=== PATIENT | female | born 1945 | race Hispanic/Latino ===

== ENCOUNTER 2018-09-19 13:55 | Emergency (ER) | payer OTHER ==
--- OUTSIDE RECORDS SUMMARY | 2018-09-19 13:58 | XMS REPORT | Continuity of Care Document ---
:1945 Author Organization Interface Problems Problem Status Onset Classification Date Comments Source Date Reported CHEST PAIN, ELEVATED Active CARDIAC ENZYMES 017 [facility] SCREENING COLON Active Sugar [id number]-Z12.11 016 [facility] Asthma Active Problem 03/24/2017 [place] Breast cancer, RT. Resolved Problem 03/24/2017 [place] Glaucoma Active Problem 03/24/2017 [place] HTN - Hypertension Active Problem 03/24/2017 [place] Hypercholesterolemia Active Problem 03/24/2017 [place] Hypothyroid Active Problem 03/24/2017 [place] Obesity Active Problem 03/24/2017 [place] CHEST PAIN, Active UNSPECIFIED [facility] Medications Medication Details Route Status Patient Ordering Order Source Instructions Provider Date aspirin 81 mg tablet, 81 mg=1 Active enteric coated tab, PO, 2016 Daily, # 90 tab, 3 Refill(s) Travatan Z 0.004% 1 drp, Active ophthalmic solution OPT, 2016 QPM, # 2.5 ml, 0 Refill(s) Combigan ophthalmic 1 drp, Active solution OPT, 2016 Q12H, # 10 mL, 0 Refill(s) aluminum 2 tab, Active hydroxide-magnesium CHEW, 2016 carbonate 160 mg-105 Daily, 0 mg oral tablet, Refill(s) chewable Tylenol 500 mg, Active PO, Q6H, 2016 PRN Pain Score 1-3, 0 Refill(s) metoprolol extended 25 mg, Active release PO, 2016 Daily, 0 Refill(s) hydrochlorothiazide 12.5 mg, Active PO, 2016 Daily, 0 Refill(s) tramadol 50 mg oral 50 mg=1 Active tablet tab, PO, 2016 Q8H, PRN Pain, # 60 tab, 0 Refill(s) metoprolol 50 mg oral 50 mg=1 Active Sugar tablet, extended tab, PO, 2015 [place] release Daily, 0 Refill(s) Advair Diskus 250 1 puff, Active Sugar mcg-50 mcg inhalation INHALATIO 2015 [place] powder N, BID, PRN Wheezing, 0 Refill(s) Allergies, Adverse Reactions, Alerts Substance Category Reaction Severity Reaction Status Date Comments Source type Reported codeine Assertion Drug Active sulfate allergy [facility] Immunizations Immunization Date Given Site Status Last Updated Comments Source Results Order Name Results Value Reference Date Interpretation Comments Source Range CARDIAC CK MB Index 1.2 0.0 - 2.5 03/21 ENZYMES /2016 [facility] CARDIAC Troponin-I 0.07 0.00 - 03/21 ENZYMES ng/mL 0.40 [facility] CARDIAC BNP 92 <=100 03/21 ENZYMES pg/mL pg/mL [facility] CARDIAC CK MB 1.5 0.5 - 3.6 03/21 ENZYMES ng/mL [facility] CARDIAC Total CK 129 12 - 191 03/21 ENZYMES unit/L [facility] CHEM PANEL eGFR 94 03/21 Result Comment: The eGFR is calculated using the CKD-EPI formula. In most young, healthy individuals the eGFR will be >90 mL/ min/1.73m2. The eGFR declines with age. An eGFR of 60-89 may be normal in mL/min/ /2016 some populations, particularly the elderly, for whom the CKD-EPI formula has not been extensively validated. Use of the eGFR is not recommended in the following populations: [place] 1.73m2 Individuals with unstable creatinine concentrations, including patients and those with serious co-morbid conditions. Patients with extremes in muscle mass or diet. The data above are obtained from the National Kidney Disease Education Program (NKDEP) which additionally recommends that when the eGFR is used in patients with extremes of body mass index for purposes of drug dosing, the eGFR should be multiplied by the estimated BMI. CHEM PANEL Total Protein 7.3 6.4 - 8.4 03/21 MH g/dL [facility] CHEM PANEL Albumin Lvl 3.3 3.5 - 5.0 03/21 MH g/dL [facility] CHEM PANEL ALT 73 0 - 65 03/21 MH unit/L [facility] CHEM PANEL CO2 26 24 - 32 03/21 MH meq/L /2016 [facility] CHEM PANEL Chloride Lvl 107 95 - 109 03/21 MH meq/L /2016 [facility] CHEM PANEL Calcium Lvl 8.6 8.5 - 10.5 03/21 MH mg/dL /2016 [facility] CHEM PANEL Globulin 4.0 2.7 - 4.2 03/21 MH g/dL /2016 [facility] CHEM PANEL A/G Ratio 0.8 0.7 - 1.6 10 MH /2016 [facility] CHEM PANEL AGAP 9.5 10.0 - 03/21 MH meq/L 20.0 /2016 [facility] CHEM PANEL AST 83 0 - 37 03/21 MH unit/L /2016 [facility] CHEM PANEL Alk Phos 102 39 - 136 03/21 MH unit/L /2016 [facility] CHEM PANEL Bili Total 1.0 0.2 - 1.3 03/21 MH mg/dL /2016 [facility] CHEM PANEL B/C Ratio 32 6 - 25 03/21 MH /2016 [facility] CHEM PANEL Glucose Lvl 100 70 - 99 03/21 MH mg/dL /2016 [facility] CHEM PANEL Creatinine 0.53 0.50 - 03/21 MH Lvl mg/dL 1.40 /2016 [facility] CHEM PANEL Sodium Lvl 139 135 - 145 03/21 MH meq/L /2016 [facility] CHEM PANEL BUN 17 7 - 22 03/21 MH mg/dL /2016 [facility] CHEM PANEL Potassium Lvl 3.5 3.5 - 5.1 03/21 MH meq/L /2016 [facility] HEMATOLOGY Hgb 12.1 12.0 - 03/21 MH g/dL 16.0 /2016 [facility] HEMATOLOGY RBC 4.44 4.20 - 03/21 MH M/CMM 5.40 /2016 [facility] HEMATOLOGY WBC 6.5 3.7 - 10.4 03/21 MH K/CMM /2016 [facility] HEMATOLOGY RDW 14.2 % 11.5 - 03/21 MH 14.5 /2016 [facility] HEMATOLOGY MCHC 32.8 32.0 - 03/21 MH g/dL 36.0 /2016 [facility] HEMATOLOGY MCH 27.3 pg 27.0 - 03/21 MH 31.0 [facility] HEMATOLOGY MCV 83.3 fL 80.0 - 03/21 MH 98.0 /2016 [facility] HEMATOLOGY Hct 37.0 % 36.0 - 03/21 MH 48.0 /2016 [facility] HEMATOLOGY MPV 7.6 fL 7.4 - 10.4 10/ [facility] HEMATOLOGY Platelet 265 133 - 450 03/21 K/CM [facility] HEMATOLOGY Monocytes 9.2 % 2.0 - 12.0 03/21 [facility] HEMATOLOGY Lymphocytes 31.5 % 20.0 - 03/21 40.0 [place] HEMATOLOGY Segs 58.2 % 45.0 - 03/21 75.0 [facility] HEMATOLOGY Basophils 0.3 % 0.0 - 1.0 03/21 [place] HEMATOLOGY Eosinophils 0.8 % 0.0 - 4.0 03/21 [place] HEMATOLOGY Monocytes # 0.6 0.0 - 0.8 03/21 K/CM [facility] HEMATOLOGY Lymphocytes # 2.0 1.0 - 5.5 03/21 K/CM [facility] HEMATOLOGY Segs-Bands # 3.8 1.5 - 8.1 03/21 K/CM [facility] HEMATOLOGY Eosinophils # 0.1 0.0 - 0.5 03/21 K/CM [facility] Vital Signs Vital Sign Value Date Comments Source Systolic (mm Hg) 113 03/21/2017 [place] Diastolic (mm Hg) 65 03/21/2017 [place] Respitory Rate 18 03/21/2017 [facility] Temperature Oral (F) 97.8 F 03/21/2017 [facility] Respitory Rate 21 03/21/2017 [facility] Respitory Rate 18 03/21/2017 [facility] Systolic (mm Hg) 118 03/21/2017 [facility] Diastolic (mm Hg) 79 03/21/2017 [facility] Systolic (mm Hg) 98 03/21/2017 [facility] Diastolic (mm Hg) 53 03/21/2017 [facility] Temperature Oral (F) 98 F 03/21/2017 [place] Weight 80.227 03/21/2017 [place] Height 91.44 cm 03/21/2017 [place] BMI Calculated 95.95 03/21/2017 [facility] Temperature Oral (F) 98.3 F 03/21/2017 [facility] BMI Calculated 30.71 09/07/2015 [place] Height 160.02 cm 09/07/2015 [place] Weight 78.636 09/07/2015 [place] Encounters Location Location Encounter Encounter Reason Attending ADM DC Status Source Details Type Number For Provider Date Date Visit Outpatient [id number] YUNIOR 08/15 [facility] [id number] Yunior 09/08 09/08 Adelaida Recinos [facility] [place] [facility] [place] [facility] [id number] Ubaldo 03/21 03/21 WILNER Bravo /2016 [facility] Procedures Procedure Code Date Perfomer Comments Source Abdominal [id number] [place] hysterectomy Bilateral tubal [id number] [place] ligation Cholecystectomy [id number] [place] Mastectomy, RT. [id number] [place] Abdominal [id number] [place] hysterectomy Bilateral tubal [id number] [place] ligation Cholecystectomy [id number] [place] Mastectomy, [place]. [id number] [facility]
[2018-09-19 14:48] LABS: Absolute Lymphocytes (CBC) 1.5 K/uL (0.7-4.9); Absolute Monocytes 0.7 K/uL (0.1-1.3); Absolute Neutrophil 7.7 K/uL (1.8-8.0); Basophils % 0.2 % (0-1.3); Eosinophils % 0.3 % (0-4.4); Hematocrit 38.6 % (36.0-45.0); Monocytes % 6.9 % (3.3-12.3)
[2018-09-19 15:06] LABS: ALT/SGPT 20 U/L (12-78); AST/SGOT 16 U/L (15-37); Albumin 3.8 g/dL (3.4-5.0); Alkaline Phosphatase 103 U/L (45-117); BUN Blood Urea Nitrogen 16 mg/dL (7-18); Bicarbonate 27 mmol/L (21-32); Bilirubin Direct 0.2 mg/dL (0-0.2); Bilirubin Total 0.8 mg/dL (0.2-1.0); Glucose Level 108 mg/dL (74-106); Lipase 193 U/L (73-393); Potassium 3.5 mmol/L (3.5-5.1); Protein, Total 8.2 g/dL (6.4-8.2); Sodium Level 140 mmol/L (136-145)
[2018-09-19] MEDS ORDERED: NA CHLORIDE 0.9% 1,000 ML ONE (15:24)
[2018-09-19] MEDS ORDERED: ONDANSETRON 4 MG/2 ML VIAL ONE (15:24)
--- NOTE | 2018-09-19 15:50 | RAD REPORT ---
EXAM DESCRIPTION: CT - Abdomen Pelvis W Contrast - 09/19/2018 3:38 pm CLINICAL HISTORY: Abdominal pain COMPARISON: none. TECHNIQUE: Computed axial tomography of the abdomen pelvis was obtained. 100 cc Isovue-300 was admin istered intravenously. Oral contrast was not requested which limits evaluation of bowel. All CT scans are performed using dose optimization technique as appropriate and may include automated exposure control or mA/KV adjustment according to patient size. FINDINGS: Right middle lobe bronchiectasis . Small hiatal hernia The liver, spleen, pancreas, adrenal and left kidney appear unremarkable. 27 millimeter right renal cyst Large number of diverticula stem from the colon without evidence of diverticulitis. The wall of several loops of jejunum are thickened with stranding within the adjacent mesenteric. Sma ll amount of ascites is present Gallbladder has been removed. A hysterectomy is been performed IMPRESSION: Thickening of the wall of several loops of jejunum with stranding in the adjacent mesent cynthia probably indicating infection/inflammation.
--- NOTE | 2018-09-19 15:56 | ER ---
Nurse's Notes [facility] Name: Bertha Sherwood Age: 73 yrs Sex: Female : 1945 Arrival Date: 09/19/2018 Time: 13:58 Bed 5 Private MD: Jose Manuel Cancino Diagnosis: Left sided colitis Presentation: 09/19 14:00 Presenting complaint: Patient states: dizziness, n/v/d, diffuse abd pain x 2 weeks. sv Transition of care: patient was not received from another setting of care. Onset of symptoms was August 2018. Care prior to arrival: None. 14:00 Method Of Arrival: Ambulatory sv 14:00 Acuity: ANIKET 3 sv 16:34 Risk Assessment: Do you want to hurt yourself or someone else? Patient reports no ss desire to harm self or others. Initial Sepsis Screen: Does the patient meet any 2 criteria? No. Patient's initial sepsis screen is negative. Does the patient have a suspected source of infection? No. Patient's initial sepsis screen is negative. Triage Assessment: 14:00 General: Appears in no apparent distress. comfortable, well developed, Behavior is sv calm, cooperative, appropriate for age. Pain: Denies pain. Neuro: Level of Consciousness is awake, alert, obeys commands, Oriented to person, place, time, situation, Gait is steady. Neuro: Reports dizziness. Respiratory: Respiratory effort is even, unlabored, Respiratory pattern is regular, symmetrical. GI: Reports diarrhea, nausea, vomiting. Historical: - Allergies: 14:01 Codeine; sv - PMHx: 14:01 Cancer, Breast; GERD; Hernia; Hyperlipidemia; Hypertension; Hypothyroidism; sv - PSHx: 14:01 Hernia repair; sv - Immunization history:: Adult Immunizations up to date. - Social history:: Smoking status: Patient/guardian denies using tobacco, never smoked. - Ebola Screening: : Patient denies exposure to infectious person Patient denies travel to an Ebola-affected area in the 21 days before illness onset. Screenin:10 Abuse screen: Denies threats or abuse. Denies injuries from another. Nutritional bp screening: No deficits noted. Tuberculosis screening: No symptoms or risk factors identified. Fall Risk None identified. Assessment: 14:15 General: Appears in no apparent distress. comfortable, Behavior is cooperative, bp appropriate for age, anxious. Pain: Complains of pain in left lower quadrant. Neuro: Level of Consciousness is awake, alert, obeys commands, Oriented to person, place, time, situation, Appropriate for age Reports dizziness. Cardiovascular: Rhythm is sinus rhythm. Respiratory: Airway is patent Respiratory effort is even, unlabored, Respiratory pattern is regular, symmetrical. GI: Reports nausea, vomiting. GI: Abdomen is non-distended. : No signs and/or symptoms were reported regarding the genitourinary system. EENT: No deficits noted. Derm: No deficits noted. Musculoskeletal: Circulation, motion, and sensation intact. Range of motion: intact in all extremities. 15:04 Reassessment: orthostatics complete. pt became mildly dizzy when sitting on the side of ss the bed. DONNA Lewis. 16:23 Reassessment: Patient appears in no apparent distress at this time. Patient and/or ss family updated on plan of care and expected duration. Pain level reassessed. Patient is alert, oriented x 3, equal unlabored respirations, skin warm/dry/pink. awaiting IVF to finish infusing prior to discharge Patient denies pain at this time. Patient states feeling better. Vital Signs: 14:01 BP 116 / 72; Pulse 99; Resp 16; Temp 97.9; Pulse Ox 98% ; Weight 77.11 kg; Height 5 ft. sv 3 in. (160.02 cm); Pain 0/10; 15:02 BP 115 / 54 Supine; Pulse 88; ss 15:02 BP 89 / 47 Sitting; Pulse 93; ss 15:02 BP 92 / 49; Pulse 97; ss 16:33 BP 108 / 67; Pulse 87; Resp 16; Pulse Ox 98% on R/A; Pain 0/10; ss 14:01 Body Mass Index 30.11 (77.11 kg, 160.02 cm) sv ED Course: 13:58 Patient arrived in ED. mr 13:58 Jose Manuel Cancino MD is Private Physician. mr 14:01 Triage completed. sv 14:02 Arm band placed on. sv 14:03 Sigifredo Lerma, LULÚ is Primary Nurse. bp 14:03 Debbie Austin FNP-C is PHCP. kb 14:03 Silvestre Wilson MD is Attending Physician. kb 14:10 Patient has correct armband on for positive identification. Bed in low position. Call bp light in reach. Side rails up X2. Adult w/ patient. 14:10 Inserted saline lock: 20 gauge in left antecubital area, using aseptic technique. Blood bp collected. 15:38 CT Abd/Pelvis - W/Contrast In Process Unspecified. EDMS 16:33 No provider procedures requiring assistance completed. IV discontinued, intact, ss bleeding controlled, No redness/swelling at site. Pressure dressing applied. Administered Medications: 15:25 Drug: Zofran 4 mg Route: IVP; Site: left antecubital; ss 16:22 Follow up: Response: No adverse reaction; Nausea is decreased ss 15:26 Drug: NS 0.9% 1000 ml Route: IV; Rate: 1000 ml; Site: left antecubital; ss 16:32 Follow up: IV Status: Completed infusion; IV Intake: 1000ml ss 16:21 Drug: Flagyl 500 mg Route: PO; ss 16:32 Follow up: Response: No adverse reaction; Medication administered at discharge. ss 16:22 Drug: Cipro 500 mg Route: PO; ss 16:32 Follow up: Response: No adverse reaction; Medication administered at discharge. ss Intake: 16:32 IV: 1000ml; Total: 1000ml. ss Outcome: 15:56 Discharge ordered by . kb 16:33 Discharged to home ambulatory, with family. ss 16:33 Condition: improved 16:33 Discharge instructions given to patient, family, Instructed on discharge instructions, follow up and referral plans. medication usage, Demonstrated understanding of instructions, follow-up care, medications, Prescriptions given X 2. 16:35 Patient left the ED. ss Signatures: Dispatcher [employer] EDNC Debbie Austin, TYREE LEHR OPERATOR-Kinsey Lenz, RN RN fabby Mayfield Yasmeen mr Sonya Can, RN RN Sigifredo Tan, RN RN bp
--- NOTE | 2018-09-19 15:56 | EDPHYS ---
Physician Documentation [facility] Name: Bertha Sherwood Age: 73 yrs Sex: Female : 1945 Arrival Date: 09/19/2018 Time: 13:58 Bed 5 Private MD: Jose Manuel Cancino ED Physician Silvestre Wilson HPI: 09/19 14:52 This 73 yrs old Female presents to ER via Ambulatory with complaints of kb Dizziness, Vomiting. 14:52 The patient presents with dizziness. kb 14:52 The patient presents to the emergency department with nausea, vomiting, diarrhea, kb abdominal pain. Onset: The symptoms/episode began/occurred 2 week(s) ago. Possible causes: unknown. The symptoms are aggravated by nothing. The symptoms are alleviated by nothing. Associated signs and symptoms: Pertinent positives: diarrhea, nausea, vomiting. Severity of symptoms: At their worst the symptoms were moderate in the emergency department the symptoms are unchanged. The patient has not experienced similar symptoms in the past. The patient has not recently seen a physician. Pt reports n/v/d, abd pain and dizziness that has been going on for 2 weeks. 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 Denies fever. . Historical: - Allergies: 14:01 Codeine; sv - PMHx: 14:01 Cancer, Breast; GERD; Hernia; Hyperlipidemia; Hypertension; Hypothyroidism; sv - PSHx: 14:01 Hernia repair; sv - Immunization history:: Adult Immunizations up to date. - Social history:: Smoking status: Patient/guardian denies using tobacco, never smoked. - Ebola Screening: : Patient denies exposure to infectious person Patient denies travel to an Ebola-affected area in the 21 days before illness onset. ROS: 14:51 Constitutional: Negative for fever, chills, and weight loss, Cardiovascular: Negative kb for chest pain, palpitations, and edema, Respiratory: Negative for shortness of breath, cough, wheezing, and pleuritic chest pain, Back: Negative for injury and pain, MS/Extremity: Negative for injury and deformity, Skin: Negative for injury, rash, and discoloration. 14:51 Abdomen/GI: Positive for abdominal pain, nausea, vomiting, and diarrhea, Negative for constipation, abdominal cramps, abdominal distension. 14:51 Neuro: Positive for dizziness. Exam: 14:50 Constitutional: This is a well developed, well nourished patient who is awake, alert, kb and in no acute distress. Head/Face: Normocephalic, atraumatic. Chest/axilla: Normal chest wall appearance and motion. Nontender with no deformity. No lesions are appreciated. Cardiovascular: Regular rate and rhythm with a normal S1 and S2. No gallops, murmurs, or rubs. Normal PMI, no JVD. No pulse deficits. Respiratory: Lungs have equal breath sounds bilaterally, clear to auscultation and percussion. No rales, rhonchi or wheezes noted. No increased work of breathing, no retractions or nasal flaring. Back: No spinal tenderness. No costovertebral tenderness. Full range of motion. Skin: Warm, dry with normal turgor. Normal color with no rashes, no lesions, and no evidence of cellulitis. MS/ Extremity: Pulses equal, no cyanosis. Neurovascular intact. Full, normal range of motion. Neuro: Awake and alert, GCS 15, oriented to person, place, time, and situation. Cranial nerves II-XII grossly intact. Motor strength 5/5 in all extremities. Sensory grossly intact. Cerebellar exam normal. Normal gait. 14:50 Abdomen/GI: Inspection: abdomen appears normal, Bowel sounds: normal, in all quadrants, Palpation: soft, in all quadrants, moderate abdominal tenderness, in the left lower quadrant. Vital Signs: 14:01 BP 116 / 72; Pulse 99; Resp 16; Temp 97.9; Pulse Ox 98% ; Weight 77.11 kg; Height 5 ft. sv 3 in. (160.02 cm); Pain 0/10; 15:02 BP 115 / 54 Supine; Pulse 88; ss 15:02 BP 89 / 47 Sitting; Pulse 93; ss 15:02 BP 92 / 49; Pulse 97; ss 16:33 BP 108 / 67; Pulse 87; Resp 16; Pulse Ox 98% on R/A; Pain 0/10; ss 14:01 Body Mass Index 30.11 (77.11 kg, 160.02 cm) sv MDM: 14:04 Patient medically screened. kb 14:50 Data reviewed: vital signs, nurses notes. Data interpreted: Pulse oximetry: on room air kb is 98 %. Interpretation: normal. 09/19 14:04 Order name: Basic Metabolic Panel; Complete Time: 15:07 kb 09/19 14:04 Order name: CBC with Diff; Complete Time: 14:57 kb 09/19 14:04 Order name: Hepatic Function; Complete Time: 15:07 kb 09/19 14:04 Order name: Lipase; Complete Time: 15:07 kb 09/19 15:22 Order name: CT Abd/Pelvis - W/Contrast; Complete Time: 15:52 kb 09/19 14:04 Order name: IV Saline Lock; Complete Time: 14:55 kb 09/19 14:04 Order name: Labs collected and sent; Complete Time: 14:55 kb 09/19 14:04 Order name: Orthostatics; Complete Time: 15:02 kb Administered Medications: 15:25 Drug: Zofran 4 mg Route: IVP; Site: left antecubital; ss 16:22 Follow up: Response: No adverse reaction; Nausea is decreased ss 15:26 Drug: NS 0.9% 1000 ml Route: IV; Rate: 1000 ml; Site: left antecubital; ss 16:32 Follow up: IV Status: Completed infusion; IV Intake: 1000ml ss 16:21 Drug: Flagyl 500 mg Route: PO; ss 16:32 Follow up: Response: No adverse reaction; Medication administered at discharge. ss 16:22 Drug: Cipro 500 mg Route: PO; ss 16:32 Follow up: Response: No adverse reaction; Medication administered at discharge. Disposition: 17:11 Co-signature as Attending Physician, Silvestre Wilson MD. ma2 Disposition: 09/19/18 15:56 Discharged to Home. Impression: Left sided colitis. - Condition is Stable. - Discharge Instructions: Viral Gastroenteritis, Adult, [id number], Abdominal Pain, Adult, [id number]. - Prescriptions for Bentyl 20 mg Oral Tablet - take 1 tablet by ORAL route every 6 hours As needed; 20 tablet. Flagyl 500 mg Oral Tablet - take 1 tablet by ORAL route every 8 hours for 10 days; 30 tablet. Zofran 4 mg Oral Tablet - take 1 tablet by ORAL route every 6 hours As needed; 20 tablet. Cipro 500 mg Oral Tablet - take 1 tablet by ORAL route every 12 hours for 10 days; 20 tablet. - Medication Reconciliation Form, Thank You Letter, Antibiotic Education, Prescription Opioid Use form. - Follow up: Emergency Department; When: As needed; Reason: Worsening of condition. Follow up: Private Physician; When: 2 - 3 days; Reason: Recheck today's complaints, Continuance of care, Re-evaluation by your physician. Signatures: Dispatcher [employer] SCOOTER Debbie Austin, TYREE FRAGOSO-Kinsey Lenz RN RN sv Smirch, Shelby, RN RN ss Alzahri, Mohammad, MD MD ma2 Corrections: (The following items were deleted from the chart) 16:35 15:56 09/19/2018 15:56 Discharged to Home. Impression: Left sided colitis. Condition is ss Stable. Forms are Medication Reconciliation Form, Thank You Letter, Antibiotic Education, Prescription Opioid Use. Follow up: Emergency Department; When: As needed; Reason: Worsening of condition. Follow up: Private Physician; When: 2 - 3 days; Reason: Recheck today's complaints, Continuance of care, Re-evaluation by your physician. kb
[2018-09-19] MEDS ORDERED: CIPROFLOXACIN HCL 500 MG TAB ONE (16:14)
[2018-09-19] MEDS ORDERED: metroNIDAZOLE 500 MG TABLET ONE (16:14)
[2018-09-19 17:10] VITALS: TEMP 97.9; O2SAT 98
[2018-09-19 17:14] VITALS: BP 108/67
== END 2018-09-19 16:35 | disposition home or self-care (01) ==
LOC: ER 13:55
DX: K51.50 Left sided colitis without complications (principal); I10 Essential (primary) hypertension; Z85.3 Personal history of malignant neoplasm of breast; Z88.5 Allergy status to narcotic agent
CPT/HCPCS: 96361; 85025; 80048; 36415; 80076; 83690; 74177; 96374; 99284; Q9967; J7030; J2405

== ENCOUNTER 2018-11-01 12:22 | Inpatient (IN) | payer OTHER ==
--- OUTSIDE RECORDS SUMMARY | 2018-11-01 17:34 | XMS REPORT | Continuity of Care Document ---
:1945 Author Organization Interface Problems Problem Status Onset Classification Date Comments Source Date Reported CHEST PAIN, ELEVATED Active CARDIAC ENZYMES 017 [facility] SCREENING COLON Active Sugar CANCER-Z12.11 016 [facility] Asthma Active Problem 03/24/2017 [place] Breast cancer, RT. Resolved Problem 03/24/2017 [place] Glaucoma Active Problem 03/24/2017 [place] HTN - Hypertension Active Problem 03/24/2017 [place] Hypercholesterolemia Active Problem 03/24/2017 [place] Hypothyroid Active Problem 03/24/2017 [place] Obesity Active Problem 03/24/2017 [place] CHEST PAIN, Active UNSPECIFIED [facility] Medications Medication Details Route Status Patient Ordering [...] Reported codeine Assertion Drug Active sulfate allergy [facility] Immunizations Immunization Date Given Site Status Last Updated Comments Source Results Order Name Results Value Reference Date Interpretation Comments Source Range CARDIAC CK MB Index 1.2 0.0 - 2.5 03/21 ENZYMES /2016 [facility] CARDIAC Troponin-I 0.07 0.00 - 03/21 ENZYMES ng/mL 0.40 [facility] CARDIAC BNP 92 <=100 03/21 ENZYMES pg/mL pg/mL [facility] CARDIAC CK MB 1.5 0.5 - 3.6 03/21 ENZYMES ng/mL [facility] CARDIAC Total CK 129 12 - 191 03/21 ENZYMES unit/L [facility] CHEM PANEL eGFR 94 03/21 Result Comment: [...] 7.3 6.4 - 8.4 03/21 MH g/dL [facility] CHEM PANEL Albumin Lvl 3.3 3.5 - 5.0 03/21 MH g/dL [facility] CHEM PANEL ALT 73 0 - 65 03/21 MH unit/L [facility] CHEM PANEL CO2 26 24 - 32 03/21 MH meq/L /2016 [facility] CHEM PANEL Chloride Lvl 107 95 - 109 03/21 MH meq/L /2016 [facility] CHEM PANEL Calcium Lvl 8.6 8.5 - 10.5 03/21 MH mg/dL /2016 [facility] CHEM PANEL Globulin 4.0 2.7 - 4.2 03/21 MH g/dL /2016 [facility] CHEM PANEL A/G Ratio 0.8 0.7 - 1.6 10 MH /2016 [facility] CHEM PANEL AGAP 9.5 10.0 - 03/21 MH meq/L 20.0 /2016 [facility] CHEM PANEL AST 83 0 - 37 03/21 MH unit/L /2016 [facility] CHEM PANEL Alk Phos 102 39 - 136 03/21 MH unit/L /2016 [facility] CHEM PANEL Bili Total 1.0 0.2 - 1.3 03/21 MH mg/dL /2016 [facility] CHEM PANEL B/C Ratio 32 6 - 25 03/21 MH /2016 [facility] CHEM PANEL Glucose Lvl 100 70 - 99 03/21 MH mg/dL /2016 [facility] CHEM PANEL Creatinine 0.53 0.50 - 03/21 MH Lvl mg/dL 1.40 /2016 [facility] CHEM PANEL Sodium Lvl 139 135 - 145 03/21 MH meq/L /2016 [facility] CHEM PANEL BUN 17 7 - 22 03/21 MH mg/dL /2016 [facility] CHEM PANEL Potassium Lvl 3.5 3.5 - 5.1 03/21 MH meq/L /2016 [facility] HEMATOLOGY Hgb 12.1 12.0 - 03/21 MH g/dL 16.0 /2016 [facility] HEMATOLOGY RBC 4.44 4.20 - 03/21 MH M/CMM 5.40 /2016 [facility] HEMATOLOGY WBC 6.5 3.7 - 10.4 03/21 MH K/CMM /2016 [facility] HEMATOLOGY RDW 14.2 % 11.5 - 03/21 MH 14.5 /2016 [facility] HEMATOLOGY MCHC 32.8 32.0 - 03/21 MH g/dL 36.0 /2016 [facility] HEMATOLOGY MCH 27.3 pg 27.0 - 03/[address] [facility] HEMATOLOGY MCV 83.3 fL 80.0 - 03/21 MH 98.0 /2016 [facility] HEMATOLOGY Hct 37.0 % 36.0 - 03/21 MH 48.0 /2016 [facility] HEMATOLOGY MPV 7.6 fL 7.4 - 10.4 10/ [facility] HEMATOLOGY Platelet 265 133 - 450 03/21 [...] # 0.1 0.0 - 0.5 03/21 K/CM [facility] Vital Signs Vital Sign Value Date Comments Source Systolic (mm Hg) 113 03/21/2017 [facility] Diastolic (mm Hg) 65 03/21/2017 [facility] Respitory Rate 18 03/21/2017 [facility] Temperature Oral (F) 97.8 F 03/21/2017 [facility] Respitory Rate 21 03/21/2017 [facility] Respitory Rate 18 03/21/2017 [facility] Systolic (mm Hg) 118 03/21/2017 [facility] Diastolic (mm Hg) 79 03/21/2017 [facility] Systolic (mm Hg) 98 03/21/2017 [facility] Diastolic (mm Hg) 53 03/21/2017 [facility] Temperature Oral (F) 98 F 03/21/2017 [facility] Weight 80.227 03/21/2017 [facility] Height 91.44 cm 03/21/2017 [facility] BMI Calculated 95.95 03/21/2017 [facility] Temperature Oral (F) 98.3 F 03/21/2017 [facility] BMI Calculated 30.71 09/07/2015 [place] Height 160.02 cm 09/07/2015 [place] Weight 78.636 09/07/2015 [place] Encounters Location Location Encounter Encounter Reason Attending ADM DC Status Source Details Type Number For Provider Date Date Visit Outpatient [id number] YUNIOR 08/15 [facility] [id number] Yunior 09/08 09/08 Adelaida Recinos Outpatient [place] /2015 [facility] [id number] Ubaldo 03/21 03/21 WILNER Bravo /2016 [facility] Procedures Procedure Code Date Perfomer Comments Source Abdominal [id number] [place] hysterectomy Bilateral tubal [id number] [place] ligation Cholecystectomy [id number] [place] Mastectomy, RT. [id number] [place] Abdominal [id number] [facility] hysterectomy Bilateral tubal [id number] [facility] ligation Cholecystectomy [id number] [place] Mastectomy[place]. [id number] [facility]
[2018-11-01] MEDS ORDERED: clonazePAM 0.5 MG TAB PO PRN (18:15)
[2018-11-01] MEDS: ONDANSETRON 4 MG/2 ML VIAL IV PRN (18:16)
[2018-11-01] MEDS ORDERED: NITROGLYCERIN 0.4 MG/TAB SL PRN (18:17)
[2018-11-01 18:30] VITALS: BMI 30.9
--- NOTE | 2018-11-01 18:37 | P.HP ---
Patient History Date of Service: 11/01/18 Primary Care Provider: Dr. Cancino Reason for admission: Chest pain History of Present Illness: This is a 73-year-old female with history of hypertension, hyperlipidemia who was transferred from [facility] for chest pain. Per patient, afternoon she started with chest pain that she describes as pressure-like pain. This started while she was sitting and drinking tea. States that it radiated down her left arm and upper jaw/neck. No alleviating or exacerbating factors. EMS was called and she was taken to [facility]. Per patient, she has been seeing as an outpatient for chest pain. She was supposed to follow up, but had this episode and was taken to the hospital. Per check out, she remained hemodynamically stable at the hospital, troponins were negative x3, EKG with just sinus tach. She did receive some IV fluid bolus. She continued to have chest pain, and therefore was transferred here for continuity of care with the automotive technician. At the time of my exam, she was alert oriented x3, in no mild distress due to nausea, but hemodynamically stable. Allergies codeine [Codeine] Allergy (Mild, Verified 09/18/16 08:01) migraines, N/V Home Medications: RX: Atorvastatin Calcium [Lipitor*] 10 mg PO DAILY 05/06/17 RX: Cranberry Conc/Ascorbic Acid [Cranberry Plus Vitamin C Sftgl] 4,200 mg PO DAILY 05/06/17 RX: Fluticasone/Salmeterol [Advair 250-50 Diskus] 1 puff IH PRN PRN 05/06/17 RX: Levothyroxine [Synthroid*] 0.1 mg PO DAILY 05/06/17 RX: Sertraline [Zoloft*] 50 mg PO PRN 05/06/17 RX: Travoprost [Travatan Z*] 1 drop OPTH DAILY 05/06/17 RX: clonazePAM [Klonopin*] 0.5 mg PO BEDTIME PRN 05/06/17 RX: hydroCHLOROthiazide [Hydrochlorothiazide*] 1 tab PO DAILY 05/06/17 RX: Benzonatate [Tessalon Perle*] 200 mg PO TID PRN #20 cap 05/08/17 Diclofenac Na [Voltaren D.R] 75 mg PO DAILY 11/01/18 RX: Cyclobenzaprine [Flexeril*] 1 tab PO BID 11/01/18 RX: Lisinopril 10 mg PO DAILY 11/01/18 RX: Pantoprazole [Protonix Tab*] 1 tab PO DAILY 11/01/18 - Past Medical/Surgical History Has patient received pneumonia vaccine in the past: Yes -: HLD -: HTN -: Hypothryoidism -: Breast CA 88 -: Hernia -: Arthritis -: Collapsed discs -: R Mastectomy 88 -: Tubal ligation -: Bladder lift -: Hernia Repair - Social History Smoking Status: Never smoker Alcohol use: No CD- Drugs: No Caffeine use: Yes Review of Systems 10-point ROS is otherwise unremarkable Physical Examination - Vital Signs Temperature: 97.0 F Blood Pressure: 116/59 Pulse: 92 Respirations: 17 Pulse Ox (%): 90 - Physical Exam General: Alert, Oriented x3, Mild distress HEENT: Atraumatic, PERRLA, Mucous membr. moist/pink, EOMI, Sclerae nonicteric Neck: Supple, 2+ carotid pulse no bruit, No LAD, Without JVD or thyroid abnormality Respiratory: Clear to auscultation bilaterally, Normal air movement Cardiovascular: Regular rate/rhythm, Normal S1 S2 Gastrointestinal: Normal bowel sounds, No tenderness Musculoskeletal: No tenderness Integumentary: No rashes Neurological: Normal gait, Normal speech, Normal strength at 5/5 x4 extr, Normal tone, Normal affect Lymphatics: No axilla or inguinal lymphadenopathy Assessment and Plan - Problems (Diagnosis) (1) Chest pain Current Visit: Yes Status: Acute (2) Hypertension Current Visit: Yes Status: Acute (3) Hyperlipidemia Current Visit: Yes Status: Acute - Plan Admit to floor as observation. Start chest pain guidelines with beta-christy, aspirin and Plavix. Patient already on GENEVIEVE-inhibitor. Nitro p.r.n. for pain Resume home medications as appropriate. Cardiology consulted, awaiting recommendations. Echo and further cardiology workup per automotive technician. DVT prophylaxis: Lovenox GI prophylaxis: Protonix, home medication Diet: Heart healthy Disposition: Pending cardiac workup - Advance Directives Does patient have a Living Will: No Does patient have a Durable POA for Healthcare: No
[2018-11-01] MEDS ORDERED: SERTRALINE HCL 50 MG TAB PO SCH (19:00)
[2018-11-01 19:10] LABS: Absolute Lymphocytes (CBC) 1.1 K/uL (0.7-4.9); Absolute Monocytes 0.7 K/uL (0.1-1.3); Absolute Neutrophil 3.9 K/uL (1.8-8.0); Basophils % 0.3 % (0-1.3); Eosinophils % 0.4 % (0-4.4); Hematocrit 34.3 % (36.0-45.0); Lymphocytes % 19.2 % (15.3-44.8); MPV 7.7 fL (7.6-11.3); Monocytes % 11.7 % (3.3-12.3); RBC Red Blood Cell Count 4.08 M/uL (3.86-4.86)
[2018-11-01 19:37] LABS: Alkaline Phosphatase 370 U/L (45-117); BUN Blood Urea Nitrogen 15 mg/dL (7-18); Bicarbonate 26 mmol/L (21-32); Bilirubin Total 1.7 mg/dL (0.2-1.0); Glucose Level 131 mg/dL (74-106); NT PRO-BNP 962 pg/mL (<450); Potassium 3.9 mmol/L (3.5-5.1); Protein, Total 7.2 g/dL (6.4-8.2); Sodium Level 136 mmol/L (136-145)
[2018-11-01 19:55] LABS: ALT/SGPT 2231 U/L (12-78); AST/SGOT 3008 U/L (15-37)
[2018-11-01] MEDS ORDERED: ATORVASTATIN 10 MG TAB PO SCH (21:00)
[2018-11-01] MEDS: ENOXAPARIN 40 MG/0.4 ML SQ SCH (21:23)
[2018-11-01 23:33] LABS: Urine Appearance CLEAR; Urine Bilirubin NEGATIVE (NEG); Urine Blood 2+ (NEG); Urine Color YELLOW; Urine Glucose NEGATIVE (NEG); Urine Protein TRACE (NEG); Urine Specific Gravity >=1.030 (1.005-1.030); Urine pH 6.5 (5.0-7.0)
[2018-11-01 23:35] LABS: Protime INR 1.16
[2018-11-02 00:07] LABS: Urine Microscopic Reflex ORDER UMIC
[2018-11-02 00:21] LABS: Albumin 3.1 g/dL (3.4-5.0); Alkaline Phosphatase 338 U/L (45-117); Bilirubin Total 1.8 mg/dL (0.2-1.0); CKMB Creatine Kinase MB < 1.0 ng/mL (0.3-3.6); Creatine Phosphokinase 59 U/L (26-192); Lipase 107 U/L (73-393); Protein, Total 7.5 g/dL (6.4-8.2)
[2018-11-02 00:22] LABS: Urine Bacteria <20 /HPF (<20); Urine Culture Reflex Order NOT NEEDED
[2018-11-02 00:23] LABS: ALT/SGPT 1948 U/L (12-78); AST/SGOT 2201 U/L (15-37)
[2018-11-02] MEDS: NA CHLORIDE 0.9% 1,000 ML IV SCH ×4 (00:58→20:26)
[2018-11-02] MEDS: METOPROLOL TAR 25 MG TAB PO SCH ×2 (05:38→17:11)
[2018-11-02] MEDS: LEVOTHYROXINE SOD 0.1 MG TAB PO SCH (05:38)
[2018-11-02 05:54] LABS: Absolute Lymphocytes (CBC) 1.1 K/uL (0.7-4.9); Absolute Monocytes 0.5 K/uL (0.1-1.3); Absolute Neutrophil 3.7 K/uL (1.8-8.0); Basophils % 0.4 % (0-1.3); Eosinophils % 1.1 % (0-4.4); Hematocrit 33.8 % (36.0-45.0); Lymphocytes % 20.1 % (15.3-44.8); MPV 7.5 fL (7.6-11.3); Monocytes % 9.8 % (3.3-12.3); RBC Red Blood Cell Count 4.08 M/uL (3.86-4.86)
[2018-11-02 06:23] LABS: ALT/SGPT 1634 U/L (12-78); AST/SGOT 1563 U/L (15-37); Albumin 2.9 g/dL (3.4-5.0); Alkaline Phosphatase 329 U/L (45-117); BUN Blood Urea Nitrogen 11 mg/dL (7-18); Bicarbonate 27 mmol/L (21-32); Bilirubin Direct 0.7 mg/dL (0-0.2); Bilirubin Total 1.4 mg/dL (0.2-1.0); Glucose Level 92 mg/dL (74-106); Magnesium 2.3 mg/dL (1.8-2.4); Phosphorus 2.7 mg/dL (2.5-4.9); Potassium 3.8 mmol/L (3.5-5.1); Protein, Total 7.1 g/dL (6.4-8.2); Sodium Level 137 mmol/L (136-145)
[2018-11-02] MEDS: MORPHINE 2 MG/ML SYR IV PRN (07:18)
--- NOTE | 2018-11-02 07:54 | EKG ---
Test Date: 2018-11-01 Test Time: 18:34:18 Stamp Machine Servicer: BUCK MEASUREMENT RESULTS: Intervals: Rate: 91 W[place]: 170 QRSD: 90 QT: 386 QTc: 474 [place]: P: 9 WY: 170 QRS: -11 T: 11 INTERPRETIVE STATEMENTS: Normal sinus rhythm Prolonged QT Abnormal ECG Compared to ECG 05/06/2017 11:16:30 Prolonged QT interval now present Electronically Signed On 11-02-18 07:52:51 CDT by Mahesh Garcia
[2018-11-02] MEDS ORDERED: KCL 20 MEQ/100 mL IVPB 20 MEQ/100 ML BAG IV SCH (08:00)
--- NOTE | 2018-11-02 08:21 | RAD REPORT ---
EXAM DESCRIPTION: CT - Abdomen Pelvis W Contrast - 11/01/2018 10:15 pm CLINICAL HISTORY: Chest pain, abnormal liver function, breast cancer history, prior cholecystectomy COMPARISON: September 19, 2018 CT study TECHNIQUE: Biphasic, helical CT imaging of the abdomen and pelvis was performed following 100 ml non -ionic IV contrast. Oral contrast was given. All CT scans are performed using dose optimization technique as appropriate and may include automated exposure control or mA/KV adjustment according to patient size. FINDINGS: Chronic parenchymal stranding and bronchiectasis present in the medial anterior right lung base. This matches the August study. Patient also has atelectasis in each posterior gutter. Trace ple ural fluid is present. Cardiomegaly is present similar to comparison. No changes to the liver. No focal liver lesions seen. Spleen and pancreas show no acute findings. Gal lbladder and biliary tree are also without suspicious finding. Symmetric renal function is seen with no hydronephrosis or suspicious renal mass. No pyelonephritis o r acute parenchymal process. No bladder abnormalities. Renal cysts are again noted. No adrenal abnorm alities. Small hiatal hernia noted. Small amount of retained fluid in the distal esophagus. No gastric dilatat ion or wall thickening. No acute small bowel finding identified. There is prominent left-sided divert iculosis without acute diverticulitis. No colon mass or active colon process identified. No free air, free fluid or inflammatory stranding. No hernia, mass or bulky lymphadenopathy. Uterus is absent. O varies are absent or atrophic. Disc and bone degenerative changes are present. IMPRESSION: Patient is status post cholecystectomy with mild dilatation of the biliary tree within n ormal limits for a post cholecystectomy patient. No focal liver lesion identified. Liver is unchanged from August 2018. As detailed above, no additional significant or suspicious findings are noted. No significant changes from prior imaging.
[2018-11-02] MEDS: PANTOPRAZOLE 40MG TABLET PO SCH (08:58)
[2018-11-02] MEDS: CLOPIDOGREL 75 MG TABLET PO SCH (08:58)
[2018-11-02] MEDS: LISINOPRIL 10 MG TAB PO SCH (08:58)
[2018-11-02] MEDS: hydroCHLOROthiazide 12.5 MG CAP PO SCH (08:59)
[2018-11-02] MEDS ORDERED: DEXAMETHASONE 10 MG/ML VIAL IV ONE (09:00)
[2018-11-02] MEDS: ASPIRIN EC 81 MG TAB PO SCH (09:01)
[2018-11-02] MEDS: ONDANSETRON 4 MG/2 ML VIAL IV PRN ×2 (09:06→17:12)
--- NOTE | 2018-11-02 10:17 | RAD REPORT ---
EXAM DESCRIPTION: RAD - Shoulder Left 2 View - 11/02/2018 10:12 am CLINICAL HISTORY: Left shoulder pain, decreased range of motion COMPARISON: None. TECHNIQUE: Internal and external rotation views of the left shoulder were obtained. FINDINGS: There is no fracture or dislocation. AC joint is normal in appearance. No acute or suspici ous findings. No suspicious soft tissue calcification. IMPRESSION: Negative two-view left shoulder examination for acute or significant finding.
--- NOTE | 2018-11-02 11:44 | P.CNS ---
Date of Consult: 11/02/18 Primary Care Provider: Dr. 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 emergency room as been complaining of some discomfort in the left shoulder denies any cough sputum hemoptysis fever or chills has been complaining of some vomiting patient was found to have acute hepatocellular injury denies any abdominal pain Allergies codeine [Codeine] Allergy (Mild, Verified 09/18/16 08:01) migraines, N/V Home Medications: Atorvastatin Calcium [Lipitor*] 10 mg PO DAILY 05/06/17 Cranberry Conc/Ascorbic Acid [Cranberry Plus Vitamin C Sftgl] 4,200 mg PO DAILY 05/06/17 Fluticasone/Salmeterol [Advair 250-50 Diskus] 1 puff IH PRN PRN 05/06/17 Levothyroxine [Synthroid*] 0.1 mg PO DAILY 05/06/17 Sertraline [Zoloft*] 50 mg PO PRN 05/06/17 Travoprost [Travatan Z*] 1 drop OPTH DAILY 05/06/17 clonazePAM [Klonopin*] 0.5 mg PO BEDTIME PRN 05/06/17 hydroCHLOROthiazide [Hydrochlorothiazide*] 1 tab PO DAILY 05/06/17 Benzonatate [Tessalon Perle*] 200 mg PO TID PRN #20 cap 05/08/17 Cyclobenzaprine [Flexeril*] 1 tab PO BID 11/01/18 Diclofenac Na [Voltaren D.R] 75 mg PO DAILY 11/01/18 Lisinopril 10 mg PO DAILY 11/01/18 Pantoprazole [Protonix Tab*] 1 tab PO DAILY 11/01/18 - Past Medical/Surgical History -: HLD -: HTN -: Hypothryoidism -: Breast CA 88 -: Hernia -: Arthritis -: Collapsed discs -: R Mastectomy 88 -: Tubal ligation -: Bladder lift -: Hernia Repair - Social History Smoking Status: Never smoker Alcohol use: No CD- Drugs: No Caffeine use: Yes Review of Systems 10-point ROS is otherwise unremarkable Gastrointestinal: Nausea, Vomiting Physical Examination Temp Pulse Resp BP Pulse Ox 97.0 F 95 H 17 120/61 90 L 11/02/18 08:00 11/02/18 08:59 11/02/18 08:00 11/02/18 08:59 11/02/18 08:00 General: Alert, In no apparent distress, Oriented x3 Respiratory: Clear to auscultation bilaterally Cardiovascular: No edema, Regular rate/rhythm, Normal S1 S2 Gastrointestinal: Normal bowel sounds, Soft and benign Laboratory Data (last 24 hrs) 11/02/18 05:36: Sodium 137, Potassium 3.8, BUN 11, Creatinine 0.45 L, Glucose 92 , Phosphorus 2.7, Magnesium 2.3, Total Bilirubin 1.4 H, AST 1563 H* D, ALT 1634 H* D, Alkaline Phosphatase 329 H 11/02/18 05:36: WBC 5.3, Hgb 11.1 L, Hct 33.8 L, Plt Count 308 11/02/18 05:36: Troponin I < 0.02 11/01/18 22:46: PT 13.6 H, INR 1.16, APTT 35.8 11/01/18 22:46: Troponin I 0.02 11/01/18 22:46: Total Bilirubin 1.8 H, AST 2201 H* D, ALT 1948 H* D, Alkaline Phosphatase 338 H, Lipase 107 11/01/18 18:50: Sodium 136, Potassium 3.9, BUN 15, Creatinine 0.55, Glucose 131 H, Total Bilirubin 1.7 H, AST 3008 H*, ALT 2231 H*, Alkaline Phosphatase 370 H 11/01/18 18:50: WBC 5.7, Hgb 11.1 L, Hct 34.3 L, Plt Count 304 11/01/18 18:50: Troponin I 0.02 - Problems (1) Liver failure Current Visit: Yes Status: Acute Plan: Patient has acute liver failure significant elevation of ALT and AST minimal elevation of alkaline phosphatase complaining of vomiting abdomen is very soft CT scan does not show any abnormality acetaminophen level is negative hepatitis tests are pending I have also ordered DEA anti smooth muscle antibody liver function tests are improving Qualifiers: Liver failure chronicity: acute (2) Bronchiectasis Current Visit: Yes Status: Acute Plan: Patient has right middle lobe bronchiectasis 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
--- NOTE | 2018-11-02 12:47 | P.PN ---
Subjective Date of Service: 11/02/18 Primary Care Provider: Dr. Cancino Chief Complaint: Chest pain Patient seen and examined at bedside. Chart reviewed, case discussed with nursing staff. Patient continues to complain of left should discomfort and nausea. Reports improved abdominal pain. Review of Systems 10-point ROS is otherwise unremarkable Physical Examination - Vital Signs Temperature: 97.0 F Blood Pressure: 120/61 Pulse: 95 Respirations: 17 Pulse Ox (%): 90 - Physical Exam General: Alert, Oriented x3, Mild distress HEENT: Atraumatic, PERRLA, EOMI Neck: Supple, JVD not distended Respiratory: Clear to auscultation bilaterally, Normal air movement Cardiovascular: Regular rate/rhythm, Normal S1 S2 Gastrointestinal: Normal bowel sounds, Tenderness (mild, on deep palpation, diffuse) Musculoskeletal: No tenderness Integumentary: No rashes Neurological: Normal speech, Normal tone, Normal affect Lymphatics: No axilla or inguinal lymphadenopathy - Studies Laboratory Data (last 24 hrs) 11/02/18 05:36: Sodium 137, Potassium 3.8, BUN 11, Creatinine 0.45 L, Glucose 92 , Phosphorus 2.7, Magnesium 2.3, Total Bilirubin 1.4 H, AST 1563 H* D, ALT 1634 H* D, Alkaline Phosphatase 329 H 11/02/18 05:36: WBC 5.3, Hgb 11.1 L, Hct 33.8 L, Plt Count 308 11/02/18 05:36: Troponin I < 0.02 11/01/18 22:46: PT 13.6 H, INR 1.16, APTT 35.8 11/01/18 22:46: Troponin I 0.02 11/01/18 22:46: Total Bilirubin 1.8 H, AST 2201 H* D, ALT 1948 H* D, Alkaline Phosphatase 338 H, Lipase 107 11/01/18 18:50: Sodium 136, Potassium 3.9, BUN 15, Creatinine 0.55, Glucose 131 H, Total Bilirubin 1.7 H, AST 3008 H*, ALT 2231 H*, Alkaline Phosphatase 370 H 11/01/18 18:50: WBC 5.7, Hgb 11.1 L, Hct 34.3 L, Plt Count 304 11/01/18 18:50: Troponin I 0.02 Assessment And Plan - Current Problems (Diagnosis) (1) Chest pain Current Visit: Yes Status: Acute (2) Hypertension Current Visit: Yes Status: Acute (3) Hyperlipidemia Current Visit: Yes Status: Acute (4) Liver failure, acute Current Visit: Yes Status: Acute Plan: LFTs trending down. Hepatitis labs pending CT abdomen unremarkable. Pending MRCP tomorrow. Qualifiers: Hepatic coma status: without hepatic coma Qualified Code(s): K72.00 - Acute and subacute hepatic failure without coma (5) Bronchiectasis Current Visit: Yes Status: Acute Plan: Pulmonology consulted, Recommendations appreciated. Noted on CT; no respiratory distress noted at this time. - Plan Admit to floor as observation. Start chest pain guidelines with beta-christy, aspirin and Plavix. Patient already on GENEVIEVE-inhibitor. Nitro p.r.n. for pain Resume home medications as appropriate. Cardiology consulted, awaiting recommendations. Echo and further cardiology workup per candy cutter machine. DVT prophylaxis: Lovenox GI prophylaxis: Protonix, home medication Diet: Heart healthy Disposition: Pending cardiac workup
--- NOTE | 2018-11-02 14:52 | PN ---
Date of Progress Note: 11/02/2018 Ms. Sherwood was admitted with chest pain, left upper shoulder area negative troponin, negat bright EKG, negative chest x-ray. Liver enzymes were very abnormal including AST, ALT, and alkaline marek sphatase. Remained in sinus rhythm. Continues to have pain that is pretty much continuous and has h ad some episodes of nausea and vomiting. GI workup to rule out common bile duct stone or gallstones or liver issues is in order. We will see what those shows prior to pursuing any cardiac workup. She has had a negative stress test and echo in the office recently. BRITTANY/STEVAN Voice ID: [id number] Report ID: [id number]
--- NOTE | 2018-11-02 15:03 | CON ---
Date of Consultation: 11/01/[address] Elliott's service on 11/01/2018. Reason For Admission: Chest pain. History Of Present Illness: Ms. Sherwood is a 73-year-old [place] woman. I have seen her in my office recently. She has had a normal echocardiogram and a normal stress test. She went to [facility] with left shoulder chest pain that has been going on for about 3 to 4 days. It is worse whe n she breathes and is worse when she moves her right shoulder and her left shoulder. She had negativ e troponin, negative EKG, negative chest x-ray. Dr. Cancino from [facility] was concerned about he r persistent chest pain and he asked for me to transfer her to [facility], which I agreed to d o so. She denied PND, orthopnea, pedal edema, palpitations, or syncope. Denied any fever or chills. Has had some nausea and vomiting. When she came into our hospital, we found that her liver functio ns enzyme were extremely elevated. Her AST was 3008, ALT was 2231, her alkaline phosphatase was 329. She had elevated BNP, negative troponin still. Past Medical History: Include gastroesophageal reflux disease, breast cancer, hypertension, dyslipid emia, and hypothyroidism. Allergies: SHE IS ALLERGIC TO CODEINE. Medications: At home, include inhalers, hydrochlorothiazide, Lipitor, Synthroid, and Protonix. Review of Systems: Negative. Social History: Negative. Family History: Positive for heart disease. Physical Examination: Vital Signs: Stable. She was afebrile. HEENT: Negative. Neck: Supple without bruit, lymphadenopathy, JVD, or thyromegaly. Chest: Clear to auscultation and percussion. Cardiac: Exam revealed regular rhythm and rate. No murmurs, gallops, or rubs. Abdomen: Benign. Extremities: Revealed no clubbing, cyanosis, or edema. Neurological: She was intact. Skin: Dry and intact. Pulses were present bilaterally distally. Diagnostic Data: As stated earlier. Impression And Plan: Atypical chest pain. I doubt that she is having acute coronary syndrome for 4 days and yet her EKG and troponin are negative. Her symptoms do get worse with moving and breathing and I think this is musculoskeletal or pleuritic in nature. She recently had a normal echo and stres s test in my office. I am not going to repeat the workup at this point. She has some major issues g oing on with her liver or gallbladder. Patient had workup pending in that regard. If that is comple tely negative, we can readdress the issue . At this point, I will wait for her GI workup t o be complete. Other issues included hypertension, dyslipidemia, hypothyroidism and gastroesophageal reflux disease are all well controlled. She has had breast cancer. . I will continue to follow her. ELSY Voice ID: [id number] Report ID: [id number]
[2018-11-02] MEDS: ENOXAPARIN 40 MG/0.4 ML SQ SCH (17:12)
[2018-11-02] MEDS: TRAVATAN Z 0.004% EYE DROPS OPTH SCH (20:26)
[2018-11-03] MEDS: MORPHINE 2 MG/ML SYR IV PRN (05:11)
[2018-11-03] MEDS: NA CHLORIDE 0.9% 1,000 ML IV SCH ×2 (05:12→17:00)
[2018-11-03] MEDS: ONDANSETRON 4 MG/2 ML VIAL IV PRN (05:12)
[2018-11-03] MEDS: LEVOTHYROXINE SOD 0.1 MG TAB PO SCH (05:12)
[2018-11-03] MEDS: METOPROLOL TAR 25 MG TAB PO SCH ×2 (05:12→18:41)
[2018-11-03 06:04] LABS: Absolute Lymphocytes (CBC) 1.1 K/uL (0.7-4.9); Absolute Monocytes 0.8 K/uL (0.1-1.3); Basophils % 0.2 % (0-1.3); Eosinophils % 0.2 % (0-4.4); Hematocrit 31.9 % (36.0-45.0); Lymphocytes % 13.7 % (15.3-44.8); MPV 8.1 fL (7.6-11.3); Monocytes % 10.4 % (3.3-12.3); RBC Red Blood Cell Count 3.84 M/uL (3.86-4.86)
[2018-11-03 06:17] LABS: BUN Blood Urea Nitrogen 7 mg/dL (7-18); Bicarbonate 26 mmol/L (21-32); Glucose Level 124 mg/dL (74-106); Potassium 3.8 mmol/L (3.5-5.1); Sodium Level 139 mmol/L (136-145)
[2018-11-03] MEDS: hydroCHLOROthiazide 12.5 MG CAP PO SCH (09:00)
[2018-11-03] MEDS: LISINOPRIL 10 MG TAB PO SCH (09:00)
[2018-11-03] MEDS ORDERED: POTASSIUM CL SA 10 MEQ TAB PO ONE (09:00)
[2018-11-03] MEDS: CLOPIDOGREL 75 MG TABLET PO SCH (09:04)
[2018-11-03] MEDS: PANTOPRAZOLE 40MG TABLET PO SCH (09:04)
[2018-11-03] MEDS: ASPIRIN EC 81 MG TAB PO SCH (09:04)
--- NOTE | 2018-11-03 10:25 | RAD REPORT ---
EXAM DESCRIPTION: MRI - Cholangiogram - 11/03/2018 8:47 am CLINICAL HISTORY: Elevated liver enzymes, elevated bilirubin, history of breast carcinoma, abdominal pain COMPARISON: CT abdomen and pelvis November 01 TECHNIQUE: Axial and coronal heavily T2 weighted sequences were obtained. Coronal T2 HASTE fat satur ation static and coronal multiplane reconstruction imaging generated and reviewed. Horizontal and abel tical axis rotational views obtained using maximum intensity projection (MIP) protocol. FINDINGS: Gallbladder is absent. Common bile duct is 6-7 mm which is normal range for a post cholecy stectomy patient. No pancreatic duct dilatation seen. No stricture, mass or intraluminal filling defe ct identifiable. Imaged portions of the liver, spleen, pancreas and kidneys show no suspicious findings. Renal cysts a re evident. IMPRESSION: Unremarkable post cholecystectomy MRCP
[2018-11-03 10:43] LABS: Albumin 2.7 g/dL (3.4-5.0); Bilirubin Direct 0.2 mg/dL (0-0.2); Bilirubin Total 0.6 mg/dL (0.2-1.0); Protein, Total 6.9 g/dL (6.4-8.2)
--- NOTE | 2018-11-03 16:08 | P.PN ---
Subjective Date of Service: 11/03/18 Primary Care Provider: Dr. Cancino Chief Complaint: Chest pain Subjective: No new changes Patient seen and examined at bedside. Chart reviewed, case discussed with nursing staff. Patient continues to complain of left should pain and nausea. Reports improved abdominal pain. Review of Systems 10-point ROS is otherwise unremarkable Physical Examination - Vital Signs Temperature: 97.2 F Blood Pressure: 120/60 Pulse: 79 Respirations: 20 Pulse Ox (%): 91 - Physical Exam General: Alert, In no apparent distress, Oriented x3 Neck: Supple, JVD not distended Respiratory: Clear to auscultation bilaterally, Normal air movement Cardiovascular: Regular rate/rhythm, Normal S1 S2 Gastrointestinal: Normal bowel sounds, No tenderness Musculoskeletal: Other (Left shoulder: Slightly tender to palpation, limited range of motion, which patient states is chronic. No decrease in sensation bilateral upper extremity, normal finisher hand strength bilateral upper extremities. ) - Studies Laboratory Data (last 24 hrs) 11/03/18 05:11: Total Bilirubin 0.6, AST 374 H* D, ALT 916 H* D, Alkaline Phosphatase 234 H 11/03/18 05:11: Sodium 139, Potassium 3.8, BUN 7, Creatinine 0.42 L, Glucose 124 H 11/03/18 05:11: WBC 7.9 D, Hgb 10.5 L, Hct 31.9 L, Plt Count 331 Assessment And Plan - Current Problems (Diagnosis) (1) Chest pain Current Visit: Yes Status: Acute Plan: Continue chest pain guidelines with beta-christy, aspirin and Plavix. Patient already on GENEVIEVE-inhibitor. Nitro p.r.n. for pain Resume home medications as appropriate. Cardiology consulted, recommendations appreciated. per postbed stitcher, patient with a recent negative echo and stress test in clinic. Qualifiers: Chest pain type: unspecified Qualified Code(s): R07.9 - Chest pain, unspecified (2) Hypertension Current Visit: Yes Status: Acute (3) Hyperlipidemia Current Visit: Yes Status: Acute (4) Liver failure, acute Current Visit: Yes Status: Acute Plan: This could be secondary to a keto diet that the patient recently started. LFTs trending down. Acute Hepatitis labs pending CT abdomen unremarkable. MRCP unremarkable. Monitor LFTs tomorrow morning. She may need outpatient GI followup upon discharge. Qualifiers: Hepatic coma status: without hepatic coma Qualified Code(s): K72.00 - Acute and subacute hepatic failure without coma (5) Bronchiectasis Current Visit: Yes Status: Acute Plan: Pulmonology consulted, Recommendations appreciated. Noted on CT; no respiratory distress noted at this time. Qualifiers: Bronchiectasis type: uncomplicated Qualified Code(s): J47.9 - Bronchiectasis, uncomplicated (6) Left shoulder pain Current Visit: Yes Status: Acute Plan: Patient states that she has chronic decreased range of motion in left shoulder, though pain is new. X-ray negative for any acute abnormalities. Physical therapy consulted, pending. Qualifiers: Chronicity: acute Qualified Code(s): M25.512 - Pain in left shoulder - Plan DVT prophylaxis: Lovenox GI prophylaxis: Protonix, home medication Diet: Heart healthy Disposition: If LFTs continue to trend down tomorrow, can be discharged home if cleared by Cardiology. She will need outpatient GI followup as well. She may also benefit from physical therapy for left shoulder decreased range of motion/pain, pending evaluation here. Discharge Plan: Home
[2018-11-03] MEDS: ENOXAPARIN 40 MG/0.4 ML SQ SCH (18:41)
[2018-11-03] MEDS: TRAVATAN Z 0.004% EYE DROPS OPTH SCH (20:54)
[2018-11-04] MEDS: METOPROLOL TAR 25 MG TAB PO SCH (05:12)
[2018-11-04] MEDS: LEVOTHYROXINE SOD 0.1 MG TAB PO SCH (05:13)
[2018-11-04 06:22] LABS: Absolute Lymphocytes (CBC) 1.6 K/uL (0.7-4.9); Absolute Monocytes 0.8 K/uL (0.1-1.3); Absolute Neutrophil 4.3 K/uL (1.8-8.0); Basophils % 0.2 % (0-1.3); Eosinophils % 0.9 % (0-4.4); Hematocrit 32.2 % (36.0-45.0); Lymphocytes % 23.6 % (15.3-44.8); MPV 7.6 fL (7.6-11.3); Monocytes % 12.2 % (3.3-12.3); RBC Red Blood Cell Count 3.85 M/uL (3.86-4.86)
[2018-11-04 06:32] LABS: BUN Blood Urea Nitrogen 6 mg/dL (7-18); Bicarbonate 29 mmol/L (21-32); Glucose Level 93 mg/dL (74-106); Potassium 3.5 mmol/L (3.5-5.1); Sodium Level 141 mmol/L (136-145)
[2018-11-04 06:45] LABS: Albumin 2.8 g/dL (3.4-5.0); Bilirubin Direct 0.3 mg/dL (0-0.2); Bilirubin Total 0.8 mg/dL (0.2-1.0); Protein, Total 6.9 g/dL (6.4-8.2)
[2018-11-04] MEDS ORDERED: POTASSIUM CL SA 10 MEQ TAB PO ONE ×2 (07:13→09:00)
[2018-11-04] MEDS: ASPIRIN EC 81 MG TAB PO SCH (09:01)
[2018-11-04] MEDS: CLOPIDOGREL 75 MG TABLET PO SCH (09:01)
[2018-11-04] MEDS: LISINOPRIL 10 MG TAB PO SCH (09:01)
[2018-11-04] MEDS: hydroCHLOROthiazide 12.5 MG CAP PO SCH (09:01)
[2018-11-04] MEDS: PANTOPRAZOLE 40MG TABLET PO SCH (09:01)
[2018-11-04 13:14] VITALS: BP 127/66; TEMP 98.4
[2018-11-04 13:40] VITALS: O2SAT 95
--- NOTE | 2018-11-04 22:48 | PN ---
Date of Progress Note: 11/03/2018 Subjective: Ms. Sherwood had come in with chest pain, left upper shoulder, that has been going on now for almost 4-5 days, but yet EKG is normal. Troponin is negative. BNP, CPKs, and MBs are negative. Has had a recent echo and stress test in my office, that were normal. I think her chest pain is ple uritic. GI workup so far to rule out gallstones or common bile duct stones or liver disease have a n egative. Hepatitis panel is negative, so a note stating that some of her elevation in liver function test may have been secondary to keto diet. From my standpoint, she can go home whenever it is okay with admitting physician. I will see her in the office in the next couple of weeks. If she continue s to have pain that is unexplained, we will consider a heart catheterization then. BRITTANY/STEVAN Voice ID: [id number] Report ID: [id number]
--- NOTE | 2018-11-04 23:33 | DS ---
Date of Discharge: 11/04/2018 Consultants: Dr. Saab with Pulmonology, Dr. Garcia with Cardiology. Procedures: None. Admitting Diagnoses: 1. Chest pain. 2. Hypertension. 3. Hyperlipidemia. Discharge Diagnoses: 1. Chest pain, ACS ruled out. 2. Cdiff colitis 3. Mixed hyperlipidemia. 4. Acute liver failure. 5. Bronchiectasis. 6. Left shoulder pain. 7. Obesity, BMI 31. 8. Essential hypertension. Hospital Course: The patient is a 73-year-old female with past medical history of hypertension, hyperlipidemia, and obesity, comes in, transferred from [place] due to chest pain. The patient was admitted to the hospital. Her workup revealed negative cardiac enzymes. ACS was ruled out. She did, however, have severely elevated liver enzymes in the 5937-4561 range, unclear etiology, may likely be a viral hepatitis. Immunology studies and serology studies were sent out. The patient was seen by Cardiology, Dr. Garcia, who reported that the patient has had recent echocardiogram and stress test, which were normal and did not recommend any further testing at this time. The patient also had some left shoulder pain which seems to be more chronic in nature, related to possible rotator cuff syndrome. The patient will need outpatient MRI and follow up with Orthopedics for her shoulder. Overall, the patient did well. She did have some diarrhea. C. diff assay was checked, which was positive. Her diarrhea has improved significantly and she is tolerating her diet. She will be on 10 days of Vancocin. Her MRCP was also unremarkable. No ductal stones were seen. She did have some incidental finding of renal cysts. The patient was also seen by Dr. Saab with Pulmonology. The patient had some bronchiectasis. She has a history of Mycobacterium avium infection, treated with 12 months [address] Saab did not recommend any different treatment. The patient's liver enzymes improved down to the 100. The patient did not have any pain. White count remained stable. No coagulopathy. The patient was then cleared for discharge from both Cardiology and Pulmonology standpoint. She was sent home in a stable condition. Medications: As per medication reconciliation list. Followup: Follow up with primary care physician in 2-3 days. Follow up with vessel ordinary seaman, Dr. Garcia, in 2 weeks. Follow up with investment analyst, Dr. Saab, in 2 weeks. Return to ER for worsening condition. Diet: Heart healthy. Activity: As tolerated. Physical Examination: General: Awake, alert, oriented x3. Elderly female, obese. CV: S1, S2. Respiratory: Moving air well bilaterally. Abdomen: Soft, nontender, nondistended. Positive bowel sounds. Extremities: No clubbing, cyanosis, edema. Neuro: Nonfocal. Total time spent discharging the patient was 35. Code Status: Full. SA/MODL Voice ID: [id number] Report ID: [id number] MTDD
[2018-11-05 03:44] LABS: HBsAG Nonreactive (Nonreactive); Hepatitis A IgM Antibody Nonreactive
== END 2018-11-04 14:39 | disposition home or self-care (01) | DRG 313 ==
LOC: 2ND 17:31 → OBSVTOIN 11-02 09:06
PROVIDERS: ADMIT Family Medicine; ATTEND Family Medicine
DX: R07.9 Chest pain, unspecified (principal); K72.00 Acute and subacute hepatic failure without coma; A04.72 Enterocolitis due to Clostridium difficile, not specified as recurrent; E78.2 Mixed hyperlipidemia; J47.9 Bronchiectasis, uncomplicated; M25.512 Pain in left shoulder; E66.9 Obesity, unspecified; Z68.31 Body mass index [BMI] 31.0-31.9, adult; I10 Essential (primary) hypertension; Z85.3 Personal history of malignant neoplasm of breast; E03.9 Hypothyroidism, unspecified
CPT/HCPCS: 36415; 74177; 74181; 80048; 80053; 80074; 80076; 80329; 81003; 81015; 82550; 82553; 82977; 83690; 83735; 83880; 84100; 84484; 85025; 85610; 85730; 86225; 86255; 87493; 93005; 94760; 97162; G0378; G0379; J1100; J1650; J2270; J2405; J7030

== ENCOUNTER 2020-04-25 06:20 | Day surgery (SDC) | payer OTHER ==
[2020-04-20 12:48] LABS: Basophils % 0.4 % (0-1.3); Hematocrit 34.5 % (36.0-45.0); Lymphocytes % 32.3 % (15.3-44.8); MPV 7.5 fL (7.6-11.3); RBC Red Blood Cell Count 4.11 M/uL (3.86-4.86)
--- NOTE | 2020-04-20 12:52 | RAD REPORT ---
EXAM DESCRIPTION: RAD - Chest Pa And Lat (2 Views) - 04/20/2020 12:39 pm CLINICAL HISTORY: pre cath, pending cardiac catheterization, history right-sided breast cancer chemo therapy, radiation right mastectomy COMPARISON: Two view July 2019 TECHNIQUE: Frontal and lateral views of the chest were obtained. FINDINGS: The lungs are normal volume. Patient has pronounced, chronic right hemidiaphragm elevation . There is chronic atelectasis and scarring changes abutting the elevated right hemidiaphragm. Promin ent left lung base interstitial opacification unchanged. No acute infiltrate suspected. No failure or volume overload. Heart size is normal and central vasculature is within normal limits. No pleural effusion or pneu mothorax seen. No acute bony finding noted. No aortic abnormality. IMPRESSION: No acute cardiopulmonary process. No significant change from comparison study.
[2020-04-20 13:01] LABS: BUN Blood Urea Nitrogen 17 mg/dL (7-18); Bicarbonate 31 mmol/L (21-32); Glucose Level 91 mg/dL (74-106); Potassium 3.8 mmol/L (3.5-5.1); Sodium Level 141 mmol/L (136-145)
--- OUTSIDE RECORDS SUMMARY | 2020-04-25 06:25 | XMS REPORT | Summary of Care ---
:1945 Author Organization [facility] Address [address] [place] [id number] Care Team Providers Name Role Phone Julita, Lulú Medicaid Hmo Lulú Cancino Primary Care Provider Reason for Visit Reason Comments Follow-up (Routine) Status Reason Specialty Diagnoses / Referred By Referred To Procedures Contact Contact Authorized Physical Therapy Diagnoses Cervicalgia [facility] Physical Procedures CONSULT/REFERRAL PHYSICAL THERAPY CO PHYSICAL THERAPY EVALUATION LOW COMPLEX 20 MINS CO PHYSICAL THERAPY EVALUATION MOD COMPLEX 30 MINS CO PHYSICAL THERAPY EVALUATION HIGH COMPLEX 45 MINS CO THERAPEUTIC EXERCISES MD Aurelio Therapy CO NEUROMUSC REE DUCAT,1+ AREAS, EA 15 MIN CO MANUAL THER TECH,1+REGIONS,EA 15 MIN CO THERAPEUT ACTVITY DIRECT PT CONTACT EACH 15 MIN CO SELF-CARE/HOME MGMT TRAINING EACH [address] [place] [address]. Office Building 5th Floor [address] [place] [phone] [address] Phone: [place], [place] [phone] Encounter Details Date Type Department Care Team Description 02/17/2020 Ancillary Visit [facility], Cinthia Jae craft MD [address] [place] [address]. [address] [place] [phone] Decreased ROM of intervertebral discs of cervical spine (Primary Dx); Physical Therapy- Bonita Rubalcava, SHUTTLE VAN DRIVER [address] [place] [phone] Decreased ROM of left shoulder; Luis Miguel Decreased ROM of right shoul charissa; Professional Decreased muscl e strength; Office Building Bilateral neck pain [address] [place] [address] Allergies Active Allergy Reactions Severity Noted Date Comments Codeine Nausea and/or Vomiting 07/20/2014 Migra ine headaches documented as of this encounter (statuses as of 02/17/2020) Medications Medication Sig Dispensed Refills Start Date End Date Status LEVOTHYROXINE SODIUM Take by mouth. 0 Active (LEVOTHYROXINE ORAL) ESOMEPRAZOLE MAGNESIUM Take by mouth. 0 Active (NEXIUM ORAL) VITAMIN E ACETATE Take by mouth. 0 Active (VITAMIN E ORAL) FLUTICASONE/SALMETEROL Inhale. 0 Active (ADVAIR DISKUS INHALE) conjugated estrogens Insert 0.5 g into 2 Tube 3 01/03/2015 Active (PREMARIN) 0.625 vagina at bedtime. mg/gram vaginal creamIndications: Vaginal atrophy METOPROLOL SUCCINATE Take 1 Tab by 0 Active ORAL mouth daily. atorvastatin (LIPITOR) Take 10 mg by 0 Active 10 mg tablet mouth at bedtime. docusate (COLACE) 100 Take 1 Cap by 30 Cap 0 04/30/2015 Active mg capsule mouth once daily as needed for Constipation. ibuprofen (MOTRIN) 600 Take 1 Tab by 60 Tab 0 04/30/2015 Active mg tablet mouth every 6 (six) hours as needed for Pain (scale 1-3). traMADOL (ULTRAM) 50 Take 1-2 Tabs by 30 Tab 0 04/30/2015 Active mg tablet mouth every 6 (six) hours as needed for Pain unrelieved by non-narcotic analgesics. metroNIDAZOLE (FLAGYL) Take 1 Tab by 14 Tab 0 06/14/2015 Active 500 mg tablet mouth 2 (two) times daily. documented as of this encounter (statuses as of 02/17/2020) Active Problems Problem Noted Date Post-op pain 04/28/2015 Uterovaginal prolapse, incomplete 01/03/2015 Rectocele 01/03/2015 Cystocele, lateral 01/03/2015 Vaginal atrophy 01/03/2015 Mixed incontinence 01/03/2015 Obesity 07/20/2014 Overview: ICD10 Diagnosis Term Dramatic Critic Utility Asthma 07/20/2014 Overview: ICD10 Diagnosis Term Dramatic Critic Utility History of breast cancer 07/20/2014 Overview: 1989 Hypothyroid 07/20/2014 Essential hypertension 07/20/2014 Overview: ICD10 Diagnosis Term Dramatic Critic Utility Prolapse of female pelvic organs documented as of this encounter (statuses as of 02/17/2020) Resolved Problems Problem Noted Date Resolved Date Encounter for routine gynecological examination 07/20/2014 04/27/2015 Overview: ICD10 Diagnosis Term Dramatic Critic Utility Surveillance of previously prescribed contraceptive method 0 07/20/2014 04/27/2015 Overview: ICD10 Diagnosis Term Dramatic Critic Utility Uterine prolapse 07/20/2014 04/27/2015 Overview: ICD10 Diagnosis Term Dramatic Critic Utility documented as of this encounter (statuses as of 02/17/2020) Immunizations Name Administration Dates Next Due TDAP 07/20/2013 Zoster(Zostavax)(Shingles) 05/19/2014 documented as of this encounter Social History Tobacco Use Types Packs/Day Years Used Date Never Smoker Smokeless Tobacco: Never Used Alcohol Use Drinks/Week oz/Week Comments No 0 Standard drinks or equivalent 0.0 Sex Assigned at Date Recorded Not on file COVID-19 Exposure Response Date Recorded In the last month, have you been in contact with No / Unsure 02/17/2020 10:55 AM CDT someone who was confirmed or suspected to have Coronavirus / COVID-19? documented as of this encounter Last Filed Vital Signs Not on filedocumented in this encounter Progress Notes Bonita Rubalcava, SH[employer]TLE V[employer] DRIVER - 02/17/2020 11:20 AM CDT Physical Therapy Treatment Date: February 17, 2020 Subjective: Pt reports her pain is a little better. 1. Decreased ROM of intervertebral discs of cervical spine 2. Decreased ROM of left shoulder 3. Decreased ROM of right shoulder 4. Decreased muscle strength 5. Bilateral neck pain Objective: Outpatient PT Treatment Row Name 02/17/20 1100 General Visit Number 2 Chart Reviewed Yes Family/Caregiver Present No General Comments Visit 2 of 8 Precautions Precautions 1: Moderate Cervical Stenosis present Precautions 2: Falls Pain Assessment Pain Score 5 - Moderate pain Post-Treatment Pain Score 5 - Moderate pain Pain Location Neck Pain 2 Pain Score 2 5 - Moderate pain Pain Location 2 Shoulder Pain Orientation 2 Left Therapeutic Exercise Enter Number of Therapeutic Exercise Activities: 3 Therapeutic Exercise Activity 1 Stretches- Cervical Flexion, Extension, Lateral flexion, Rotation 2 x 30"ea Therapeutic Exercise Activity 2 Mery's flex/abd 2'ea Therapeutic Exercise Acitivity 3 Shrugs, backwards rolls, scap squeezes x10ea Manual Therapy Enter Number of Manual Therapy Activities: 1 Manual Therapy Activity 1 MFR 5' Modalities Moist Heat (min) 8' HEP: Continue HEP as instructed. Pt reports compliance. Assessment: Pt with good shoulder ROM with mery. She presents with UT tightness, left worse than right, that decreased with MFR. Pt tolerated treatment fair. Plan: Continue with POC 2 x 8 sessions to decrease pain, increase ROM in neck and shoulders, increase UE strength, and improve functional mobility. Will add/advance exercises as able. Bonita Rubalcava PTA [place] Lic#[id number] Supervised by: Alma Figueroa PT [facility] Dept. [phone] (phone) documented in this encounter Plan of Treatment Date Type Specialty Care Team Description 02/22/2020 Ancillary Visit Physical Therapy Cinthia Stafford MD [address] [place] [phone] Ebenezer Rubalcava PTA [address] [place] [phone] 02/24/2020 Ancillary Visit Physical Therapy Cinthia Stafford MD [address] [place] [phone] Ebenezer Rubalcava PTA [address] [place] [phone] 02/29/2020 Office Visit Neurology Raul Andino MD [address] [place] [address] [phone] 04/12/2020 Office Visit Neurological Surgery Emmanuelle Stafford MD [address] [place] [address] [phone] Health Maintenance Due Date Last Done Comments Depression Screening 1957 Medicare Wellness Visit 02/20/2008 Osteoporosis Screening 02/20/2008 PNEUMOCOCCAL VACCINES 65+ (1 of - 02/20/2008 PPSV23) Zoster Recombinant Vaccine (SHINGRIX) (2 07/14/2014 014 of 3) INFLUENZA VACCINE (#1) 2020 04/30/2018, 05/01/2017 DTaP,Tdap,and Td Vaccines (2 - Td) 07/20/2023 07/20/2013 documented as of this encounter Goals Goal Patient Goal Associated Recent Patient-Stated? Author Type Problems Progress Pt states she General No Henry wants to David, decrease her Alma, PT pain documented as of this encounter Results Not on filedocumented in this encounter Visit Diagnoses Diagnosis Decreased ROM of intervertebral discs of cervical spine - Primary Decreased ROM of left shoulder Decreased ROM of right shoulder Decreased muscle strength Muscle weakness (generalized) Bilateral neck pain Cervicalgia documented in this encounter Insurance Payer Benefit Plan / Subscriber ID Effective Phone Address T e Group [facility] [id number] 2019-Pres Medica re HEALTHCARE - HEALTHCARE ent Adv HM O MANAGED DUAL COMPLETE MEDICARE HMO [facility] MEDICAID OF [id number] 2013-Pres [phone] [place] [id number] [place] [address] documented as of this encounter
--- OUTSIDE RECORDS SUMMARY | 2020-04-25 06:25 | XMS REPORT | Summary of Care ---
:1945 Author Organization [facility] Address [address] [place] [address] Care Team Providers Name Role Phone Julita, Lulú Medicaid Hmo Lulú Cancino Primary Care Provider Reason for Visit Reason Comments New Evaluation (Routine) Status Reason Specialty Diagnoses / Referred By Referred To Procedures Contact Contact Authorized Physical Therapy Diagnoses Cervicalgia October Physical Procedures CONSULT/REFERRAL PHYSICAL THERAPY VT PHYSICAL THERAPY EVALUATION LOW COMPLEX 20 MINS VT PHYSICAL THERAPY EVALUATION MOD COMPLEX 30 MINS VT PHYSICAL THERAPY EVALUATION HIGH COMPLEX 45 MINS VT THERAPEUTIC EXERCISES MD Aurelio Therapy VT NEUROMUSC REE DUCAT,1+ AREAS, EA 15 MIN VT MANUAL THER TECH,1+REGIONS,EA 15 MIN VT THERAPEUT ACTVITY DIRECT PT CONTACT EACH 15 MIN VT SELF-CARE/HOME MGMT TRAINING EACH [address] [place] [address]. Office Building 5th Floor [address] [place] [id number] [address] Phone: [place], [place] [phone] [address] Encounter Details Date Type Department Care Team Description 02/10/2020 Ancillary Visit [facility] Neel Ayala MD [address] [place] [address] [place] [address] Decreased ROM of intervertebral discs of cervical spine (Primary Dx); Physical Therapy- Alma Reddy, PT [address] [place] [address] Decreased ROM of left shoulder; Luis Miguel Decreased ROM of right shoul charissa; Professional Decreased muscl e strength; Office Building Bilateral neck pain [address] [place] [address] Allergies Active Allergy Reactions Severity Noted Date Comments Codeine Nausea and/or Vomiting 07/20/2014 Migra ine headaches documented as of this encounter (statuses as of 02/11/2020) Medications Medication Sig Dispensed Refills Start Date [...] as of this encounter (statuses as of 02/11/2020) Active Problems Problem Noted Date Post-op pain 04/28/2015 Uterovaginal prolapse, incomplete 01/03/2015 Rectocele 01/03/2015 Cystocele, lateral 01/03/2015 Vaginal atrophy 01/03/2015 Mixed incontinence 01/03/2015 Obesity 07/20/2014 Overview: ICD10 Diagnosis Term Text Transcriber Utility Asthma 07/20/2014 Overview: ICD10 Diagnosis Term Text Transcriber Utility History of breast cancer 07/20/2014 Overview: 1987 Hypothyroid 07/20/2014 Essential hypertension 07/20/2014 Overview: ICD10 Diagnosis Term Text Transcriber Utility Prolapse of female pelvic organs documented as of this encounter (statuses as of 02/11/2020) Resolved Problems Problem Noted Date Resolved Date Encounter for routine gynecological examination 07/20/2014 04/27/2015 Overview: ICD10 Diagnosis Term Text Transcriber Utility Surveillance of previously prescribed contraceptive method 0 07/20/2014 04/27/2015 Overview: ICD10 Diagnosis Term Text Transcriber Utility Uterine prolapse 07/20/2014 04/27/2015 Overview: ICD10 Diagnosis Term Text Transcriber Utility documented as of this encounter (statuses as of 02/11/2020) Immunizations Name Administration Dates Next Due TDAP 07/20/2013 Zoster(Zostavax)(Shingles) 05/19/2014 documented as of this encounter Social History Tobacco Use Types Packs/Day Years Used Date Never Smoker Smokeless Tobacco: Never Used Alcohol Use Drinks/Week oz/Week Comments No 0 Standard drinks or equivalent 0.0 Sex Assigned at Date Recorded Not on file documented as of this encounter Last Filed Vital Signs Not on filedocumented in this encounter Progress Notes Alma Reddy, PT - 02/10/2020 2:00 PM CDT Initial Evaluation Date: February 10, 2020 Visit Number: 1 Diagnosis: 1. Decreased ROM of intervertebral discs of cervical spine 2. Decreased ROM of left shoulder 3. Decreased ROM of right shoulder 4. Decreased muscle strength 5. Bilateral neck pain Date of onset: 2-3 years ago, more recent increase in symptoms. History of Condition:Pt presents to clinic for evaluation of her neck pain, arms and back pain. Patient reports that she has had many issues over the years but a recent increase in pain and inability to do things she could before caused her to go to MD and get evaluated. Patient does not report a specific GINNA, she has a chronic history of issues but now not able to turn her head to drive. Patient states her L shoulder issues began for as long as she can remember. No reports of numbness and tingling but she has visible atrophy of her L shoulder than her R. This prompted MD to send her to Neurosurgery. She also has an appointment with a neurologist. Aggravating factors; driving, standing, sitting, getting out of bed, grasping and carrying, and brushing her hair Relief; ibuprofen Knowledge of condition: Good Quality of life: Good Prior physical therapy: No Patient Goals: Goals Pt states she wants to decrease her pain Past Medical History: Diagnosis Date Asthma Cancer breast, 1986, right mastectomy Hypertension Mixed incontinence 01/03/2015 Prolapse of female pelvic organs Superficial thrombophlebitis, antepartum(671.23) Thyroid disease Past Surgical History: Procedure Laterality Date ANTEROPOSTERIOR COLPORRHAPHY N/A 04/28/2015 Surgeon: Brandan Block; Location: [facility] BREAST SURGERY SECTION x1 CYSTOURETHROSCOPY(SHX) N/A 04/28/2015 Surgeon: Brandan Block; Location: [facility] TUBAL LIGATION UTEROSACRAL VAGINAL VAULT SUSPENSION (SHX) N/A 04/28/2015 Surgeon: Brandan Block; Location: [facility] VAGINAL HYSTERECTOMY N/A 04/28/2015 Surgeon: Brandan Block; Location: [facility] Objective: Outpatient PT Evaluation Row Name 02/10/20 1100 General Visit Number 1 Chart Reviewed Yes Family/Caregiver Present No General Comments Visit 1 of 8 Precautions Precautions 1: Moderate Cervical Stenosis present Precautions 2: Falls Pain Assessment Pain Score 7 Post-Treatment Pain Score 7 Pain Location Neck Pain Orientation Lower;Mid Pain Descriptors Burning;Sharp;Shooting Multiple Pain Sites Two General Comments Constant pain, no numbness or tingling but sh ehas R Arm pain from breast ca sx. 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 Right Upper Extremity Overall AROM Deficits Overall Strength Deficits;Due to pain Overall Tone WFL Left Upper Extremity Overall AROM Deficits;Due to pain Overall Strength Deficits;Due to pain Right Lower Extremity Overall AROM WFL Overall Strength WFL Left Lower Extremity Overall AROM WFL Overall Strength WFL General Assessments: Cervical Spine Assessments C-Spine Assessments: Observations;Range of motion Cervical Spine Observations Posture: Forward head;Elevated shoulders;Flattened thoracic spine(Winged Scapula on L side) Cervical Spine Tenderness: Upper trapezius Cervical Spine Range of Motion Cervical Spine Flexion: 62 Cervical Spine Extension: 66 Cervical Spine Sidebend Right: 31(Pain) Cervical Spine Sidebend Left: 25 Cervical Spine Rotation Right: 77 Cervical Spine Rotation Left: 40(Pain) Cervical Spine Additional Information: Used 2 inclinometers , Shoulder Assessments Right Shoulder Assessments: Active range of motion;Strength Left Shoulder Assessments: Observations;Active range of motion;Strength Left Shoulder Observations L Shoulder Posture: Forward head;Winging scapula L Shoulder Tenderness: AC joint;Rotator cuff muscles L Shoulder Observation Comment: Pt with atrophy of L mid delotid muscle . Right Shoulder Active Range of Motion R Shoulder AROM Flexion: 140(155- PROM) R Shoulder AROM Extension: 37 R Shoulder AROM ABduction: 97 R Shoulder AROM Internal Rotation: (T10) R Shoulder AROM External Rotation: (C6) Left Shoulder Active Range of Motion L Shoulder AROM Flexion: 84(107-PROM) L Shoulder AROM Extension: 35 L Shoulder AROM ABduction: 57 L Shoulder AROM Internal Rotation: (T11) L Shoulder AROM External Rotation: (C5, Fwd head) Right Shoulder Strength R Shoulder Strength Flexion: 3/5 R Shoulder Strength Extension: 3+/5 R Shoulder Strength ABduction: 3-/5 R Shoulder Strength Internal Rotation: 4/5 R Shoulder Strength External Rotation: 3+/5 Left Shoulder Strength L Shoulder Strength Flexion: 3-/5 L Shoulder Strength Extension: 3/5 L Shoulder Strength ABduction: 2/5 L Shoulder Strength Internal Rotation: 3-/5 L Shoulder Strength External Rotation: 3/5 Elbow Assessments Right Elbow Assessments: Strength Left Elbow Assessments: Strength Right Elbow Strength R Elbow Strength Flexion: 4-/5 R Elbow Strength Extension: 3+/5 Left Elbow Strength L Elbow Strength Flexion: 4-/5 L Elbow Strength Extension: 3/5 , Traction: pt felt relief Vertebral Art: (-), patient did report some dizziness with supine, she states she does have vertigo at times and is supposed to see a neurologist soon. Treatment: See Outpatient PT Treatment Flowsheet Assessment: Pt presents with decreased ROM, decreased strength, decreased functional mobility and increased pain. Pt will benefit from skilled PT intervention. Rehab potential: fair Facilitators to goal achievement: High motivation, Adequate resources for care and Previous Functional Ability Barriers to goal achievement: Medical complexity and Pain Short Term Goals: To be met in 4 visits: 1. Pt will be Ind and Compliant with HEP 2. Patient will increase cervical spine ROM by 10 degrees in all planes to improve mobility. 3. Patient will increase ROM of shoulder by 10 degrees in all planes to improve mobility 4. Patient will increase strength by 12 grade to improve mobility. 5. Patient will report less pain to <7/10 on average. [facility] Goals: To be met in 8 visits: 1. Pt will increase Cervical spine ROM by 15 degrees to improve mobility. 2. Pt will report less pain with functional tasks to <4/10. Plan of Care There ex, there act, manual therapy prn, modalities prn, and patient education. Frequency: 2x/week Duration: 8 sessions I have discussed the risks and benefits of the above plan with Bertha Lewiste. She is aware ofthe diagnosis and potential to improve. She participated in the setting of the goals and understands the importance of complying with the treatment plan, including home instruction. She agreed to theabove frequency and duration of rehab services. Patient- Family Teaching: Patient provided with preferred teaching of verbal information, written information and demonstration on PT POC, HEP and goals. Shows readiness to learn. Verbal instruction and Written material teaching provided. Individual is able to read and verbalizes understanding of teaching provided and accurately returns demonstration of skill. Required Components in Determining Evaluation Level Components for Eval Level Low Moderate High History No comorbidities 1-2 comorbidities or personal factors 3 or more comorbidities or personal factors x Body Systems 1-2 elements 3 or more elements x 4 or more elements Clinical Presentation Stable Evolving x Unstable Clinical Decision Making x Alma Figueroa, PT [place] PT License [id number] [facility] Rehabilitation Services Department (phone) (fax) documented in this encounter Plan of Treatment Date Type Specialty Care Team Description 02/15/2020 Ancillary Visit Physical Therapy Ebenezer Rubalcava , METROLOGY TECHNICIAN [address] [place] [address] 02/17/2020 Ancillary Visit Physical Therapy Bonita Rubalcava, METROLOGY TECHNICIAN [address] [place] [address] 02/22/2020 Ancillary Visit Physical Therapy Ebenezer Rubalcava , [address] [place] [address] 02/24/2020 Ancillary Visit Physical Therapy Ebenezer Rubalcaav , MARIBEL [address] [place] [address] 04/12/2020 Office Visit Neurological Surgery Emmanuelle Stafford MD [address] [place], [place] [phone] Health Maintenance Due Date Last Done Comments Depression Screening 1957 Medicare Wellness Visit 02/20/2008 Osteoporosis Screening 02/20/2008 PNEUMOCOCCAL VACCINES 65+ (1 of 1 - 02/20/2008 PPSV23) Zoster Recombinant Vaccine (SHINGRIX) [...] / Subscriber ID Effective Phone Address T ype Group Dates [facility] [id number] 2019-Pres Medica re HEALTHCARE - HEALTHCARE ent Adv HM O MANAGED DUAL COMPLETE MEDICARE HMO [facility] MEDICAID OF [id number] 2013-Pres [phone] [address] [place] ent [phone] [place] [address] documented as of this encounter
--- OUTSIDE RECORDS SUMMARY | 2020-04-25 06:25 | XMS REPORT | Continuity of Care Document ---
:1945 Author Organization [employer] Care Team Providers Name Role Phone [employer] Unavailable Un available Problems Problem Status Onset Classification Date Comments Sourc e Date Reported CHEST PAIN, ELEVATED Active CARDIAC ENZYMES 017 [place] SCREENING COLON Active S [place] CANCER-Z12.11 016 [place] Asthma (disorder) Active Problem 03/24/2017 [facility] [place] Malignant tumor of Resolved Problem 03/24/2017 breast (disorder) [place] Glaucoma (disorder) Active Problem 03/24/2017 [facility] [place] Hypertensive disorder, Active Problem 03/24/2017 systemic arterial [place], (disorder) [place] Hypercholesterolemia Active Problem 03/24/2017 [facility] (disorder) [facility] [place] Hypothyroidism Active Problem 03/24/2017 [facility] (disorder) [facility] [place] Obesity (disorder) Active Problem 03/24/2017 [facility] [place] CHEST PAIN, Active UNSPECIFIED [place] Medications Medication Details Route Status Patient Ordering Order Source Instructions Provider Date aspirin 81 mg tablet, 81 mg = 1 Active enteric coated tab, PO, 2016 [place] Daily, # 90 tab, 3 Refill(s) Travatan Z 0.004% 1 drp, Active ophthalmic solution OPTH, 2016 [place] QPM, # 2.5 ml, 0 Refill(s) Combigan ophthalmic 1 drp, Active solution OPTH, 2016 [place] Q12H, # 10 mL, 0 Refill(s) aluminum 2 tab, Active hydroxide-magnesium CHEW, 2016 [place] carbonate 160 mg-105 Daily, 0 mg oral tablet, Refill(s) chewable Tylenol 500 mg, Active PO, Q6H, 2016 PRN Pain Score 1-3, 0 Refill(s) metoprolol extended 25 mg, Active release PO, 2016 Daily, 0 Refill(s) hydrochlorothiazide 12.5 mg, Active PO, 2016 Daily, 0 Refill(s) tramadol 50 mg oral 50 mg = 1 Active tablet tab, PO, 2016 Q8H, PRN Pain, # 60 tab, 0 Refill(s) metoprolol 50 mg oral 50 mg = 1 Active Sugar tablet, extended tab, PO, 2015 [place] release Daily, 0 Refill(s) Advair Diskus 250 1 puff, Active Sug ar mcg-50 mcg inhalation INHALATIO 2015 [place] powder N, BID, PRN Wheezing, 0 Refill(s) Allergies, Adverse Reactions, Alerts Substance Category Reaction Severity Reaction Status Date Comments S ource type Reported codeine Assertion Drug Active sulfate allergy [place] Immunizations No Data Provided for This Section Results Order Name Results Value Reference Date Interpretation Comments Lexis rce Range CARDIAC CK MB Index 1.2 0.0 - 2.5 03/[address] [facility] ([place], [place]) CARDIAC Troponin-I 0.07 0.00 - 03/[address] [facility] ([place] [place] CARDIAC BNP 92 <=100 03/21 ENZYMES pg/mL /2016 [facility] ([place], [place] CARDIAC CK MB 1.5 0.5 - 3.6 03/[address] [facility] ([place], [place] CARDIAC Total CK 129 12 - 191 03/[address] [facility] ([place], [place]) CHEM PANEL eGFR 94 03/21 Result Comment: The [facility] ([place], [place]) eGFR is calculated using the CKD-EPI formula. In most young, healthy individuals the eGFR will be >90 mL/min/1.73m2 . The eGFR declines with age. An eGFR of 60-89 may be normal in some populations, particularly the elderly, for whom the CKD-EPI formula has not been extensively validated. Use of the eGFR is not recommended in the following populations:< br/>
Jaja viduals with unstable creatinine concentration s, including patients and those with serious co-morbid conditions.<b r/>
Patie nts with extremes in muscle mass or diet.

The data above are obtained from the National Kidney Disease Education Program (NKDEP) which additionally recommends that when the eGFR is used in patients with extremes of body mass index for purposes of drug dosing, the eGFR should be multiplied by the estimated BMI. CHEM PANEL Total Protein 7.3 6.4 - 8.4 03/21 [facility] CHEM PANEL Albumin Lvl 3.3 3.5 - 5.0 03/21 [facility] CHEM PANEL ALT 73 0 - 65 03/21 [facility] CHEM PANEL CO2 26 24 - 32 03/21 [facility] CHEM PANEL Chloride Lvl 107 95 - 109 03/21 [facility] CHEM PANEL Calcium Lvl 8.6 8.5 - 10.5 03/21 [facility] CHEM PANEL Globulin 4.0 2.7 - 4.2 03/21 [facility] CHEM PANEL A/G Ratio 0.8 0.7 - 1.6 03/21 [facility] CHEM PANEL AGAP 9.5 10.0 - 03/21 20.0 [facility] CHEM PANEL AST 83 0 - 37 03/21 [facility] CHEM PANEL Alk Phos 102 39 - 136 03/21 [facility] CHEM PANEL Bili Total 1.0 0.2 - 1.3 03/21 [facility] CHEM PANEL B/C Ratio 32 6 - 25 03/21 [facility] CHEM PANEL Glucose Lvl 100 70 - 99 03/21 [facility] CHEM PANEL Creatinine 0.53 0.50 - 03/21 Lvl 1.40 [facility] CHEM PANEL Sodium Lvl 139 135 - 145 03/21 [facility] CHEM PANEL BUN 17 7 - 22 03/21 [facility] CHEM PANEL Potassium Lvl 3.5 3.5 - 5.1 03/21 [facility] ([place], [place] HEMATOLOGY Hgb 12.1 12.0 - 03/[address] [facility] ([place], [place] HEMATOLOGY RBC 4.44 4.20 - 03/[address] [facility] ([place] [place] HEMATOLOGY WBC 6.5 3.7 - 10.4 03/21 [facility] ([place] [place] HEMATOLOGY RDW 14.2 11.5 - 03/[address] [facility] ([place], [place] HEMATOLOGY MCHC 32.8 32.0 - 03/[address] [facility] ([place], [place] HEMATOLOGY MCH 27.3 27.0 - 03/[address] [facility] ([place], [place] HEMATOLOGY MCV 83.3 80.0 - 03/21 98.0 /2016 [facility] ([place], [place] HEMATOLOGY Hct 37.0 36.0 - 03/[address] [facility] ([place], [place] HEMATOLOGY MPV 7.6 7.4 - 10.4 03/21 [facility] ([place] [place] HEMATOLOGY Platelet 265 133 - 450 03/21 [facility] ([place] [place] HEMATOLOGY Monocytes 9.2 2.0 - 12.0 03/21 [facility] HEMATOLOGY Lymphocytes 31.5 20.0 - 03/21 MH 40.0 [facility] HEMATOLOGY Segs 58.2 45.0 - 03/21 MH 75.0 /2016 [facility] HEMATOLOGY Basophils 0.3 0.0 - 1.0 03/21 [facility] HEMATOLOGY Eosinophils 0.8 0.0 - 4.0 03/21 [facility] ([place], [place] HEMATOLOGY Monocytes # 0.6 0.0 - 0.8 03/21 [facility] ([place] [place] HEMATOLOGY Lymphocytes # 2.0 1.0 - 5.5 03/21 [facility] HEMATOLOGY Segs-Bands # 3.8 1.5 - 8.1 03/21 [facility] ([place], [place] HEMATOLOGY Eosinophils # 0.1 0.0 - 0.5 03/21 [facility] ([place] [place]) Pathology Reports No Data Provided for This Section Diagnostic Reports No Data Provided for This Section Consultation Notes No Data Provided for This Section Discharge Summaries No Data Provided for This Section History and Physicals No Data Provided for This Section Vital Signs Vital Sign Value Date Comments Source Systolic (mm Hg) 113 03/21/2017 [place] Diastolic (mm Hg) 65 03/21/[address] Respitory Rate 18 03/21/2017 [facility] Temperature Oral (F) 97.8 F 03/21/2017 [place] Respitory Rate 21 03/21/2017 [facility] Respitory Rate 18 03/21/2017 [facility] Systolic (mm Hg) 118 03/21/2017 [place] Diastolic (mm Hg) 79 03/21/[address] Systolic (mm Hg) 98 03/21/2017 [place] Diastolic (mm Hg) 53 03/21/[address] [facility] [address] Temperature Oral (F) 98 F 03/21/2017 [place] Weight 80.227 03/21/2017 [facility] Height 91.44 cm 03/21/2017 [facility] BMI Calculated 95.95 03/21/2017 [facility] Temperature Oral (F) 98.3 F 03/21/2017 [place] BMI Calculated 30.71 09/07/2015 [place] Height 160.02 cm 09/07/2015 [place] Weight 78.636 09/07/2015 Adelaida Hernandez Encounters Location Location Encounter Encounter Reason Attending ADM DC Stat us Source Details Type Number For Provider Date Date Visit Outpatient [id number] YUNIOR 08/15 Active [facility] Jorje [facility] Bedded [id number] Yunior 09/08 09/08 [facility] Ballesteros /[address] Adelaida Hernandez [facility] Observation [id number] Ubaldo 03/21 03/21 WILNER Bravo /2016 [facility] Procedures Procedure Code Date Perfomer Comments Source Abdominal [id number] hysterectomy [facility] [place] Bilateral tubal [id number] ligation [facility] [place] Cholecystectomy [id number] [facility] [place] Mastectomy, RT. [id number] [facility] [place] Assessment and Plan Assessment and Plan Date Source Extracted from:Title: Clinical Document 03/21/2017 [facility] Author: Ubaldo Bravo MD Date: 03/21/17 Cardiology Note Ubaldo Bravo MD, PA THIS IS A COMBINED H&P AND DISCHARGE SUMMARY SUBJECTIVE: Chief complaint: Near syncope and the questionable enzymes H&P: 72-year-old female who was with her in an outside ER when he had a CODE BLUE and and she got extremely stressed and had a near syncopal episode. She was observed in the ER for about 4 hours but the second set of cardiac enzymes was borderline and therefore they transferred her to our facility for further evaluation. The patient denies any chest pain or discomfort at this time and her follow-up cardiac enzy mes were negative. She denies any history of CAD. She denies exertional angina or exertional dyspnea. Past medical history: Hypertension, hypercholesterolemia, asth ma, hypothyroidism, and a right breast cancer status post mastectomy Home medications: Refer to the reconciliation list Allergies: No known drug allergies Social history: Non-smoker and no recreational or alcohol ab use Review of systems: Other than the events of yesterday, she has been fine and her 12 point review of systems is unremarkable. Vitals and Temp: Vitals Tmp(F) Pulse BP RR SpO2 FIO2 03/21 08:00 ---- 83 113/65 18 97 --- 03/21 07:44 97.8 --- ----- -- --- --- 03/21 07:06 ---- 83 ----- 21 98 --- 03/21 06:00 ---- 77 118/79 18 98 --- 03/21 04:09 ---- 78 98/53 16 95 --- 24 Hr Tmax: 98.3F (36.83c) at 03/21 00:5 2 Vital Signs are the last 5 in the past 48 hours. Labs (Last four charted values) WBC 6.5 (MAR 21) Hgb 12.1 (MAR 21) Hct 37.0 (MAR 21) Plt 265 (MAR 21) Na 139 (MAR 21) K 3.5 (MAR 21) CO2 26 (MAR 21) Cl 107 (MAR 21) Cr 0.53 (MAR 21) BUN 17 (MAR 21) Glucose Random H 100 (MAR 21) Ca 8.6 (MAR 21) Troponin 0.07 (MAR 21) CK MB 1.5 (MAR 21) Total CK 129 (MAR 21) EXAM: Good BP control; NSR; afebrile Head: normocephalic and atraumatic Neck: no carotid bruit; no JVD CV: Regular; -S3; no significant murmurs Lungs: Clear; no wheezing; good air entry Abd: soft and no organomegaly; + bowel sounds Ext: no CCE; good pulses distally Neuro: nonfocal; oriented *3 Psych: appropriate but grieving ASSESSMENT: Near syncopal episode and weakness when she received in use of the passing away of her yesterday Normal grieving process Negative cardiac enzymes Hypertension and hypercholesterolemia on treatment Remote history of right breast cancer status post mastectomy Note that I accepted this transfer from the outside the ER via the transfer center with the request that the hospitalist be consulted to satisfy timely evaluation. The consultation to the hospitalist was never placed. PLAN: Discharge home as she needs it to take c are of arrangements for her No new medication Cardiac diet Activity as tolerated Follow-up in my office in 1-2 weeks for outpatient cardiac e valuation The plan was discussed also in the prese nce of her family and they are all in agreement Plan of Care No Data Provided for This Section Social History Social History Date Source Social History TypeResponse 03/21/2017 [facility] Substance Abuse Use: None. Alcohol Never Smoking Status Never smoker; Exposure to Tobacco Smoke None; Cigarette Smoking Last 365 Days No; Reg Smoking Cessation Counseling No Social History TypeResponse 04/07/2015 Adelaida mullins Substance Abuse Use: None. Alcohol Never Smoking Status Never smoker; Exposure to Tobacco Smoke None; Cigarette Smoking Last 365 Days No; Reg Smoking Cessation Counseling No Family History No Data Provided for This Section Advance Directives No Data Provided for This Section Functional Status No Data Provided for This Section
--- OUTSIDE RECORDS SUMMARY | 2020-04-25 06:25 | XMS REPORT | Continuity of Care Document ---
:1945 Author Organization [facility] t Address [address] [place] [address] Care Team Providers Name Role Phone Yovanny Rubalcava PTA Attending Clinician Unavailable Henry Hernandez PT Attending Clinician Unavailable Yin Bravo Attending Clinician Elijah Ballesteros Attending Clinician Yin Bravo Admitting Clinician Problems Condition Condition Condition Status Onset Resolution Last Treating Co mments Source Name Details Category Date Date Treatment Clinician Date CHEST Diagnosis Active 2016-052017-03-27 Mem oria PAIN, 0-25 22:13:00 l ELEVATED CHEST 00:00: Jorje CARDIAC PAIN, 00 ENZYMES ELEVATED CARDIAC ENZYMES Active 03/20/2017 [facility] SCREENING Diagnosis Active 2015-09-09 Memoria COLON 4-11 06:40:00 l CANCER-Z12 00:00: Errol n .11 SCREENING 00 COLON CANCER-Z12 .11 Active 09/05/2015 [place] Malignant Problem Resolve 2017-03-24 M emoria tumor of d 02:34:00 l breast [place] (disorder) Malignant tumor of breast (disorder) Resolved Problem 03/24/2017 [facility] [place] Asthma Problem Active 2017-03-24 Memor ia (disorder) 02:34:00 l Asthma [place] (disorder) Active Problem 03/24/2017 [facility] [place] Glaucoma Problem Active 2017-03-24 Mem oria (disorder) 02:34:00 l Glaucoma Errol n (disorder) Active Problem 03/24/2017 [facility] [place] Hypertensi Problem Active 2017-03-24 M emoria ve 02:34:00 l disorder, J[place]je systemic Hypertensi arterial ve (disorder) disorder, systemic arterial (disorder) Active Problem 03/24/2017 [facility] Hyperchole Problem Active 2017-03-24 M emoria sterolemia 02:34:00 l (disorder) Errol ruiz Hyperchole sterolemia (disorder) Active Problem 03/24/2017 [facility] Hypothyroi Problem Active 2017-03-24 M emoria dism 02:34:00 l (disorder) Errol n Hypothyroi dism (disorder) Active Problem 03/24/2017 [facility] Obesity Problem Active 2017-03-24 Rodri shae (disorder) 02:34:00 l Obesity [place] (disorder) Active Problem 03/24/2017 [facility] CHEST Diagnosis Active 2017-03-27 Mem oria PAIN, 22:13:00 l UNSPECIFIE CHEST Linda nn D PAIN, UNSPECIFIE D Active [facility] Allergies, Adverse Reactions, Alerts Allergy Allergy Status Severity Reaction(s) Onset Inactive Treating Comm ents Source Name Type Date Date Clinician codeine codeine Active Memoria sulfate sulfate l [place] Social History Social Habit Start Date Stop Date Quantity Comments Source Social History 2015-04-07 2015-04-07 [facility] 16:10:02 16:10:02 Medications Ordered Filled Start Stop Current Ordering Indication Dosage Frequency Signature Comments Components Source Medication Medication Date Date Medication? Clinician (SIG) Name Name aspirin 81 2016-05 Yes 81 mg = 1 Me moria mg tablet, 0-26 tab, PO, l enteric 14:44: Daily, # Errol n coated 00 90 tab, 3 Refill(s) Travatan Z 2016-05 Yes 1 drp, Memor ia 0.004% 0-26 OPTH, QPM, l ophthalmic 06:09: # 2.5 ml, He rmann solution 00 0 Refill(s) Combigan 2016-05 Yes 1 drp, Memoria ophthalmic 0-26 OPTH, l solution 06:09: Q12H, # 10 Her enamorado 00 mL, 0 Refill(s) aluminum 2016-05 Yes 2 tab, Memoria hydroxide-m 0-26 CHEW, l agnesium 06:09: Daily, 0 Linda nn carbonate 00 Refill(s) 160 mg-105 mg oral tablet, chewable Tylenol 2017-1 Yes 500 mg, Memoria 0-26 PO, Q6H, l 06:09: PRN Pain [place] 00 Score 1-3, 0 Refill(s) metoprolol 2016-05 Yes 25 mg, PO, M emoria extended 0-26 Daily, 0 l release 06:09: Refill(s) Linda nn 00 hydrochloro 2016-05 Yes 12.5 mg, Me moria thiazide 0-26 PO, Daily, l 06:09: 0 [place] 00 Refill(s) tramadol 50 2016-05 Yes 50 mg = 1 M emoria mg oral 0-26 tab, PO, l tablet 06:09: Q8H, PRN [place] 00 Pain, # 60 tab, 0 Refill(s) metoprolol Yes 50 mg = 1 Me moria 50 mg oral 4-13 tab, PO, l tablet, 20:47: Daily, 0 Errol n extended 00 Refill(s) release Advair Yes 1 puff, Memoria Diskus 250 4-13 INHALATION l mcg-50 mcg 20:13: , BID, PRN H ermann inhalation 00 Wheezing, powder 0 Refill(s) Vital Signs Vital Name Observation Time Observation Value Comments Source Systolic (mm Hg) 2017-03-21 13:00:00 Rodri rial [place] Diastolic (mm Hg) 2017-03-21 13:00:00 Mem orial [place] Respitory Rate 2017-03-21 13:00:00 Memori al [place] Temperature Oral (F) 2017-03-21 12:44:00 97.8 F [facility] [place] Respitory Rate 2017-03-21 12:06:00 Memori al [place] Respitory Rate 2017-03-21 11:00:00 Memori al [place] Systolic (mm Hg) 2017-03-21 11:00:00 Rodri rial [place] Diastolic (mm Hg) 2017-03-21 11:00:00 Mem orial [place] Systolic (mm Hg) 2017-03-21 09:09:00 Rodri rial [place] Diastolic (mm Hg) 2017-03-21 09:09:00 Mem orial [place] Temperature Oral (F) 2017-03-21 09:00:00 98 F [facility] [place] Weight 2017-03-21 05:57:00 [facility] [place] Height 2017-03-21 05:57:00 91.44 cm [facility] [place] BMI Calculated 2017-03-21 05:57:00 Memori al [place] Temperature Oral (F) 2017-03-21 05:52:00 98.3 F [facility] [place] BMI Calculated 2015-09-07 20:06:00 Memori al [place] Height 2015-09-07 20:06:00 160.02 cm [facility] [place] Weight 2015-09-07 20:06:00 [facility] [place] Procedures Procedure Date / Time Performed Performing Clinician Lexi clement Abdominal hysterectomy [facility] Bilateral tubal ligation Brianna yu [place] Cholecystectomy [facility] [place] Mastectomy, RT. [facility] [place] Encounters Start End Encounter Admission Attending Care Care Encounter Source Date/Time Date/Time Type Type Clinicians Facility Department ID 2020-04-18 2020-04-18 Ancillary Khadar [facility] [id number] 14:34:43 15:14:43 Visit Ebenezer Hairston Luis Miguel [id number] Lissette [id number] Professio [id number] [facility] Building 2020-03-14 2020-03-14 Case Henry [facility] [id number] 00:00:00 00:00:00 Management Luis Miguel Hernandez [id number] Alma Mclaughlin [id number] Professio [id number] [facility] [address] Building 2017-03-21 2017-03-21 Outpatient BETHANY BravoSE [id number] 00:45:00 10:40:00 Ubaldo Esqueda 2015-09-09 2015-09-09 Outpatient JAYSON Ballesteros [facility] [id number] 06:29:00 09:50:00 Yunior Yu 00 Results Test Description Test Time Test Comments Results Result Comments Source CARDIAC ENZYMES 2017-03-21 1.2 [facility] 11:31:00 CARDIAC ENZYMES 2017-03-21 0.07 [facility] [place] 11:31:00 CARDIAC ENZYMES 2017-03-21 92 [facility] 11:31:00 CARDIAC ENZYMES 2017-03-21 1.5 [facility] [place] 11:31:00 CARDIAC ENZYMES 2017-03-21 129 [facility] [place] 11:31:00 CHEM PANEL 2017-03-21 94 [facility] [place] nn 11:31:00 CHEM PANEL 2017-03-21 7.3 [facility] [place] nn 11:31:00 CHEM PANEL 2017-03-21 3.3 [facility] [place] nn 11:31:00 CHEM PANEL 2017-03-21 73 [facility] [place] nn 11:31:00 CHEM PANEL 2017-03-21 26 [facility] [place] nn 11:31:00 CHEM PANEL 2017-03-21 107 [facility] [place] nn 11:31:00 CHEM PANEL 2017-03-21 8.6 [facility] [place] 11:31:00 CHEM PANEL 2017-03-21 4.0 [facility] [place] 11:31:00 CHEM PANEL 2017-03-21 0.8 [facility] [place] 11:31:00 CHEM PANEL 2017-03-21 9.5 [facility] [place] 11:31:00 CHEM PANEL 2017-03-21 83 [facility] [place] 11:31:00 CHEM PANEL 2017-03-21 102 [facility] [place] 11:31:00 CHEM PANEL 2017-03-21 1.0 [facility] [place] 11:31:00 CHEM PANEL 2017-03-21 32 [facility] [place] 11:31:00 CHEM PANEL 2017-03-21 100 [facility] [place] 11:31:00 CHEM PANEL 2017-03-21 0.53 [facility] [place] 11:31:00 CHEM PANEL 2017-03-21 139 [facility] [place] 11:31:00 CHEM PANEL 2017-03-21 17 [facility] [place] 11:31:00 CHEM PANEL 2017-03-21 3.5 [facility] [place] 11:31:00 HEMATOLOGY 2017-03-21 12.1 [facility] [place] 11:31:00 HEMATOLOGY 2017-03-21 4.44 [facility] [place] 11:31:00 HEMATOLOGY 2017-03-21 6.5 [facility] [place] nn 11:31:00 HEMATOLOGY 2017-03-21 14.2 [facility] [place] nn 11:31:00 HEMATOLOGY 2017-03-21 32.8 [facility] [place] nn 11:31:00 HEMATOLOGY 2017-03-21 11:31:00 Test Item Value Reference Range Interpretation Comme nts MCH (test code = MCH) 27.3 pg 27.0-31.0 [facility] [id number] 11:31:0083.3[facility]ann[facility]OLOGY 2017-03-21 11:31:0037.0[facility] WlsbrtoHKGPUVAHSZ8692-17-55 11:31:007.6[facility] FxxehucTGVJQNBEPJ0316-29-79 11:31:86437Labaagyj RdukxwhKJCELVCRGT1720-97-61 11:31:009.2[facility] PfmxkoeLXECNHCMDW6141-69-72 11:31:0031.5[facility] [place] [id number] 11:31:0058.2[facility] FwbicizGWRVMUTCHU7308-21-34 11:31:00 0.3[facility] [id number] 11:31:000.8[facility] HermannHEMATOLOGY 2017-03-21 11:31:000.6[facility] HnbslgdAHAUQBTTYO1419-84-05 11:31:002.0[facility] FvvqntpBKROUUARXO6114-11-67 11:31:003.8[facility] QghfdzqJTMCPKJSGJ7766-19-27 11:31:000.1[facility] [place]
--- OUTSIDE RECORDS SUMMARY | 2020-04-25 06:26 | XMS REPORT | Summary of Care ---
:1945 Author Organization [facility] Address [address] [place] [address] Care Team Providers Name Role Phone Julita, Lulú Medicaid Hmo Julita, A Primary Care Provider Reason for Visit Reason Comments DNKA Encounter Details Date Type Department Care Team Description 03/01/2020 Case Management [facility] Physical Tin Rubalcava F, DATABASE ADMINISTRATION ASSOCIATE DNKA Therapy- [address] Professional Office [place], [place] [id number] [place] [address] [address] [place] [phone] Allergies Active Allergy Reactions Severity Noted Date Comments Codeine Nausea and/or Vomiting 07/20/2014 Migra ine headaches documented as of this encounter (statuses as of 03/01/2020) Medications Medication Sig Dispensed Refills Start Date [...] as of this encounter (statuses as of 03/01/2020) Active Problems Problem Noted Date Post-op pain 04/28/2015 Uterovaginal prolapse, incomplete 01/03/2015 Rectocele 01/03/2015 Cystocele, lateral 01/03/2015 Vaginal atrophy 01/03/2015 Mixed incontinence 01/03/2015 Obesity 07/20/2014 Overview: ICD10 Diagnosis Term Solar Sales Associate Utility Asthma 07/20/2014 Overview: ICD10 Diagnosis Term Solar Sales Associate Utility History of breast cancer 07/20/2014 Overview: 1987 Hypothyroid 07/20/2014 Essential hypertension 07/20/2014 Overview: ICD10 Diagnosis Term Solar Sales Associate Utility Prolapse of female pelvic organs documented as of this encounter (statuses as of 03/01/2020) Resolved Problems Problem Noted Date Resolved Date Encounter for routine gynecological examination 07/20/2014 04/27/2015 Overview: ICD10 Diagnosis Term Solar Sales Associate Utility Surveillance of previously prescribed contraceptive method 0 07/20/2014 04/27/2015 Overview: ICD10 Diagnosis Term Solar Sales Associate Utility Uterine prolapse 07/20/2014 04/27/2015 Overview: ICD10 Diagnosis Term Solar Sales Associate Utility documented as of this encounter (statuses as of 03/01/2020) Immunizations Name Administration Dates Next Due TDAP [...] been in contact with No / Unsure 02/29/2020 1:21 PM CDT someone who was confirmed or suspected to have Coronavirus / COVID-19? documented as of this encounter Last Filed Vital Signs Not on filedocumented in this encounter Progress Notes Ebenezer Rubalcava PTA - 03/01/2020 1:24 PM CDTPatient DNKA today. Called and spoke to patient. Reminded her of next appointment. Ebenezer Rubalcava PTA Shawn Lic [id number] [facility] Rehab Services [phone] documented in this encounter Plan of Treatment Date Type Specialty Care Team Description 03/03/2020 Ancillary Visit Physical Therapy Bonita Rubalcava, MARIBEL [address] [facility] [place] [address] 04/12/2020 Office Visit Neurological Surgery Emmanuelle Stafford MD [address] [facility] [address] 5th Floor [place], [place] [phone] Health Maintenance Due Date Last Done Comments Medicare Wellness Visit 02/20/2008 Osteoporosis Screening 02/20/2008 PNEUMOCOCCAL VACCINES 65+ (1 of 1 - 02/20/2008 PPSV23) Zoster Recombinant Vaccine (SHINGRIX) (2 07/14/2014 014 of 3) INFLUENZA VACCINE (#1) 2020 04/30/2018, 05/01/2017 Depression Screening 02/28/2021 02/29/2020 DTaP,Tdap,and Td Vaccines (2 - Td) 07/20/2023 07/20/2013 documented as of this encounter Goals Goal Patient Goal Associated Recent Patient-Stated? Author Type Problems Progress Pt states she General No Henry wants to David, decrease her Alma, PT pain documented as of this encounter Results Not on filedocumented in this encounter Insurance Payer Benefit Plan / Subscriber ID Effective Phone Address T ype Group Dates [facility] [id number] 2019-Pres Medica re HEALTHCARE - HEALTHCARE ent Adv HM O MANAGED DUAL COMPLETE MEDICARE HMO TM[facility] MEDICAID OF [id number] 2013-Pres [phone] [address] Med[place] ent [id number] [place] [address] documented as of this encounter
--- OUTSIDE RECORDS SUMMARY | 2020-04-25 06:26 | XMS REPORT | Summary of Care ---
:1945 Author Organization [facility] Address [address] [place] [address] Care Team Providers Name Role Phone Julita, Lulú Medicaid Hmo Lulú Cancino Primary Care Provider Reason for Visit Reason Comments Follow-up (Routine) Status Reason Specialty Diagnoses / Referred By Referred To Procedures Contact Contact Authorized Physical Therapy Diagnoses Cervicalgia Rivera [facility] Physical Procedures CONSULT/REFERRAL PHYSICAL THERAPY [place] PHYSICAL THERAPY EVALUATION LOW COMPLEX 20 MINS MN PHYSICAL THERAPY EVALUATION MOD COMPLEX 30 MINS MN PHYSICAL THERAPY EVALUATION HIGH COMPLEX 45 MINS MN THERAPEUTIC EXERCISES MD Aurelio Therapy MN NEUROMUSC REE DUCAT,1+ AREAS, EA 15 MIN MN MANUAL THER TECH,1+REGIONS,EA 15 MIN MN THERAPEUT ACTVITY DIRECT PT CONTACT EACH 15 MIN MN SELF-CARE/HOME MGMT TRAINING EACH [address] [place] [address]. Office Building 5th Floor [address] [address] [place] [address] [address] Phone: [place], [place] [phone] Encounter Details Date Type Department Care Team Description 02/24/2020 Ancillary Visit [facility], Cinthia Jae craft MD [address] [place] [address]. 5th [place] [phone] Decreased ROM of intervertebral discs of cervical spine (Primary Dx); Physical Therapy- Bonita Rubalcava, CHECKING DEPARTMENT SUPERVISOR [address] [place] [phone] Decreased ROM of left shoulder; Luis Miguel Decreased ROM of right shoul charissa; Professional Decreased muscl e strength; Office Building Bilateral neck pain [address] [facility] [address] [place] [address] Allergies Active Allergy Reactions Severity Noted Date Comments Codeine Nausea and/or Vomiting 07/20/2014 Migra ine headaches documented as of this encounter (statuses as of 02/24/2020) Medications Medication Sig Dispensed Refills Start Date [...] as of this encounter (statuses as of 02/24/2020) Active Problems Problem Noted Date Post-op pain 04/28/2015 Uterovaginal prolapse, incomplete 01/03/2015 Rectocele 01/03/2015 Cystocele, lateral 01/03/2015 Vaginal atrophy 01/03/2015 Mixed incontinence 01/03/2015 Obesity 07/20/2014 Overview: ICD10 Diagnosis Term Handyperson Utility Asthma 07/20/2014 Overview: ICD10 Diagnosis Term Handyperson Utility History of breast cancer 07/20/2014 Overview: 1987 Hypothyroid 07/20/2014 Essential hypertension 07/20/2014 Overview: ICD10 Diagnosis Term Handyperson Utility Prolapse of female pelvic organs documented as of this encounter (statuses as of 02/24/2020) Resolved Problems Problem Noted Date Resolved Date Encounter for routine gynecological examination 07/20/2014 04/27/2015 Overview: ICD10 Diagnosis Term Handyperson Utility Surveillance of previously prescribed contraceptive method 0 07/20/2014 04/27/2015 Overview: ICD10 Diagnosis Term Handyperson Utility Uterine prolapse 07/20/2014 04/27/2015 Overview: ICD10 Diagnosis Term Handyperson Utility documented as of this encounter (statuses as of 02/24/2020) Immunizations Name Administration Dates Next Due TDAP [...] in this encounter Progress Notes Bonita Rubalcava, CHECKING DEPARTMENT SUPERVISOR - 02/24/2020 3:00 PM CDT Physical Therapy Treatment Date: February 24, 2020 Subjective: Pt reports she has quite a bit of pain today because she had an eye Dr appointment and sat for a long time. She reports some relief with therapy, but did not rate. 1. Decreased ROM of intervertebral discs of cervical spine 2. Decreased ROM of left shoulder 3. Decreased ROM of right shoulder 4. Decreased muscle strength 5. Bilateral neck pain Objective: Outpatient PT Treatment Row Name 02/24/20 1400 General Visit Number 4 Chart Reviewed Yes Family/Caregiver Present No General Comments Visit 4 of 8 Precautions Precautions 1: Moderate Cervical Stenosis present Precautions 2: Falls Pain Assessment Pain Score 6 Pain Location Neck Pain 2 Pain Location 2 Shoulder Pain Orientation 2 Left Therapeutic Exercise Therapeutic Exercise Activity 1 Stretches- Cervical Flexion, Extension, Lateral flexion, Rotation 2 x 30"ea Therapeutic Exercise Activity 2 Mery's flex/abd 2'ea Therapeutic Exercise Acitivity 3 Shrugs, backwards rolls, scap squeezes x10ea Therapeutic Exercise Activity [address] 1#x10ea Therapeutic Exercise Activity 6 UBE L1 1.5/1.5 Manual Therapy Manual Therapy Activity 1 MFR 5' Modalities Moist Heat (min) 8' HEP: Continue HEP as instructed. Pt reports compliance. Assessment: Pt with slowly improving ROM and strength. She did report discomfort on left side of neck with stretches. Pt tolerated treatment fair. Plan: Continue with POC 2 x 8 sessions to decrease pain, increase ROM in neck and shoulders, increase UE strength, and improve functional mobility. Will add/advance exercises as able. Bonita Rubalcava PTA [place] Lic#[id number] Supervised by: Alma Figueroa PT [facility] Rehabilitation Services Dept. [phone] (phone) documented in this encounter Plan of Treatment Date Type Specialty Care Team Description 02/29/2020 Office Visit Neurology Raul Andino MD [address] [place] [phone] 03/01/2020 Ancillary Visit Physical Therapy Sierra Reddy, PT [address] [place] [address] 03/03/2020 Ancillary Visit Physical Therapy Bonita Rubalcava, CHECKING DEPARTMENT SUPERVISOR [address] [place] [address] 04/12/2020 Office Visit Neurological Surgery Emmanuelle Stafford MD [address] [place] [address]. 5th Floor [place] [phone] Health Maintenance Due Date Last Done [...] she General No Henry wants to David, agueda her TEOFILO Marquez pain documented as of this encounter Results Not on filedocumented in this encounter Visit Diagnoses Diagnosis Decreased ROM of intervertebral discs of cervical spine - Primary Decreased ROM of left shoulder Decreased ROM of right shoulder Decreased muscle strength Muscle weakness (generalized) Bilateral neck pain Cervicalgia documented in this encounter Insurance Payer Benefit Plan / Subscriber ID Effective Phone Address T e Group Dates [facility] [id number] 2019-Pres Medica re HEALTHCARE - HEALTHCARE ent Adv HM O MANAGED DUAL COMPLETE MEDICARE HMO [facility] MEDICAID OF [id number] 2013-Pres [phone] [facility] ent [phone] [id number] [place] [address] documented as of this encounter
--- OUTSIDE RECORDS SUMMARY | 2020-04-25 06:26 | XMS REPORT | Summary of Care ---
:1945 Author Organization [facility] Address [address] [place] [address] Care Team Providers Name Role Phone Julita, Lulú Medicaid Hmo Lulú Cancino Primary Care Provider Reason for Visit Reason Comments Follow-up (Routine) Status Reason Specialty Diagnoses / Referred By Referred To Procedures Contact Contact Authorized Physical Therapy Diagnoses Cervicalgia Rivera Cinthia [facility] Physical Procedures CONSULT/REFERRAL PHYSICAL THERAPY DC PHYSICAL THERAPY EVALUATION LOW COMPLEX 20 MINS DC PHYSICAL THERAPY EVALUATION MOD COMPLEX 30 MINS DC PHYSICAL THERAPY EVALUATION HIGH COMPLEX 45 MINS DC THERAPEUTIC EXERCISES MD Aurelio Therapy DC NEUROMUSC REE DUCAT,1+ AREAS, EA 15 MIN DC MANUAL THER TECH,1+REGIONS,EA 15 MIN DC THERAPEUT ACTVITY DIRECT PT CONTACT EACH 15 MIN DC SELF-CARE/HOME MGMT TRAINING EACH [address] [place] [address]. Office Building 5th Floor [address] [place] [address] [address] Phone: [place], [place] [phone] Encounter Details Date Type Department Care Team Description 02/22/[address] [facility], Cinthia Jae craft MD [address] [place] [address]. 5th [place] [address] Decreased ROM of intervertebral discs of cervical spine (Primary Dx); Physical Therapy- Ebenezer Rubalcava, MARIBEL [address] [place] [address] Decreased ROM of left shoulder; Luis Miguel Decreased ROM of right shoul charissa; Professional Decreased muscl e strength; Office Building Bilateral neck pain [address] [facility] 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 Asthma 07/20/2014 Overview: ICD10 Diagnosis 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 Utility History of breast cancer 07/20/2014 Overview: 1987 Hypothyroid 07/20/2014 Essential hypertension 07/20/2014 Overview: ICD10 Diagnosis Term Metal Furniture Assembler Utility Prolapse of female pelvic organs documented as of this encounter (statuses as of 02/22/2020) Resolved Problems Problem Noted Date Resolved Date Encounter for routine gynecological examination 07/20/2014 04/27/2015 Overview: ICD10 Diagnosis Term Metal Furniture Assembler Utility Surveillance of previously prescribed contraceptive method 0 07/20/2014 04/27/2015 Overview: ICD10 Diagnosis Term Metal Furniture Assembler Utility Uterine prolapse 07/20/2014 04/27/2015 Overview: ICD10 Diagnosis Term Metal Furniture Assembler Utility documented as of this encounter (statuses as of 02/22/2020) Immunizations Name Administration Dates Next Due TDAP [...] filedocumented in this encounter Progress Notes Ebenezer Rubalacva, STRETCHING PRESS OPERATOR - 02/22/2020 3:00 PM CDT Physical Therapy Treatment Date: February 22, 2020 Subjective: Patient reports 5/10 pain to left upper traps today. 1. Decreased ROM of intervertebral discs of cervical spine 2. Decreased ROM of left shoulder 3. Decreased ROM of right shoulder 4. Decreased muscle strength 5. Bilateral neck pain Objective: Outpatient PT Treatment Row Name 02/22/20 1500 General Visit Number 3 Chart Reviewed Yes Family/Caregiver Present No General Comments Visit 3 of 8 Precautions Precautions 1: Moderate Cervical Stenosis present Precautions 2: Falls Pain Assessment Pain Score 5 - Moderate pain Post-Treatment Pain Score 5 - Moderate pain Pain Location Neck Pain 2 Pain Score 2 5 - Moderate pain Pain Location 2 Shoulder Pain Orientation 2 Left Therapeutic Exercise Enter Number of Therapeutic Exercise Activities: 6 Therapeutic Exercise Activity 1 Stretches- Cervical Flexion, Extension, Lateral flexion, Rotation 2 x 30"ea Therapeutic Exercise Activity 2 Mery's flex/abd 2'ea Therapeutic Exercise Acitivity 3 Shrugs, backwards rolls, scap squeezes x10ea Therapeutic Exercise Activity [address] 1#x10ea Therapeutic Exercise Activity 6 UBE L1 1.5/1.5 Manual Therapy Manual Therapy Activity 1 (not today)MFR 5' Modalities Moist Heat (min) 8' Assessment: Patient with fair exercise tolerance today. Reports increased pain to left shoulder after exercise. Pain relieved by cryotherapy after exercise. Patient required frequent verbal cues for exercise technique. Plan: Continue with POC 2 x 8 sessions to decrease pain, increase ROM in neck and shoulders, increase UE strength, and improve functional mobility. Ebenezer Rubalcava PTA [facility] Lic [id number] [facility] Rehab Services ADC [phone] Alma Figueroa, PT supv documented in this encounter Plan of Treatment Date Type Specialty Care Team Description 02/24/2020 Ancillary Visit Physical Therapy Cinthia Stafford MD [address] [place] [address]. 5th [place] [phone] Bonita Rubalcava PTA [address] [place] [address] 02/29/2020 Office Visit Neurology Raul Andino MD [address] [place] [phone] 04/12/2020 Office Visit Neurological Surgery Emmanuelle Stafford MD [address] [place] [address]. [address] [place] [phone] Health Maintenance Due Date Last [...] No Henry wants to David, decrease her Alma PT pain documented as of this encounter [...] Effective Phone Address T ype Group Dates [facility] [id number] 2019-Pres Medica re HEALTHCARE - HEALTHCARE ent Adv HM O MANAGED DUAL COMPLETE MEDICARE O [facility] MEDICAID OF [id number] 2013-Pres [phone] [address] [facility] ent [phone] [place] [address] documented as of this encounter
--- OUTSIDE RECORDS SUMMARY | 2020-04-25 06:26 | XMS REPORT | Summary of Care ---
:1945 Author Organization [facility] Address [address] [place] [address] Care Team Providers Name Role Phone CancinoLulú Medicaid Hmo Lulú Cancino Primary Care Provider Reason for Visit Reason Comments New Evaluation for dizziness Encounter Details Date Type Department Care Team Description 02/29/2020 Office Visit [facility] Raul Andino Radiculopath y of cervical spine (Primary Dx); Neurology-Luis Miguel Lawrence MD Cervical spine arthritis; [address] [place] [address] [facility] [place] [phone] Allergies Active Allergy Reactions Severity Noted Date Comments Codeine Nausea and/or Vomiting 07/20/2014 Migra ine headaches documented as of this encounter (statuses as of 03/03/2020) Medications Medication Sig Dispensed Refills Start Date [...] as of this encounter (statuses as of 03/03/2020) Active Problems Problem Noted Date Post-op pain 04/28/2015 Uterovaginal prolapse, incomplete 01/03/2015 Rectocele 01/03/2015 Cystocele, lateral 01/03/2015 Vaginal atrophy 01/03/2015 Mixed incontinence 01/03/2015 Obesity 07/20/2014 Overview: ICD10 Diagnosis Term Faith Doctor Utility Asthma 07/20/2014 Overview: ICD10 Diagnosis Term Faith Doctor Utility History of breast cancer 07/20/2014 Overview: 1987 Hypothyroid 07/20/2014 Essential hypertension 07/20/2014 Overview: ICD10 Diagnosis Term Faith Doctor Utility Prolapse of female pelvic organs documented as of this encounter (statuses as of 03/03/2020) Resolved Problems Problem Noted Date Resolved Date Encounter for routine gynecological examination 07/20/2014 04/27/2015 Overview: ICD10 Diagnosis Term Faith Doctor Utility Surveillance of previously prescribed contraceptive method 0 07/20/2014 04/27/2015 Overview: ICD10 Diagnosis Term Faith Doctor Utility Uterine prolapse 07/20/2014 04/27/2015 Overview: ICD10 Diagnosis Term Faith Doctor Utility documented as of this encounter (statuses as of 03/03/2020) Immunizations Name Administration Dates Next Due TDAP [...] of this encounter Last Filed Vital Signs Vital Sign Reading Time Taken Comments Blood Pressure 104/61 02/29/2020 1:22 PM CDT Pulse 93 02/29/2020 1:22 PM CDT Temperature - - Respiratory Rate - - Oxygen Saturation 97% 02/29/2020 1:22 PM CDT Inhaled Oxygen Concentration - - Weight 68 kg (150 lb) 02/29/2020 1:22 PM CDT Height 160 cm (5' 3") 02/29/2020 1:22 PM CDT Body Mass Index 26.57 02/29/2020 1:22 PM CDT documented in this encounter Progress Notes Raul Andino MD - 02/29/2020 1:40 PM CDT HISTORY OF PRESENT ILLNESS: Bertha Sherwood is a 75 year old female. Chief complaint: Complaints in reference to neck and back of head. History: The patient had recently gone to see the neurosurgeon with pain involving the neck and back of the head. She is also status-post breast cancer mastectomy on the right side. According to the neurosurgery note that neck pain has been going on greater than 5 years. She has problems with turningher head or doing flexion and extension motions. There was also a description of shoulder pain. She said that she had been dropped by her brother when she was very young and that it had damaged her shoulder as a result of the fall. There were issues noted both today and on the neurosurgery note of ringing inside of her head but she does have ENT evaluation for that. MRI of the C-spine had been done, I was not able to directly look at those images. According to the neurosurgery note there was multilevel degenerative disc disease with moderate cervical stenosis at C-4/5 on the right and narrow foraminal narrowing at that level. Review of Systems: Cardiac - patient complains of: chest pain, short of breath, easy fatigue, swelling of legs. Patientdenies: murmur, hypertension, arrhythmia. Respiratory - patient denies: cough, sputum production, wheezing, night sweats, insomnia. Gastric - patient denies: nausea, vomiting, poor appetite, blood in stool, difficult swallow, diarrhea. Urinary - patient denies: pain with urination, blood with urination, incontinence, difficulty urinating. Skin - patient complains of: discoloration, itching, ulcers. Patient denies: change in hair or nails, skin breakdown. Heme/Immunology - patient denies: easy bruising, abnormal lymph nodes, anemia, Lupus, malignancy, immune system disease. HEENT - patient complains of: ringing of ears, loss of hearing, nose bleeds, sinus pain. Patient denies: hoarseness, sores in mouth, facial pain. Neurology - patient complains of: dizziness, unstable walking, change in speech, fainting spells, loss of memory. Patient denies: tremor, seizures. Endocrine - patient complains of: excessive urination. Patient denies: hot cold intolerance, increased thirst, increase sweating, goiter, abnormal blood sugar, weight change, adrenal diseases. Psych - patient complains of: depression. Patient denies: disorientation, anxiety, mood disorder, psychosis, delusions, dec contact with reality. Eyes - patient denies: change in vision, eye pain, double vision, blurred vision, eyelid droop. Musculoskeletal - patient complains of: pain in joints, muscle pain, back pain, neck pain, swellingof joints, swelling of the hands. in PMH: has a past medical history of Asthma, Cancer, Hypertension, Mixed incontinence (01/03/2015), Prolapse of female pelvic organs, Superficial thrombophlebitis, antepartum(671.23), and Thyroid disease. Hal has no past medical history of Abnormal Pap smear, Abnormal uterine bleeding, Anemia, Anesthesia complication, Anxiety, Autoimmune disorder, Blood dyscrasia, Blood transfusion, without reported diagnosis, Clotting disorder, Coronary atherosclerosis of unspecified type of vessel, [place] or graft, Depression, Diabetes mellitus, Endometriosis, Female infertility, Genital herpes, Genital warts, Heart murmur, Hormone disorder, Human immunodeficiency virus (HIV) disease, Kidney disease, Leiomyoma of uterus, unspecified, Liver disease, Menstrual disorder, Osteoporosis, PID (pelvic inflammatory disease), Rh incompatibility, Seizures, Sickle cell anemia, Trauma, or Tuberculosis. Current Outpatient Medications: metroNIDAZOLE (FLAGYL) 500 mg tablet, Take 1 Tab by mouth 2 (two) times daily., Disp: 14 Tab, Rfl: 0 docusate (COLACE) 100 mg capsule, Take 1 Cap by mouth once daily as needed for Constipation., Disp: 30 Cap, Rfl: 0 ibuprofen (MOTRIN) 600 mg tablet, Take 1 Tab by mouth every 6 (six) hours as needed for Pain (scale 1-3)., Disp: 60 Tab, Rfl: 0 traMADOL (ULTRAM) 50 mg tablet, Take 1-2 Tabs by mouth every 6 (six) hours as needed for Pain unrelieved by non-narcotic analgesics., Disp: 30 Tab, Rfl: 0 atorvastatin (LIPITOR) 10 mg tablet, Take 10 mg by mouth at bedtime., Disp: , Rfl: METOPROLOL SUCCINATE ORAL, Take 1 Tab by mouth daily., Disp: , Rfl: conjugated estrogens (PREMARIN) 0.625 mg/gram vaginal cream, Insert 0.5 g into vagina at bedtime., Disp: 2 Tube, Rfl: 3 ESOMEPRAZOLE MAGNESIUM (NEXIUM ORAL), Take by mouth., Disp: , Rfl: FLUTICASONE/SALMETEROL (ADVAIR DISKUS INHALE), Inhale., Disp: , Rfl: LEVOTHYROXINE SODIUM (LEVOTHYROXINE ORAL), Take by mouth., Disp: , Rfl: VITAMIN E ACETATE (VITAMIN E ORAL), Take by mouth., Disp: , Rfl: Family History Problem Relation Age of Onset Diabetes Mother Heart Mother Hypertension Mother Heart Father Hypertension Father Asthma Sister Hypertension Sister High cholesterol Sister Cancer Brother Hypertension Brother High cholesterol Brother Breast Cancer Paternal Aunt defects NoFHx Colon Cancer NoFHx Ovarian Cancer NoFHx Uterine Cancer NoFHx Depression NoFHx Genetic NoFHx Mental retardation NoFHx Neurological NoFHx Osteoporosis NoFHx Psychiatry NoFHx Other - see comments NoFHx Arthritis Child Past Surgical History: Procedure Laterality Date ANTEROPOSTERIOR COLPORRHAPHY N/A 04/28/2015 Surgeon: Brandan Block; Location: [facility] BREAST SURGERY SECTION x1 CYSTOURETHROSCOPY(SHX) N/A 04/28/2015 Surgeon: Brandan Block; Location: [facility] TUBAL LIGATION UTEROSACRAL VAGINAL VAULT SUSPENSION (SHX) N/A 04/28/2015 Surgeon: Brandan Block; Location: [facility] VAGINAL HYSTERECTOMY N/A 04/28/2015 Surgeon: Brandan Block; Location: [facility] Social History Socioeconomic History Marital status: Spouse name: Not on file Number of children: 3 Years of education: Not on file Highest education level: Not on file Occupational History Occupation: none Social Needs Financial resource strain: Not on file Food insecurity Worry: Not on file Inability: Not on file Transportation needs Medical: Not on file Non-medical: Not on file Tobacco Use Smoking status: Never Smoker Smokeless tobacco: Never Used Substance and Sexual Activity Alcohol use: No Alcohol/week: 0.0 standard drinks Drug use: No Sexual activity: Not Currently Lifestyle Physical activity Days per week: Not on file Minutes per session: Not on file Stress: Not on file Relationships Social connections Talks on phone: Not on file Gets together: Not on file Attends synagogue service: Not on file Active member of club or organization: Not on file Attends meetings of clubs or organizations: Not on file Relationship status: Not on file Intimate partner violence Fear of current or ex partner: Not on file Emotionally abused: Not on file Physically abused: Not on file Forced sexual activity: Not on file Other Topics Concern Service Not Asked Blood Transfusions Yes Caffeine Concern Not Asked Occupational Exposure Not Asked Hobby Hazards Not Asked Sleep Concern Not Asked Stress Concern Not Asked Weight Concern Not Asked Special Diet Not Asked Back Care Not Asked Exercise Not Asked Bike Helmet Not Asked Seat Belt Not Asked Self-Exams Not Asked Social History Narrative No domestic violence or abuse Vital signs: BP 104/61 (BP Location: Left arm, Patient Position: Sitting, BP CUFF SIZE: Adult Medium) | Pulse 93 | Ht 5' 3" (1.6 m) | Wt 150 lb (68 kg) | SpO2 97% | BMI 26.57 kg/m Examination: Mental Status: well-kept and appears stated age, alert and oriented times three, cooperative during the exam, attention and concentration normal, medical reception specialist and expression intact, fund of information normal, recent and remote memory intact, affect/mood normal and relaxed. Cranial nerves (vision, eye movement): EOM intact, equal reactive pupils, accommodation reflex present, full visual louie. Cranial nerves (V,VII): LT/sharp face sense intact, Frontalis intact, NL buccinators, obiculi occuli/oralis NL. Cranial nerves (taste, smell): taste intact by history, smell intact by history. Cranial nerve (VIII). Mild difficulty with conversational hearing. Cranial nerve (X,XII): tongue bulk normal, tongue midline, palate centered. Cranial nerve (accessory): normal r/l sternomastoid bulk/tone/power , shoulder shrug r/l equal. Peripheral motor. Left arm in general weaker than the right. Limited range of motion as well at the left glenohumeral joint including abduction as the most limited. Significant atrophy present of the left deltoid muscle. No muscle tone abnormalities. Reflexes: 1+ reflexes bilaterally, toes downgoing. Peripheral sensation: primary DOMINIC (LT/Sharp/Vib) sense nl, Dominic position sense present. Coordination: FTN normal DOMINIC, HTS DOMINIC intact, finger tap DOMINIC normal. Gait: gait normal, arm swing intact, romberg negative. HEENT: HEENT A/N, no oropharyngeal lesion present, JVD absent, thyromegaly absent, no lymphadenopathy present. Lungs: lungs clear, no wheezing, no rhonchi. Heart: CV RRR, no murmurs, carotid bruits absent. Peripheral vascular: no peripheral cyanosis, clubbing absent, no peripheral edema present, intact peripheral pulses, extremities warm to touch, absent DOMINIC foot ulcers. Musculoskeletal. Cervical pain in general with palpation, pain also exacerbated with lateral rotation movements and flexion and extension movements. ASSESSMENT AND RECOMMENDATIONS: No diagnosis found. Impression: I think that what was noted in the neurosurgery note is very reasonable. She has had some physical therapy. She needs an EMG study as well, looking for evidence of radiculopathy. 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 She had noticeable atrophy of the deltoid on the left. That may make interpretation of the EMG/NCV study difficult. Depending on the results of the EMG/NCV study, the patient may benefit from cervical injections. Creation of the note was aided by utilizing a cut/paste operation of text from a Microsoft Word template created with [employer]. The text was dictated into the template via Dragon Naturally Speaking. documented in this encounter Plan of Treatment Date Type Specialty Care Team Description 03/08/2020 Ancillary Visit Physical Therapy Bonita Rubalcava, [address] [address] 03/10/2020 Ancillary Visit Physical Therapy Sierra Reddy, PT [address] [facility] [place] [address] 04/12/2020 Office Visit Neurological Surgery Emmanuelle Stafford MD [address] [facility] 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
--- OUTSIDE RECORDS SUMMARY | 2020-04-25 06:26 | XMS REPORT | Summary of Care ---
:1945 Author Organization [facility] Address [address] [place] [address] Care Team Providers Name Role Phone Julita, Lulú Medicaid Hmo Lulú Cancino Primary Care Provider Reason for Visit Reason Comments Follow-up (Routine) Status Reason Specialty Diagnoses / Referred By Referred To Procedures Contact Contact Authorized Physical Therapy Diagnoses Cervicalgia Rivera Cinthia [facility] Physical Procedures CONSULT/REFERRAL PHYSICAL THERAPY LA PHYSICAL THERAPY EVALUATION LOW COMPLEX 20 MINS LA PHYSICAL THERAPY EVALUATION MOD COMPLEX 30 MINS LA PHYSICAL THERAPY EVALUATION HIGH COMPLEX 45 MINS LA THERAPEUTIC EXERCISES MD Aurelio Therapy LA NEUROMUSC REE DUCAT,1+ AREAS, EA 15 MIN LA MANUAL THER TECH,1+REGIONS,EA 15 MIN LA THERAPEUT ACTVITY DIRECT PT CONTACT EACH 15 MIN LA SELF-CARE/HOME MGMT TRAINING EACH [address] [place] [address]. Office Building 5th [address] [place] [address] [address] Phone: [place], [place] [phone] Encounter Details Date Type Department Care Team Description 03/03/2020 Ancillary Visit [facility] [place] [facility], Cinthia Jae craft MD [address] [place] [address]. 5th [place] [address] Decreased ROM of intervertebral discs of cervical spine (Primary Dx); Physical Therapy- Bonita Rubalcava, [address] [place] [address] Decreased ROM of left shoulder; Luis Miguel Decreased ROM of right shoul charissa; Professional Decreased muscl e strength; Office Building Bilateral neck pain 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[employer] Utility Prolapse of female pelvic organs documented as of this encounter (statuses as of 03/03/2020) Resolved Problems Problem Noted Date Resolved Date Encounter for routine gynecological examination 07/20/2014 04/27/2015 Overview: ICD10 Diagnosis Term Supervisor [employer] Utility Surveillance of previously prescribed contraceptive method 0 07/20/2014 04/27/2015 Overview: ICD10 Diagnosis Term Supervisor Bl[employer] Furnace Utility Uterine prolapse 07/20/2014 04/27/2015 Overview: ICD10 Diagnosis Term 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 She states she has some relief with therapy,but did not rate pain post session. 1. Decreased ROM of intervertebral discs of cervical spine 2. Decreased ROM of left shoulder 3. Decreased ROM of right shoulder 4. Decreased muscle strength 5. Bilateral neck pain Objective: Outpatient PT Treatment Row Name 03/03/20 1300 General Visit Number 5 Chart Reviewed Yes Family/Caregiver Present No General Comments Visit 5 of 8 Precautions Precautions 1: Moderate Cervical Stenosis present Precautions 2: Falls Pain Assessment Pain Score 5 - Moderate pain Pain Location Neck Pain 2 Pain Location 2 Shoulder Pain Orientation 2 Left Therapeutic Exercise Therapeutic Exercise Activity 1 Stretches- Cervical Flexion, Extension, Lateral flexion, Rotation 2 x 30"ea Therapeutic Exercise Activity 2 Not today - Mery's flex/abd 2'ea Therapeutic Exercise Acitivity 3 Shrugs, backwards rolls, scap squeezes x12ea Therapeutic Exercise Activity [address] 1#x10ea Therapeutic Exercise Activity 6 UBE L2 2/2 Manual Therapy Manual Therapy Activity 1 MFR 5' Modalities Moist Heat (min) 8' HEP: Continue HEP as instructed. Pt reports trying to be compliant with stretches. Assessment: Pt exhibits improving ROM and strength. She reported some discomfort in right shoulder with can exercises. Pt tolerated treatment fair. Plan: Continue with POC 2 x 8 sessions to decrease pain, increase ROM in neck and shoulders, increase UE strength, and improve functional mobility. Will add/advance exercises as able. Bonita Rubalcava PTA [place] Lic#[id number] Supervised by: Alma Figueroa PT [facility] Services Dept. [phone] (phone) documented in this encounter Plan of Treatment Date Type Specialty Care Team Description 03/08/2020 Ancillary Visit Physical Therapy Bonita Rubalcava PTA [address] [place] [address] 03/10/2020 Ancillary Visit Physical Therapy Sierra Reddy, PT [address] [place] [address] 04/12/2020 Office Visit Neurological Surgery Emmanuelle Stafford MD [address] [place] [address]. 5th Floor [place], [place] [phone] Health Maintenance Due Date [...] states she General No Henry wants to agueda Hernandez her TEOFILO Marquez pain documented as of [...] Effective Phone Address T ype Group Dates [facility] [id number] 2019-Pres Medica re HEALTHCARE - HEALTHCARE ent Adv HM O MANAGED DUAL COMPLETE MEDICARE HMO [facility] MEDICAID OF [id number] 2013-Pres [phone] [place] ent [phone] [place] [address] documented as of this encounter
--- OUTSIDE RECORDS SUMMARY | 2020-04-25 06:27 | XMS REPORT | Summary of Care ---
:1945 Author Organization [facility] Address [address] [place] [address] Care Team Providers Name Role Phone CancinoLulú Medicaid Hmo Lulú Cancino Primary Care Provider Reason for Visit Reason Comments New Evaluation for dizziness Encounter Details Date Type Department Care Team Description 02/29/2020 Office Visit [facility] Raul Andino Radiculopath y of cervical spine (Primary Dx); Neurology-Luis Miguel Lawrence MD Cervical spine arthritis; [address] [place] [address] [facility] 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 Utility Prolapse of female pelvic organs documented as of this encounter (statuses as of 03/03/2020) Resolved Problems Problem Noted Date Resolved Date Encounter for routine gynecological examination 07/20/2014 04/27/2015 Overview: ICD10 Diagnosis Term 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 Specialist Utility Surveillance of previously prescribed contraceptive method 0 07/20/2014 04/27/2015 Overview: ICD10 Diagnosis Term 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 Specialist Utility Uterine prolapse 07/20/2014 04/27/2015 Overview: ICD10 Diagnosis Term Dental Billing Specialist Utility documented as of this encounter (statuses [...] Coronary atherosclerosis of unspecified type of vessel, pala or graft, Depression, Diabetes mellitus, Endometriosis, Female [...] CYSTOURETHROSCOPY(SHX) N/A 04/28/2015 Surgeon: Brandan Block; Location: [facility] TUBAL LIGATION UTEROSACRAL VAGINAL VAULT SUSPENSION (SHX) N/A 04/28/2015 Surgeon: Brandan Block; Location: [facility] VAGINAL HYSTERECTOMY N/A 04/28/2015 Surgeon: Brandan Block; Location: [facility] Social History Socioeconomic History Marital status: Spouse [...] file Gets together: Not on file Attends mormonism service: Not on file Active member of [...] during the exam, attention and concentration normal, studio receptionist and expression intact, fund of information normal, [...] from a Microsoft Word template created with [employer]. The text was dictated into the template via Dragon Naturally Speaking. documented in this encounter Plan of Treatment Date Type Specialty Care Team Description 03/08/2020 Ancillary Visit Physical Therapy Bonita Rubalcava, [address] [address] 03/10/2020 Ancillary Visit Physical Therapy Sierra Reddy, PT [address] [facility] [place] [address] 04/12/2020 Office Visit Neurological Surgery Emmanuelle Stafford MD [address] [facility] [address] Floor [place], [place] [phone] Health Maintenance Due Date [...] Effective Phone Address T ype Group Dates [facility] [id number] 2019-Pres Medica re HEALTHCARE - HEALTHCARE ent Adv HM O MANAGED DUAL COMPLETE MEDICARE HMO [facility] MEDICAID OF [id number] 2013-Pres [phone] ca[address] [place] ent [phone] [place] [address] documented as of this encounter
--- OUTSIDE RECORDS SUMMARY | 2020-04-25 06:27 | XMS REPORT | Summary of Care ---
:1945 Author Organization [facility] Address [address] [place] [id number] Care Team Providers Name Role Phone Julita, Lulú Medicaid Hmo Lulú Cancino Primary Care Provider Reason for Visit Reason Comments Follow-up (Routine) Status Reason Specialty Diagnoses / Referred By Referred To Procedures Contact Contact Authorized Physical Therapy Diagnoses Cervicalgia October Physical Procedures CONSULT/REFERRAL PHYSICAL THERAPY MT PHYSICAL THERAPY EVALUATION LOW COMPLEX 20 MINS MT PHYSICAL THERAPY EVALUATION MOD COMPLEX 30 MINS MT PHYSICAL THERAPY EVALUATION HIGH COMPLEX 45 MINS MT THERAPEUTIC EXERCISES MD Aurelio Therapy MT NEUROMUSC REE DUCAT,1+ AREAS, EA 15 MIN MT MANUAL THER TECH,1+REGIONS,EA 15 MIN MT THERAPEUT ACTVITY DIRECT PT CONTACT EACH 15 MIN MT SELF-CARE/HOME MGMT TRAINING EACH [address] [place] [address]. Office Building 5th [address] [facility] [address] [address] [address] Phone: [place], [place] [phone] [address] Encounter Details Date Type Department Care Team Description 03/10/2020 Ancillary Visit [facility] Neel Ayala MD [address] [place] [address] [place] [address] Decreased ROM of intervertebral discs of cervical spine (Primary Dx); Physical Therapy- Kalie Gamble, PT [address] [place] [address] Decreased ROM of left shoulder; Luis Miguel Decreased ROM of right shoul charissa; Professional Decreased muscl e strength; Office Building Bilateral neck pain [address] [facility] [place] 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 Asthma 07/20/2014 Overview: ICD10 Diagnosis 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 History of breast cancer 07/20/2014 Overview: 1987 Hypothyroid 07/20/2014 Essential hypertension 07/20/2014 Overview: ICD10 Diagnosis 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 Prolapse of female pelvic organs documented as of this encounter (statuses as of 03/11/2020) Resolved Problems Problem Noted Date Resolved Date Encounter for routine gynecological examination 07/20/2014 04/27/2015 Overview: ICD10 Diagnosis 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 1. Decreased ROM of intervertebral discs of cervical spine 2. Decreased ROM of left shoulder 3. Decreased ROM of right shoulder 4. Decreased muscle strength 5. Bilateral neck pain Objective: Outpatient PT Treatment Row Name 03/10/20 1300 General Visit Number 7 Chart Reviewed Yes Family/Caregiver Present No General Comments Visit 7 of 8 Precautions Precautions 1: Moderate Cervical [...] MFR 5' Modalities Moist Heat (min) 8' Assessment: Patient tolerated PT management during therapeutic exercises with verbal cues. Denies pain after PT. Plan: Continue with POC 2 x 8 sessions to decrease pain, increase ROM in neck and shoulders, increase UE strength, and improve functional mobility. Will add/advance exercises as able. Kalie Gamble,PT [place] License: [id number] documented in this encounter Plan of Treatment Date Type Specialty Care Team Description 03/14/2020 Ancillary Visit Physical Therapy Ebenezer Rubalcava , CAMOUFLAGE SPECIALIST [address] [place] [address] 03/16/2020 Ancillary Visit Physical Therapy Sierra Reddy, PT [address] [place] [address] 04/12/2020 Office Visit Neurological Surgery Emmanuelle Stafford MD [address] [place] [address] lvd. 5th Floor [place], [place] [address] Health Maintenance Due Date [...] Effective Phone Address T ype Group Dates [place] [id number] 2019-Pres Medica re HEALTHCARE - HEALTHCARE ent Adv HM O MANAGED DUAL COMPLETE MEDICARE HMO TMHP MEDICAID OF [id number] 2013-Pres [phone] [address] Medi [facility] ent [id number] [place] [address] documented as of this encounter
--- OUTSIDE RECORDS SUMMARY | 2020-04-25 06:27 | XMS REPORT | Summary of Care ---
:1945 Author Organization [facility] Address [address] [place] [address] Care Team Providers Name Role Phone Lulú Cancino Medicaid Hmo Lulú Cancino Primary Care Provider Reason for Visit Reason Comments Follow-up (Routine) Status Reason Specialty Diagnoses / Referred By Referred To Procedures Contact Contact Authorized Physical Therapy Diagnoses Cervicalgia October Physical Procedures CONSULT/REFERRAL PHYSICAL THERAPY TN PHYSICAL THERAPY EVALUATION LOW COMPLEX 20 MINS TN PHYSICAL THERAPY EVALUATION MOD COMPLEX 30 MINS TN PHYSICAL THERAPY EVALUATION HIGH COMPLEX 45 MINS TN THERAPEUTIC EXERCISES MD Aurelio Therapy TN NEUROMUSC REE DUCAT,1+ AREAS, EA 15 MIN TN MANUAL THER TECH,1+REGIONS,EA 15 MIN TN THERAPEUT ACTVITY DIRECT PT CONTACT EACH 15 MIN TN SELF-CARE/HOME MGMT TRAINING EACH [address] [place] [address]. Office Building 5th Floor [address] [facility] [address] [address] [address] Phone: [place], [place] [phone] [address] Encounter Details Date Type Department Care Team Description 03/14/2020 Ancillary Visit [facility] Do Subramanian MD [address] [place] [address] [address] [place] [address] Decreased ROM of left shoulder (Primary Dx); Physical Therapy- Ebenezer Rubalcava, [address] [address] Decreased ROM of right shoulder; Luis Miguel Decreased ROM of interverteb ral discs of cervical spine; Professional Decreased muscl e strength; Office Building Bilateral neck pain [address] [facility] [address] [place] [address] Allergies Active Allergy Reactions Severity Noted Date Comments Codeine Nausea and/or Vomiting 07/20/2014 Migra ine headaches documented as of this encounter (statuses as of 03/14/2020) Medications Medication Sig Dispensed Refills Start Date [...] as of this encounter (statuses as of 03/14/2020) Active Problems Problem Noted Date Post-op pain 04/28/2015 Uterovaginal prolapse, incomplete 01/03/2015 Rectocele 01/03/2015 Cystocele, lateral 01/03/2015 Vaginal atrophy 01/03/2015 Mixed incontinence 01/03/2015 Obesity 07/20/2014 Overview: ICD10 Diagnosis 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 Asthma 07/20/2014 Overview: ICD10 Diagnosis 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 History of breast cancer 07/20/2014 Overview: 1987 Hypothyroid 07/20/2014 Essential hypertension 07/20/2014 Overview: ICD10 Diagnosis 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 Prolapse of female pelvic organs documented as of this encounter (statuses as of 03/14/2020) Resolved Problems Problem Noted Date Resolved Date Encounter for routine gynecological examination 07/20/2014 04/27/2015 Overview: ICD10 Diagnosis 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 documented as of this encounter Last Filed Vital Signs Not on filedocumented in this encounter Progress Notes Ebenezer Rubalcava, BOX HINGE AND LOCK ATTACHER - 03/14/2020 2:00 PM CDT Physical Therapy Treatment Date: March 14, 2020 Subjective: Patient reports 4/10 pain to left neck 1. Decreased ROM of left shoulder 2. Decreased ROM of right shoulder 3. Decreased ROM of intervertebral discs of cervical spine 4. Decreased muscle strength 5. Bilateral neck pain Objective: Outpatient PT Treatment Row Name 03/14/20 1300 General Visit Number 8 Chart Reviewed Yes Family/Caregiver Present No General Comments Visit 8 of 8 Precautions Precautions 1: Moderate Cervical Stenosis present Precautions 2: Falls Pain Assessment Pain Score 5 - Moderate pain Post-Treatment Pain Score 0 - No pain Pain Location Neck Pain 2 Pain Score 2 5 - Moderate pain Pain Location 2 Shoulder Pain Orientation 2 Left Therapeutic Exercise Therapeutic Exercise Activity 1 Stretches- Cervical Flexion, Extension, Lateral flexion, Rotation 2 x 30"ea Therapeutic Exercise Activity 2 Mery's flex/abd 2'ea Therapeutic Exercise Acitivity 3 Shrugs, backwards rolls, scap squeezes x15ea Therapeutic Exercise Activity [address] 1#x10ea Therapeutic Exercise Activity 6 UBE L3 3' bwd/ 3'fwd Manual Therapy Manual Therapy Activity 1 (not today)MFR 5' Modalities Moist Heat (min) (Not today)8' HEP: Continue established HEP Assessment: See supv PT POC Plan: See supv PT POC Ebenezer Rubalcava PTA [facility] [phone] [facility] Rehab Services [facility] [phone] Alma Figueroa PT supv documented in this encounter Plan of Treatment Date Type Specialty Care Team Description 03/16/2020 Ancillary Visit Physical Therapy Rosalee Subramanian MD [address] [place] [address] Dr [address] [place] [address] Alma Reddy PT [address] [place] [address] 04/12/2020 Office Visit Neurological Surgery Emmanuelle Stafford MD [address] [place], [place] [address]d. 5th Floor [place], [place] [address] Health Maintenance Due Date [...] encounter Visit Diagnoses Diagnosis Decreased ROM of left shoulder - Primary Decreased ROM of right shoulder Decreased ROM of intervertebral discs of cervical spine Decreased muscle strength Muscle weakness (generalized) Bilateral neck pain Cervicalgia documented in this encounter Insurance Payer Benefit Plan / Subscriber ID Effective Phone Address T ype Group Dates [facility] [id number] 2019-Pres Medica re HEALTHCARE - HEALTHCARE ent Adv HM O MANAGED DUAL COMPLETE MEDICARE HMO TMHP MEDICAID OF [id number] 2013-Pres [phone] [address] [facility] ent [phone] [id number] [place] [address] documented as of this encounter
--- OUTSIDE RECORDS SUMMARY | 2020-04-25 06:27 | XMS REPORT | Summary of Care ---
:1945 Author Organization [facility] Address [address] [place] [address] Care Team Providers Name Role Phone Julita, Lulú Medicaid Hmo Lulú Cancino Primary Care Provider Reason for Visit Reason Comments Follow-up (Routine) Status Reason Specialty Diagnoses / Referred By Referred To Procedures Contact Contact Authorized Physical Therapy Diagnoses Cervicalgia Rivera Cinthia [facility] Physical Procedures CONSULT/REFERRAL PHYSICAL THERAPY PA PHYSICAL THERAPY EVALUATION LOW COMPLEX 20 MINS PA PHYSICAL THERAPY EVALUATION MOD COMPLEX 30 MINS PA PHYSICAL THERAPY EVALUATION HIGH COMPLEX 45 MINS PA THERAPEUTIC EXERCISES MD Aurelio Therapy PA NEUROMUSC REE DUCAT,1+ AREAS, EA 15 MIN PA MANUAL THER TECH,1+REGIONS,EA 15 MIN PA THERAPEUT ACTVITY DIRECT PT CONTACT EACH 15 MIN PA SELF-CARE/HOME MGMT TRAINING EACH [address] [place] [address]. Office Building 5th Floor [address] [facility] [address] [place] [address] [address] Phone: [place], [place] [phone] [address] Encounter Details Date Type Department Care Team Description 03/08/2020 Ancillary Visit [facility], October Jae craft MD [address] [place] [address]. 5th [place] [address] Decreased ROM of intervertebral discs of cervical spine (Primary Dx); Physical Therapy- Bonita Rubalcava, EX CHEF [address] [place] [address] Decreased ROM of left shoulder; Luis Miguel Decreased ROM of right shoul charissa; Professional Decreased muscl e strength; Office Building Bilateral neck pain [address] [facility] 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 Asthma 07/20/2014 Overview: ICD10 Diagnosis 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 History of breast cancer 07/20/2014 Overview: 1987 Hypothyroid 07/20/2014 Essential hypertension 07/20/2014 Overview: ICD10 Diagnosis 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 Prolapse of female pelvic organs documented as of this encounter (statuses as of 03/08/2020) Resolved Problems Problem Noted Date Resolved Date Encounter for routine gynecological examination 07/20/2014 04/27/2015 Overview: ICD10 Diagnosis 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 1. Decreased ROM of intervertebral discs of cervical spine 2. Decreased ROM of left shoulder 3. Decreased ROM of right shoulder 4. Decreased muscle strength 5. Bilateral neck pain Objective: Outpatient PT Treatment Row Name 03/08/20 1300 General Visit Number 6 Chart Reviewed Yes Family/Caregiver Present No General Comments Visit 6 of 8 Precautions Precautions 1: Moderate Cervical [...] be compliant with stretches. Assessment: Pt exhibits good ROM and strength. Cervical ROM is limited by pain. Tightness palpated Bupper traps. Pt tolerated treatment fair. Plan: Continue with POC 2 x 8 sessions to decrease pain, increase ROM in neck and shoulders, increase UE strength, and improve functional mobility. Will add/advance exercises as able. Bonita Rubalcava PTA [place] Lic#[id number] Supervised by: Alma Figueroa PT [facility] Dept. [phone] (phone) documented in this encounter Plan of Treatment Date Type Specialty Care Team Description 03/10/2020 Ancillary Visit Physical Therapy Sierra Reddy PT [address] [place] [address] 04/12/2020 Office Visit Neurological Surgery Emmanuelle Stafford MD [address] [place] [address] lvd. 5th Floor [place], [place] [phone] Health Maintenance Due Date [...] Effective Phone Address T ype Group Dates [facility] [id number] 2019-Pres Medica re HEALTHCARE - HEALTHCARE ent Adv HM O MANAGED DUAL COMPLETE MEDICARE O [facility] MEDICAID OF [id number] 2013-Pres [phone] [address] Medi caid [place] ent [phone] [place] [address] documented as of this encounter
--- OUTSIDE RECORDS SUMMARY | 2020-04-25 06:28 | XMS REPORT | Summary of Care ---
:1945 Author Organization [facility] Address [address] [place] [address] Care Team Providers Name Role Phone Julita, Lulú Medicaid Hmo Lulú Cancino Primary Care Provider Reason for Visit Reason Comments Follow-up (Routine) Status Reason Specialty Diagnoses / Referred By Referred To Procedures Contact Contact Authorized Physical Therapy Diagnoses Cervicalgia October Physical Procedures CONSULT/REFERRAL PHYSICAL THERAPY HI PHYSICAL THERAPY EVALUATION LOW COMPLEX 20 MINS HI PHYSICAL THERAPY EVALUATION MOD COMPLEX 30 MINS HI PHYSICAL THERAPY EVALUATION HIGH COMPLEX 45 MINS HI THERAPEUTIC EXERCISES MD Aurelio Therapy HI NEUROMUSC REE DUCAT,1+ AREAS, EA 15 MIN HI MANUAL THER TECH,1+REGIONS,EA 15 MIN HI THERAPEUT ACTVITY DIRECT PT CONTACT EACH 15 MIN HI SELF-CARE/HOME MGMT TRAINING EACH [address] [place] [address]. Office Building 5th Floor [address] [facility] [address] [address] [address] Phone: [place], [place] [phone] [address] Encounter Details Date Type Department Care Team Description 04/04/2020 Ancillary Visit [facility] Neel Ayala MD [address] [facility] [place] [address] [place] [address] Decreased ROM of left shoulder (Primary Dx); Physical Therapy- Ebenezer Rubalcava, HAND STAMPER [address] [place] [address] Decreased ROM of right shoulder; [place] Decreased ROM of interverteb ral discs of cervical spine; Professional Decreased muscl e strength; Office Building Bilateral neck pain [address] [facility] 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 Asthma 07/20/2014 Overview: ICD10 Diagnosis 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 Loft Worker Apprentice Utility History of breast cancer 07/20/2014 Overview: 1987 Hypothyroid 07/20/2014 Essential hypertension 07/20/2014 Overview: ICD10 Diagnosis Term Loft Worker Apprentice Utility Prolapse of female pelvic organs documented as of this encounter (statuses as of 04/04/2020) Resolved Problems Problem Noted Date Resolved Date Encounter for routine gynecological examination 07/20/2014 04/27/2015 Overview: ICD10 Diagnosis Term Loft Worker Apprentice Utility Surveillance of previously prescribed contraceptive method 0 07/20/2014 04/27/2015 Overview: ICD10 Diagnosis Term Loft Worker Apprentice Utility Uterine prolapse 07/20/2014 04/27/2015 Overview: ICD10 Diagnosis Term Loft Worker Apprentice Utility documented as of this encounter (statuses as of 04/04/2020) Immunizations Name Administration Dates Next Due TDAP [...] been in contact with No / Unsure 03/31/2020 1:01 PM DYNAMICS AX TECHNICAL ARCHITECT someone who was confirmed or suspected to have Coronavirus / COVID-19? documented as of this encounter Last Filed Vital Signs Not on filedocumented in this encounter Progress Notes Ebenezer Rubalcava, HAND STAMPER - 04/04/2020 3:00 PM CST Physical Therapy Treatment Date: April 04, 2020 Subjective: Patient reports hurting all over today. Increase neck and left shoulder pain today. Rated 5/10. 1. Decreased ROM of left shoulder 2. Decreased ROM of right shoulder 3. Decreased ROM of intervertebral discs of cervical spine 4. Decreased muscle strength 5. Bilateral neck pain Objective: Outpatient PT Treatment Row Name 04/04/20 1500 General Visit Number 13 Chart Reviewed Yes Family/Caregiver Present No General Comments Visit 5 of 8 Precautions Precautions 1: Moderate Cervical Stenosis present Precautions 2: Falls Pain Assessment Pain Score 4 at night it hurts more 6/10 Post-Treatment Pain Score 4 Pain Location Neck Pain Orientation Left Pain 2 Pain Score 2 0 - No pain pain increase when moving L shoulder Pain Location 2 Shoulder Pain Orientation 2 Left Therapeutic Exercise Therapeutic Exercise Activity 1 Stretches- Cervical Flexion, Extension, Lateral flexion, Rotation 2 x 30"ea Therapeutic Exercise Activity 2 Mery's flex/abd 2'ea Therapeutic Exercise Acitivity 3 Shrugs, backwards rolls, scap squeezes x15ea Therapeutic Exercise Activity [address] and 1#x15 ea Therapeutic Exercise Activity 5 L shoulder Tband 6 ways L1 x15ea Therapeutic Exercise Activity 6 UBE L3 3' bwd/ 3'fwd Modalities Moist Heat (min) 8' neck and left shoulder Cryotherapy (Minutes\\Location) Assessment: Fair exercise tolerance today. Reports left shoulder pain with stretches. Patient states her pain is reduced after treatment. Requires verbal cues for exercise technique. Plan: Continue with POC 2 x 8 sessions to decrease pain, increase ROM in neck and shoulders, increase UE strength, and improve functional mobility. Ebenezer Rubalcava PTA [place] Lic [id number] [facility] Rehab Services [facility] [phone] Alma Figueroa PT supv MICS AX TECHNICAL ARCHITECT documented in this encounter Plan of Treatment Date Type Specialty Care Team Description 04/08/2020 Ancillary Visit Physical Therapy Bonita Rubalcava [address] [address] 04/11/2020 Ancillary Visit Physical Therapy Ebenezer Rubalcava [address] [address] 04/12/2020 Office Visit Neurological Surgery Emmanuelle Stafford MD [address] [place] [address]. 5th Floor [place], [place] [address] Health Maintenance Due Date Last Done Comments Medicare Wellness Visit 02/20/2008 Osteoporosis Screening 02/20/2008 PNEUMOCOCCAL VACCINES 65+ (1 of 1 02/20/2008 - PPSV23) Zoster Recombinant Vaccine 07/14/2014 05/19/2014 (SHINGRIX) (2 of 3) Depression Screening 02/28/2021 02/29/2020 DTaP,Tdap,and Td Vaccines (2 - Td) 07/20/2023 07/20/2013 INFLUENZA VACCINE Completed 2020, 02/25/2019, 04/30/2018, Additional history exists documented as of this encounter Goals Goal Patient Goal Associated Recent Patient-Stated? Author Type Problems Progress Pt states she General No Henry wants to David, decrease her TEOFILO Marquez pain documented as of [...] Effective Phone Address T ype Group Dates [facility] [id number] 2019-Pres Medica re HEALTHCARE - HEALTHCARE ent Adv HM O MANAGED DUAL COMPLETE MEDICARE HMO [facility] MEDICAID OF [id number] 2013-Pres [phone] [address] Medi caid [place] ent [phone] [place] [address] (Home) [place] [address] documented as of this encounter
--- OUTSIDE RECORDS SUMMARY | 2020-04-25 06:28 | XMS REPORT | Summary of Care ---
:1945 Author Organization [facility] Address [address] [place] [address] Care Team Providers Name Role Phone Julita, A Medicaid Hmo Julita, A Primary Care Provider Encounter Details Date Type Department Care Team Description 04/08/2020 Case Management [facility] Physical Kristen Rubalcava K, CAN TESTER Therapy- [address] Professional Office [place], [place] [id number] [place] [address] [place] [phone] [facility] [phone] Allergies Active Allergy Reactions Severity Noted Date Comments Codeine Nausea and/or Vomiting 07/20/2014 Migra ine headaches documented as of this encounter (statuses as of 04/08/2020) Medications Medication Sig Dispensed Refills Start Date [...] as of this encounter (statuses as of 04/08/2020) Active Problems Problem Noted Date Post-op pain 04/28/2015 Uterovaginal prolapse, incomplete 01/03/2015 Rectocele 01/03/2015 Cystocele, lateral 01/03/2015 Vaginal atrophy 01/03/2015 Mixed incontinence 01/03/2015 Obesity 07/20/2014 Overview: ICD10 Diagnosis 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 Asthma 07/20/2014 Overview: ICD10 Diagnosis 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 History of breast cancer 07/20/2014 Overview: 1987 Hypothyroid 07/20/2014 Essential hypertension 07/20/2014 Overview: ICD10 Diagnosis 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 Prolapse of female pelvic organs documented as of this encounter (statuses as of 04/08/2020) Resolved Problems Problem Noted Date Resolved Date Encounter for routine gynecological examination 07/20/2014 04/27/2015 Overview: ICD10 Diagnosis 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 Surveillance of previously prescribed contraceptive method 0 07/20/2014 04/27/2015 Overview: ICD10 Diagnosis 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 Uterine prolapse 07/20/2014 04/27/2015 Overview: ICD10 Diagnosis 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 documented as of this encounter (statuses as of 04/08/2020) Immunizations Name Administration Dates Next Due TDAP [...] with No / Unsure 03/31/2020 1:01 PM MODELER someone who was confirmed or suspected to have Coronavirus / COVID-19? documented as of this encounter Last Filed Vital Signs Not on filedocumented in this encounter Progress Notes Bonita Rubalcava PTA - 04/08/2020 4:25 PM CST04/08/2020 Appointment time: 3:00 PM Pt was called at: 3:35 PM Physical Therapy Missed Visit Bertha Sherwood missed a scheduled therapy appointment today. CAN TESTER called pt to follow-up, therewas no answer. I left a message so pt is aware of next scheduled appointment on Saturday at 3:00 PM. Bonita Rubalcava PTA [place] Lic#[id number] Supervised by: Alma Figueroa PT [facility] Rehabilitation Services Dept. [phone] (phone) documented in this encounter Plan of Treatment Date Type Specialty Care Team Description 04/11/2020 Ancillary Visit Physical Therapy Ebenezer Rubalcava PTA [address] [place] [address] [facility] [place] [address] 04/12/2020 Office Visit Neurological Surgery Emmanuelle Stafford MD [address] [place] [address] [address]vd[address] 5[address] Floor [place], [place] [phone] Health Maintenance Due Date [...] Effective Phone Address T ype Group Dates [employer] [id number] 2020-Pre P O BOX Medicaid [facility] sent [id number] [place] [address] [facility] [id number] 2019-Pres Medica re Adv HEALTHCARE - HEALTHCARE ent HMO MANAGED DUAL COMPLETE MEDICARE HMO documented as of this encounter
--- OUTSIDE RECORDS SUMMARY | 2020-04-25 06:28 | XMS REPORT | Summary of Care ---
:1945 Author Organization [facility] Address [address] [place] [address] Care Team Providers Name Role Phone Julita, Lulú Medicaid Hmo Lulú Cancino Primary Care Provider Reason for Visit Reason Comments Follow-up (Routine) Status Reason Specialty Diagnoses / Referred By Referred To Procedures Contact Contact Authorized Physical Therapy Diagnoses Cervicalgia Rivera Cinthia [facility] Physical Procedures CONSULT/REFERRAL PHYSICAL THERAPY DC PHYSICAL [...] DC SELF-CARE/HOME MGMT TRAINING EACH [address] [place] [address]. Office Building 5th Floor [address] [place] [address] [address] Phone: [place], [place] [phone] Encounter Details Date Type Department Care Team Description 03/31/2020 [facility] Jae craft MD [address] [place] [address]. 5th [place] [address] Decreased ROM of left shoulder (Primary Dx); Physical Therapy- Kalie Gamble, PT [address] [place] [address] Decreased ROM of right shoulder; Luis Miguel Decreased ROM of interverteb ral discs of cervical spine; Professional Decreased muscl e strength; Office Building Bilateral neck pain [address] [facility] 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 [employer] Utility Asthma 07/20/2014 Overview: ICD10 Diagnosis 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 Engineer [employer] Utility History of breast cancer 07/20/2014 Overview: 1987 Hypothyroid 07/20/2014 Essential hypertension 07/20/2014 Overview: ICD10 Diagnosis 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 Engineer [employer] Utility Prolapse of female pelvic organs documented as of this encounter (statuses as of 03/31/2020) Resolved Problems Problem Noted Date Resolved Date Encounter for routine gynecological examination 07/20/2014 04/27/2015 Overview: ICD10 Diagnosis 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 Engineer [employer] Utility Surveillance of previously prescribed contraceptive method 0 07/20/2014 04/27/2015 Overview: ICD10 Diagnosis 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 Engineer [employer] Utility Uterine prolapse 07/20/2014 04/27/2015 Overview: ICD10 Diagnosis 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 Engineer [employer] Utility documented as of this encounter (statuses as of 03/31/2020) Immunizations Name Administration Dates Next Due TDAP [...] with No / Unsure 03/31/2020 1:01 PM PILER someone who was confirmed or suspected to have Coronavirus / COVID-19? documented as of this encounter Last Filed Vital Signs Not on filedocumented in this encounter Progress Notes Kalie Gamble, PT - 03/31/2020 1:00 PM CST Physical Therapy Treatment Date: March 31, 2020 Subjective: Patient complaint of neck pain. 1. Decreased ROM of left shoulder 2. Decreased ROM of right shoulder 3. Decreased ROM of intervertebral discs of cervical spine 4. Decreased muscle strength 5. Bilateral neck pain Objective: Outpatient PT Treatment Row Name 03/31/20 1300 General Visit Number 12 Chart Reviewed Yes Family/Caregiver Present No General Comments Visit 4 of 8 Precautions Precautions 1: Moderate Cervical Stenosis present Precautions 2: Falls Pain Assessment Pain Score 4 at night it hurts more 6/10 Post-Treatment Pain Score 4 Pain Location Neck Pain 2 Pain Score 2 0 - [...] 6 UBE L3 3' bwd/ 3'fwd Modalities Cryotherapy (Minutes\\Location) 8' R shoulder Assessment: Patient tolerated PT management during therapeutic exercises with verbal cues on proper therapeutic exercise form.Patient pain stayed the same after PT /10 on neck. Plan: Continue with POC 2 x 8 sessions to decrease pain, increase ROM in neck and shoulders, increase UE strength, and improve functional mobility. Will add/advance exercises as able. Kalie Gamble,PT [place] License: [id number] R documented in this encounter Plan of Treatment Date Type Specialty Care Team Description 04/04/2020 Ancillary Visit Physical Therapy Ebenezer Rubalcava , [address] [address] 04/08/2020 Ancillary Visit Physical Therapy Bonita Rubalcava, [address] [address] 04/11/2020 Ancillary Visit Physical Therapy Ebenezer Rubalcava , [address] [address] 04/12/2020 Office Visit Neurological Surgery Emmanuelle Stafford MD [address] [place] [address]. 5th Floor [place], [place] [phone] Health Maintenance Due Date [...] Effective Phone Address T ype Group Dates [facility] [id number] 2019-Pres Medica re HEALTHCARE - HEALTHCARE ent Adv HM O MANAGED DUAL COMPLETE MEDICARE O [facility] MEDICAID OF [id number] 2013-Pres [phone] [address] Medi caid [place] ent [id number] [place] [address] documented as of this encounter
--- OUTSIDE RECORDS SUMMARY | 2020-04-25 06:28 | XMS REPORT | Summary of Care ---
:1945 Author Organization [facility] Address [address] [place] [address] Care Team Providers Name Role Phone Julita, Lulú Medicaid Hmo CancinoLulú Primary Care Provider Reason for Visit Reason Comments Follow-up (Routine) Status Reason Specialty Diagnoses / Referred By Referred To Procedures Contact Contact Authorized Physical Therapy Diagnoses Cervicalgia Rivera Cinthia [facility] Physical Procedures CONSULT/REFERRAL PHYSICAL THERAPY RI PHYSICAL THERAPY EVALUATION LOW COMPLEX 20 MINS RI PHYSICAL THERAPY EVALUATION MOD COMPLEX 30 MINS RI PHYSICAL THERAPY EVALUATION HIGH COMPLEX 45 MINS RI THERAPEUTIC EXERCISES MD Aurelio Therapy RI NEUROMUSC REE DUCAT,1+ AREAS, EA 15 MIN RI MANUAL THER TECH,1+REGIONS,EA 15 MIN RI THERAPEUT ACTVITY DIRECT PT CONTACT EACH 15 MIN RI SELF-CARE/HOME MGMT TRAINING EACH [address] [place] [address]. Office Building 5th Floor [address] [place] [address] [address] Phone: [place], [place] [phone] [address] Encounter Details Date Type Department Care Team Description 03/29/2020 Ancillary Visit [facility], October Jae craft MD [address] [place] [address]. 5th [place] [address] Decreased ROM of left shoulder (Primary Dx); Physical Therapy- Kalie Gamble, PT [address] [place] [address] Decreased ROM of right shoulder; Luis Miguel Decreased ROM of interverteb ral discs of cervical spine; Professional Decreased muscl e strength; Office Building Bilateral neck pain [address] [facility] 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 Utility Asthma 07/20/2014 Overview: ICD10 Diagnosis Term Entry Level Administrative Assistant Utility History of breast cancer 07/20/2014 Overview: 1987 Hypothyroid 07/20/2014 Essential hypertension 07/20/2014 Overview: ICD10 Diagnosis Term Entry Level Administrative Assistant Utility Prolapse of female pelvic organs documented as of this encounter (statuses as of 03/29/2020) Resolved Problems Problem Noted Date Resolved Date Encounter for routine gynecological examination 07/20/2014 04/27/2015 Overview: ICD10 Diagnosis Term Entry Level Administrative Assistant Utility Surveillance of previously prescribed contraceptive method 0 07/20/2014 04/27/2015 Overview: ICD10 Diagnosis Term Entry Level Administrative Assistant Utility Uterine prolapse 07/20/2014 04/27/2015 Overview: ICD10 Diagnosis Term Entry Level Administrative Assistant Utility documented as of this encounter (statuses as of 03/29/2020) Immunizations Name Administration Dates Next Due TDAP [...] been in contact with No / Unsure 03/29/2020 1:00 PM RENEWABLE ENERGY BROKER someone who was confirmed or suspected to have Coronavirus / COVID-19? documented as of this encounter Last Filed Vital Signs Not on filedocumented in this encounter Progress Notes Kalie Gamble, PT - 03/29/2020 1:00 PM CST Physical Therapy Treatment Date: March 29, 2020 Subjective: Patient stated that her R knee, L shoulder and neck is hurting which she claimed maybe because of the weather. 1. Decreased ROM of left shoulder 2. Decreased ROM of right shoulder 3. Decreased ROM of intervertebral discs of cervical spine 4. Decreased muscle strength 5. Bilateral neck pain Objective: Outpatient PT Treatment Row Name 03/29/20 1300 General General Comments Visit 3 of 8 Pain Assessment Pain Score 5 - Moderate pain Post-Treatment Pain Score 4 Pain 2 Pain Score 2 5 - Moderate pain Therapeutic Exercise Therapeutic Exercise Activity 1 Stretches- Cervical Flexion, Extension, Lateral flexion, Rotation 2 x 30"ea Therapeutic Exercise Activity 2 Mery's flex/abd 2'ea Therapeutic Exercise Acitivity 3 Shrugs, backwards rolls, scap squeezes x15ea Therapeutic Exercise Activity [address] 1#x15 ea Therapeutic Exercise Activity 5 L shoulder Tband 6 ways L1 x15ea Therapeutic Exercise Activity 6 UBE L3 3' bwd/ 3'fwd Assessment: Patient tolerated PT management during therapeutic exercises with verbal cues on proper body mechanics. Pain after PT is 4/10 on neck and L shoulder. Plan: Continue with POC 2 x 8 sessions to decrease pain, increase ROM in neck and shoulders, increase UE strength, and improve functional mobility. Will add/advance exercises as able. Kalie Gamble,PT [place] License: [id number] WABLE ENERGY BROKER documented in this encounter Plan of Treatment Date Type Specialty Care Team Description 03/31/2020 Ancillary Visit Physical Therapy Cinthia Stafford MD [address] [place] [address]. [address] [place] [address] Kalie Gamble, PT [address] [place] [address] 04/12/2020 Office Visit Neurological Surgery Emmanuelle Stafford MD [address] [place], [place] [address]d. [address] [place], [place] [phone] Health Maintenance Due Date [...] Effective Phone Address T ype Group Dates [facility] [id number] 2019-Pres Medica re HEALTHCARE - HEALTHCARE ent Adv HM O MANAGED DUAL COMPLETE MEDICARE HMO [facility] MEDICAID OF [id number] 2013-Pres [phone] [address] [facility] ent [phone] [id number] [place] [address] documented as of this encounter
--- OUTSIDE RECORDS SUMMARY | 2020-04-25 06:28 | XMS REPORT | Summary of Care ---
:1945 Author Organization [facility] Address [address] [place] [address] Care Team Providers Name Role Phone Lulú Cancino Medicaid Hmo Lulú Cancino Primary Care Provider Reason for Visit Reason Comments Follow-up (Routine) Status Reason Specialty Diagnoses / Referred By Referred To Procedures Contact Contact Authorized Physical Therapy Diagnoses Cervicalgia October Physical Procedures CONSULT/REFERRAL PHYSICAL THERAPY MI PHYSICAL THERAPY EVALUATION LOW COMPLEX 20 MINS MI PHYSICAL THERAPY EVALUATION MOD COMPLEX 30 MINS MI PHYSICAL THERAPY EVALUATION HIGH COMPLEX 45 MINS MI THERAPEUTIC EXERCISES MD Aurelio Therapy [place] NEUROMUSC REE DUCAT,1+ AREAS, EA 15 MIN MI MANUAL THER TECH,1+REGIONS,EA 15 MIN MI THERAPEUT ACTVITY DIRECT PT CONTACT EACH 15 MIN MI SELF-CARE/HOME MGMT TRAINING EACH [address] [place] [address]. Office Building 5th Floor [address] [address] [place] [address] [address] Phone: [place], [place] [phone] [address] Encounter Details Date Type Department Care Team Description 03/16/2020 Ancillary Visit [facility] Do Subramanian MD [address] [place] [address] [address] [place] [address] Decreased ROM of left shoulder (Primary Dx); Physical Therapy- Alma Reddy, PT [address] [place] [address] Decreased ROM of right shoulder; Luis Miguel Decreased ROM of interverteb ral discs of cervical spine; Professional Decreased muscl e strength; Office Building Bilateral neck pain [address] [place] [address] Allergies Active Allergy Reactions Severity Noted Date Comments Codeine Nausea and/or Vomiting 07/20/2014 Migra ine headaches documented as of this encounter (statuses as of 03/16/2020) Medications Medication Sig Dispensed Refills Start Date [...] as of this encounter (statuses as of 03/16/2020) Active Problems Problem Noted Date Post-op pain 04/28/2015 Uterovaginal prolapse, incomplete 01/03/2015 Rectocele 01/03/2015 Cystocele, lateral 01/03/2015 Vaginal atrophy 01/03/2015 Mixed incontinence 01/03/2015 Obesity 07/20/2014 Overview: ICD10 Diagnosis Term Environmental Scientists Utility Asthma 07/20/2014 Overview: ICD10 Diagnosis Term Environmental Scientists Utility History of breast cancer 07/20/2014 Overview: 1987 Hypothyroid 07/20/2014 Essential hypertension 07/20/2014 Overview: ICD10 Diagnosis Term Environmental Scientists Utility Prolapse of female pelvic organs documented as of this encounter (statuses as of 03/16/2020) Resolved Problems Problem Noted Date Resolved Date Encounter for routine gynecological examination 07/20/2014 04/27/2015 Overview: ICD10 Diagnosis Term Environmental Scientists Utility Surveillance of previously prescribed contraceptive method 0 07/20/2014 04/27/2015 Overview: ICD10 Diagnosis Term Environmental Scientists Utility Uterine prolapse 07/20/2014 04/27/2015 Overview: ICD10 Diagnosis Term Environmental Scientists Utility documented as of this encounter (statuses as of 03/16/2020) Immunizations Name Administration Dates Next Due TDAP [...] encounter Progress Notes Alma Reddy, PT - 03/16/2020 2:40 PM CDT Physical Therapy Treatment Date: March 16, 2020 Subjective: " I am alright today." 1. Decreased ROM of left shoulder 2. Decreased ROM of right shoulder 3. Decreased ROM of intervertebral discs of cervical spine 4. Decreased muscle strength 5. Bilateral neck pain Objective: Outpatient PT Treatment Row Name 03/16/20 1400 General Visit Number 9 Chart Reviewed Yes Family/Caregiver Present No General Comments Visit 1 of 8 Precautions Choose Number of Precautions: 2 Precautions 1: Moderate Cervical Stenosis present Precautions 2: Falls Pain Assessment Pain Score 4 Post-Treatment Pain Score 0 - No pain Pain Location Neck Pain 2 Pain Score 2 4 Pain Location 2 Shoulder Pain Orientation 2 Left Therapeutic Exercise Enter Number of Therapeutic Exercise Activities: 6 Therapeutic Exercise Activity 1 Stretches- Cervical Flexion, Extension, Lateral flexion, Rotation 2 x 30"ea Therapeutic Exercise Activity 2 Mery's flex/abd 2'ea Therapeutic Exercise Acitivity 3 Shrugs, backwards rolls, scap squeezes x15ea Therapeutic Exercise Activity [address] 1#x15 ea Therapeutic Exercise Activity 6 UBE L3 3' bwd/ 3'fwd Manual Therapy Manual Therapy Activity 1 (not today)MFR 5' Modalities Moist Heat (min) 8' Assessment: Pt with good response to therapy, patient with improved ROM with stretches. Patient with decreased pain after MHP. Plan: Patient to continue with POC focusing on strengthening, increasing ROM, and increasing overall mobility. Alma Figueroa, PT [place] PT License [id number] [facility] Rehabilitation Services Department (phone) (fax) documented in this encounter Plan of Treatment Date Type Specialty Care Team Description 04/12/2020 Office Visit Neurological Surgery Emmanuelle Stafford MD [address] [place] [address]. 5th Floor [place] [phone] Health Maintenance Due Date Last Done [...] Effective Phone Address T e Group Dates [facility] [id number] 2019-Pres Medica re HEALTHCARE - HEALTHCARE ent Adv HM O MANAGED DUAL COMPLETE MEDICARE HMO [facility] MEDICAID OF [id number] 2013-Pres [phone] [address] [facility] ent [phone] [id number] [place] [address] documented as of this encounter
--- OUTSIDE RECORDS SUMMARY | 2020-04-25 06:28 | XMS REPORT | Summary of Care ---
:1945 Author Organization [facility] Address [address] [place] [address] Care Team Providers Name Role Phone Julita, Lulú Medicaid Hmo CancinoLulú Primary Care Provider Reason for Visit Reason Comments Follow-up (Routine) Status Reason Specialty Diagnoses / Referred By Referred To Procedures Contact Contact Authorized Physical Therapy Diagnoses Cervicalgia Rivera Cinthia [facility] Physical Procedures CONSULT/REFERRAL PHYSICAL THERAPY ME PHYSICAL THERAPY EVALUATION LOW COMPLEX 20 MINS ME PHYSICAL THERAPY EVALUATION MOD COMPLEX 30 MINS ME PHYSICAL THERAPY EVALUATION HIGH COMPLEX 45 MINS ME THERAPEUTIC EXERCISES MD Aurelio Therapy ME NEUROMUSC REE DUCAT,1+ AREAS, EA 15 MIN ME MANUAL THER TECH,1+REGIONS,EA 15 MIN ME THERAPEUT ACTVITY DIRECT PT CONTACT EACH 15 MIN ME SELF-CARE/HOME MGMT TRAINING EACH [address] [place] [address]. Office Building 5th Floor [address] [address] [address] Phone: [place], [place] [phone] [address] Encounter Details Date Type Department Care Team Description 03/24/[address] [facility] October Jae craft MD [address] [place] [address]. 5th [place] [address] Decreased ROM of left shoulder (Primary Dx); Physical Therapy- Bonita Rubalcava, GROUNDSKEEPING MAINTENANCE [address] [place] [address] Decreased ROM of right shoulder; Luis Miguel Decreased ROM of interverteb ral discs of cervical spine; Professional Decreased muscl e strength; Office Building Bilateral neck pain [address] [facility] [address] [place] [address] Allergies Active Allergy Reactions Severity Noted Date Comments Codeine Nausea and/or Vomiting 07/20/2014 Migra ine headaches documented as of this encounter (statuses as of 03/24/2020) Medications Medication Sig Dispensed Refills Start Date [...] as of this encounter (statuses as of 03/24/2020) Active Problems Problem Noted Date Post-op pain 04/28/2015 Uterovaginal prolapse, incomplete 01/03/2015 Rectocele 01/03/2015 Cystocele, lateral 01/03/2015 Vaginal atrophy 01/03/2015 Mixed incontinence 01/03/2015 Obesity 07/20/2014 Overview: ICD10 Diagnosis Term Information Technology Intern Utility Asthma 07/20/2014 Overview: ICD10 Diagnosis Term Information Technology Intern Utility History of breast cancer 07/20/2014 Overview: 1987 Hypothyroid 07/20/2014 Essential hypertension 07/20/2014 Overview: ICD10 Diagnosis Term Information Technology Intern Utility Prolapse of female pelvic organs documented as of this encounter (statuses as of 03/24/2020) Resolved Problems Problem Noted Date Resolved Date Encounter for routine gynecological examination 07/20/2014 04/27/2015 Overview: ICD10 Diagnosis Term Information Technology Intern Utility Surveillance of previously prescribed contraceptive method 0 07/20/2014 04/27/2015 Overview: ICD10 Diagnosis Term Information Technology Intern Utility Uterine prolapse 07/20/2014 04/27/2015 Overview: ICD10 Diagnosis Term Information Technology Intern Utility documented as of this encounter (statuses as of 03/24/2020) Immunizations Name Administration Dates Next Due TDAP [...] been in contact with No / Unsure 03/24/2020 2:18 PM CDT someone who was confirmed or suspected to have Coronavirus / COVID-19? documented as of this encounter Last Filed Vital Signs Not on filedocumented in this encounter Progress Notes Bonita Rubalcava, GROUNDSKEEPING MAINTENANCE - 03/24/2020 2:20 PM CDT Physical Therapy Treatment Date: March 24, 2020 Subjective: Pt reports no pain at rest, but when she began exercises she reported left shoulder paindue to painting at home. She did not rate pain level. 1. Decreased ROM of left shoulder 2. Decreased ROM of right shoulder 3. Decreased ROM of intervertebral discs of cervical spine 4. Decreased muscle strength 5. Bilateral neck pain Objective: Outpatient PT Treatment Row Name 03/24/20 1400 General Visit Number 10 Chart Reviewed Yes Family/Caregiver Present No General Comments Visit 2 of 8 Precautions Precautions 1: Moderate Cervical Stenosis present Precautions 2: Falls Pain Assessment Pain Score 0 - No pain Pain Location Neck Pain 2 Pain Score 2 0 - No pain Pain Location 2 Shoulder Pain Orientation 2 Left Therapeutic Exercise Enter Number of Therapeutic Exercise Activities: 6 Therapeutic Exercise Activity 1 Stretches- Cervical Flexion, Extension, Lateral flexion, Rotation 2 x 30"ea Therapeutic Exercise Activity 2 Mery's flex/abd 2'ea Therapeutic Exercise Acitivity 3 Shrugs, backwards rolls, scap squeezes x15ea Therapeutic Exercise Activity [address] 1#x15 ea Therapeutic Exercise Activity 5 Rows L2 x10; L shoulder Tband 6 ways L1 x10ea Therapeutic Exercise Activity 6 UBE L3 3' bwd/ 3'fwd HEP: Continue HEP as instructed. Pt reports compliance. Assessment: Pt required verbal, visual, and tactile cues for stretches and exercises today. She exhibits weakness with Theraband exercises. Pt tolerated treatment fair. Plan: Continue with POC 2 x 8 sessions to decrease pain, increase ROM in neck and shoulders, increase UE strength, and improve functional mobility. Will add/advance exercises as able. Bonita Rubalcava PTA [place] Lic#[id number] Supervised by: Alma Figueroa PT [facility] Rehabilitation Services Dept. [phone] (phone) documented in this encounter Plan of Treatment Date Type Specialty Care Team Description 03/29/2020 Ancillary Visit Physical Therapy Kalie Gamble , PT [address] [place] [address] 03/31/2020 Ancillary Visit Physical Therapy Kalie Gamble , PT [address] [place] [address] 04/12/2020 Office Visit Neurological Surgery Emmanuelle Stafford MD [address] [place] [address] lvd. 5th Floor [place], [place] [phone] Health Maintenance Due Date [...] Effective Phone Address T ype Group Dates [facility] [id number] 2019-Pres Medica re HEALTHCARE - HEALTHCARE ent Adv HM O MANAGED DUAL COMPLETE MEDICARE HMO [facility] MEDICAID OF [id number] 2013-Pres [phone] [address] Medi caid [place] ent [id number] [place] [address] documented as of this encounter
--- OUTSIDE RECORDS SUMMARY | 2020-04-25 06:29 | XMS REPORT | Summary of Care ---
:1945 Author Organization [facility] Address [address] [place] [address] Care Team Providers Name Role Phone Julita, Lulú Medicaid Hmo CancinoLulú Primary Care Provider Reason for Visit Reason Comments Follow-up (Routine) Status Reason Specialty Diagnoses / Referred By Referred To Procedures Contact Contact Authorized Physical Therapy Diagnoses Cervicalgia Rivera Cinthia [facility] Physical Procedures CONSULT/REFERRAL PHYSICAL THERAPY MO PHYSICAL THERAPY EVALUATION LOW COMPLEX 20 MINS MO PHYSICAL THERAPY EVALUATION MOD COMPLEX 30 MINS MO PHYSICAL THERAPY EVALUATION HIGH COMPLEX 45 MINS MO THERAPEUTIC EXERCISES MD Aurelio Therapy [place] NEUROMUSC REE DUCAT,1+ AREAS, EA 15 MIN MO MANUAL THER TECH,1+REGIONS,EA 15 MIN [place] THERAPEUT ACTVITY DIRECT PT CONTACT EACH 15 MIN [place] SELF-CARE/HOME MGMT TRAINING EACH [address] [place] [address]. Office Building 5th Floor [address] [address] [address] Phone: [place], [place] [phone] Encounter Details Date Type Department Care Team Description 04/18/2020 [facility] Cinthia Jae craft MD [address] [place] [address]. 5th [place] [address] Decreased ROM of left shoulder (Primary Dx); Physical Therapy- Ebenezer Rubalcava PTA [address] [place] [address] Decreased ROM of right shoulder; Luis Miguel Decreased ROM of interverteb ral discs of cervical spine; Professional Decreased muscl e strength; Office Building Bilateral neck pain [address] [facility] [address] [place] [address] Allergies Active Allergy Reactions Severity Noted Date Comments Codeine Nausea and/or Vomiting 07/20/2014 Migra ine headaches documented as of this encounter (statuses as of 04/18/2020) Medications Medication Sig Dispensed Refills Start Date [...] as of this encounter (statuses as of 04/18/2020) Active Problems Problem Noted Date Post-op pain 04/28/2015 Uterovaginal prolapse, incomplete 01/03/2015 Rectocele 01/03/2015 Cystocele, lateral 01/03/2015 Vaginal atrophy 01/03/2015 Mixed incontinence 01/03/2015 Obesity 07/20/2014 Overview: ICD10 Diagnosis Term Consumer Insights Intern Utility Asthma 07/20/2014 Overview: ICD10 Diagnosis Term Consumer Insights Intern Utility History of breast cancer 07/20/2014 Overview: 1987 Hypothyroid 07/20/2014 Essential hypertension 07/20/2014 Overview: ICD10 Diagnosis Term Consumer Insights Intern Utility Prolapse of female pelvic organs documented as of this encounter (statuses as of 04/18/2020) Resolved Problems Problem Noted Date Resolved Date Encounter for routine gynecological examination 07/20/2014 04/27/2015 Overview: ICD10 Diagnosis Term Consumer Insights Intern Utility Surveillance of previously prescribed contraceptive method 0 07/20/2014 04/27/2015 Overview: ICD10 Diagnosis Term Consumer Insights Intern Utility Uterine prolapse 07/20/2014 04/27/2015 Overview: ICD10 Diagnosis Term Consumer Insights Intern Utility documented as of this encounter (statuses as of 04/18/2020) Immunizations Name Administration Dates Next Due TDAP [...] been in contact with No / Unsure 04/18/2020 2:34 PM TEXTILES PRINTER someone who was confirmed or suspected to have Coronavirus / COVID-19? documented as of this encounter Last Filed Vital Signs Not on filedocumented in this encounter Progress Notes Ebenezer Rubalcava, PET CREMATORY WORKER - 04/18/2020 3:00 PM CST Physical Therapy Treatment Date: April 18, 2020 Subjective: Reports left upper trap is sore today but doing better. 1. Decreased ROM of left shoulder 2. Decreased ROM of right shoulder 3. Decreased ROM of intervertebral discs of cervical spine 4. Decreased muscle strength 5. Bilateral neck pain Objective: Outpatient PT Treatment Row Name 04/18/20 1500 General Visit Number 16 Chart Reviewed Yes Family/Caregiver Present No General [...] Exercise Activity [address] and 2#x15 ea Therapeutic Exercise Activity 5 L shoulder Tband 6 ways L2 x10ea Therapeutic Exercise Activity 6 UBE L3 3' bwd/ 3'fwd Modalities Moist Heat (min) 8' neck and left shoulder Assessment: Fair exercise tolerance today. Painful neck lateral flexion to left. Increased exercise as noted.Patient continues to require frequent verbal cues of avoid substitutions and for technique. Progressing slowly with strength and ROM. Plan: Continue with POC 2 x 8 sessions to decrease pain, increase ROM in neck and shoulders, increase UE strength, and improve functional mobility. Ebenezer Rubalcava PTA Shawn Lic [id number] [facility] Rehab Services ADC [phone] Alma Figueroa, TEOFILO supv ILES PRINTER documented in this encounter Plan of Treatment Health Maintenance Due Date Last Done Comments [...] Effective Phone Address T ype Group Dates [facility] [id number] 2019-Pres Medica re HEALTHCARE - HEALTHCARE ent Adv HM O MANAGED DUAL COMPLETE MEDICARE HMO [employer] [id number] 2020-Pre [address] [place] sent [id number] [place] [address] [facility] MEDICAID OF [id number] 2013-03/27 [phone] [address]OX [facility] 06/2019 [id number] [place] [address] documented as of this encounter
--- OUTSIDE RECORDS SUMMARY | 2020-04-25 06:29 | XMS REPORT | Summary of Care ---
:1945 Author Organization [facility] Address [address] [place] [address] Care Team Providers Name Role Phone Julita, Lulú Medicaid Hmo Lulú Cancino Primary Care Provider Reason for Visit Reason Comments Re-evaluation Encounter Details Date Type Department Care Team Description 03/14/2020 Case Management [facility] Physical Henry Imani Hernandez e-evaluation Therapy- Luis Miguel Marquez PT Professional Office [address] [place] [address] [place] [address] [address] [place] [phone] Allergies Active Allergy Reactions Severity Noted Date Comments Codeine Nausea and/or Vomiting 07/20/2014 Migra ine headaches documented as of this encounter (statuses as of 04/19/2020) Medications Medication Sig Dispensed Refills Start Date [...] as of this encounter (statuses as of 04/19/2020) Active Problems Problem Noted Date Post-op pain 04/28/2015 Uterovaginal prolapse, incomplete 01/03/2015 Rectocele 01/03/2015 Cystocele, lateral 01/03/2015 Vaginal atrophy 01/03/2015 Mixed incontinence 01/03/2015 Obesity 07/20/2014 Overview: ICD10 Diagnosis Term School Teacher Utility Asthma 07/20/2014 Overview: ICD10 Diagnosis Term School Teacher Utility History of breast cancer 07/20/2014 Overview: 1987 Hypothyroid 07/20/2014 Essential hypertension 07/20/2014 Overview: ICD10 Diagnosis Term School Teacher Utility Prolapse of female pelvic organs documented as of this encounter (statuses as of 04/19/2020) Resolved Problems Problem Noted Date Resolved Date Encounter for routine gynecological examination 07/20/2014 04/27/2015 Overview: ICD10 Diagnosis Term School Teacher Utility Surveillance of previously prescribed contraceptive method 0 07/20/2014 04/27/2015 Overview: ICD10 Diagnosis Term School Teacher Utility Uterine prolapse 07/20/2014 04/27/2015 Overview: ICD10 Diagnosis Term School Teacher Utility documented as of this encounter (statuses as of 04/19/2020) Immunizations Name Administration Dates Next Due TDAP [...] with No / Unsure 04/18/2020 2:34 PM ANALYTICAL STRATEGIST someone who was confirmed or suspected to have Coronavirus / COVID-19? documented as of this encounter Last Filed Vital Signs Not on filedocumented in this encounter Progress Notes Alma Reddy, PT - 03/14/2020 11:59 PM CDT Re-Evaluation Late Entry Date: March 14, 2020 Date of initial visit: 02/10/2020 Date of last visit: 03/14/2020 Total number of visits: 8 Diagnosis: 1. Decreased ROM of left shoulder 2. Decreased ROM of right shoulder 3. Decreased ROM of intervertebral discs of cervical spine 4. Decreased muscle strength 5. Bilateral neck pain Subjective: Pt reports she is ok. Her pain has improved but still with some issues. Objective: Outpatient PT Re-Evaluation No documentation. General Assessments: Cervical Spine Assessments C-Spine Assessments: Range of motion Cervical Spine Range of Motion Cervical Spine Flexion: 62 Cervical Spine Extension: 65 Cervical Spine Sidebend Right: 33(Pain) Cervical Spine Sidebend Left: 34 Cervical Spine Rotation Right: 75 Cervical Spine Rotation Left: 52 , Shoulder Assessments Right Shoulder Assessments: Strength Left Shoulder Assessments: Strength Right Shoulder Strength R Shoulder Strength Flexion: 3+/5 R Shoulder Strength Extension: 4/5 R Shoulder Strength ABduction: 3+/5 R Shoulder Strength Internal Rotation: 4+/5 R Shoulder Strength External Rotation: 4/5 Left Shoulder Strength L Shoulder Strength Flexion: 3/5 L Shoulder Strength Extension: 3+/5 L Shoulder Strength ABduction: 3/5 L Shoulder Strength Internal Rotation: 3/5 L Shoulder Strength External Rotation: 3+/5 Elbow Assessments Right Elbow Assessments: Strength Left Elbow Assessments: Strength Right Elbow Strength R Elbow Strength Flexion: 4+/5 R Elbow Strength Extension: 4+/5 Left Elbow Strength L Elbow Strength Flexion: 4/5 L Elbow Strength Extension: 4/5 Treatment: See Outpatient PT Treatment Flowsheet Assessment: Pt with improvement with her pain. Her ROM has improved slightly but still with deficits. Patient also with a 1 finger breath of GH jt subluxation of L shoulder. Patient can benefit from continued skilled therapy intervention to improve mobility. Progress made towards previously set goals; Short Term Goals: To be met in 4 visits: 1. Pt will be Ind and Compliant with HEP (Met) 2. Patient will increase cervical spine ROM by 10 degrees in all planes to improve mobility. (not met) 3. Patient will increase ROM of shoulder by 10 degrees in all planes to improve mobility (not met) 4. Patient will increase strength by 12 grade to improve mobility. (met) 5. Patient will report less pain to <7/10 on average. (met) Senior Living Goals: To be met in 8 visits: 1. Pt will increase Cervical spine ROM by 15 degrees to improve mobility. (not met) 2. Pt will report less pain with functional tasks to <4/10. (met) Updated Goals: To be met in 8 visits: 1.Pt will increase ROM of C spine by 10 degrees in all available ranges to improve mobility. 2. Patient will increase ROM of shoulder by 10 degrees to improve mobility. 3. Patient will increase strength by 1/2 grade to improve mobility. Plan of Care There ex, there act, manual therapy prn, and patient education. Frequency: 2x/week Duration: 8 sessions Alma Figueroa PT [place] PT License [id number] [facility] Rehabilitation Services Department (phone) (fax) YTICAL STRATEGIST documented in this encounter Plan of Treatment [...] / Subscriber ID Effective Phone Address T [facility] [id number] 2019-Pres Medica re HEALTHCARE - HEALTHCARE ent Adv HM O MANAGED DUAL COMPLETE MEDICARE HMO [place] MED[place] OF [id number] 2013-03/27 [phone] [address] [facility] 06/2019 [id number] [place] [address] documented as of this encounter
--- OUTSIDE RECORDS SUMMARY | 2020-04-25 06:29 | XMS REPORT | Summary of Care ---
:1945 Author Organization [facility] Address [address] [place] [address] Care Team Providers Name Role Phone Julita, Lulú Medicaid Hmo Lulú Cancino Primary Care Provider Reason for Visit Reason Comments Follow-up (Routine) Status Reason Specialty Diagnoses / Referred By Referred To Procedures Contact Contact Authorized Physical Therapy Diagnoses Cervicalgia October Physical Procedures CONSULT/REFERRAL PHYSICAL THERAPY [place] PHYSICAL THERAPY EVALUATION LOW COMPLEX 20 MINS [place] PHYSICAL THERAPY EVALUATION MOD COMPLEX 30 MINS [place] PHYSICAL THERAPY EVALUATION HIGH COMPLEX 45 MINS [place] THERAPEUTIC EXERCISES MD Aurelio Therapy [place] NEUROMUSC REE DUCAT,1+ AREAS, EA 15 MIN [place] MANUAL THER TECH,1+REGIONS,EA 15 MIN [place] THERAPEUT ACTVITY DIRECT PT CONTACT EACH 15 MIN [place] SELF-CARE/HOME MGMT TRAINING EACH [address] [place] [address]. Office Building 5th Floor [address] [address] [address] Phone: [place], [place] [phone] [address] Encounter Details Date Type Department Care Team Description 04/11/2020 Ancillary Visit [facility] Nele Ayala MD [address] [facility] [place] [address] [place] [address] Decreased ROM of left shoulder (Primary Dx); Physical Therapy- Ebenezer Rubalcava, JEWEL CORNER BRUSHING MACHINE OPERATOR [address] [place] [address] Decreased ROM of right shoulder; [place] Decreased ROM of interverteb ral discs of cervical spine; Professional Decreased muscl e strength; Office Building Bilateral neck pain [address] [facility] [facility] [address] [place] [address] Allergies Active Allergy Reactions Severity Noted Date Comments Codeine Nausea and/or Vomiting 07/20/2014 Migra ine headaches documented as of this encounter (statuses as of 04/11/2020) Medications Medication Sig Dispensed Refills Start Date [...] as of this encounter (statuses as of 04/11/2020) Active Problems Problem Noted Date Post-op pain 04/28/2015 Uterovaginal prolapse, incomplete 01/03/2015 Rectocele 01/03/2015 Cystocele, lateral 01/03/2015 Vaginal atrophy 01/03/2015 Mixed incontinence 01/03/2015 Obesity 07/20/2014 Overview: ICD10 Diagnosis Term Barrel Maker Utility Asthma 07/20/2014 Overview: ICD10 Diagnosis Term Barrel Maker Utility History of breast cancer 07/20/2014 Overview: 1987 Hypothyroid 07/20/2014 Essential hypertension 07/20/2014 Overview: ICD10 Diagnosis Term Barrel Maker Utility Prolapse of female pelvic organs documented as of this encounter (statuses as of 04/11/2020) Resolved Problems Problem Noted Date Resolved Date Encounter for routine gynecological examination 07/20/2014 04/27/2015 Overview: ICD10 Diagnosis Term Barrel Maker Utility Surveillance of previously prescribed contraceptive method 0 07/20/2014 04/27/2015 Overview: ICD10 Diagnosis Term Barrel Maker Utility Uterine prolapse 07/20/2014 04/27/2015 Overview: ICD10 Diagnosis Term Barrel Maker Utility documented as of this encounter (statuses as of 04/11/2020) Immunizations Name Administration Dates Next Due TDAP [...] with No / Unsure 03/31/2020 1:01 PM ARCHITECTURE FACULTY MEMBER someone who was confirmed or suspected to have Coronavirus / COVID-19? documented as of this encounter Last Filed Vital Signs Not on filedocumented in this encounter Progress Notes Ebenezer Rubalcava, JEWEL CORNER BRUSHING MACHINE OPERATOR - 04/11/2020 3:00 PM CST Physical Therapy Treatment Date: April 11, 2020 Subjective: Reports 4/10 pain to left lateral neck and upper trap. 1. Decreased ROM of left shoulder 2. Decreased ROM of right shoulder 3. Decreased ROM of intervertebral discs of cervical spine 4. Decreased muscle strength 5. Bilateral neck pain Objective: Outpatient PT Treatment Row Name 04/11/20 1400 Therapeutic Exercise Therapeutic Exercise Activity 1 Stretches- [...] Heat (min) 8' neck and left shoulder HEP: Continue established HEP Assessment: Fair exercise tolerance today. Able to increase exercise as noted. Reports increased neck pain with cervical side bending stretches. Patient required verbal and tactile cues for exercise technique and to avoid substitutions. Less tight and better ROM after treatment. Plan: Continue with POC 2 x 8 sessions to decrease pain, increase ROM in neck and shoulders, increase UE strength, and improve functional mobility. Ebenezer Rubalcava PTA Shawn Lic [id number] [facility] Rehab Services [facility] [phone] Alma Figueroa PT supv ITECTURE FACULTY MEMBER documented in this encounter Plan of Treatment Date Type Specialty Care Team Description 04/12/2020 Office Visit Neurological Surgery Emmanuelle Stafford MD [address] [place] [address]. 5th Floor [place], [place] [phone] 04/18/2020 Ancillary Visit Physical Therapy Ebenezer Rubalcava PTA [address] [place] [address] Health Maintenance Due Date Last Done Comments [...] Effective Phone Address T ype Group Dates [facility] [id number] 2019-Pres Medica re HEALTHCARE - HEALTHCARE ent Adv HM O MANAGED DUAL COMPLETE MEDICARE HMO [employer] [id number] 2020-Pre [address] O BOX Medicaid [facility] sent [id number] [place] [address] [facility] MEDICAID OF [id number] 2013-03/27 [phone] [address] Medi caid [place] 06/2019 [id number] [place] [address] documented as of this encounter
--- OUTSIDE RECORDS SUMMARY | 2020-04-25 06:29 | XMS REPORT | Summary of Care ---
:1945 Author Organization [facility] Address [address] [place] [id number] Care Team Providers Name Role Phone Julita, Lulú Medicaid Hmo CancinoLulú Primary Care Provider Reason for Visit Reason Comments Follow-up (Routine) Status Reason Specialty Diagnoses / Referred By Referred To Procedures Contact Contact Authorized Physical Therapy Diagnoses Cervicalgia Rivera [facility] Physical Procedures CONSULT/REFERRAL PHYSICAL THERAPY IN PHYSICAL THERAPY EVALUATION LOW COMPLEX 20 MINS IN PHYSICAL THERAPY EVALUATION MOD COMPLEX 30 MINS IN PHYSICAL THERAPY EVALUATION HIGH COMPLEX 45 MINS IN THERAPEUTIC EXERCISES MD Aurelio Therapy IN NEUROMUSC REE DUCAT,1+ AREAS, EA 15 MIN IN MANUAL THER TECH,1+REGIONS,EA 15 MIN IN THERAPEUT ACTVITY DIRECT PT CONTACT EACH 15 MIN IN SELF-CARE/HOME MGMT TRAINING EACH [address] [place] [address]. Office Building 5th Floor [address] [place] [id number] [address] Phone: [place], [place] [phone] [address] Encounter Details Date Type Department Care Team Description 04/18[facility]2020 [facility] J[facility] craft MD [address] [place] [address]. [address] [place] [address] Decreased ROM of left shoulder (Primary Dx); Physical Therapy- Ebenezer Rubalcava PTA [address] [place] [id number] Decreased ROM of right shoulder; Luis Miguel Decreased ROM of interverteb ral discs of cervical spine; Professional Decreased muscl e strength; Office Building Bilateral neck pain [address] [place] [address] Allergies Active Allergy Reactions Severity [...] 01/03/2015 Obesity 07/20/2014 Overview: ICD10 Diagnosis Term Manager Knowledge Utility Asthma 07/20/2014 Overview: ICD10 Diagnosis Term Manager Knowledge Utility History of breast cancer 07/20/2014 Overview: 1987 Hypothyroid 07/20/2014 Essential hypertension 07/20/2014 Overview: ICD10 Diagnosis Term Manager Knowledge Utility Prolapse of female pelvic organs documented as of this encounter (statuses as of 04/18/2020) Resolved Problems Problem Noted Date Resolved Date Encounter for routine gynecological examination 07/20/2014 04/27/2015 Overview: ICD10 Diagnosis Term Manager Knowledge Utility Surveillance of previously prescribed contraceptive method 0 07/20/2014 04/27/2015 Overview: ICD10 Diagnosis Term Manager Knowledge Utility Uterine prolapse 07/20/2014 04/27/2015 Overview: ICD10 Diagnosis Term Manager Knowledge Utility documented as of this encounter (statuses [...] with No / Unsure 04/18/2020 2:34 PM BLAST FURNACE BLOWER someone who was confirmed or suspected to have Coronavirus / COVID-19? documented as of this encounter Last Filed Vital Signs Not on filedocumented in this encounter Progress Notes Ebenezer Rubalcava, BINDERY MACHINE FEEDER OFFBEARER - 04/18/2020 3:00 PM CST Physical Therapy Treatment Date: April 18, 2020 Subjective: Reports left upper trap is sore today but doing better. Patient states she is to have aheart procedure in [place]. She may be admitted depending on result. Instructed to get release for therapy from MD. 1. Decreased ROM of left shoulder 2. [...] functional mobility. Ebenezer Rubalcava PTA Shawn Lic [id number] [facility] Rehab Services ADC [phone] Alma Figueroa, PT supv T FURNACE BLOWER documented in this encounter Plan of Treatment [...] Phone Address T ype Group Dates [facility] [phone] 2019-Pres Medica re HEALTHCARE - HEALTHCARE ent Adv HM O MANAGED DUAL COMPLETE MEDICARE HMO [employer] [id number] 2020-Pre [address] Medicaid [facility] sent [id number] [place] [address] [facility] MEDICAID OF [id number] 2013-03/27 [phone] [address] Medi caid [place] 06/2019 [id number] [place] [address] documented as of this encounter
[2020-04-25] MEDS ORDERED: NA CHLORIDE 0.9% 500 ML ONE (07:12)
[2020-04-25] MEDS ORDERED: HEPA 1000U/500MLS 1,000 UNIT/500 ML BAG IV ONE (07:34)
[2020-04-25] MEDS ORDERED: LIDOCAINE 1% 20 ML MDV ONE (07:34)
[2020-04-25] MEDS ORDERED: ATROPINE SULF 1 MG/10 ML SYR IV ONE (07:35)
[2020-04-25] MEDS ORDERED: NITROGLYCERIN 100 MCG/ML SYR (for cath lab use only) IV ONE (07:35)
[2020-04-25] MEDS ORDERED: MIDAZOLAM HCL 2 MG/2 ML INJ ONE ×2 (07:35→07:52)
[2020-04-25] MEDS ORDERED: NA CHLORIDE 0.9% 0 ML ONE (07:35)
[2020-04-25] MEDS ORDERED: NITROGLYCERIN/D5W 0 MG/0 ML BTL IV ONE (07:35)
[2020-04-25] MEDS ORDERED: FENTANYL CITR 100 MCG/2 ML ONE (07:35)
--- NOTE | 2020-04-25 08:16 | OP ---
Date of Procedure: 04/25/2020 Surgeon: Mahesh Garcia MD Associate Director Finance: Nicolle Man. Procedure: Left heart catheterization with selective coronary arteriogram. Indication: Positive stress test and chest pain, atypical. Ms. Sherwood is a 75-year-old woman, who h as a history of hypertension, dyslipidemia, atypical chest pain, positive stress test, scheduled toda y for an outpatient catheterization. Brought to the laborer syrup machine today, 04/25/2020. Procedure In Detail: She was prepped and draped in the routine sterile fashion. A 6-Romansh sheath w as introduced in the right common femoral artery using the Seldinger technique after 10 cc of Xylocai ne. Angiography there was normal. Angio-Seal was used to close the case. Darek catheter left and right were used to cannulate the left main and right main respectively. She was found to have minor plaquing and some ectasia in the distal RCA. There were some minor plaquing throughout the circumfl ex and LAD, but no focal stenosis. There were no complications. Blood Loss: 5 mL. Anesthesia: Total conscious sedation was 45 minutes. Postoperative Diagnosis: Minimal coronary artery disease. Plan: Medical therapy with aspirin and statin. Plan: The patient will remain in the hospital for 2 hours after the procedure for bedrest. She will leave after that and she will follow up with me in the office in the next 2 weeks. BRITTANY/STEVAN Voice ID: [id number] Report ID: [id number]
[2020-04-25 10:46] VITALS: BP 134/79; TEMP 97.6; O2SAT 99
== END 2020-04-25 10:25 | disposition home or self-care (01) ==
LOC: CCL 06:20
DX: I25.110 Atherosclerotic heart disease of native coronary artery with unstable angina pectoris (principal); I10 Essential (primary) hypertension; E78.2 Mixed hyperlipidemia; J44.1 Chronic obstructive pulmonary disease with (acute) exacerbation; K21.9 Gastro-esophageal reflux disease without esophagitis; E03.9 Hypothyroidism, unspecified; F41.8 Other specified anxiety disorders; Z87.891 Personal history of nicotine dependence; Z88.6 Allergy status to analgesic agent; Z20.828 Contact with and (suspected) exposure to other viral communicable diseases; Z82.49 Family history of ischemic heart disease and other diseases of the circulatory system
CPT/HCPCS: 85025; 80048; 36415; 85610; 85730; 71046; 93454; U0002; C1893; C1760; J2250; J3010; J7040; J1644; J0583

== ENCOUNTER 2022-10-01 12:34 | Emergency (ER) | payer OTHER ==
--- OUTSIDE RECORDS SUMMARY | 2022-10-01 12:43 | XMS REPORT | Continuity of Care Document ---
:1945 Author Organization [facility] [place] t Address [address] [place] [address] [address] [place] [address] Care Team Providers Name Role Phone CARLOS ALBERTO CANCINO Primary Care Physician Unavailable Khushboo Vasquez MD Attending Clinician KHUSHBOO VASQUEZ Attending Clinician Unavailable Doctor Unassigned, [place] Attending Clinician Unavailable Gurjit Attending Clinician Unavailable Amita CHINO, Lola Vizcarra Attending Clinician JESE BEGUM Attending Clinician Unavailable DIXIE COX Attending Clinician Unavailable Nicole Forman Attending Clinician Dixie Cox MD Attending Clinician Bonita Rubalcava PTA Attending Clinician Unavailable Sully Hogue MD Attending Clinician SULLY HOGUE Attending Clinician Unavailable JIN VÁSQUEZ Attending Clinician Unavailable Jese Gamble PT Attending Clinician Unavailable Ebenezer Rubalcava PTA Attending Clinician Unavailable Alma Reddy PT Attending Clinician Unavailable Cinthia Horan MD Attending Clinician CINTHIA HORAN Attending Clinician Unavailable Izabel Subramanian MD Attending Clinician [phone] Raul Andino MD Attending Clinician RAUL ANDINO Attending Clinician Unavailable RAUL ANDINO Attending Clinician Unavailable Ubaldo Bravo Attending Clinician Yunior Ballesteros Attending Clinician KHUSHBOO VASQUEZ Admitting Clinician Unavailable Khushboo Vasquez MD Admitting Clinician Gurjit Admitting Clinician Unavailable DIXIE COX Admitting Clinician Unavailable Dixie Cox MD Admitting Clinician Ubaldo Bravo Admitting Clinician Payers Payer Name Policy Type Policy Number Effective Date Expiration Date S ource Problems Condition Condition Condition Status Onset Resolution Last Treating Co mments Source Name Details Category Date Date Treatment Clinician Date Atypical Atypical Disease Active Unive rs chest pain chest pain 4-17 it y of 00:00: [place] 00 Medical Branch Dyslipidem Dyslipidem Disease Active U jamesers ia ia 4-17 ity of 00:00: [place] 00 Medical Branch UTI UTI Disease Active Univers (urinary (urinary 4-15 ity of tract tract 00:00: [place] infection) infection) 00 Ga dical Branch CHEST CHEST Diagnosis Active 2016-052017-03-27 Mem oria PAIN, PAIN, 0-25 22:13:00 l ELEVATED ELEVATED 00:00: Errol ruiz CARDIAC CARDIAC 00 ENZYMES ENZYMES Active 03/20/2017 [facility] SCREENING SCREENING Diagnosis Active 2015-09-09 Memoria COLON COLON 4-11 06:40:00 l CANCER-Z12 CANCER-Z12 00:00: Drew lindoann .11 .11 Active 09/05/2015 [place] Post-op Post-op Disease Active 2014-05 [facility] pain pain 2-03 ity of 00:00: [place] 00 Medical Branch Uterovagin Uterovagin Disease Active U nivers al al 8-10 ity of prolapse, prolapse, [place] incomplete incomplete 00 [place] Rectocele Rectocele Disease Active Uni vers 8-10 ity of 00:00: [place] 00 Medical Branch Cystocele, Cystocele, Disease Active U nivers lateral lateral 8-10 ity of 00:00: [place] 00 Medical Branch Vaginal Vaginal Disease Active Univers atrophy atrophy 8-10 ity of 00:00: [place] 00 Medical Branch 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 ICD10 Diagnosis Term Consultant Intern Utility Asthma Asthma Disease Active Overview: Univer s 2-24 Formattin ity of 00:00: g of this note Medical might be Branch different from the original. ICD10 Diagnosis Term Consultant Intern Utility History of History of Disease Active Overview : Univers breast breast 2-24 Formattin ity of cancer cancer 00:00: g of this note Medical might be Branch different from the original. 1987 Hypothyroi Hypothyroi Disease Active U nivers d d 2-24 ity of 00:00: [place] 00 Medical Branch Essential Essential Disease Active Overview: Univers hypertensi hypertensi 2-24 Formattin ity of on on 00:00: g of this note Medical might be Branch different from the original. ICD10 Diagnosis Term Consultant Intern Utility Prolapse Prolapse Disease Active Unive rs of female of female ity of pelvic pelvic [place] organs organs Medical Branch Glaucoma Glaucoma Problem Active 2017-03-24 Memoria (disorder) (disorder) 02:34:00 l Active Jorje Problem 03/24/2017 [facility] [place] Hypertensi Hypertens Problem Active 2017-03-24 Memoria ve bright 02:34:00 l disorder, disorder, Herm elena systemic systemic arterial arterial (disorder) (disorder) Active Problem 03/24/2017 [facility] [place] Hyperchole Hyperchol Problem Active 2017-03-24 Memoria sterolemia esterolemi 02:34:00 l (disorder) a Errol n (disorder) Active Problem 03/24/2017 [facility] [place] CHEST CHEST Diagnosis Active 2017-03-27 Mem oria PAIN, PAIN, 22:13:00 l UNSPECIFIE UNSPECIFIE He gilma D D Active [facility] Malignant Malignant Problem Resolve 2017-03-24 Memoria tumor of tumor of d 02:34:00 l breast breast Jorje (disorder) (disorder) Resolved Problem 03/24/2017 [facility], [place] Allergies, Adverse Reactions, Alerts Allergy Allergy Status Severity Reaction(s) Onset Inactive Treating Comm ents Source Name Type Date Date Clinician Codeine Propensi Active Nausea Migraine Unive rs ty to and/or 2-24 headaches ity of adverse Vomiting 00:00: [place] reaction 00 Medical s Branch CODEINE DRUG Active N/V Univers INGREDI 2-24 ity of 00:00: [place] 00 Medical Branch codeine codeine Active Memoria sulfate sulfate l Jorje Social History Social Habit Start Date Stop Date Quantity Comments Source Exposure to 2022-04-30 2022-05-10 Not sure [facility]-CoV-2 00:00:00 09:55:00 [facility] (event) [place] Alcohol intake 2022-05-10 2022-05-10 0 /d [facility] 00:00:00 00:00:00 [facility] Social History 2017-03-21 2017-03-21 [facility] 06:27:14 06:27:14 Tobacco use and 2015-06-14 2015-06-14 Smokeless tobacco Un iversity of exposure 00:00:00 00:00:00 non-user [facility] Sex Assigned At [birth year] Universit y of 00:00:00 00:00:00 [facility] Smoking Status Start Date Stop Date Source Never smoked tobacco [facility] Medications Ordered Filled Start Stop Current Ordering Indication Dosage Frequency Signature Comments Components Source Medication Medication Date Date Medication? Clinician (SIG) Name Name lactated 2021-05 Yes 1000mL at 50 Univer s ringers IV 2-21 mL/hr, ity of infusion 20:45: 1,000 mL, [place] 1,000 mL 00 IV Medical Infusion, Branch CONTINUOUS , Starting on Sat05/16/22 at 1445, Until Discontinu ed, Routine, PACU lactated 2021-05- No 1000mL at 50 Unive rs ringers IV 2-21 12-21 mL/hr, ity of infusion 20:45: 23:01 1,000 mL, [place] as 1,000 mL 00 :39 IV Medical Infusion, Branch CONTINUOUS , Starting on Sat05/16/22 at 1445, Until Sat05/16/22 at 1701, Routine, PACU ondansetron 2021-05 Yes 4mg 4 mg, Slow Univers (ZOFRAN 07-17 IV Push, ity of (PF)) 20:35: PRN, 1 [place] injection 4 52 dose, Medical mg Starting Branch on Sat05/16/22 at 1435, Until Discontinu ed, Routine, Nausea and Vomiting (N/V), PACU ondansetron 2021-05- No 4mg 4 mg, Slow Univers (ZOFRAN 07-17 IV Push, ity of (PF)) 20:35: 23:01 PRN, 1 [place] injection 4 52 :39 dose, Medical mg Starting Branch on Sat05/16/22 at 1435, Until Sat05/16/22 at 1701, Routine, Nausea and Vomiting (N/V), PACU water for 2021-05 Yes PRN, Univers irrigation 07-17 Starting ity o f irrigation 20:06: on Sat [place] solution 00 05/16/22 Medical at 1406, Branch Until Discontinu ed, Routine, Intra-op simethicone 2021-05 Yes PRN, Univer s (GAS RELIEF 07-17 Starting ity of (SIMETHICON 20:06: on Sat [place] E)) 40 00 05/16/22 Medical mg/0.6 mL at 1406, Branch drops Until Discontinu ed, Routine, Intra-op water for 2021-05- No PRN, Univers irrigation 07-17 Starting ity of irrigation 20:06: 23:01 on Sat [place] solution 00 :39 05/16/22 Medical at 1406, Branch Until Sat05/16/22 at 1701, Routine, Intra-op simethicone 2021-05- No PRN, Unive rs (GAS RELIEF 07-17 Starting ity of (SIMETHICON 20:06: 23:01 on Sat [place] as E)) 40 00 :39 05/16/22 Medical mg/0.6 mL at 1406, Branch drops Until Sat05/16/22 at 1701, Routine, Intra-op lactated 2021-05- No 1000mL at 42 Unive rs ringers IV 2-21 12-21 mL/hr, ity of infusion 19:15: 19:07 1,000 mL, [place] as 1,000 mL 00 :00 IV Medical Infusion, Branch ONCE, 1 dose, On Sat05/16/22 at 1315, Routine, DSU Pre-op lactated 2021-05- No 1000mL at 42 Unive rs ringers IV 2-21 12-21 mL/hr, ity of infusion 19:15: 19:07 1,000 mL, [place] as 1,000 mL 00 :00 IV Medical Infusion, Branch ONCE, 1 dose, On Sat05/16/22 at 1315, Routine, DSU Pre-op ESOMEPRAZOL 2021-05 Yes Take by Uni vers E MAGNESIUM 2-21 mouth. ity of (NEXIUM 15:01: [place] ORAL) Medical Branch VITAMIN E 2021-05 [facility] mouth. ity of (VITAMIN E 15:01: [place] ORAL) Medical Branch FLUTICASONE 2021-05 Yes Inhale. Uni vers /SALMETEROL 2-21 ity of (ADVAIR 15:01: [place] DISKUS Medical INHALE) Branch atorvastati 2021-05 Yes 10mg Take 10 mg Univers n (LIPITOR) 2-21 by mouth ity of 10 mg 15:01: at [place] tablet 39 bedtime. Medical Branch alendronate 2021-05 Yes 35mg Take 35 mg Univers 35 mg 2-21 by mouth ity of tablet 15:01: weekly. [place] [address] Medical Branch albuterol 2021-05 Yes 2{puff} Inhale 2 U nivers 90 2-21 Puffs ity of mcg/actuati 15:01: every 6 [place] as on inhaler 39 (six) Medical hours as Branch needed for Wheezing or Shortness of Breath. cyclobenzap 2021-05 Yes 10mg Take 10 mg Univers rine 10 mg 2-21 by mouth 3 ity of tablet 15:01: (three) [place] times Medical daily as Branch needed for Muscle Spasms. pantoprazol 2021-05 Yes 40mg Take 40 mg Univers e 40 mg EC 2-21 by mouth ity o f tablet 15:01: daily. [place] [address] Medical Branch SERTraline 2021-05 Yes 50mg Take 50 mg U nivers 50 mg 2-21 by mouth ity of tablet 15:01: daily. [place] [address] Medical Branch lubiproston 2021-05 Yes 8ug Take 8 mcg Univers e 8 mcg 2-21 by mouth 2 ity of capsule 15:01: (two) [place] 39 times Medical daily with Branch meals. mag/aluminu 2021-05 Yes 1{capsu Take 1 U nivers m/sod 2-21 le} capsule by ity of bicarb/algi 15:01: mouth 2 [place] as [place] 39 (two) Medical (GAVISCON-2 times Branch ORAL) daily. aspirin 81 2021-05 Yes 81mg Take 81 mg U nivers mg chewable 2-21 by mouth ity of tablet 15:01: daily. [place] [address] Medical Branch levothyroxi 2021-05 Yes 100ug Take 100 U nivers ne 100 mcg 2-21 mcg by ity of tablet 15:01: mouth [place] 39 every Medical morning. Branch cyanocobala 2021-05 Yes 2500ug Take 2,500 Univers min, 2-21 mcg by ity of vitamin 15:01: mouth [place] B-12, 2,500 39 daily. Medica l mcg Tab Branch lisinopriL 2021-05 Yes 10mg Take 10 mg U nivers 10 mg 2-21 by mouth ity of tablet 15:01: in the [place] 39 morning. Medical Branch Brimonidine 2021-05 Yes 1[drp] Place 1 U nivers -Timolol 2-21 Drop in ity of 0.2-0.5 % 15:01: both eyes [place] as ophthalmic 39 in the Medical drops morning. Branch travoprost 2021-05 Yes 1[drp] Place 1 Un haja 0.004 % 2-21 Drop in ity of ophthalmic 15:01: each eye [place] as solution 39 in the Medical morning. Branch Simethicone 2021-05 Yes 125mg Take 125 U nivers (GAS-X) 125 2-21 mg by ity of mg 15:01: mouth [place] 39 after Medical meals and Branch at bedtime as needed. ESOMEPRAZOL 2021-05 Yes Take by Uni vers E MAGNESIUM 2-21 mouth. ity of (NEXIUM 15:01: [place] [facility]) 39 Medical Branch VITAMIN E 2022-1 Yes Take by Unive rs ACETATE 2-21 mouth. ity of (VITAMIN E 15:01: [place] ORAL) 39 Medical Branch FLUTICASONE 2021-05 Yes Inhale. Uni vers /SALMETEROL 2-21 ity of (ADVAIR 15:01: [place] DISKUS 39 Medical INHALE) Branch atorvastati 2021-05 Yes 10mg Take 10 mg Univers n (LIPITOR) 2-21 by mouth ity of 10 mg 15:01: at [place] tablet 39 bedtime. Medical Branch alendronate 2021-05 Yes 35mg Take 35 mg Univers 35 mg 2-21 by mouth ity of tablet 15:01: weekly. [place] [address] Medical Branch albuterol 2021-05 Yes 2{puff} Inhale 2 U nivers 90 2-21 Puffs ity of mcg/actuati 15:01: every 6 [place] as on inhaler 39 (six) Medical hours as Branch needed for Wheezing or Shortness of Breath. cyclobenzap 2021-05 Yes 10mg Take 10 mg Univers rine 10 mg 2-21 by mouth 3 ity of tablet 15:01: (three) [place] [address] times Medical daily as Branch needed for Muscle Spasms. pantoprazol 2021-05 Yes 40mg Take 40 mg Univers e 40 mg EC 2-21 by mouth ity o f tablet 15:01: daily. [address] Branch SERTraline 2021-05 Yes 50mg Take 50 mg U nivers 50 mg 2-21 by mouth ity of tablet 15:01: daily. [address] Branch lubiproston 2021-05 Yes 8ug Take 8 mcg Univers e 8 mcg 2-21 by mouth 2 ity of capsule 15:01: (two) [place] [address] times Medical daily with Branch meals. mag/aluminu 2021-05 Yes 1{capsu Take 1 U nivers m/sod 2-21 le} capsule by ity of bicarb/algi 15:01: mouth 2 [place] as ga 39 (two) Medical (GAVISCON-2 times Branch ORAL) daily. aspirin 81 2021-05 Yes 81mg Take 81 mg U nivers mg chewable 2-21 by mouth ity of tablet 15:01: daily. [address] Branch levothyroxi 2021-05 Yes 100ug Take 100 U nivers ne 100 mcg 2-21 mcg by ity of tablet 15:01: mouth [place] [address] every Medical morning. Branch cyanocobala 2021-05 Yes 2500ug Take 2,500 Univers min, 2-21 mcg by ity of vitamin 15:01: mouth [place] B-12, 2,500 39 daily. Medica l mcg Tab Branch lisinopriL 2021-05 Yes 10mg Take 10 mg U nivers 10 mg 2-21 by mouth ity of tablet 15:01: in the [place] 39 morning. Medical Branch Brimonidine 2021-05 Yes 1[drp] Place 1 U nivers -Timolol 2-21 Drop in ity of 0.2-0.5 % 15:01: both eyes [place] as ophthalmic 39 in the Medical drops morning. Branch travoprost 2021-05 Yes 1[drp] Place 1 Un haja 0.004 % 2-21 Drop in ity of ophthalmic 15:01: each eye [place] as solution 39 in the Medical morning. Branch Simethicone 2021-05 Yes 125mg Take 125 U nivers (GAS-X) 125 2-21 mg by ity of mg 15:01: mouth [place] 39 after Medical meals and Branch at bedtime as needed. ESOMEPRAZOL 2021-05 Yes Take by Uni vers E MAGNESIUM 2-21 mouth. ity of (NEXIUM 15:01: [place] ORAL) 39 Medical Branch VITAMIN E 2021-05 Yes Take by Unive rs ACETATE 2-21 mouth. ity of (VITAMIN E 15:01: [place] ORAL) 39 Medical Branch FLUTICASONE 2021-05 Yes Inhale. Uni vers /SALMETEROL 2-21 ity of (ADVAIR 15:01: [place] DISKUS 39 Medical INHALE) Branch atorvastati 2021-05 Yes 10mg Take 10 mg Univers n (LIPITOR) 2-21 by mouth ity of 10 mg 15:01: at [place] tablet 39 bedtime. Medical Branch alendronate 2021-05 Yes 35mg Take 35 mg Univers 35 mg 2-21 by mouth ity of tablet 15:01: weekly. [place] 39 Medical Branch albuterol 2021-05 Yes 2{puff} Inhale 2 U nivers 90 2-21 Puffs ity of mcg/actuati 15:01: every 6 [place] as on inhaler 39 (six) Medical hours as Branch needed for Wheezing or Shortness of Breath. cyclobenzap 2021-05 Yes 10mg Take 10 mg Univers rine 10 mg 2-21 by mouth 3 ity of tablet 15:01: (three) [place] [address] times Medical daily as Branch needed for Muscle Spasms. pantoprazol 2021-05 Yes 40mg Take 40 mg Univers e 40 mg EC 2-21 by mouth ity o f tablet 15:01: daily. [address] Branch SERTraline 2021-05 Yes 50mg Take 50 mg U nivers 50 mg 2-21 by mouth ity of tablet 15:01: daily. [address] Branch lubiproston 2021-05 Yes 8ug Take 8 mcg Univers e 8 mcg 2-21 by mouth 2 ity of capsule 15:01: (two) [address] Medical daily with Branch meals. mag/aluminu 2021-05 Yes 1{capsu Take 1 U nivers m/sod 2-21 le} capsule by ity of bicarb/algi 15:01: mouth 2 [place] as ga 39 (two) Medical (GAVISCON-2 times Branch ORAL) daily. aspirin 81 2021-05 Yes 81mg Take 81 mg U nivers mg chewable 2-21 by mouth ity of tablet 15:01: daily. [address] Branch levothyroxi 2021-05 Yes 100ug Take 100 U nivers ne 100 mcg 2-21 mcg by ity of tablet 15:01: mouth [place] 39 every Medical morning. Branch cyanocobala 2021-05 Yes 2500ug Take 2,500 Univers min, 2-21 mcg by ity of vitamin 15:01: mouth [place] B-12, 2,500 39 daily. Medica l mcg Tab Branch lisinopriL 2021-05 Yes 10mg Take 10 mg U nivers 10 mg 2-21 by mouth ity of tablet 15:01: in the [place] 39 morning. Medical Branch Brimonidine 2021-05 Yes 1[drp] Place 1 U nivers -Timolol 2-21 Drop in ity of 0.2-0.5 % 15:01: both eyes [place] as ophthalmic 39 in the Medical drops morning. Branch travoprost 2021-05 Yes 1[drp] Place 1 Un haja 0.004 % 2-21 Drop in ity of ophthalmic 15:01: each eye [place] as solution 39 in the Medical morning. Branch Simethicone 2021-05 Yes 125mg Take 125 U nivers (GAS-X) 125 2-21 mg by ity of mg 15:01: mouth [place] 39 after Medical meals and Branch at bedtime as needed. metoprolol 2021- No [id number] 25mg Take 1 Univers succinate 4-19 05-20 tablet by ity of XL 25 mg 24 00:00: 04:59 mouth [place] hr tablet 00 :00 daily for Medic al 30 days. Branch metoprolol 2021- No [id number] 25mg Take 1 Univers succinate 4-19 05-20 tablet by ity of XL 25 mg 24 00:00: 04:59 mouth [place] hr tablet 00 :00 daily for Medic al 30 days. Branch ESOMEPRAZOL Yes Take by Uni vers E MAGNESIUM 4-18 mouth. ity of (NEXIUM 14:23: [place] ORAL) 53 Medical Branch VITAMIN E Yes Take by Unive rs ACETATE 4-18 mouth. ity of (VITAMIN E 14:23: [place] ORAL) 53 Medical Branch FLUTICASONE Yes Inhale. Uni vers /SALMETEROL 4-18 ity of (ADVAIR 14:23: [place] DISKUS 53 Medical INHALE) Branch atorvastati Yes 10mg Take 10 mg Univers n (LIPITOR) 4-18 by mouth ity of 10 mg 14:23: at [place] tablet 53 bedtime. Medical Branch alendronate Yes 35mg Take 35 mg Univers 35 mg 4-18 by mouth ity of tablet 14:23: weekly. [place] [address] Medical Branch albuterol Yes 2{puff} Inhale 2 U nivers (PROAIR 4-18 Puffs ity of HFA) 90 14:23: every 6 [place] mcg/actuati 53 (six) Medical on inhaler hours as Branc h needed for Wheezing or Shortness of Breath. cyclobenzap Yes 10mg Take 10 mg Univers rine 10 mg 4-18 by mouth 3 ity of tablet 14:23: (three) [place] 53 times Medical daily as Branch needed for Muscle Spasms. pantoprazol Yes 40mg Take 40 mg Univers e 40 mg EC 4-18 by mouth ity o f tablet 14:23: daily. [place] [address] Medical Branch SERTraline Yes 50mg Take 50 mg U nivers 50 mg 4-18 by mouth ity of tablet 14:23: daily. [place] [address] Medical Branch lubiproston Yes 8ug Take 8 mcg Univers e 8 mcg 4-18 by mouth 2 ity of capsule 14:23: (two) [place] [address] times Medical daily with Branch meals. mag/aluminu 0 Yes 1{capsu Take 1 U nivers m/sod 4-18 le} capsule by ity of bicarb/algi 14:23: mouth 2 [place] as ga 53 (two) Medical (GAVISCON-2 times Branch ORAL) daily. aspirin 81 Yes 81mg Take 81 mg U nivers mg chewable 4-18 by mouth ity of tablet 14:23: daily. [place] [address] Medical Branch ESOMEPRAZOL Yes Take by Uni vers E MAGNESIUM 4-18 mouth. ity of (NEXIUM 14:23: [place] ORAL) Medical Branch VITAMIN E Yes Take by Unive rs ACETATE 4-18 mouth. ity of (VITAMIN E 14:23: [place] ORAL) Medical Branch FLUTICASONE Yes Inhale. Uni vers /SALMETEROL 4-18 ity of (ADVAIR 14:23: [place] DISKUS Medical INHALE) Branch atorvastati Yes 10mg Take 10 mg Univers n (LIPITOR) 4-18 by mouth ity of 10 mg 14:23: at [place] tablet 53 bedtime. Medical Branch alendronate Yes 35mg Take 35 mg Univers 35 mg 4-18 by mouth ity of tablet 14:23: weekly. [place] [address] Medical Branch albuterol Yes 2{puff} Inhale 2 U nivers (PROAIR 4-18 Puffs ity of HFA) 90 14:23: every 6 [place] mcg/actuati 53 (six) Medical on inhaler hours as Branc h needed for Wheezing or Shortness of Breath. cyclobenzap Yes 10mg Take 10 mg Univers rine 10 mg 4-18 by mouth 3 ity of tablet 14:23: (three) [place] [address] times Medical daily as Branch needed for Muscle Spasms. pantoprazol 2022-0 Yes 40mg Take 40 mg Univers e 40 mg EC 4-18 by mouth ity o f tablet 14:23: daily. [address] SERTraline Yes 50mg Take 50 mg U nivers 50 mg 4-18 by mouth ity of tablet 14:23: daily. [address] lubiproston Yes 8ug Take 8 mcg Univers e 8 mcg 4-18 by mouth 2 ity of capsule 14:23: (two) [place] [address] times [facility] daily with Branch meals. mag/aluminu Yes 1{capsu Take 1 U nivers m/sod -18 le} capsule by ity of bicarb/algi 14:23: mouth 2 Shawn as [facility] (two) Medical (GAVISCON-2 times Branch ORAL) daily. aspirin 81 Yes 81mg Take 81 mg U nivers mg chewable -18 by mouth ity of tablet 14:23: daily. [address] LEVOTHYROXI 2021- No Take by Un haja NE SODIUM 09-1118 mouth. ity of (LEVOTHYROX 12:13: 00:00 [place] INE ORAL) 26 :00 [facility] Branch METOPROLOL 2021- No 1{tbl} Take 1 Tab Univers SUCCINATE 09-11-18 by mouth ity o f ORAL 12:13: 00:00 daily. [place] 26 :00 [facility] Branch ciprofloxac 2021- No [id number] 500mg Take 1 Univers in HCl 500 09-11 tablet by ity of mg tablet 00:00: 04:59 mouth [place] 00 :00 every 12 Medical (twelve) Branch hours for 7 days. ciprofloxac 2021- No [id number] 500mg Take 1 Univers in HCl 500 09-11 tablet by ity of mg tablet 00:00: 04:59 mouth [place] 00 :00 every 12 Medical (twelve) Branch hours for 7 days. cefTRIAXone Yes 1000mg 1,000 mg, Univers (ROCEPHIN) 4-17 IV ity of 1,000 mg in 21:00: Piggyback, [place] NaCl 0.9% 00 Q24H ABX, Medic al (NS) 50 mL First dose Bra [facility] MINI-BAG (after last reorder) on 4/17/22 at 1600, Until Discontinu ed, Administer over 30 Minutes, 50 mL
Reas on for Anti-Infec tive: Documented Infection& lt;br>Docu mented Infection Site: Urine
D uration of Therapy: 7 days cefTRIAXone 2021- No 1000mg 1,000 mg, Univers (ROCEPHIN) 09-09 IV ity of 1,000 mg in 20:00: 22:17 Piggyback, [place] NaCl 0.9% 00 :00 ONCE, 1 Medical (NS) 50 mL dose, On [facility] h MINI-BAG [facility] 09/09/21 at 1500, Administer over 30 Minutes, 50 mL
Reas on for Anti-Infec tive: Documented Infection< br>Documen piyush Infection Site: Urine<br&g t;Duration of Therapy: Other (see Comments) aspirin Yes 81mg 81 mg, Univers chewable 09-09 Oral, ity of tablet 81 14:00: DAILY, [place] mg 00 First dose Medical on Sat Branch 09/09/21 at 0900, Until Discontinu ed, Routine pantoprazol Yes 40mg 40 mg, Univ ers e 09-09 Oral, ity of (PROTONIX) 14:00: DAILY, [place] EC tablet 00 First dose Medi chanell 40 mg on Sat Branch 09/09/21 at 0900, Until Discontinu ed, Routine levothyroxi No 100ug 100 mcg, Univers ne 09-09 Oral, ity of (SYNTHROID) 11:00: 12:18 QAM-0600, [place] tablet 100 00 :11 First dose Med ical mcg on Sat Branch 09/09/21 at 0600, Until Discontinu ed maalox:diph No 15mL 15 mL, Uni vers enhydrAMINE 09-09 Oral, ity of :lidocaine 09:15: 08:22 ONCE, 1 [place] as 2 % viscous 00 :00 dose, On Medi chanell 1:1:1 Sat Branch (FIRST-MOUT 09/09/21 at [facility]) 0415, oral Routine suspension 15 mL atorvastati Yes 10mg 10 mg, Univ ers n (LIPITOR) 4-16 Oral, QHS, it y of tablet 10 02:00: First dose [place] mg 00 on Sat Medical 09/08/21 at Branch 2100, Until Discontinu ed, Routine hydralAZINE Yes 10mg 10 mg, Univ ers (APRESOLINE 4-16 Slow IV ity o f ) injection 01:27: Push, [place] 10 mg 49 Q4HPRN, Medical Starting Branch on Sat09/08/21 at 2027, Until Discontinu ed, Routine, DBP=>10 0; SBP=>160, DBP=>100; SBP=>180<b r>Indicati on: Hypertensi ve Emergency fluticasone Yes 1{puff} 1 Puff, [facility] propion-howie 4-16 Inhalation it y of meteroL 01:00: , Q12H, [place] (ADVAIR) 00 First dose Medic al 250-50 on Sat mcg/dose 09/08/21 at inhalation 2000, disk 1 Puff Until Discontinu ed metoprolol Yes 25mg 25 mg, Univ rs succinate 4-15 Oral, ity of XL (TOPROL 23:00: DAILY, [place] XL) tablet 00 First dose Med ical 25 mg on Sat Branch 09/08/21 at 1800, Until Discontinu ed nitroglycer Yes .4mg 0.4 mg, Uni vers in 4-15 Sublingual ity of (NITROSTAT) 22:56: , Q5MIN [place] as sublingual 10 PRN, Medical tablet 0.4 Starting Branc h mg on Sat09/08/21 at 1756, Until Discontinu ed, Routine, Chest pain butalbital- 0 Yes 1{tbl} 1 tablet, [facility] acetaminoph 4-15 Oral, ity of en-caff 22:55: Q6HPRNCarolina, [place] (ESGIC) 44 Starting Medical 50-325-40 on Sat Branch mg tablet 1 09/08/21 at tablet 1755, Until Discontinu ed, Routine, Headache ondansetron Yes 4mg 4 mg, Slow [facility] (ZOFRAN 4-15 IV Push, ity of (PF)) 22:55: Q6HPRN, [place] injection 4 33 Starting Medi chanell mg on Sat Branch 09/08/21 at 1755, Until Discontinu ed, Routine, Nausea and Vomiting (N/V) acetaminoph Yes 650mg 650 mg, Un haja en 4-15 Oral, ity of (TYLENOL) 22:55: Q6HPRN, [place] tablet 650 15 Starting Medic al mg on Sat Branch 09/08/21 at 1755, Until Discontinu ed, Routine, Pain (scale 1-3) hydralAZINE 2021- No 10mg 10 mg, Uni vers (APRESOLINE 09-0815 Slow IV ity of ) injection 21:45: 20:42 [place], [place] 10 mg 00 :00 ONCE, 1 Medical dose, On Branch Sat09/08/21 at 1645, SILVINO
In dication: Hypertensi ve Emergency ondansetron 2021- No 4mg 4 mg, Slow [facility] (ZOFRAN 09-0815 IV Push, ity of (PF)) 21:15: 20:19 ONCE, 1 [place] injection 4 00 :00 dose, On Medi chanell mg Fri Branch 09/08/21 at 1615, SILVINO cefTRIAXone 2021- No 1000mg 1,000 mg, [facility] (ROCEPHIN) 09-08 IV ity of 1,000 mg in 20:15: 20:17 Piggyback, [place] NaCl 0.9% 00 :00 ONCE, 1 Medical (NS) 50 mL dose, On Branc h MINI-BAG Sat09/08/21 at 1515, Administer over 30 Minutes, 50 mL
Reas on for Anti-Infec tive: Documented Infection< br>Documen piyush Infection Site: Urine<br&g t;Duration of Therapy: Other (see Comments) NaCl 0.9% 2021- No 500mL at 999 Univ ers (NS) bolus 09-08- mL/hr, 500 it y of infusion 19:45: 20:17 mL, IV [place] 500 mL 00 :00 Infusion, Medical ONCE, 1 Branch dose, On Sat09/08/21 at 1445, STAT ondansetron 2021- No 4mg 4 mg, Slow [facility] (ZOFRAN 09-08-15 IV Push, ity of (PF)) 19:30: 18:27 ONCE, 1 [place] injection 4 00 :00 dose, On Medi chanell mg Fri Branch 09/08/21 at 1430, SILVINO ondansetron Yes 1{tbl} Take 1 Un haja 4 mg tablet 2-03 tablet by ity of 00:00: mouth as [place] 00 needed. Medical Branch ondansetron Yes 1{tbl} Take 1 Un haja 4 mg tablet 2-03 tablet by ity of 00:00: mouth as [place] 00 needed. Medical Branch ondansetron Yes 1{tbl} Take 1 Un haja 4 mg tablet 2-03 tablet by ity of 00:00: mouth as [place] 00 needed. Medical Branch aspirin 81 2016-05 Yes 81 mg = [...] 160 mg-105 mg oral tablet, chewable Tylenol 2016-05 Yes 500 mg, Memoria 0-26 PO, Q6H, l 06:09: PRN Pain [place] 00 Score 1-3, 0 Refill(s) metoprolol 2016-05 Yes 25 mg, PO, M emoria extended 0-26 Daily, 0 l release 06:09: Refill(s) [place] nn 00 hydrochloro 2016-05 Yes 12.5 mg, Me moria thiazide 0-26 PO, Daily, l 06:09: 0 Jorje 00 Refill(s) tramadol 50 2016-05 Yes 50 mg = 1 M emoria mg oral 0-26 tab, PO, l tablet 06:09: Q8H, PRN [place] 00 Pain, # 60 tab, 0 Refill(s) metoprolol Yes 50 mg = 1 Me moria 50 mg oral 4-13 tab, PO, l tablet, 20:47: Daily, 0 [place] n extended 00 Refill(s) release Advair Yes 1 puff, Memoria Diskus 250 4-13 INHALATION l mcg-50 mcg 20:13: , BID, PRN [place] inhalation 00 Wheezing, powder 0 Refill(s) LEVOTHYROXI Yes Take by Uni vers NE SODIUM 3-29 mouth. ity of (LEVOTHYROX 14:20: [place] INE ORAL) 48 Medical Branch ESOMEPRAZOL Yes Take by Uni vers E MAGNESIUM 3-29 mouth. ity of (NEXIUM 14:20: [place] ORAL) 48 Medical Branch VITAMIN E Yes Take by Unive rs ACETATE 3-29 mouth. ity of (VITAMIN E 14:20: [place] ORAL) 48 Medical Branch FLUTICASONE Yes Inhale. Uni vers /SALMETEROL 3- ity of (ADVAIR 14:20: [place] DISKUS 48 Medical INHALE) Branch METOPROLOL Yes 1{tbl} Take 1 Tab [facility] SUCCINATE 3-29 by mouth ity of ORAL 14:20: daily. [place] [facility] atorvastati Yes 10mg Take 10 mg [facility] n (LIPITOR) 3-29 by mouth ity of 10 mg 14:20: at [place] tablet 48 bedtime. Medical Branch LEVOTHYROXI Yes Take by Uni vers NE SODIUM 3-29 mouth. ity of (LEVOTHYROX 14:20: [place] INE ORAL) 48 Medical Branch ESOMEPRAZOL Yes Take by Uni vers E MAGNESIUM 3-29 mouth. ity of (NEXIUM 14:20: [place] ORAL) 48 Medical Branch VITAMIN E Yes Take by Unive rs ACETATE 3-29 mouth. ity of (VITAMIN E 14:20: [place] ORAL) 48 Medical Branch FLUTICASONE 0 Yes Inhale. Uni vers /SALMETEROL 3-29 ity of (ADVAIR 14:20: [place] DISKUS 48 Medical INHALE) Branch METOPROLOL Yes 1{tbl} Take 1 Tab [facility] SUCCINATE 3-29 by mouth ity of ORAL 14:20: daily. [place] [address] Medical Branch atorvastati Yes 10mg Take 10 mg [facility] n (LIPITOR) 3-29 by mouth ity of 10 mg 14:20: at [place] tablet 48 bedtime. Medical Branch LEVOTHYROXI 0 Yes Take by Uni vers NE SODIUM 3-29 mouth. ity of (LEVOTHYROX 14:20: [place] INE ORAL) 48 Medical Branch ESOMEPRAZOL Yes Take by Uni vers E MAGNESIUM 3-29 mouth. ity of (NEXIUM 14:20: [place] ORAL) Medical Branch VITAMIN E 0 Yes Take by Unive rs ACETATE 3-29 mouth. ity of (VITAMIN E 14:20: [place] ORAL) Medical Branch FLUTICASONE 0 Yes Inhale. Uni vers /SALMETEROL 3-29 ity of (ADVAIR 14:20: [place] DISKUS 48 Medical INHALE) Branch METOPROLOL 0 Yes 1{tbl} Take 1 Tab [facility] SUCCINATE 3-29 by mouth ity of ORAL 14:20: daily. [place] [address] Medical Branch atorvastati Yes 10mg Take 10 mg [facility] n (LIPITOR) 3-29 by mouth ity of 10 mg 14:20: at [place] tablet 48 bedtime. Medical Branch LEVOTHYROXI Yes Take by Uni vers NE SODIUM 3-29 mouth. ity of (LEVOTHYROX 14:20: [place] INE ORAL) Medical Branch ESOMEPRAZOL Yes Take by Uni vers E MAGNESIUM 3-29 mouth. ity of (NEXIUM 14:20: [place] ORAL) Medical Branch VITAMIN E 0 Yes Take by Unive rs ACETATE 3-29 mouth. ity of (VITAMIN E 14:20: [place] ORAL) Medical Branch FLUTICASONE 0 Yes Inhale. Uni vers /SALMETEROL 3-29 ity of (ADVAIR 14:20: [place] DISKUS 48 Medical INHALE) Branch METOPROLOL 0 Yes 1{tbl} Take 1 Tab [facility] SUCCINATE 3-29 by mouth ity of ORAL 14:20: daily. [place] [address] Medical Branch atorvastati Yes 10mg Take 10 mg [facility] n (LIPITOR) 3-29 by mouth ity of 10 mg 14:20: at [place] tablet 48 bedtime. Medical Branch LEVOTHYROXI Yes Take by Uni vers NE SODIUM 3-29 mouth. ity of (LEVOTHYROX 14:20: [place] INE ORAL) 48 Medical Branch ESOMEPRAZOL 0 Yes Take by Uni vers E MAGNESIUM 3-29 mouth. ity of (NEXIUM 14:20: [place] ORAL) 48 Medical Branch VITAMIN E Yes Take by Unive rs ACETATE 3-29 mouth. ity of (VITAMIN E 14:20: [place] ORAL) 48 Medical Branch FLUTICASONE 0 Yes Inhale. Uni vers /SALMETEROL 3-29 ity of (ADVAIR 14:20: [place] DISKUS 48 Medical INHALE) Branch METOPROLOL 0 Yes 1{tbl} Take 1 Tab [facility] SUCCINATE 3-29 by mouth ity of ORAL 14:20: daily. [place] [address] Medical Branch atorvastati Yes 10mg Take 10 mg [facility] n (LIPITOR) 3-29 by mouth ity of 10 mg 14:20: at [place] tablet 48 bedtime. Medical Branch LEVOTHYROXI Yes Take by Uni vers NE SODIUM 3-29 mouth. ity of (LEVOTHYROX 14:20: [place] INE ORAL) 48 Medical Branch ESOMEPRAZOL Yes Take by Uni vers E MAGNESIUM 3-29 mouth. ity of (NEXIUM 14:20: [place] ORAL) Medical Branch VITAMIN E Yes Take by Unive rs ACETATE 3-29 mouth. ity of (VITAMIN E 14:20: [place] ORAL) 48 Medical Branch FLUTICASONE Yes Inhale. Uni vers /SALMETEROL 3-29 ity of (ADVAIR 14:20: [place] DISKUS 48 Medical INHALE) Branch METOPROLOL 0 Yes 1{tbl} Take 1 Tab [facility] SUCCINATE 3-29 by mouth ity of ORAL 14:20: daily. [place] [address] Medical Branch atorvastati 0 Yes 10mg Take 10 mg [facility] n (LIPITOR) 3-29 by mouth ity of 10 mg 14:20: at [place] tablet 48 bedtime. Medical Branch LEVOTHYROXI 0 Yes Take by Uni vers NE SODIUM 3-29 mouth. ity of (LEVOTHYROX 14:20: [place] INE ORAL) 48 Medical Branch ESOMEPRAZOL 0 Yes Take by Uni vers E MAGNESIUM 3-29 mouth. ity of (NEXIUM 14:20: [place] ORAL) 48 Medical Branch VITAMIN E 0 Yes Take by Unive rs ACETATE 3-29 mouth. ity of (VITAMIN E 14:20: [place] ORAL) Medical Branch FLUTICASONE [id number] Yes Inhale. Uni vers /SALMETEROL 3-29 ity of (ADVAIR 14:20: [place] DISKUS 48 Medical INHALE) Branch METOPROLOL 0 Yes 1{tbl} Take 1 Tab [facility] SUCCINATE 3-29 by mouth ity of ORAL 14:20: daily. [place] [address] Medical Branch atorvastati Yes 10mg Take 10 mg [facility] n (LIPITOR) 3-29 by mouth ity of 10 mg 14:20: at [place] tablet 48 bedtime. Medical Branch LEVOTHYROXI 0 Yes Take by Uni vers NE SODIUM 3-29 mouth. ity of (LEVOTHYROX 14:20: [place] INE ORAL) Medical Branch ESOMEPRAZOL Yes Take by Uni vers E MAGNESIUM 3-29 mouth. ity of (NEXIUM 14:20: [place] ORAL) Medical Branch VITAMIN E 0 Yes Take by Unive rs ACETATE 3-29 mouth. ity of (VITAMIN E 14:20: [place] ORAL) Medical Branch FLUTICASONE 0 Yes Inhale. Uni vers /SALMETEROL 3-29 ity of (ADVAIR 14:20: [place] DISKUS 48 Medical INHALE) Branch METOPROLOL 0 Yes 1{tbl} Take 1 Tab [facility] SUCCINATE 3-29 by mouth ity of ORAL 14:20: daily. [place] [address] Medical Branch atorvastati 0 Yes 10mg Take 10 mg [facility] n (LIPITOR) 3-29 by mouth ity of 10 mg 14:20: at [place] tablet 48 bedtime. Medical Branch LEVOTHYROXI 0 Yes Take by Uni vers NE SODIUM 3-29 mouth. ity of (LEVOTHYROX 14:20: [place] INE ORAL) Medical Branch ESOMEPRAZOL 0 Yes Take by Uni vers E MAGNESIUM 3-29 mouth. ity of (NEXIUM 14:20: [place] ORAL) Medical Branch VITAMIN E 0 Yes Take by Unive rs ACETATE 3-29 mouth. ity of (VITAMIN E 14:20: [place] ORAL) Medical Branch FLUTICASONE [id number] Yes Inhale. Uni vers /SALMETEROL 3-29 ity of (ADVAIR 14:20: [place] DISKUS 48 Medical INHALE) Branch METOPROLOL 0 Yes 1{tbl} Take 1 Tab [facility] SUCCINATE 3-29 by mouth ity of ORAL 14:20: daily. [place] [address] Medical Branch atorvastati Yes 10mg Take 10 mg [facility] n (LIPITOR) 3-29 by mouth ity of 10 mg 14:20: at [place] tablet 48 bedtime. Medical Branch LEVOTHYROXI 0 Yes Take by Uni vers NE SODIUM 3-29 mouth. ity of (LEVOTHYROX 14:20: [place] INE ORAL) 48 Medical Branch ESOMEPRAZOL Yes Take by Uni vers E MAGNESIUM 3-29 mouth. ity of (NEXIUM 14:20: [place] ORAL) Medical Branch VITAMIN E Yes Take by Unive rs ACETATE 3-29 mouth. ity of (VITAMIN E 14:20: [place] ORAL) Medical Branch FLUTICASONE 0 Yes Inhale. Uni vers /SALMETEROL 3-29 ity of (ADVAIR 14:20: [place] DISKUS 48 Medical INHALE) Branch METOPROLOL Yes 1{tbl} Take 1 Tab [facility] SUCCINATE 3-29 by mouth ity of ORAL 14:20: daily. [place] [address] Medical Branch atorvastati Yes 10mg Take 10 mg [facility] n (LIPITOR) 3-29 by mouth ity of 10 mg 14:20: at [place] tablet 48 bedtime. Medical Branch LEVOTHYROXI 0 Yes Take by Uni vers NE SODIUM 3-29 mouth. ity of (LEVOTHYROX 14:20: [place] INE ORAL) 48 Medical Branch ESOMEPRAZOL Yes Take by Uni vers E MAGNESIUM 3-29 mouth. ity of (NEXIUM 14:20: [place] ORAL) Medical Branch VITAMIN E 0 Yes Take by Unive rs ACETATE 3-29 mouth. ity of (VITAMIN E 14:20: [place] ORAL) Medical Branch FLUTICASONE 0 Yes Inhale. Uni vers /SALMETEROL 3-29 ity of (ADVAIR 14:20: [place] DISKUS 48 Medical INHALE) Branch METOPROLOL 0 Yes 1{tbl} Take 1 Tab [facility] SUCCINATE 3-29 by mouth ity of ORAL 14:20: daily. [place] [address] Medical Branch atorvastati 0 Yes 10mg Take 10 mg [facility] n (LIPITOR) 3-29 by mouth ity of 10 mg 14:20: at [place] tablet 48 bedtime. Medical Branch LEVOTHYROXI 0 Yes Take by Uni vers NE SODIUM 3-29 mouth. ity of (LEVOTHYROX 14:20: [place] INE ORAL) Medical Branch ESOMEPRAZOL 0 Yes Take by Uni vers E MAGNESIUM 3-29 mouth. ity of (NEXIUM 14:20: [place] ORAL) Medical Branch VITAMIN E 0 Yes Take by Unive rs ACETATE 3-29 mouth. ity of (VITAMIN E 14:20: [place] ORAL) Medical Branch FLUTICASONE 0 Yes Inhale. Uni vers /SALMETEROL 3-29 ity of (ADVAIR 14:20: [place] DISKUS 48 Medical INHALE) Branch METOPROLOL Yes 1{tbl} Take 1 Tab [facility] SUCCINATE 3-29 by mouth ity of ORAL 14:20: daily. [place] [address] Medical Branch atorvastati Yes 10mg Take 10 mg [facility] n (LIPITOR) 3-29 by mouth ity of 10 mg 14:20: at [place] tablet 48 bedtime. Medical Branch LEVOTHYROXI Yes Take by Uni vers NE SODIUM 3-29 mouth. ity of (LEVOTHYROX 14:20: [place] INE ORAL) Medical Branch ESOMEPRAZOL Yes Take by Uni vers E MAGNESIUM 3-29 mouth. ity of (NEXIUM 14:20: [place] ORAL) Medical Branch VITAMIN E 0 Yes Take by Unive rs ACETATE 3-29 mouth. ity of (VITAMIN E 14:20: [place] ORAL) Medical Branch FLUTICASONE 0 Yes Inhale. Uni vers /SALMETEROL 3-29 ity of (ADVAIR 14:20: [place] DISKUS 48 Medical INHALE) Branch METOPROLOL 0 Yes 1{tbl} Take 1 Tab [facility] SUCCINATE 3-29 by mouth ity of ORAL 14:20: daily. [place] [address] Medical Branch atorvastati 0 Yes 10mg Take 10 mg [facility] n (LIPITOR) 3-29 by mouth ity of 10 mg 14:20: at [place] tablet 48 bedtime. Medical Branch LEVOTHYROXI 0 Yes Take by Uni vers NE SODIUM 3-29 mouth. ity of (LEVOTHYROX 14:20: [place] INE ORAL) 48 Medical Branch ESOMEPRAZOL Yes Take by Uni vers E MAGNESIUM 3-29 mouth. ity of (NEXIUM 14:20: [place] ORAL) 48 Medical Branch VITAMIN E 0 Yes Take by Unive rs ACETATE 3-29 mouth. ity of (VITAMIN E 14:20: [place] ORAL) 48 Medical Branch FLUTICASONE 0 Yes Inhale. Uni vers /SALMETEROL 3-29 ity of (ADVAIR 14:20: [place] DISKUS 48 Medical INHALE) Branch METOPROLOL 0 Yes 1{tbl} Take 1 Tab [facility] SUCCINATE 3-29 by mouth ity of ORAL 14:20: daily. [place] [address] Medical Branch atorvastati Yes 10mg Take 10 mg Univers n (LIPITOR) 3-29 by mouth ity of 10 mg 14:20: at [place] tablet 48 bedtime. Medical Branch LEVOTHYROXI Yes Take by Uni vers NE SODIUM 3-29 mouth. ity of (LEVOTHYROX 14:20: [place] INE ORAL) 48 Medical Branch ESOMEPRAZOL Yes Take by Uni vers E MAGNESIUM 3-29 mouth. ity of (NEXIUM 14:20: [place] ORAL) Medical Branch VITAMIN E 0 Yes Take by Unive rs ACETATE 3-29 mouth. ity of (VITAMIN E 14:20: [place] ORAL) 48 Medical Branch FLUTICASONE 0 Yes Inhale. Uni vers /SALMETEROL 3-29 ity of (ADVAIR 14:20: [place] DISKUS 48 Medical INHALE) Branch METOPROLOL 0 Yes 1{tbl} Take 1 Tab [facility] SUCCINATE 3-29 by mouth ity of ORAL 14:20: daily. [place] [address] Medical Branch atorvastati 0 Yes 10mg Take 10 mg [facility] n (LIPITOR) 3-29 by mouth ity of 10 mg 14:20: at [place] tablet 48 bedtime. Medical Branch LEVOTHYROXI Yes Take by Uni vers NE SODIUM 3-29 mouth. ity of (LEVOTHYROX 14:20: [place] INE ORAL) 48 Medical Branch ESOMEPRAZOL 0 Yes Take by Uni vers E MAGNESIUM 3-29 mouth. ity of (NEXIUM 14:20: [place] ORAL) 48 Medical Branch VITAMIN E 0 Yes Take by Unive rs ACETATE 3-29 mouth. ity of (VITAMIN E 14:20: [place] ORAL) 48 Medical Branch FLUTICASONE 0 Yes Inhale. Uni vers /SALMETEROL 3-29 ity of (ADVAIR 14:20: [place] DISKUS 48 Medical INHALE) Branch METOPROLOL 0 Yes 1{tbl} Take 1 Tab [facility] SUCCINATE 3-29 by mouth ity of ORAL 14:20: daily. [place] [address] Medical Branch atorvastati 0 Yes 10mg Take 10 mg Univers n (LIPITOR) 3-29 by mouth ity of 10 mg 14:20: at [place] tablet 48 bedtime. Medical Branch LEVOTHYROXI Yes Take by Uni vers NE SODIUM 3-29 mouth. ity of (LEVOTHYROX 14:20: [place] INE ORAL) 48 Medical Branch ESOMEPRAZOL Yes Take by Uni vers E MAGNESIUM 3-29 mouth. ity of (NEXIUM 14:20: [place] ORAL) Medical Branch VITAMIN E Yes Take by Unive rs ACETATE 3-29 mouth. ity of (VITAMIN E 14:20: [place] ORAL) Medical Branch FLUTICASONE 0 Yes Inhale. Uni vers /SALMETEROL 3-29 ity of (ADVAIR 14:20: [place] DISKUS 48 Medical INHALE) Branch METOPROLOL 0 Yes 1{tbl} Take 1 Tab [facility] SUCCINATE 3-29 by mouth ity of ORAL 14:20: daily. [place] [address] Medical Branch atorvastati 0 Yes 10mg Take 10 mg Univers n (LIPITOR) 3-29 by mouth ity of 10 mg 14:20: at [place] tablet 48 bedtime. Medical Branch LEVOTHYROXI 0 Yes Take by Uni vers NE SODIUM 3-29 mouth. ity of (LEVOTHYROX 14:20: [place] INE ORAL) 48 Medical Branch ESOMEPRAZOL 0 Yes Take by Uni vers E MAGNESIUM 3-29 mouth. ity of (NEXIUM 14:20: [place] ORAL) 48 Medical Branch VITAMIN E 0 Yes Take by Unive rs ACETATE 3-29 mouth. ity of (VITAMIN E 14:20: [place] ORAL) 48 Medical Branch FLUTICASONE Yes Inhale. Uni vers /SALMETEROL 3-29 ity of (ADVAIR 14:20: [place] DISKUS 48 Medical INHALE) Branch METOPROLOL Yes 1{tbl} Take 1 Tab [facility] SUCCINATE 3-29 by mouth ity of ORAL 14:20: daily. [place] [address] Medical Branch atorvastati Yes 10mg Take 10 mg [facility] n (LIPITOR) 3-29 by mouth ity of 10 mg 14:20: at [place] tablet 48 bedtime. Medical Branch LEVOTHYROXI Yes Take by Uni vers NE SODIUM 3-29 mouth. ity of (LEVOTHYROX 14:20: [place] INE ORAL) Medical Branch ESOMEPRAZOL Yes Take by Uni vers E MAGNESIUM 3-29 mouth. ity of (NEXIUM 14:20: [place] ORAL) Medical Branch VITAMIN E Yes Take by Unive rs ACETATE 3-29 mouth. ity of (VITAMIN E 14:20: [place] ORAL) Medical Branch FLUTICASONE Yes Inhale. Uni vers /SALMETEROL 3-29 ity of (ADVAIR 14:20: [place] DISKUS 48 Medical INHALE) Branch METOPROLOL Yes 1{tbl} Take 1 Tab [facility] SUCCINATE 3-29 by mouth ity of ORAL 14:20: daily. [place] [address] Medical Branch atorvastati Yes 10mg Take 10 mg [facility] n (LIPITOR) 3-29 by mouth ity of 10 mg 14:20: at [place] tablet 48 bedtime. Medical Branch LEVOTHYROXI Yes Take by Uni vers NE SODIUM 3-29 mouth. ity of (LEVOTHYROX 14:20: [place] INE ORAL) 48 Medical Branch ESOMEPRAZOL Yes Take by Uni vers E MAGNESIUM 3-29 mouth. ity of (NEXIUM 14:20: [place] ORAL) Medical Branch VITAMIN E 0 Yes Take by Unive rs ACETATE 3-29 mouth. ity of (VITAMIN E 14:20: [place] ORAL) Medical Branch FLUTICASONE Yes Inhale. Uni vers /SALMETEROL 3-29 ity of (ADVAIR 14:20: [place] DISKUS 48 Medical INHALE) Branch METOPROLOL 0 Yes 1{tbl} Take 1 Tab [facility] SUCCINATE 3-29 by mouth ity of ORAL 14:20: daily. [place] [address] Medical Branch atorvastati 0 Yes 10mg Take 10 mg Univers n (LIPITOR) 3-29 by mouth ity of 10 mg 14:20: at [place] tablet 48 bedtime. Medical Branch LEVOTHYROXI 0 Yes Take by Uni vers NE SODIUM 3-29 mouth. ity of (LEVOTHYROX 14:20: [place] INE ORAL) Medical Branch ESOMEPRAZOL Yes Take by Uni vers E MAGNESIUM 3-29 mouth. ity of (NEXIUM 14:20: [place] ORAL) Medical Branch VITAMIN E 0 Yes Take by Unive rs ACETATE 3-29 mouth. ity of (VITAMIN E 14:20: [place] ORAL) Medical Branch FLUTICASONE 0 Yes Inhale. Uni vers /SALMETEROL 3-29 ity of (ADVAIR 14:20: [place] DISKUS 48 Medical INHALE) Branch METOPROLOL 0 Yes 1{tbl} Take 1 Tab [facility] SUCCINATE 3-29 by mouth ity of ORAL 14:20: daily. [place] [address] Medical Branch atorvastati Yes 10mg Take 10 mg Univers n (LIPITOR) 3-29 by mouth ity of 10 mg 14:20: at [place] tablet 48 bedtime. Medical Branch LEVOTHYROXI Yes Take by Uni vers NE SODIUM 3-29 mouth. ity of (LEVOTHYROX 14:20: [place] INE ORAL) Medical Branch ESOMEPRAZOL 0 Yes Take by Uni vers E MAGNESIUM 3-29 mouth. ity of (NEXIUM 14:20: [place] ORAL) Medical Branch VITAMIN E 0 Yes Take by Unive rs ACETATE 3-29 mouth. ity of (VITAMIN E 14:20: [place] ORAL) Medical Branch FLUTICASONE [id number] Yes Inhale. Uni vers /SALMETEROL 3-29 ity of (ADVAIR 14:20: [place] DISKUS 48 Medical INHALE) Branch METOPROLOL 0 Yes 1{tbl} Take 1 Tab [facility] SUCCINATE 3-29 by mouth ity of ORAL 14:20: daily. [place] [address] Medical Branch atorvastati 2016-0 Yes 10mg Take 10 mg Univers n (LIPITOR) 3-29 by mouth ity of 10 mg 14:20: at [place] tablet 48 bedtime. Medical Branch LEVOTHYROXI 0 Yes Take by Uni vers NE SODIUM 3-29 mouth. ity of (LEVOTHYROX 14:20: [place] INE ORAL) 48 Medical Branch ESOMEPRAZOL Yes Take by Uni vers E MAGNESIUM 3-29 mouth. ity of (NEXIUM 14:20: [place] ORAL) 48 Medical Branch VITAMIN E Yes Take by Unive rs ACETATE 3-29 mouth. ity of (VITAMIN E 14:20: [place] ORAL) 48 Medical Branch FLUTICASONE Yes Inhale. Uni vers /SALMETEROL 3-29 ity of (ADVAIR 14:20: [place] DISKUS 48 Medical INHALE) Branch METOPROLOL Yes 1{tbl} Take 1 Tab [facility] SUCCINATE 3-29 by mouth ity of ORAL 14:20: daily. [place] [address] Medical Branch atorvastati Yes 10mg Take 10 mg Univers n (LIPITOR) 3-29 by mouth ity of 10 mg 14:20: at [place] tablet 48 bedtime. Medical Branch LEVOTHYROXI Yes Take by Uni vers NE SODIUM 3-29 mouth. ity of (LEVOTHYROX 14:20: [place] INE ORAL) 48 Medical Branch ESOMEPRAZOL Yes Take by Uni vers E MAGNESIUM 3-29 mouth. ity of (NEXIUM 14:20: [place] ORAL) Medical Branch VITAMIN E Yes Take by Unive rs ACETATE 3-29 mouth. ity of (VITAMIN E 14:20: [place] ORAL) 48 Medical Branch FLUTICASONE Yes Inhale. Uni vers /SALMETEROL 3-29 ity of (ADVAIR 14:20: [place] DISKUS 48 Medical INHALE) Branch METOPROLOL 0 Yes 1{tbl} Take 1 Tab [facility] SUCCINATE 3-29 by mouth ity of ORAL 14:20: daily. [place] [address] Medical Branch atorvastati Yes 10mg Take 10 mg Univers n (LIPITOR) 3-29 by mouth ity of 10 mg 14:20: at [place] tablet 48 bedtime. Medical Branch LEVOTHYROXI Yes Take by Uni vers NE SODIUM 3-29 mouth. ity of (LEVOTHYROX 14:20: [place] INE ORAL) 48 Medical Branch ESOMEPRAZOL Yes Take by Uni vers E MAGNESIUM 3-29 mouth. ity of (NEXIUM 14:20: [place] ORAL) Medical Branch VITAMIN E 0 Yes Take by Unive rs ACETATE 3-29 mouth. ity of (VITAMIN E 14:20: [place] ORAL) Medical Branch FLUTICASONE 0 Yes Inhale. Uni vers /SALMETEROL 3-29 ity of (ADVAIR 14:20: [place] DISKUS 48 Medical INHALE) Branch METOPROLOL 0 Yes 1{tbl} Take 1 Tab [facility] SUCCINATE 3-29 by mouth ity of ORAL 14:20: daily. [place] [address] Medical Branch atorvastati 0 Yes 10mg Take 10 mg Univers n (LIPITOR) 3-29 by mouth ity of 10 mg 14:20: at [place] tablet 48 bedtime. Medical Branch LEVOTHYROXI Yes Take by Uni vers NE SODIUM 3-29 mouth. ity of (LEVOTHYROX 14:20: [place] INE ORAL) Medical Branch ESOMEPRAZOL Yes Take by Uni vers E MAGNESIUM 3-29 mouth. ity of (NEXIUM 14:20: [place] ORAL) Medical Branch VITAMIN E Yes Take by Unive rs ACETATE 3-29 mouth. ity of (VITAMIN E 14:20: [place] ORAL) Medical Branch FLUTICASONE Yes Inhale. Uni vers /SALMETEROL 3-29 ity of (ADVAIR 14:20: [place] DISKUS 48 Medical INHALE) Branch METOPROLOL 0 Yes 1{tbl} Take 1 Tab [facility] SUCCINATE 3-29 by mouth ity of ORAL 14:20: daily. [place] [address] Medical Branch atorvastati 0 Yes 10mg Take 10 mg Univers n (LIPITOR) 3-29 by mouth ity of 10 mg 14:20: at [place] tablet 48 bedtime. Medical Branch LEVOTHYROXI 0 Yes Take by Uni vers NE SODIUM 3-29 mouth. ity of (LEVOTHYROX 14:20: [place] INE ORAL) Medical Branch ESOMEPRAZOL 0 Yes Take by Uni vers E MAGNESIUM 3-29 mouth. ity of (NEXIUM 14:20: [place] ORAL) Medical Branch VITAMIN E Yes Take by Unive rs ACETATE 3-29 mouth. ity of (VITAMIN E 14:20: [place] ORAL) 48 Medical Branch FLUTICASONE 0 Yes Inhale. Uni vers /SALMETEROL 3-29 ity of (ADVAIR 14:20: [place] DISKUS 48 Medical INHALE) Branch METOPROLOL Yes 1{tbl} Take 1 Tab [facility] SUCCINATE 3-29 by mouth ity of ORAL 14:20: daily. [place] [address] Medical Branch atorvastati Yes 10mg Take 10 mg Univers n (LIPITOR) 3-29 by mouth ity of 10 mg 14:20: at [place] tablet 48 bedtime. Medical Branch LEVOTHYROXI Yes Take by Uni vers NE SODIUM 3-29 mouth. ity of (LEVOTHYROX 14:20: [place] INE ORAL) Medical Branch ESOMEPRAZOL Yes Take by Uni vers E MAGNESIUM 3-29 mouth. ity of (NEXIUM 14:20: [place] ORAL) Medical Branch VITAMIN E Yes Take by Unive rs ACETATE 3-29 mouth. ity of (VITAMIN E 14:20: [place] ORAL) Medical Branch FLUTICASONE Yes Inhale. Uni vers /SALMETEROL 3-29 ity of (ADVAIR 14:20: [place] DISKUS 48 Medical INHALE) Branch METOPROLOL Yes 1{tbl} Take 1 Tab [facility] SUCCINATE 3-29 by mouth ity of ORAL 14:20: daily. [place] [address] Medical Branch atorvastati Yes 10mg Take 10 mg [facility] n (LIPITOR) 3-29 by mouth ity of 10 mg 14:20: at [place] tablet 48 bedtime. Medical Branch LEVOTHYROXI Yes Take by Uni vers NE SODIUM 3-29 mouth. ity of (LEVOTHYROX 14:20: [place] INE ORAL) 48 Medical Branch ESOMEPRAZOL Yes Take by Uni vers E MAGNESIUM 3-29 mouth. ity of (NEXIUM 14:20: [place] ORAL) Medical Branch VITAMIN E Yes Take by Unive rs ACETATE 3-29 mouth. ity of (VITAMIN E 14:20: [place] ORAL) Medical [facility] FLUTICASONE 0 Yes Inhale. Uni vers /SALMETEROL 3-29 ity of (ADVAIR 14:20: [place] DISKUS 48 Medical INHALE) Branch METOPROLOL 0 Yes 1{tbl} Take 1 Tab [facility] SUCCINATE 3-29 by mouth ity of ORAL 14:20: daily. [place] [address] Medical Branch atorvastati 0 Yes 10mg Take 10 mg [facility] n (LIPITOR) 3-29 by mouth ity of 10 mg 14:20: at [place] tablet 48 bedtime. [facility] LEVOTHYROXI 0 Yes Take by [facility] vers NE SODIUM 3-29 mouth. ity of (LEVOTHYROX 14:20: [place] INE ORAL) [facility] ESOMEPRAZOL Yes Take by Uni vers E MAGNESIUM 3-29 mouth. ity of (NEXIUM 14:20: [place] ORAL) [facility] VITAMIN E 0 Yes Take by Un[facility] rs ACETATE 3-29 mouth. ity of (VITAMIN E 14:20: [place] ORAL) [facility] FLUTICASONE 0 Yes Inhale. Uni vers /SALMETEROL 3-29 ity of (ADVAIR 14:20: [place] DISKUS 48 Medical INHALE) Branch METOPROLOL Yes 1{tbl} Take 1 Tab [facility] SUCCINATE 3-29 by mouth ity of ORAL 14:20: daily. [place] [address] [facility] Branch atorvastati 0 Yes 10mg Take 10 mg [facility] n (LIPITOR) 3-29 by mouth ity of 10 mg 14:20: at [place] tablet 48 bedtime. [facility] LEVOTHYROXI 0 Yes Take by [facility] vers NE SODIUM 3-29 mouth. ity of (LEVOTHYROX 14:20: [place] INE ORAL) [facility] ESOMEPRAZOL Yes Take by Uni vers E MAGNESIUM 3-29 mouth. ity of (NEXIUM 14:20: [place] ORAL) [facility] VITAMIN E 0 Yes Take by Un[facility] rs ACETATE 3-29 mouth. ity of (VITAMIN E 14:20: [place] ORAL) [facility] Branch FLUTICASONE 0 Yes Inhale. Uni vers /SALMETEROL 3-29 ity of (ADVAIR 14:20: [place] DISKUS 48 Medical INHALE) Branch METOPROLOL 0 Yes 1{tbl} Take 1 Tab [facility] SUCCINATE 3-29 by mouth ity of ORAL 14:20: daily. [place] [address] Medical Branch atorvastati Yes 10mg Take 10 mg [facility] n (LIPITOR) 3-29 by mouth ity of 10 mg 14:20: at [place] tablet 48 bedtime. Medical Branch LEVOTHYROXI 0 Yes Take by Uni vers NE SODIUM 3-29 mouth. ity of (LEVOTHYROX 14:20: [place] INE ORAL) Medical Branch ESOMEPRAZOL Yes Take by Uni vers E MAGNESIUM 3-29 mouth. ity of (NEXIUM 14:20: [place] ORAL) Medical Branch VITAMIN E 0 Yes Take by Unive rs ACETATE 3-29 mouth. ity of (VITAMIN E 14:20: [place] ORAL) Medical Branch FLUTICASONE 0 Yes Inhale. Uni vers /SALMETEROL 3-29 ity of (ADVAIR 14:20: [place] DISKUS 48 Medical INHALE) Branch METOPROLOL 0 Yes 1{tbl} Take 1 Tab [facility] SUCCINATE 3-29 by mouth ity of ORAL 14:20: daily. [place] [address] Medical Branch atorvastati Yes 10mg Take 10 mg [facility] n (LIPITOR) 3-29 by mouth ity of 10 mg 14:20: at [place] tablet 48 bedtime. Medical Branch LEVOTHYROXI Yes Take by [facility] vers NE SODIUM 3-29 mouth. ity of (LEVOTHYROX 14:20: [place] INE ORAL) Medical Branch ESOMEPRAZOL Yes Take by Uni vers E MAGNESIUM 3-29 mouth. ity of (NEXIUM 14:20: [place] ORAL) Medical Branch VITAMIN E 0 Yes Take by Unive rs ACETATE 3-29 mouth. ity of (VITAMIN E 14:20: [place] ORAL) Medical Branch FLUTICASONE 0 Yes Inhale. Uni vers /SALMETEROL 3-29 ity of (ADVAIR 14:20: [place] DISKUS 48 Medical INHALE) Branch METOPROLOL 0 Yes 1{tbl} Take 1 Tab [facility] SUCCINATE 3-29 by mouth ity of ORAL 14:20: daily. [place] [address] Medical Branch atorvastati Yes 10mg Take 10 mg [facility] n (LIPITOR) 3-29 by mouth ity of 10 mg 14:20: at [place] tablet 48 bedtime. Medical Branch LEVOTHYROXI Yes Take by [facility] vers NE SODIUM 3-29 mouth. ity of (LEVOTHYROX 14:20: [place] INE ORAL) 48 Medical Branch ESOMEPRAZOL Yes Take by Uni vers E MAGNESIUM 3-29 mouth. ity of (NEXIUM 14:20: [place] ORAL) 48 Medical Branch VITAMIN E Yes Take by Unive rs ACETATE 3-29 mouth. ity of (VITAMIN E 14:20: [place] ORAL) 48 Medical Branch FLUTICASONE 0 Yes Inhale. Uni vers /SALMETEROL 3-29 ity of (ADVAIR 14:20: [place] DISKUS 48 Medical INHALE) Branch METOPROLOL Yes 1{tbl} Take 1 Tab [facility] SUCCINATE 3-29 by mouth ity of ORAL 14:20: daily. [place] [address] Medical Branch atorvastati Yes 10mg Take 10 mg [facility] n (LIPITOR) 3-29 by mouth ity of 10 mg 14:20: at [place] tablet 48 bedtime. Medical Branch LEVOTHYROXI Yes Take by Uni vers NE SODIUM 3-29 mouth. ity of (LEVOTHYROX 14:20: [place] INE ORAL) 48 Medical Branch ESOMEPRAZOL Yes Take by Uni vers E MAGNESIUM 3-29 mouth. ity of (NEXIUM 14:20: [place] ORAL) Medical Branch VITAMIN E Yes Take by Unive rs ACETATE 3-29 mouth. ity of (VITAMIN E 14:20: [place] ORAL) 48 Medical Branch FLUTICASONE Yes Inhale. Uni vers /SALMETEROL 3-29 ity of (ADVAIR 14:20: [place] DISKUS 48 Medical INHALE) Branch METOPROLOL Yes 1{tbl} Take 1 Tab [facility] SUCCINATE 3-29 by mouth ity of ORAL 14:20: daily. [place] [address] Medical Branch atorvastati 0 Yes 10mg Take 10 mg [facility] n (LIPITOR) 3-29 by mouth ity of 10 mg 14:20: at [place] tablet 48 bedtime. Medical Branch LEVOTHYROXI 0 Yes Take by Uni vers NE SODIUM 3-29 mouth. ity of (LEVOTHYROX 14:20: [place] INE ORAL) 48 Medical Branch ESOMEPRAZOL 0 Yes Take by Uni vers E MAGNESIUM 3-29 mouth. ity of (NEXIUM 14:20: [place] ORAL) 48 Medical Branch VITAMIN E 0 Yes Take by Unive rs ACETATE 3-29 mouth. ity of (VITAMIN E 14:20: [place] ORAL) Medical Branch FLUTICASONE 0 Yes Inhale. Uni vers /SALMETEROL 3-29 ity of (ADVAIR 14:20: [place] DISKUS 48 Medical INHALE) Branch METOPROLOL 0 Yes 1{tbl} Take 1 Tab [facility] SUCCINATE 3-29 by mouth ity of ORAL 14:20: daily. [place] [address] Medical Branch atorvastati 0 Yes 10mg Take 10 mg [facility] n (LIPITOR) 3-29 by mouth ity of 10 mg 14:20: at [place] tablet 48 bedtime. Medical Branch LEVOTHYROXI 0 Yes Take by Uni vers NE SODIUM 3-29 mouth. ity of (LEVOTHYROX 14:20: [place] INE ORAL) Medical Branch ESOMEPRAZOL Yes Take by Uni vers E MAGNESIUM 3-29 mouth. ity of (NEXIUM 14:20: [place] ORAL) Medical Branch VITAMIN E Yes Take by Unive rs ACETATE 3-29 mouth. ity of (VITAMIN E 14:20: [place] ORAL) Medical Branch FLUTICASONE 0 Yes Inhale. Uni vers /SALMETEROL 3-29 ity of (ADVAIR 14:20: [place] DISKUS 48 Medical INHALE) Branch METOPROLOL 0 Yes 1{tbl} Take 1 Tab [facility] SUCCINATE 3-29 by mouth ity of ORAL 14:20: daily. [place] [address] Medical Branch atorvastati 0 Yes 10mg Take 10 mg [facility] n (LIPITOR) 3-29 by mouth ity of 10 mg 14:20: at [place] tablet 48 bedtime. Medical Branch METOPROLOL 0 Yes 1{tbl} Take 1 Tab [facility] SUCCINATE 3-29 by mouth ity of ORAL 09:20: daily. [place] [address] Medical Branch atorvastati 0 Yes 10mg Take 10 mg [facility] n (LIPITOR) 3-29 by mouth ity of 10 mg 09:20: at [place] tablet 48 bedtime. Medical Branch LEVOTHYROXI 0 Yes Take by Uni vers NE SODIUM 3-29 mouth. ity of (LEVOTHYROX 09:20: [place] INE ORAL) 48 Medical Branch ESOMEPRAZOL 0 Yes Take by Uni vers E MAGNESIUM 3-29 mouth. ity of (NEXIUM 09:20: [place] ORAL) 48 Medical Branch VITAMIN E 0 Yes Take by Unive rs ACETATE 3-29 mouth. ity of (VITAMIN E 09:20: [place] ORAL) 48 Medical Branch FLUTICASONE 0 Yes Inhale. Uni vers /SALMETEROL 3-29 ity of (ADVAIR 09:20: [place] DISKUS 48 Medical INHALE) Branch METOPROLOL 0 Yes 1{tbl} Take 1 Tab [facility] SUCCINATE 3-29 by mouth ity of ORAL 09:20: daily. [place] [address] Medical Branch atorvastati 0 Yes 10mg Take 10 mg [facility] n (LIPITOR) 3-29 by mouth ity of 10 mg 09:20: at [place] tablet 48 bedtime. Medical Branch LEVOTHYROXI Yes Take by Uni vers NE SODIUM 3-29 mouth. ity of (LEVOTHYROX 09:20: [place] INE ORAL) 48 Medical Branch ESOMEPRAZOL Yes Take by Uni vers E MAGNESIUM 3-29 mouth. ity of (NEXIUM 09:20: [place] ORAL) Medical Branch VITAMIN E Yes Take by Unive rs ACETATE 3-29 mouth. ity of (VITAMIN E 09:20: [place] ORAL) Medical Branch FLUTICASONE Yes Inhale. Uni vers /SALMETEROL 3-29 ity of (ADVAIR 09:20: [place] DISKUS 48 Medical INHALE) Branch METOPROLOL 0 Yes 1{tbl} Take 1 Tab [facility] SUCCINATE 3-29 by mouth ity of ORAL 09:20: daily. [place] [address] Medical Branch atorvastati 0 Yes 10mg Take 10 mg [facility] n (LIPITOR) 3-29 by mouth ity of 10 mg 09:20: at [place] tablet 48 bedtime. Medical Branch LEVOTHYROXI 0 Yes Take by Uni vers NE SODIUM 3-29 mouth. ity of (LEVOTHYROX 09:20: [place] INE ORAL) 48 Medical Branch ESOMEPRAZOL Yes Take by Uni vers E MAGNESIUM 3-29 mouth. ity of (NEXIUM 09:20: [place] ORAL) 48 Medical Branch VITAMIN E 2016-0 Yes Take by Unive rs ACETATE 3 mouth. ity of (VITAMIN E 09:20: [place] ORAL) 48 Medical Branch FLUTICASONE 2015-0 Yes Inhale. Uni vers /SALMETEROL 08-22 ity of (ADVAIR 09:20: [place] DISKUS 48 Medical INHALE) Branch metroNIDAZO 2016-0 Yes 500mg Take 1 Tab [facility] LE (FLAGYL) 1-19 by mouth 2 it y of 500 mg 00:00: (two) [place] tablet 00 times Medical daily. Branch metroNIDAZO 2016-0 Yes 500mg Take 1 Tab [facility] LE (FLAGYL) 1-19 by mouth 2 it y of 500 mg 00:00: (two) [place] tablet 00 times Medical daily. Branch metroNIDAZO 2016-0 Yes 500mg Take 1 Tab [facility] LE (FLAGYL) 1-19 by mouth 2 it y of 500 mg 00:00: (two) [place] tablet 00 times Medical daily. Branch metroNIDAZO 2016-0 Yes 500mg Take 1 Tab [facility] LE (FLAGYL) 1-19 by mouth 2 it y of 500 mg 00:00: (two) [place] tablet 00 times Medical daily. Branch metroNIDAZO 2016-0 Yes 500mg Take 1 Tab [facility] LE (FLAGYL) 1-19 by mouth 2 it y of 500 mg 00:00: (two) [place] tablet 00 times Medical daily. Branch metroNIDAZO 2016-0 Yes 500mg Take 1 Tab [facility] LE (FLAGYL) 1-19 by mouth 2 it y of 500 mg 00:00: (two) [place] tablet 00 times Medical daily. Branch metroNIDAZO 2016-0 Yes 500mg Take 1 Tab [facility] LE (FLAGYL) 1-19 by mouth 2 it y of 500 mg 00:00: (two) [place] tablet 00 times Medical daily. Branch metroNIDAZO 2016-0 Yes 500mg Take 1 Tab [facility] LE (FLAGYL) 1-19 by mouth 2 it y of 500 mg 00:00: (two) [place] tablet 00 times Medical daily. Branch metroNIDAZO 2016-0 Yes 500mg Take 1 Tab [facility] LE (FLAGYL) 1-19 by mouth 2 it y of 500 mg 00:00: (two) [place] tablet 00 times Medical daily. Branch metroNIDAZO 2016-0 Yes 500mg Take 1 Tab [facility] LE (FLAGYL) 1-19 by mouth 2 it y of 500 mg 00:00: (two) [place] tablet 00 times Medical daily. Branch metroNIDAZO 2016-0 Yes 500mg Take 1 Tab [facility] LE (FLAGYL) 1-19 by mouth 2 it y of 500 mg 00:00: (two) [place] tablet 00 times Medical daily. Branch metroNIDAZO 2016-0 Yes 500mg Take 1 Tab [facility] LE (FLAGYL) 1-19 by mouth 2 it y of 500 mg 00:00: (two) [place] tablet 00 times Medical daily. Branch metroNIDAZO 2016-0 Yes 500mg Take 1 Tab [facility] LE (FLAGYL) 1-19 by mouth 2 it y of 500 mg 00:00: (two) [place] tablet 00 times Medical daily. Branch metroNIDAZO 2016-0 Yes 500mg Take 1 Tab [facility] LE (FLAGYL) 1-19 by mouth 2 it y of 500 mg 00:00: (two) [place] tablet 00 times Medical daily. Branch metroNIDAZO 2016-0 Yes 500mg Take 1 Tab [facility] LE (FLAGYL) 1-19 by mouth 2 it y of 500 mg 00:00: (two) [place] tablet 00 times Medical daily. Branch metroNIDAZO 2016-0 Yes 500mg Take 1 Tab [facility] LE (FLAGYL) 1-19 by mouth 2 it y of 500 mg 00:00: (two) [place] tablet 00 times Medical daily. Branch metroNIDAZO 2016-0 Yes 500mg Take 1 Tab [facility] LE (FLAGYL) 1-19 by mouth 2 it y of 500 mg 00:00: (two) [place] tablet 00 times Medical daily. Branch metroNIDAZO 2016-0 Yes 500mg Take 1 Tab [facility] LE (FLAGYL) 1-19 by mouth 2 it y of 500 mg 00:00: (two) [place] tablet 00 times Medical daily. Branch metroNIDAZO 2016-0 Yes 500mg Take 1 Tab [facility] LE (FLAGYL) 1-19 by mouth 2 it y of 500 mg 00:00: (two) [place] tablet 00 times Medical daily. Branch metroNIDAZO 2016-0 Yes 500mg Take 1 Tab [facility] LE (FLAGYL) 1-19 by mouth 2 it y of 500 mg 00:00: (two) [place] tablet 00 times Medical daily. Branch metroNIDAZO 2016-0 Yes 500mg Take 1 Tab [facility] LE (FLAGYL) 1-19 by mouth 2 it y of 500 mg 00:00: (two) [place] tablet 00 times Medical daily. Branch metroNIDAZO 2016-0 Yes 500mg Take 1 Tab [facility] LE (FLAGYL) 1-19 by mouth 2 it y of 500 mg 00:00: (two) [place] tablet 00 times Medical daily. Branch metroNIDAZO 2016-0 Yes 500mg Take 1 Tab [facility] LE (FLAGYL) 1-19 by mouth 2 it y of 500 mg 00:00: (two) [place] tablet 00 times Medical daily. Branch metroNIDAZO 2016-0 Yes 500mg Take 1 Tab [facility] LE (FLAGYL) 1-19 by mouth 2 it y of 500 mg 00:00: (two) [place] tablet 00 times Medical daily. Branch metroNIDAZO 2016-0 Yes 500mg Take 1 Tab [facility] LE (FLAGYL) 1-19 by mouth 2 it y of 500 mg 00:00: (two) [place] tablet 00 times Medical daily. Branch metroNIDAZO 2016-0 Yes 500mg Take 1 Tab [facility] LE (FLAGYL) 1-19 by mouth 2 it y of 500 mg 00:00: (two) [place] tablet 00 times Medical daily. Branch metroNIDAZO 2016-0 Yes 500mg Take 1 Tab [facility] LE (FLAGYL) 1-19 by mouth 2 it y of 500 mg 00:00: (two) [place] tablet 00 times Medical daily. Branch metroNIDAZO 2016-0 Yes 500mg Take 1 Tab [facility] LE (FLAGYL) 1-19 by mouth 2 it y of 500 mg 00:00: (two) [place] tablet 00 times Medical daily. Branch metroNIDAZO 2016-0 Yes 500mg Take 1 Tab [facility] LE (FLAGYL) 1-19 by mouth 2 it y of 500 mg 00:00: (two) [place] tablet 00 times Medical daily. Branch metroNIDAZO 2016-0 Yes 500mg Take 1 Tab [facility] LE (FLAGYL) 1-19 by mouth 2 it y of 500 mg 00:00: (two) [place] tablet 00 times Medical daily. Branch metroNIDAZO 2016-0 Yes 500mg Take 1 Tab [facility] LE (FLAGYL) 1-19 by mouth 2 it y of 500 mg 00:00: (two) [place] tablet 00 times Medical daily. Branch metroNIDAZO 2016-0 Yes 500mg Take 1 Tab [facility] LE (FLAGYL) 1-19 by mouth 2 it y of 500 mg 00:00: (two) [place] tablet 00 times Medical daily. Branch metroNIDAZO 2016-0 Yes 500mg Take 1 Tab [facility] LE (FLAGYL) 1-19 by mouth 2 it y of 500 mg 00:00: (two) [place] tablet 00 times Medical daily. Branch metroNIDAZO Yes 500mg Take 1 Tab [facility] LE (FLAGYL) 1-19 by mouth 2 it y of 500 mg 00:00: (two) [place] tablet 00 times Medical daily. Branch metroNIDAZO Yes 500mg Take 1 Tab [facility] LE (FLAGYL) 1-19 by mouth 2 it y of 500 mg 00:00: (two) [place] tablet 00 times Medical daily. Branch metroNIDAZO Yes 500mg Take 1 Tab [facility] LE (FLAGYL) 1-19 by mouth 2 it y of 500 mg 00:00: (two) [place] tablet 00 times Medical daily. Branch metroNIDAZO Yes 500mg Take 1 Tab [facility] LE (FLAGYL) 1-19 by mouth 2 it y of 500 mg 00:00: (two) [place] tablet 00 times Medical daily. Branch metroNIDAZO Yes 500mg Take 1 Tab [facility] LE (FLAGYL) 1-19 by mouth 2 it y of 500 mg 00:00: (two) [place] tablet 00 times Medical daily. Branch metroNIDAZO Yes 500mg Take 1 Tab [facility] LE (FLAGYL) 1-19 by mouth 2 it y of 500 mg 00:00: (two) [place] tablet 00 times Medical daily. Branch metroNIDAZO Yes 500mg Take 1 Tab [facility] LE (FLAGYL) 1-19 by mouth 2 it y of 500 mg 00:00: (two) [place] tablet 00 times Medical daily. Branch metroNIDAZO 2021- No 500mg Take 1 Tab [facility] LE (FLAGYL) 1-19 04-18 by mouth 2 i ty of 500 mg 00:00: 00:00 (two) [place] tablet 00 :00 times Medical daily. Branch docusate 2014-05 Yes 100mg Take 1 Cap Un haja (COLACE) 2-05 by mouth ity of 100 mg 00:00: once daily [place] capsule 00 as needed Medical for Branch Constipati on. ibuprofen 2014-05 Yes 600mg Take 1 Tab U nivers (MOTRIN) 2-05 by mouth ity of 600 mg 00:00: every 6 [place] tablet 00 (six) Medical hours as Branch needed for Pain (scale 1-3). traMADOL 2014-05 Yes 50mg Take 1-2 Unive rs (ULTRAM) 50 2-05 Tabs by ity o f mg tablet 00:00: mouth [place] 00 every 6 Medical (six) Branch hours as needed for Pain unrelieved by non-narcot ic analgesics . docusate 2014-05 Yes 100mg Take 1 Cap Un haja (COLACE) 2-05 by mouth ity of 100 mg 00:00: once daily [place] capsule 00 as needed Medical for Branch Constipati on. ibuprofen 2014-05 Yes 600mg Take 1 Tab U nivers (MOTRIN) 2-05 by mouth ity of 600 mg 00:00: every 6 [place] tablet 00 (six) Medical hours as Branch needed for Pain (scale 1-3). traMADOL 2014-05 Yes 50mg Take 1-2 Unive rs (ULTRAM) 50 2-05 Tabs by ity o f mg tablet 00:00: mouth [place] 00 every 6 Medical (six) Branch hours as needed for Pain unrelieved by non-narcot ic analgesics . docusate 2014-05 Yes 100mg Take 1 Cap Un haja (COLACE) 2-05 by mouth ity of 100 mg 00:00: once daily [place] capsule 00 as needed Medical for Branch Constipati on. ibuprofen 2014-05 Yes 600mg Take 1 Tab U nivers (MOTRIN) 2-05 by mouth ity of 600 mg 00:00: every 6 [place] tablet 00 (six) Medical hours as Branch needed for Pain (scale 1-3). traMADOL 2014-05 Yes 50mg Take 1-2 Unive rs (ULTRAM) 50 2-05 Tabs by ity o f mg tablet 00:00: mouth [place] 00 every 6 Medical (six) Branch hours as needed for Pain unrelieved by non-narcot ic analgesics . docusate 2014-05 Yes 100mg Take 1 Cap Un haja (COLACE) 2-05 by mouth ity of 100 mg 00:00: once daily [place] capsule 00 as needed Medical for Branch Constipati on. ibuprofen 2014-05 Yes 600mg Take 1 Tab U nivers (MOTRIN) 2-05 by mouth ity of 600 mg 00:00: every 6 [place] tablet 00 (six) Medical hours as Branch needed for Pain (scale 1-3). traMADOL 2014-05 Yes 50mg Take 1-2 Unive rs (ULTRAM) 50 2-05 Tabs by ity o f mg tablet 00:00: mouth [place] 00 every 6 Medical (six) Branch hours as needed for Pain unrelieved by non-narcot ic analgesics . docusate 2014-05 Yes 100mg Take 1 Cap Un haja (COLACE) 2-05 by mouth ity of 100 mg 00:00: once daily [place] capsule 00 as needed Medical for Branch Constipati on. ibuprofen 2014-05 Yes 600mg Take 1 Tab U nivers (MOTRIN) 2-05 by mouth ity of 600 mg 00:00: every 6 [place] tablet 00 (six) Medical hours as Branch needed for Pain (scale 1-3). traMADOL 2014-05 Yes 50mg Take 1-2 Unive rs (ULTRAM) 50 2-05 Tabs by ity o f mg tablet 00:00: mouth [place] 00 every 6 Medical (six) Branch hours as needed for Pain unrelieved by non-narcot ic analgesics . docusate 2014-05 Yes 100mg Take 1 Cap Un [facility]ja (COLACE) 2-05 by mouth ity of 100 mg 00:00: once daily [place] capsule 00 as needed Medical for Branch Constipati on. ibuprofen 2014-05 Yes 600mg Take 1 Tab U nivers (MOTRIN) 2-05 by mouth ity of 600 mg 00:00: every 6 [place] tablet 00 (six) Medical hours as Branch needed for Pain (scale 1-3). traMADOL 2014-05 Yes 50mg Take 1-2 Unive rs (ULTRAM) 50 2-05 Tabs by ity o f mg tablet 00:00: mouth [place] 00 every 6 Medical (six) Branch hours as needed for Pain unrelieved by non-narcot ic analgesics . docusate 2014-05 Yes 100mg Take 1 Cap Un [facility] (COLACE) 2-05 by mouth ity of 100 mg 00:00: once daily [place] capsule 00 as needed Medical for Branch Constipati on. ibuprofen 2014-05 Yes 600mg Take 1 Tab U nivers (MOTRIN) 2-05 by mouth ity of 600 mg 00:00: every 6 [place] tablet 00 (six) Medical hours as Branch needed for Pain (scale 1-3). traMADOL 2014-05 Yes 50mg Take 1-2 Unive rs (ULTRAM) 50 2-05 Tabs by ity o f mg tablet 00:00: mouth [place] 00 every 6 Medical (six) Branch hours as needed for Pain unrelieved by non-narcot ic analgesics . docusate 2014-05 Yes 100mg Take 1 Cap Un [facility]ja (COLACE) 2-05 by mouth ity of 100 mg 00:00: once daily [place] capsule 00 as needed Medical for Branch Constipati on. ibuprofen 2014-05 Yes 600mg Take 1 Tab U nivers (MOTRIN) 2-05 by mouth ity of 600 mg 00:00: every 6 [place] tablet 00 (six) Medical hours as Branch needed for Pain (scale 1-3). traMADOL 2014-05 Yes 50mg Take 1-2 Unive rs (ULTRAM) 50 2-05 Tabs by ity o f mg tablet 00:00: mouth [place] 00 every 6 Medical (six) Branch hours as needed for Pain unrelieved by non-narcot ic analgesics . docusate 2014-05 Yes 100mg Take 1 Cap Un [facility] (COLACE) 2-05 by mouth ity of 100 mg 00:00: once daily [place] capsule 00 as needed Medical for Branch Constipati on. ibuprofen 2014-05 Yes 600mg Take 1 Tab U nivers (MOTRIN) 2-05 by mouth ity of 600 mg 00:00: every 6 [place] tablet 00 (six) Medical hours as Branch needed for Pain (scale 1-3). traMADOL 2014-05 Yes 50mg Take 1-2 Unive rs (ULTRAM) 50 2-05 Tabs by ity o f mg tablet 00:00: mouth [place] 00 every 6 Medical (six) Branch hours as needed for Pain unrelieved by non-narcot ic analgesics . docusate 2014-05 Yes 100mg Take 1 Cap [facility] (COLACE) 2-05 by mouth ity of 100 mg 00:00: once daily [place] capsule 00 as needed Medical for Branch Constipati on. ibuprofen 2014-05 Yes 600mg Take 1 Tab U nivers (MOTRIN) 2-05 by mouth ity of 600 mg 00:00: every 6 [place] tablet 00 (six) Medical hours as Branch needed for Pain (scale 1-3). traMADOL 2014-05 Yes 50mg Take 1-2 Unive rs (ULTRAM) 50 2-05 Tabs by ity o f mg tablet 00:00: mouth [place] 00 every 6 Medical (six) Branch hours as needed for Pain unrelieved by non-narcot ic analgesics . docusate 2014-05 Yes 100mg Take 1 Cap [facility] (COLACE) 2-05 by mouth ity of 100 mg 00:00: once daily [place] capsule 00 as needed Medical for Branch Constipati on. ibuprofen 2014-05 Yes 600mg Take 1 Tab U nivers (MOTRIN) 2-05 by mouth ity of 600 mg 00:00: every 6 [place] tablet 00 (six) Medical hours as Branch needed for Pain (scale 1-3). traMADOL 2014-05 Yes 50mg Take 1-2 Unive rs (ULTRAM) 50 2-05 Tabs by ity o f mg tablet 00:00: mouth [place] 00 every 6 Medical (six) Branch hours as needed for Pain unrelieved by non-narcot ic analgesics . docusate 2014-05 Yes 100mg Take 1 Cap Un [facility] (COLACE) 2-05 by mouth ity of 100 mg 00:00: once daily [place] capsule 00 as needed Medical for Branch Constipati on. ibuprofen 2014-05 Yes 600mg Take 1 Tab U nivers (MOTRIN) 2-05 by mouth ity of 600 mg 00:00: every 6 [place] tablet 00 (six) Medical hours as Branch needed for Pain (scale 1-3). traMADOL 2014-05 Yes 50mg Take 1-2 Unive rs (ULTRAM) 50 2-05 Tabs by ity o f mg tablet 00:00: mouth [place] 00 every 6 Medical (six) Branch hours as needed for Pain unrelieved by non-narcot ic analgesics . docusate 2014-05 Yes 100mg Take 1 Cap Un hjaa (COLACE) 2-05 by mouth ity of 100 mg 00:00: once daily [place] capsule 00 as needed Medical for Branch Constipati on. ibuprofen 2014-05 Yes 600mg Take 1 Tab U nivers (MOTRIN) 2-05 by mouth ity of 600 mg 00:00: every 6 [place] tablet 00 (six) Medical hours as Branch needed for Pain (scale 1-3). traMADOL 2014-05 Yes 50mg Take 1-2 Unive rs (ULTRAM) 50 2-05 Tabs by ity o f mg tablet 00:00: mouth [place] 00 every 6 Medical (six) Branch hours as needed for Pain unrelieved by non-narcot ic analgesics . docusate 2014-05 Yes 100mg Take 1 Cap Un [facility]ja (COLACE) 2-05 by mouth ity of 100 mg 00:00: once daily [place] capsule 00 as needed Medical for Branch Constipati on. ibuprofen 2014-05 Yes 600mg Take 1 Tab U nivers (MOTRIN) 2-05 by mouth ity of 600 mg 00:00: every 6 [place] tablet 00 (six) Medical hours as Branch needed for Pain (scale 1-3). traMADOL 2014-05 Yes 50mg Take 1-2 Unive rs (ULTRAM) 50 2-05 Tabs by ity o f mg tablet 00:00: mouth [place] 00 every 6 Medical (six) Branch hours as needed for Pain unrelieved by non-narcot ic analgesics . docusate 2014-05 Yes 100mg Take 1 Cap Un [facility]ja (COLACE) 2-05 by mouth ity of 100 mg 00:00: once daily [place] capsule 00 as needed Medical for Branch Constipati on. ibuprofen 2014-05 Yes 600mg Take 1 Tab U nivers (MOTRIN) 2-05 by mouth ity of 600 mg 00:00: every 6 [place] tablet 00 (six) Medical hours as Branch needed for Pain (scale 1-3). traMADOL 2014-05 Yes 50mg Take 1-2 Unive rs (ULTRAM) 50 2-05 Tabs by ity o f mg tablet 00:00: mouth [place] 00 every 6 Medical (six) Branch hours as needed for Pain unrelieved by non-narcot ic analgesics . docusate 2014-05 Yes 100mg Take 1 Cap Un [facility]ja (COLACE) 2-05 by mouth ity of 100 mg 00:00: once daily [place] capsule 00 as needed Medical for Branch Constipati on. ibuprofen 2014-05 Yes 600mg Take 1 Tab U nivers (MOTRIN) 2-05 by mouth ity of 600 mg 00:00: every 6 [place] tablet 00 (six) Medical hours as Branch needed for Pain (scale 1-3). traMADOL 2014-05 Yes 50mg Take 1-2 Unive rs (ULTRAM) 50 2-05 Tabs by ity o f mg tablet 00:00: mouth [place] 00 every 6 Medical (six) Branch hours as needed for Pain unrelieved by non-narcot ic analgesics . docusate 2014-05 Yes 100mg Take 1 Cap Un [facility]ja (COLACE) 2-05 by mouth ity of 100 mg 00:00: once daily [place] capsule 00 as needed Medical for Branch Constipati on. ibuprofen 2014-05 Yes 600mg Take 1 Tab U nivers (MOTRIN) 2-05 by mouth ity of 600 mg 00:00: every 6 [place] tablet 00 (six) Medical hours as Branch needed for Pain (scale 1-3). traMADOL 2014-05 Yes 50mg Take 1-2 Unive rs (ULTRAM) 50 2-05 Tabs by ity o f mg tablet 00:00: mouth [place] 00 every 6 Medical (six) Branch hours as needed for Pain unrelieved by non-narcot ic analgesics . docusate 2014-05 Yes 100mg Take 1 Cap Un [facility]ja (COLACE) 2-05 by mouth ity of 100 mg 00:00: once daily [place] capsule 00 as needed Medical for Branch Constipati on. ibuprofen 2014-05 Yes 600mg Take 1 Tab U nivers (MOTRIN) 2-05 by mouth ity of 600 mg 00:00: every 6 [place] tablet 00 (six) Medical hours as Branch needed for Pain (scale 1-3). traMADOL 2014-05 Yes 50mg Take 1-2 Unive rs (ULTRAM) 50 2-05 Tabs by ity o f mg tablet 00:00: mouth [place] 00 every 6 Medical (six) Branch hours as needed for Pain unrelieved by non-narcot ic analgesics . docusate 2014-05 Yes 100mg Take 1 Cap Un [facility] (COLACE) 2-05 by mouth ity of 100 mg 00:00: once daily [place] capsule 00 as needed Medical for Branch Constipati on. ibuprofen 2014-05 Yes 600mg Take 1 Tab U nivers (MOTRIN) 2-05 by mouth ity of 600 mg 00:00: every 6 [place] tablet 00 (six) Medical hours as Branch needed for Pain (scale 1-3). traMADOL 2014-05 Yes 50mg Take 1-2 Unive rs (ULTRAM) 50 2-05 Tabs by ity o f mg tablet 00:00: mouth [place] 00 every 6 Medical (six) Branch hours as needed for Pain unrelieved by non-narcot ic analgesics . docusate 2014-05 Yes 100mg Take 1 Cap Un [facility]ja (COLACE) 2-05 by mouth ity of 100 mg 00:00: once daily [place] capsule 00 as needed Medical for Branch Constipati on. ibuprofen 2014-05 Yes 600mg Take 1 Tab U nivers (MOTRIN) 2-05 by mouth ity of 600 mg 00:00: every 6 [place] tablet 00 (six) Medical hours as Branch needed for Pain (scale 1-3). traMADOL 2014-05 Yes 50mg Take 1-2 Unive rs (ULTRAM) 50 2-05 Tabs by ity o f mg tablet 00:00: mouth [place] 00 every 6 Medical (six) Branch hours as needed for Pain unrelieved by non-narcot ic analgesics . docusate 2014-05 Yes 100mg Take 1 Cap Un [facility] (COLACE) 2-05 by mouth ity of 100 mg 00:00: once daily [place] capsule 00 as needed Medical for Branch Constipati on. ibuprofen 2014-05 Yes 600mg Take 1 Tab U nivers (MOTRIN) 2-05 by mouth ity of 600 mg 00:00: every 6 [place] tablet 00 (six) Medical hours as Branch needed for Pain (scale 1-3). traMADOL 2014-05 Yes 50mg Take 1-2 Unive rs (ULTRAM) 50 2-05 Tabs by ity o f mg tablet 00:00: mouth [place] 00 every 6 Medical (six) Branch hours as needed for Pain unrelieved by non-narcot ic analgesics . docusate 2014-05 Yes 100mg Take 1 Cap Un [facility]ja (COLACE) 2-05 by mouth ity of 100 mg 00:00: once daily [place] capsule 00 as needed Medical for Branch Constipati on. ibuprofen 2014-05 Yes 600mg Take 1 Tab U nivers (MOTRIN) 2-05 by mouth ity of 600 mg 00:00: every 6 [place] tablet 00 (six) Medical hours as Branch needed for Pain (scale 1-3). traMADOL 2014-05 Yes 50mg Take 1-2 Unive rs (ULTRAM) 50 2-05 Tabs by ity o f mg tablet 00:00: mouth [place] 00 every 6 Medical (six) Branch hours as needed for Pain unrelieved by non-narcot ic analgesics . docusate 2014-05 Yes 100mg Take 1 Cap Un [facility] (COLACE) 2-05 by mouth ity of 100 mg 00:00: once daily [place] capsule 00 as needed Medical for Branch Constipati on. ibuprofen 2015-1 Yes 600mg Take 1 Tab U nivers (MOTRIN) 2-05 by mouth ity of 600 mg 00:00: every 6 [place] tablet 00 (six) Medical hours as Branch needed for Pain (scale 1-3). traMADOL 2014-05 Yes 50mg Take 1-2 Unive rs (ULTRAM) 50 2-05 Tabs by ity o f mg tablet 00:00: mouth [place] 00 every 6 Medical (six) Branch hours as needed for Pain unrelieved by non-narcot ic analgesics . docusate 2014-05 Yes 100mg Take 1 Cap Un [facility]ja (COLACE) 2-05 by mouth ity of 100 mg 00:00: once daily [place] capsule 00 as needed Medical for Branch Constipati on. ibuprofen 2014-05 Yes 600mg Take 1 Tab U nivers (MOTRIN) 2-05 by mouth ity of 600 mg 00:00: every 6 [place] tablet 00 (six) Medical hours as Branch needed for Pain (scale 1-3). traMADOL 2014-05 Yes 50mg Take 1-2 Unive rs (ULTRAM) 50 2-05 Tabs by ity o f mg tablet 00:00: mouth [place] 00 every 6 Medical (six) Branch hours as needed for Pain unrelieved by non-narcot ic analgesics . docusate 2014-05 Yes 100mg Take 1 Cap Un [facility]ja (COLACE) 2-05 by mouth ity of 100 mg 00:00: once daily [place] capsule 00 as needed Medical for Branch Constipati on. ibuprofen 2014-05 Yes 600mg Take 1 Tab U nivers (MOTRIN) 2-05 by mouth ity of 600 mg 00:00: every 6 [place] tablet 00 (six) Medical hours as Branch needed for Pain (scale 1-3). traMADOL 2014-05 Yes 50mg Take 1-2 Unive rs (ULTRAM) 50 2-05 Tabs by ity o f mg tablet 00:00: mouth [place] 00 every 6 Medical (six) Branch hours as needed for Pain unrelieved by non-narcot ic analgesics . docusate 2014-05 Yes 100mg Take 1 Cap Un [facility]ja (COLACE) 2-05 by mouth ity of 100 mg 00:00: once daily [place] capsule 00 as needed Medical for Branch Constipati on. ibuprofen 2014-05 Yes 600mg Take 1 Tab U nivers (MOTRIN) 2-05 by mouth ity of 600 mg 00:00: every 6 [place] tablet 00 (six) Medical hours as Branch needed for Pain (scale 1-3). traMADOL 2014-05 Yes 50mg Take 1-2 Unive rs (ULTRAM) 50 2-05 Tabs by ity o f mg tablet 00:00: mouth [place] 00 every 6 Medical (six) Branch hours as needed for Pain unrelieved by non-narcot ic analgesics . docusate 2014-05 Yes 100mg Take 1 Cap Un [facility]ja (COLACE) 2-05 by mouth ity of 100 mg 00:00: once daily [place] capsule 00 as needed Medical for Branch Constipati on. ibuprofen 2014-05 Yes 600mg Take 1 Tab U nivers (MOTRIN) 2-05 by mouth ity of 600 mg 00:00: every 6 [place] tablet 00 (six) Medical hours as Branch needed for Pain (scale 1-3). traMADOL 2014-05 Yes 50mg Take 1-2 Unive rs (ULTRAM) 50 2-05 Tabs by ity o f mg tablet 00:00: mouth [place] 00 every 6 Medical (six) Branch hours as needed for Pain unrelieved by non-narcot ic analgesics . docusate 2014-05 Yes 100mg Take 1 Cap Un [facility]ja (COLACE) 2-05 by mouth ity of 100 mg 00:00: once daily [place] capsule 00 as needed Medical for Branch Constipati on. ibuprofen 2014-05 Yes 600mg Take 1 Tab U nivers (MOTRIN) 2-05 by mouth ity of 600 mg 00:00: every 6 [place] tablet 00 (six) Medical hours as Branch needed for Pain (scale 1-3). traMADOL 2014-05 Yes 50mg Take 1-2 Unive rs (ULTRAM) 50 2-05 Tabs by ity o f mg tablet 00:00: mouth [place] 00 every 6 Medical (six) Branch hours as needed for Pain unrelieved by non-narcot ic analgesics . docusate 2014-05 Yes 100mg Take 1 Cap [facility] (COLACE) 2-05 by mouth ity of 100 mg 00:00: once daily [place] capsule 00 as needed Medical for Branch Constipati on. ibuprofen 2014-05 Yes 600mg Take 1 Tab U nivers (MOTRIN) 2-05 by mouth ity of 600 mg 00:00: every 6 [place] tablet 00 (six) Medical hours as Branch needed for Pain (scale 1-3). traMADOL 2014-05 Yes 50mg Take 1-2 Unive rs (ULTRAM) 50 2-05 Tabs by ity o f mg tablet 00:00: mouth [place] 00 every 6 Medical (six) Branch hours as needed for Pain unrelieved by non-narcot ic analgesics . docusate 2014-05 Yes 100mg Take 1 Cap Un [facility]ja (COLACE) 2-05 by mouth ity of 100 mg 00:00: once daily [place] capsule 00 as needed Medical for Branch Constipati on. ibuprofen 2014-05 Yes 600mg Take 1 Tab U nivers (MOTRIN) 2-05 by mouth ity of 600 mg 00:00: every 6 [place] tablet 00 (six) Medical hours as Branch needed for Pain (scale 1-3). traMADOL 2014-05 Yes 50mg Take 1-2 Unive rs (ULTRAM) 50 2-05 Tabs by ity o f mg tablet 00:00: mouth [place] 00 every 6 Medical (six) Branch hours as needed for Pain unrelieved by non-narcot ic analgesics . docusate 2014-05 Yes 100mg Take 1 Cap [facility] (COLACE) 2-05 by mouth ity of 100 mg 00:00: once daily [place] capsule 00 as needed Medical for Branch Constipati on. ibuprofen 2014-05 Yes 600mg Take 1 Tab U nivers (MOTRIN) 2-05 by mouth ity of 600 mg 00:00: every 6 [place] tablet 00 (six) Medical hours as Branch needed for Pain (scale 1-3). traMADOL 2014-05 Yes 50mg Take 1-2 Unive rs (ULTRAM) 50 2-05 Tabs by ity o f mg tablet 00:00: mouth [place] 00 every 6 Medical (six) Branch hours as needed for Pain unrelieved by non-narcot ic analgesics . docusate 2014-05 Yes 100mg Take 1 Cap [facility] (COLACE) 2-05 by mouth ity of 100 mg 00:00: once daily [place] capsule 00 as needed Medical for Branch Constipati on. ibuprofen 2014-05 Yes 600mg Take 1 Tab U nivers (MOTRIN) 2-05 by mouth ity of 600 mg 00:00: every 6 [place] tablet 00 (six) Medical hours as Branch needed for Pain (scale 1-3). traMADOL 2014-05 Yes 50mg Take 1-2 Unive rs (ULTRAM) 50 2-05 Tabs by ity o f mg tablet 00:00: mouth [place] 00 every 6 Medical (six) Branch hours as needed for Pain unrelieved by non-narcot ic analgesics . docusate 2014-05 Yes 100mg Take 1 Cap [facility] (COLACE) 2-05 by mouth ity of 100 mg 00:00: once daily [place] capsule 00 as needed Medical for Branch Constipati on. ibuprofen 2014-05 Yes 600mg Take 1 Tab U nivers (MOTRIN) 2-05 by mouth ity of 600 mg 00:00: every 6 [place] tablet 00 (six) Medical hours as Branch needed for Pain (scale 1-3). traMADOL 2014-05 Yes 50mg Take 1-2 Unive rs (ULTRAM) 50 2-05 Tabs by ity o f mg tablet 00:00: mouth [place] 00 every 6 Medical (six) Branch hours as needed for Pain unrelieved by non-narcot ic analgesics . docusate 2014-05 Yes 100mg Take 1 Cap [facility] (COLACE) 2-05 by mouth ity of 100 mg 00:00: once daily [place] capsule 00 as needed Medical for Branch Constipati on. ibuprofen 2014-05 Yes 600mg Take 1 Tab U nivers (MOTRIN) 2-05 by mouth ity of 600 mg 00:00: every 6 [place] tablet 00 (six) Medical hours as Branch needed for Pain (scale 1-3). traMADOL 2014-05 Yes 50mg Take 1-2 Unive rs (ULTRAM) 50 2-05 Tabs by ity o f mg tablet 00:00: mouth [place] 00 every 6 Medical (six) Branch hours as needed for Pain unrelieved by non-narcot ic analgesics . docusate 2014-05 Yes 100mg Take 1 Cap [facility] (COLACE) 2-05 by mouth ity of 100 mg 00:00: once daily [place] capsule 00 as needed Medical for Branch Constipati on. ibuprofen 2014-05 Yes 600mg Take 1 Tab U nivers (MOTRIN) 2-05 by mouth ity of 600 mg 00:00: every 6 [place] tablet 00 (six) Medical hours as Branch needed for Pain (scale 1-3). traMADOL 2014-05 Yes 50mg Take 1-2 Unive rs (ULTRAM) 50 2-05 Tabs by ity o f mg tablet 00:00: mouth [place] 00 every 6 Medical (six) Branch hours as needed for Pain unrelieved by non-narcot ic analgesics . docusate 2014-05 Yes 100mg Take 1 Cap Un [facility] (COLACE) 2-05 by mouth ity of 100 mg 00:00: once daily [place] capsule 00 as needed Medical for Branch Constipati on. ibuprofen 2014-05 Yes 600mg Take 1 Tab U nivers (MOTRIN) 2-05 by mouth ity of 600 mg 00:00: every 6 [place] tablet 00 (six) Medical hours as Branch needed for Pain (scale 1-3). traMADOL 2014-05 Yes 50mg Take 1-2 Unive rs (ULTRAM) 50 2-05 Tabs by ity o f mg tablet 00:00: mouth [place] 00 every 6 Medical (six) Branch hours as needed for Pain unrelieved by non-narcot ic analgesics . docusate 2014-05 Yes 100mg Take 1 Cap Un [facility] (COLACE) 2-05 by mouth ity of 100 mg 00:00: once daily [place] capsule 00 as needed Medical for Branch Constipati on. ibuprofen 2014-05 Yes 600mg Take 1 Tab U nivers (MOTRIN) 2-05 by mouth ity of 600 mg 00:00: every 6 [place] tablet 00 (six) Medical hours as Branch needed for Pain (scale 1-3). traMADOL 2014-05 Yes 50mg Take 1-2 Unive rs (ULTRAM) 50 2-05 Tabs by ity o f mg tablet 00:00: mouth [place] 00 every 6 Medical (six) Branch hours as needed for Pain unrelieved by non-narcot ic analgesics . docusate 2014-05 Yes 100mg Take 1 Cap Un haja (COLACE) 2-05 by mouth ity of 100 mg 00:00: once daily [place] capsule 00 as needed Medical for Branch Constipati on. ibuprofen 2014-05 Yes 600mg Take 1 Tab U nivers (MOTRIN) 2-05 by mouth ity of 600 mg 00:00: every 6 [place] tablet 00 (six) Medical hours as Branch needed for Pain (scale 1-3). traMADOL 2014-05 Yes 50mg Take 1-2 Unive rs (ULTRAM) 50 2-05 Tabs by ity o f mg tablet 00:00: mouth [place] 00 every 6 Medical (six) Branch hours as needed for Pain unrelieved by non-narcot ic analgesics . docusate 2014-05 Yes 100mg Take 1 Cap Un haja (COLACE) 2-05 by mouth ity of 100 mg 00:00: once daily [place] capsule 00 as needed Medical for Branch Constipati on. ibuprofen 2014-05 Yes 600mg Take 1 Tab U nivers (MOTRIN) 2-05 by mouth ity of 600 mg 00:00: every 6 [place] tablet 00 (six) Medical hours as Branch needed for Pain (scale 1-3). traMADOL 2014-05 Yes 50mg Take 1-2 Unive rs (ULTRAM) 50 2-05 Tabs by ity o f mg tablet 00:00: mouth [place] 00 every 6 Medical (six) Branch hours as needed for Pain unrelieved by non-narcot ic analgesics . docusate 2014-05 Yes 100mg Take 1 Cap Un [facility] (COLACE) 2-05 by mouth ity of 100 mg 00:00: once daily [place] capsule 00 as needed Medical for Branch Constipati on. ibuprofen 2014-05 Yes 600mg Take 1 Tab U nivers (MOTRIN) 2-05 by mouth ity of 600 mg 00:00: every 6 [place] tablet 00 (six) Medical hours as Branch needed for Pain (scale 1-3). traMADOL 2014-05 Yes 50mg Take 1-2 Unive rs (ULTRAM) 50 2-05 Tabs by ity o f mg tablet 00:00: mouth [place] 00 every 6 Medical (six) Branch hours as needed for Pain unrelieved by non-narcot ic analgesics . docusate 2014-05 Yes 100mg Take 1 Cap Un haja (COLACE) 2-05 by mouth ity of 100 mg 00:00: once daily [place] capsule 00 as needed Medical for Branch Constipati on. ibuprofen 2014-05 Yes 600mg Take 1 Tab U nivers (MOTRIN) 2-05 by mouth ity of 600 mg 00:00: every 6 [place] tablet 00 (six) Medical hours as Branch needed for Pain (scale 1-3). traMADOL 2014-05 Yes 50mg Take 1-2 Unive rs (ULTRAM) 50 2-05 Tabs by ity o f mg tablet 00:00: mouth [place] 00 every 6 Medical (six) Branch hours as needed for Pain unrelieved by non-narcot ic analgesics . docusate 2014-05 Yes 100mg Take 1 Cap Un [facility]ja (COLACE) 2-05 by mouth ity of 100 mg 00:00: once daily [place] capsule 00 as needed Medical for Branch Constipati on. ibuprofen 2014-05 Yes 600mg Take 1 Tab U nivers (MOTRIN) 2-05 by mouth ity of 600 mg 00:00: every 6 [place] tablet 00 (six) Medical hours as Branch needed for Pain (scale 1-3). traMADOL 2014-05 Yes 50mg Take 1-2 Unive rs (ULTRAM) 50 2-05 Tabs by ity o f mg tablet 00:00: mouth [place] 00 every 6 Medical (six) Branch hours as needed for Pain unrelieved by non-narcot ic analgesics . docusate 2014-05 Yes 100mg Take 1 Cap Un haja (COLACE) 2-05 by mouth ity of 100 mg 00:00: once daily [place] capsule 00 as needed Medical for Branch Constipati on. ibuprofen 2014-05 Yes 600mg Take 1 Tab U nivers (MOTRIN) 2-05 by mouth ity of 600 mg 00:00: every 6 [place] tablet 00 (six) Medical hours as Branch needed for Pain (scale 1-3). traMADOL 2014-05 Yes 50mg Take 1-2 Unive rs (ULTRAM) 50 2-05 Tabs by ity o f mg tablet 00:00: mouth [place] 00 every 6 Medical (six) Branch hours as needed for Pain unrelieved by non-narcot ic analgesics . docusate 2014-05 Yes 100mg Take 1 Cap Un haja (COLACE) 2-05 by mouth ity of 100 mg 00:00: once daily [place] capsule 00 as needed Medical for Branch Constipati on. ibuprofen 2014-05 Yes 600mg Take 1 Tab U nivers (MOTRIN) 2-05 by mouth ity of 600 mg 00:00: every 6 [place] tablet 00 (six) Medical hours as Branch needed for Pain (scale 1-3). traMADOL 2014-05 Yes 50mg Take 1-2 Unive rs (ULTRAM) 50 2-05 Tabs by ity o f mg tablet 00:00: mouth [place] 00 every 6 Medical (six) Branch hours as needed for Pain unrelieved by non-narcot ic analgesics . docusate 2014-05 Yes 100mg Take 1 Cap Un [facility]ja (COLACE) 2-05 by mouth ity of 100 mg 00:00: once daily [place] capsule 00 as needed Medical for Branch Constipati on. ibuprofen 2014-05 Yes 600mg Take 1 Tab U nivers (MOTRIN) 2-05 by mouth ity of 600 mg 00:00: every 6 [place] tablet 00 (six) Medical hours as Branch needed for Pain (scale 1-3). traMADOL 2014-05 Yes 50mg Take 1-2 Unive rs (ULTRAM) 50 2-05 Tabs by ity o f mg tablet 00:00: mouth [place] 00 every 6 Medical (six) Branch hours as needed for Pain unrelieved by non-narcot ic analgesics . conjugated Yes [id number] .5g Insert 0.5 [facility] estrogens 8-10 g into ity of (PREMARIN) 00:00: [place] at [place] 0.625 00 bedtime. Medical mg/gram Branch vaginal cream conjugated Yes [id number] .5g Insert 0.5 [facility] estrogens 8-10 g into ity of (PREMARIN) 00:00: vagina at [place] 0.625 00 bedtime. Medical mg/gram Branch vaginal cream conjugated Yes [id number] .5g Insert 0.5 [facility] estrogens 8-10 g into ity of (PREMARIN) 00:00: vagina at [place] 0.625 00 bedtime. Medical mg/gram Branch vaginal cream conjugated Yes [id number] .5g Insert 0.5 [facility] estrogens 8-10 g into ity of (PREMARIN) 00:00: vagina at [place] 0.625 00 bedtime. Medical mg/gram Branch vaginal cream conjugated Yes [id number] .5g Insert 0.5 [facility] estrogens 8-10 g into ity of (PREMARIN) 00:00: vagina at [place] 0.625 00 bedtime. Medical mg/gram Branch vaginal cream conjugated Yes [id number] .5g Insert 0.5 [facility] estrogens 8-10 g into ity of (PREMARIN) 00:00: vagina at [place] 0.625 00 bedtime. Medical mg/gram Branch vaginal cream conjugated Yes [id number] .5g Insert 0.5 [facility] estrogens 8-10 g into ity of (PREMARIN) 00:00: vagina at [place] 0.625 00 bedtime. Medical mg/gram Branch vaginal cream conjugated Yes [id number] .5g Insert 0.5 [facility] estrogens 8-10 g into ity of (PREMARIN) 00:00: vagina at [place] 0.625 00 bedtime. Medical mg/gram Branch vaginal cream conjugated Yes [id number] .5g Insert 0.5 [facility] estrogens 8-10 g into ity of (PREMARIN) 00:00: vagina at [place] 0.625 00 bedtime. Medical mg/gram Branch vaginal cream conjugated Yes [id number] .5g Insert 0.5 [facility] estrogens 8-10 g into ity of (PREMARIN) 00:00: vagina at [place] 0.625 00 bedtime. Medical mg/gram Branch vaginal cream conjugated Yes [id number] .5g Insert 0.5 [facility] estrogens 8-10 g into ity of (PREMARIN) 00:00: vagina at [place] 0.625 00 bedtime. Medical mg/gram Branch vaginal cream conjugated Yes [id number] .5g Insert 0.5 [facility] estrogens 8-10 g into ity of (PREMARIN) 00:00: vagina at [place] 0.625 00 bedtime. Medical mg/gram Branch vaginal cream conjugated Yes [id number] .5g Insert 0.5 [facility] estrogens 8-10 g into ity of (PREMARIN) 00:00: vagina at [place] 0.625 00 bedtime. Medical mg/gram Branch vaginal cream conjugated Yes [id number] .5g Insert 0.5 [facility] estrogens 8-10 g into ity of (PREMARIN) 00:00: vagina at [place] 0.625 00 bedtime. Medical mg/gram Branch vaginal cream conjugated Yes [id number] .5g Insert 0.5 [facility] estrogens 8-10 g into ity of (PREMARIN) 00:00: vagina at [place] 0.625 00 bedtime. Medical mg/gram Branch vaginal cream conjugated Yes [id number] .5g Insert 0.5 [facility] estrogens 8-10 g into ity of (PREMARIN) 00:00: vagina at [place] 0.625 00 bedtime. Medical mg/gram Branch vaginal cream conjugated Yes [id number] .5g Insert 0.5 [facility] estrogens 8-10 g into ity of (PREMARIN) 00:00: vagina at [place] 0.625 00 bedtime. Medical mg/gram Branch vaginal cream conjugated Yes [id number] .5g Insert 0.5 [facility] estrogens 8-10 g into ity of (PREMARIN) 00:00: vagina at [place] 0.625 00 bedtime. Medical mg/gram Branch vaginal cream conjugated Yes [id number] .5g Insert 0.5 [facility] estrogens 8-10 g into ity of (PREMARIN) 00:00: vagina at [place] 0.625 00 bedtime. Medical mg/gram Branch vaginal cream conjugated Yes [id number] .5g Insert 0.5 [facility] estrogens 8-10 g into ity of (PREMARIN) 00:00: vagina at [place] 0.625 00 bedtime. Medical mg/gram Branch vaginal cream conjugated Yes [id number] .5g Insert 0.5 [facility] estrogens 8-10 g into ity of (PREMARIN) 00:00: vagina at [place] 0.625 00 bedtime. Medical mg/gram Branch vaginal cream conjugated Yes [id number] .5g Insert 0.5 [facility] estrogens 8-10 g into ity of (PREMARIN) 00:00: vagina at [place] 0.625 00 bedtime. Medical mg/gram Branch vaginal cream conjugated Yes [id number] .5g Insert 0.5 [facility] estrogens 8-10 g into ity of (PREMARIN) 00:00: vagina at [place] 0.625 00 bedtime. Medical mg/gram Branch vaginal cream conjugated Yes [id number] .5g Insert 0.5 [facility] estrogens 8-10 g into ity of (PREMARIN) 00:00: vagina at [place] 0.625 00 bedtime. Medical mg/gram Branch vaginal cream conjugated Yes [id number] .5g Insert 0.5 [facility] estrogens 8-10 g into ity of (PREMARIN) 00:00: vagina at [place] 0.625 00 bedtime. Medical mg/gram Branch vaginal cream conjugated Yes [id number] .5g Insert 0.5 [facility] estrogens 8-10 g into ity of (PREMARIN) 00:00: vagina at [place] 0.625 00 bedtime. Medical mg/gram Branch vaginal cream conjugated Yes [id number] .5g Insert 0.5 [facility] estrogens 8-10 g into ity of (PREMARIN) 00:00: vagina at [place] 0.625 00 bedtime. Medical mg/gram Branch vaginal cream conjugated Yes [id number] .5g Insert 0.5 [facility] estrogens 8-10 g into ity of (PREMARIN) 00:00: vagina at [place] 0.625 00 bedtime. Medical mg/gram Branch vaginal cream conjugated Yes [id number] .5g Insert 0.5 [facility] estrogens 8-10 g into ity of (PREMARIN) 00:00: vagina at [place] 0.625 00 bedtime. Medical mg/gram Branch vaginal cream conjugated Yes [id number] .5g Insert 0.5 [facility] estrogens 8-10 g into ity of (PREMARIN) 00:00: vagina at [place] 0.625 00 bedtime. Medical mg/gram Branch vaginal cream conjugated Yes [id number] .5g Insert 0.5 [facility] estrogens 8-10 g into ity of (PREMARIN) 00:00: vagina at [place] 0.625 00 bedtime. Medical mg/gram Branch vaginal cream conjugated Yes [id number] .5g Insert 0.5 [facility] estrogens 8-10 g into ity of (PREMARIN) 00:00: vagina at [place] 0.625 00 bedtime. Medical mg/gram Branch vaginal cream conjugated Yes [id number] .5g Insert 0.5 [facility] estrogens 8-10 g into ity of (PREMARIN) 00:00: vagina at [place] 0.625 00 bedtime. Medical mg/gram Branch vaginal cream conjugated Yes [id number] .5g Insert 0.5 [facility] estrogens 8-10 g into ity of (PREMARIN) 00:00: vagina at [place] 0.625 00 bedtime. Medical mg/gram Branch vaginal cream conjugated 0 Yes [id number] .5g Insert 0.5 [facility] estrogens 8-10 g into ity of (PREMARIN) 00:00: vagina at [place] 0.625 00 bedtime. Medical mg/gram Branch vaginal cream conjugated 0 Yes [id number] .5g Insert 0.5 [facility] estrogens 8-10 g into ity of (PREMARIN) 00:00: vagina at [place] 0.625 00 bedtime. Medical mg/gram Branch vaginal cream conjugated Yes [id number] .5g Insert 0.5 [facility] estrogens 8-10 g into ity of (PREMARIN) 00:00: vagina at [place] 0.625 00 bedtime. Medical mg/gram Branch vaginal cream conjugated Yes [id number] .5g Insert 0.5 [facility] estrogens 8-10 g into ity of (PREMARIN) 00:00: vagina at [place] 0.625 00 bedtime. Medical mg/gram Branch vaginal cream conjugated Yes [id number] .5g Insert 0.5 [facility] estrogens 8-10 g into ity of (PREMARIN) 00:00: vagina at [place] 0.625 00 bedtime. Medical mg/gram Branch vaginal cream conjugated Yes [id number] .5g Insert 0.5 [facility] estrogens 8-10 g into ity of (PREMARIN) 00:00: vagina at [place] 0.625 00 bedtime. Medical mg/gram Branch vaginal cream conjugated Yes [id number] .5g Insert 0.5 [facility] estrogens 8-10 g into ity of (PREMARIN) 00:00: vagina at [place] 0.625 00 bedtime. Medical mg/gram Branch vaginal cream conjugated Yes [id number] .5g Insert 0.5 [facility] estrogens 8-10 g into ity of (PREMARIN) 00:00: vagina at [place] 0.625 00 bedtime. Medical mg/gram Branch vaginal cream conjugated Yes [id number] .5g Insert 0.5 [facility] estrogens 8-10 g into ity of (PREMARIN) 00:00: vagina at [place] 0.625 00 bedtime. Medical mg/gram Branch vaginal cream conjugated Yes [id number] .5g Insert 0.5 [facility] estrogens 8-10 g into ity of (PREMARIN) 00:00: vagina at [place] 0.625 00 bedtime. Medical mg/gram Branch vaginal cream conjugated Yes [id number] .5g Insert 0.5 [facility] estrogens 8-10 g into ity of (PREMARIN) 00:00: vagina at [place] 0.625 00 bedtime. Medical mg/gram Branch vaginal cream Immunizations Ordered Filled Immunization Date Status Comments [facility] e Immunization Name Name SARS-COV-2 COVID-19 2020-08-22 Completed Unive rsity of MODERNA VACCINE 00:00:00 [place] [facility] SARS-COV-2 COVID-19 2020-08-22 Completed Unive rsity of MODERNA VACCINE 00:00:00 [place] [facility] SARS-COV-2 COVID-19 2020-08-22 Completed Unive rsity of MODERNA VACCINE 00:00:00 [place] [facility] SARS-COV-2 COVID-19 2020-08-22 Completed Unive rsity of MODERNA VACCINE 00:00:00 [place] [facility] SARS-COV-2 COVID-19 2020-08-22 Completed Unive rsity of MODERNA 12+ YRS 00:00:00 [place] [facility] VACCINE Branch SARS-COV-2 COVID-19 2020-08-22 Completed Unive rsity of MODERNA 12+ YRS 00:00:00 [place] [facility] VACCINE Branch SARS-COV-2 COVID-19 2020-08-22 Completed Unive rsity of MODERNA 12+ YRS 00:00:00 [place] [facility] VACCINE Branch SARS-COV-2 COVID-19 2020-08-22 Completed Unive rsity of MODERNA VACCINE 00:00:00 [place] [facility] ical Branch SARS-COV-2 COVID-19 2020-08-22 Completed Unive rsity of MODERNA VACCINE 00:00:00 [place] [facility] ical Branch SARS-COV-2 COVID-19 2020-08-22 Completed Unive rsity of MODERNA VACCINE 00:00:00 [place] [facility] ical Branch SARS-COV-2 COVID-19 2020-07-25 Completed Unive rsity of MODERNA VACCINE 00:00:00 [place] [facility] SARS-COV-2 COVID-19 2020-07-25 Completed Unive rsity of MODERNA VACCINE 00:00:00 [place] [facility] ical Branch SARS-COV-2 COVID-19 2020-07-25 Completed Unive rsity of MODERNA VACCINE 00:00:00 [place] [facility] SARS-COV-2 COVID-19 2020-07-25 Completed Unive rsity of MODERNA VACCINE 00:00:00 [place] [facility] SARS-COV-2 COVID-19 2020-07-25 Completed Unive rsity of MODERNA 12+ YRS 00:00:00 [place] [facility] VACCINE Branch SARS-COV-2 COVID-19 2020-07-25 Completed Unive rsity of MODERNA 12+ YRS 00:00:00 [place] [facility] VACCINE Branch SARS-COV-2 COVID-19 2020-07-25 Completed Unive rsity of MODERNA 12+ YRS 00:00:00 [facility] ical VACCINE Branch SARS-COV-2 COVID-19 2020-07-25 Completed Unive rsity of MODERNA VACCINE 00:00:00 [place] [facility] ical Branch SARS-COV-2 COVID-19 2020-07-25 Completed Unive rsity of MODERNA VACCINE 00:00:00 [facility] ical Branch SARS-COV-2 COVID-19 2020-07-25 Completed Unive rsity of MODERNA VACCINE 00:00:00 [facility] ical Branch SARS-COV-2 COVID-19 2020-07-25 Completed Unive rsity of MODERNA VACCINE 00:00:00 [facility] ical Branch SARS-COV-2 COVID-19 2020-07-25 Completed Unive rsity of MODERNA VACCINE 00:00:00 [facility] ical Branch SARS-COV-2 COVID-19 2020-07-25 Completed Unive rsity of MODERNA VACCINE 00:00:00 [facility] ical Branch SARS-COV-2 COVID-19 2020-07-25 Completed Unive rsity of MODERNA VACCINE 00:00:00 [facility] Branch Zoster(Zostavax)( 2014-05-19 Completed Unive rsity of ingles) 00:00:00 [facility] Zoster(Zostavax)( 2014-05-19 Completed Unive rsity of ingles) 00:00:00 [facility] Branch Zoster(Zostavax)( 2014-05-19 Completed Unive rsity of ingles) 00:00:00 [facility] Branch Zoster(Zostavax)( 2014-05-19 Completed Unive rsity of ingles) 00:00:00 [facility] Branch Zoster(Zostavax)( 2014-05-19 Completed Unive rsity of ingles) 00:00:00 [facility] [facility] Zoster(Zostavax)( 2014-05-19 Completed Unive rsity of ingles) 00:00:00 [facility] Zoster(Zostavax)( 2014-05-19 Completed Unive rsity of ingles) 00:00:00 [facility] Zoster(Zostavax)( 2014-05-19 Completed Unive rsity of ingles) 00:00:00 [facility] Zoster(Zostavax)( 2014-05-19 Completed Unive rsity of ingles) 00:00:00 [facility] Zoster(Zostavax)( 2014-05-19 Completed Unive rsity of ingles) 00:00:00 [facility] Zoster(Zostavax)( 2014-05-19 Completed Unive rsity of ingles) 00:00:00 [facility] Zoster(Zostavax)( 2014-05-19 Completed Unive rsity of ingles) 00:00:00 [facility] Zoster(Zostavax)( 2014-05-19 Completed Unive rsity of ingles) 00:00:00 [facility] Zoster(Zostavax)( 2014-05-19 Completed Unive rsity of ingles) 00:00:00 [facility] Zoster(Zostavax)( 2014-05-19 Completed Unive rsity of ingles) 00:00:00 [facility] Zoster(Zostavax)( 2014-05-19 Completed Unive rsity of ingles) 00:00:00 [facility] Zoster(Zostavax)( 2014-05-19 Completed Unive rsity of ingles) 00:00:00 [facility] Zoster(Zostavax)( 2014-05-19 Completed Unive rsity of ingles) 00:00:00 [facility] Zoster(Zostavax)( 2014-05-19 Completed Unive rsity of ingles) 00:00:00 [facility] Zoster(Zostavax)( 2014-05-19 Completed Unive rsity of ingles) 00:00:00 [facility] Zoster(Zostavax)( 2014-05-19 Completed Unive rsity of ingles) 00:00:00 [facility] Zoster(Zostavax)( 2014-05-19 Completed Unive rsity of ingles) 00:00:00 [facility] Zoster(Zostavax)( 2014-05-19 Completed Unive rsity of ingles) 00:00:00 [facility] Zoster(Zostavax)( 2014-05-19 Completed Unive rsity of ingles) 00:00:00 [facility] Zoster(Zostavax)( 2014-05-19 Completed Unive rsity of ingles) 00:00:00 [facility] Zoster(Zostavax)( 2014-05-19 Completed Unive rsity of ingles) 00:00:00 [facility] Zoster(Zostavax)( 2014-05-19 Completed Unive rsity of ingles) 00:00:00 [facility] Zoster(Zostavax)( 2014-05-19 Completed Unive rsity of ingles) 00:00:00 [facility] Zoster(Zostavax)( 2014-05-19 Completed Unive rsity of ingles) 00:00:00 [facility] Zoster(Zostavax)( 2014-05-19 Completed Unive rsity of ingles) 00:00:00 [facility] Zoster(Zostavax)( 2014-05-19 Completed Unive rsity of ingles) 00:00:00 [facility] Zoster(Zostavax)( 2014-05-19 Completed Unive rsity of ingles) 00:00:00 [facility] Zoster(Zostavax)( 2014-05-19 Completed Unive rsity of ingles) 00:00:00 [facility] Zoster(Zostavax)( 2014-05-19 Completed Unive rsity of ingles) 00:00:00 [facility] Zoster(Zostavax)( 2014-05-19 Completed Unive rsity of ingles) 00:00:00 [facility] Zoster(Zostavax)( 2014-05-19 Completed Unive rsity of ingles) 00:00:00 [facility] Zoster(Zostavax)( 2014-05-19 Completed Unive rsity of ingles) 00:00:00 [facility] Zoster(Zostavax)( 2014-05-19 Completed Unive rsity of ingles) 00:00:00 [facility] Zoster(Zostavax)( 2014-05-19 Completed Unive rsity of ingles) 00:00:00 [facility] Zoster(Zostavax)( 2014-05-19 Completed Unive rsity of ingles) 00:00:00 [facility] Zoster(Zostavax)( 2014-05-19 Completed Unive rsity of ingles) 00:00:00 [facility] Zoster(Zostavax)( 2014-05-19 Completed Unive rsity of ingles) 00:00:00 [facility] Zoster(Zostavax)( 2014-05-19 Completed Unive rsity of ingles) 00:00:00 [facility] Zoster(Zostavax)( 2014-05-19 Completed Unive rsity of ingles) 00:00:00 [facility] Zoster(Zostavax)( 2014-05-19 Completed Unive rsity of ingles) 00:00:00 [facility] TDAP 2013-07-20 Completed University of 00:00:00 [facility] TDAP 2013-07-20 Completed University of 00:00:00 [facility] TDAP 2013-07-20 Completed University of 00:00:00 [facility] TDAP 2013-07-20 Completed University of 00:00:00 [facility] TDAP 2013-07-20 Completed University of 00:00:00 [facility] TDAP 2013-07-20 Completed University of 00:00:00 [facility] TDAP 2013-07-20 Completed University of 00:00:00 [facility] TDAP 2013-07-20 Completed University of 00:00:00 [facility] TDAP 2013-07-20 Completed University of 00:00:00 [facility] TDAP 2013-07-20 Completed University of 00:00:00 [facility] TDAP 2013-07-20 Completed University of 00:00:00 [facility] TDAP 2013-07-20 Completed University of 00:00:00 [facility] TDAP 2013-07-20 Completed University of 00:00:00 [facility] TDAP 2013-07-20 Completed University of 00:00:00 [facility] TDAP 2013-07-20 Completed University of 00:00:00 [facility] TDAP 2013-07-20 Completed University of 00:00:00 [facility] TDAP 2013-07-20 Completed University of 00:00:00 [facility] TDAP 2013-07-20 Completed University of 00:00:00 [facility] TDAP 2013-07-20 Completed University of 00:00:00 [facility] TDAP 2013-07-20 Completed University of 00:00:00 [facility] TDAP 2013-07-20 Completed University of 00:00:00 [facility] TDAP 2013-07-20 Completed University of 00:00:00 [facility] TDAP 2013-07-20 Completed University of 00:00:00 [facility] TDAP 2013-07-20 Completed University of 00:00:00 [facility] TDAP 2013-07-20 Completed University of 00:00:00 [facility] TDAP 2013-07-20 Completed University of 00:00:00 [facility] TDAP 2013-07-20 Completed University of 00:00:00 [facility] TDAP 2013-07-20 Completed University of 00:00:00 [facility] TDAP 2013-07-20 Completed University of 00:00:00 [facility] TDAP 2013-07-20 Completed University of 00:00:00 [facility] TDAP 2013-07-20 Completed University of 00:00:00 [facility] TDAP 2013-07-20 Completed University of 00:00:00 [facility] TDAP 2013-07-20 Completed University of 00:00:00 [facility] TDAP 2013-07-20 Completed University of 00:00:00 [facility] TDAP 2013-07-20 Completed University of 00:00:00 [facility] TDAP 2013-07-20 Completed University of 00:00:00 [facility] TDAP 2013-07-20 Completed University of 00:00:00 [facility] TDAP 2013-07-20 Completed University of 00:00:00 [facility] TDAP 2013-07-20 Completed University of 00:00:00 [facility] TDAP 2013-07-20 Completed University of 00:00:00 [facility] TDAP 2013-07-20 Completed University of 00:00:00 [facility] TDAP 2013-07-20 Completed University of 00:00:00 [facility] TDAP 2013-07-20 Completed University of 00:00:00 [facility] TDAP 2013-07-20 Completed University of 00:00:00 [facility] TDAP 2013-07-20 Completed University of 00:00:00 [facility] Vital Signs Vital Name Observation Time Observation Value Comments Source Systolic blood 2022-05-16 20:52:00 129 mm[Hg] Univer sity of pressure [facility] Diastolic blood 2022-05-16 20:52:00 72 mm[Hg] Unive rsity of pressure [facility] Heart rate 2022-05-16 20:52:00 87 /min Universi ty of [facility] Respiratory rate 2022-05-16 20:52:00 29 /min Univ ersity of [facility] Oxygen saturation in 2022-05-16 20:52:00 97 /min University of Arterial blood by [employer] chanell Pulse oximetry Branch Body temperature 2022-05-16 19:07:00 36.39 Darcie Univ ersity of [facility] Body weight 2022-05-10 15:00:00 74.39 kg [facility] BMI 2022-05-10 15:00:00 30.00 kg/m2 [facility] Systolic blood 2022-05-16 20:52:00 129 mm[Hg] Univer sity of pressure [facility] Diastolic blood 2022-05-16 20:52:00 72 mm[Hg] Unive rsity of pressure [facility] Heart rate 2022-05-16 20:52:00 87 /min [facility] Respiratory rate 2022-05-16 20:52:00 29 /min Univ ersity of [facility] Oxygen saturation in 2022-05-16 20:52:00 97 /min University of Arterial blood by [employer] chanell Pulse oximetry Branch Body temperature 2022-05-16 19:07:00 36.39 Darcie Univ ersity of [facility] Body weight 2022-05-10 15:00:00 74.39 kg [facility] BMI 2022-05-10 15:00:00 30.00 kg/m2 [facility] Systolic blood 2021-09-11 16:22:00 105 mm[Hg] Univer sity of pressure [facility] Diastolic blood 2021-09-11 16:22:00 72 mm[Hg] Unive rsity of pressure [facility] Heart rate 2021-09-11 16:22:00 103 /min [facility] Body temperature 2021-09-11 16:22:00 35.94 Darcie Univ ersity of [facility] Respiratory rate 2021-09-11 16:22:00 16 /min Univ ersity of [facility] Oxygen saturation in 2021-09-11 16:22:00 96 /min University of Arterial blood by [facility] chanell Pulse oximetry Branch Body weight 2021-09-11 09:10:00 74.481 kg [facility] BMI 2021-09-11 09:10:00 30.03 kg/m2 [facility] Body height 2021-09-10 15:10:00 157.5 cm [facility] Systolic blood 2020-02-29 18:22:00 104 mm[Hg] Univer sity of pressure [facility] Diastolic blood 2020-02-29 18:22:00 61 mm[Hg] Unive rsity of pressure [facility] Heart rate 2020-02-29 18:22:00 93 /min [facility] Body height 2020-02-29 18:22:00 160 cm [facility] Body weight 2020-02-29 18:22:00 68.04 kg [facility] BMI 2020-02-29 18:22:00 26.57 kg/m2 [facility] Oxygen saturation in 2020-02-29 18:22:00 97 /min University of Arterial blood by [facility] chanell Pulse oximetry Branch Systolic blood 2020-01-06 15:56:00 121 mm[Hg] Univer sity of pressure [facility] Diastolic blood 2020-01-06 15:56:00 69 mm[Hg] Unive rsity of pressure [facility] Heart rate 2020-01-06 15:56:00 114 /min [facility] Body height 2020-01-06 15:56:00 160 cm [facility] Body weight 2020-01-06 15:56:00 65.318 kg [facility] BMI 2020-01-06 15:56:00 25.51 kg/m2 [facility] Systolic (mm Hg) 2017-03-21 13:00:00 Rodri Recinos Diastolic (mm Hg) 2017-03-21 13:00:00 Mem [facility] [place] Respitory Rate 2017-03-21 13:00:00 Mem[facility] al [facility] Temperature Oral (F) 2017-03-21 12:44:00 97.8 F [facility] Respitory Rate 2017-03-21 12:06:00 [facility] Respitory Rate 2017-03-21 11:00:00 Mem[facility] al [facility] Systolic (mm Hg) 2017-03-21 11:00:00 Rodri rial Jorje Diastolic (mm Hg) 2017-03-21 11:00:00 Mem [facility] [place] Systolic (mm Hg) 2017-03-21 09:09:00 Rodri rial [place] Diastolic (mm Hg) 2017-03-21 09:09:00 [facility] [place] Temperature Oral (F) 2017-03-21 09:00:00 98 F [facility] [place] Weight 2017-03-21 05:57:00 [facility] [place] Height 2017-03-21 05:57:00 91.44 cm [facility] [place] BMI Calculated 2017-03-21 05:57:00 Memori [facility] [place] Temperature Oral (F) 2017-03-21 05:52:00 98.3 F [facility] BMI Calculated 2015-09-07 20:06:00 Memori al [place] Height 2015-09-07 20:06:00 160.02 cm [facility] [place] Weight 2015-09-07 20:06:00 [facility] [place] Procedures Procedure Date / Time Performing Source Performed Clinician ESOPHAGOGASTRODUODENOSCOPY 2022-05-16 [facility] of 19:56:00 Khushboo Perera [facility] EGD (ENDO) 2022-05-16 Carlos Alberto Cancino [facility] 19:55:43 [facility] EGD (ENDO) 2022-05-16 Carlos Alberto Cancino [facility] 19:55:43 [facility] PATIENT QUESTIONNAIRE 2022-05-16 [facility] of 06:01:00 Unassigned, No [facility] EXTERNAL PROVIDER RECORDS 2022-04-05 Doctor [facility] of 06:01:00 Unassigned, No [facility] EXTERNAL PROVIDER RECORDS 2022-04-05 Doctor [facility] sity of 06:01:00 Unassigned, No [facility] BASIC METABOLIC PANEL (NA, K, CL, 2021-09-11 [facility] of CO2, GLUCOSE, BUN, CREATININE, CA) 09:18:00 [facility] CBC WITH DIFF 2021-09-11 [facility] of 09:18:00 [facility] BASIC METABOLIC PANEL (NA, K, CL, 2021-09-10 [facility] of CO2, GLUCOSE, BUN, CREATININE, CA) 09:26:00 [facility] CBC WITH DIFF 2021-09-10 [facility] of 09:26:00 [facility] MAGNESIUM 2021-09-09 [facility] of 10:12:00 [facility] TROPONIN I 2021-09-09 [facility] of 10:12:00 [facility] BASIC METABOLIC PANEL (NA, K, CL, 2021-09-09 [facility] of CO2, GLUCOSE, BUN, CREATININE, CA) 10:12:00 [facility] LIPID PANEL (79277)(TOTAL 2021-09-09 [facility] sit of CHOLESTEROL, TRIGLYCERIDES, HDL) 10:12:00 [facility] CBC WITH DIFF 2021-09-09 [facility] of 10:12:00 [facility] FREE T3 2021-09-09 [facility] 10:12:00 [facility] TROPONIN I 2021-09-09 [facility] of 00:55:[address] [facility] CT HEAD WO CONTRAST 2021-09-08 Nicole Sesay [place] f 21:06:54 [facility] RAPID INFLUENZA A/B 2021-09-08 Nicole Sesay Nicolette [place] f 21:05:00 [facility] COVID-19 (ID NOW RAPID TESTING) 2021-09-08 Nicole Sesay [place] of 21:05:00 [facility] LAB ONLY COVID INTERPRETATION 2021-09-08 Nicole Sesay iversity of 21:05:00 [facility] XR ABDOMEN ACUTE SERIES 2021-09-08 Nicole Sesay [facility] ty of 19:17:01 [facility] LACTIC ACID WHOLE BLOOD 2021-09-08 Nicole Sesay Universi ty of 18:48:00 [facility] URINALYSIS 2021-09-08 Nicole Sesay [place] of 18:46:00 [facility] URINE CULTURE 2021-09-08 Nicole Sesay [place] of 18:46:00 [facility] LIPASE 2021-09-08 Nicole Sesay [place] of 18:26:00 [facility] MAGNESIUM 2021-09-08 Nicole Sesay [place] of 18:26:00 [facility] TROPONIN I 2021-09-08 Nicole Sesay [place] of 18:26:00 [facility] FREE T4 2021-09-08 Sameer [facility] of 18:26:00 [facility] THYROID STIMULATING HORMONE 2021-09-08 Dixie Cox [facility] ersity of 18:26:00 [facility] COMP. METABOLIC PANEL (26886) 2021-09-08 Nicole Sesay Un iversity of 18:26:00 [facility] CBC WITH DIFF 2021-09-08 Nicole Sesay [place] of 18:26:00 [facility] GLYCOSYLATED HEMOGLOBIN (A1C) 2021-09-08 Dixie Cox Un iversity of 18:26:00 [facility] POCT GLUCOSE (AUTOMATED) 2021-09-08 Nicole Sesay [facility] ity of 18:20:00 [facility] HB ECG ROUTINE & RHYTHM STRIP 2021-09-08 Nicole Sesay iversity of 18:12:54 [facility] NOTICE OF PRIVACY PRACTICES 2021-09-08 Doctor Samm ersity of 17:47:56 Unassigned, No [facility] CONSENT/REFUSAL FOR DIAGNOSIS AND 2021-09-08 [facility] of TREATMENT 17:47:42 Unassigned, No [facility] US ABDOMEN COMPLETE 2021-07-24 [facility] o f 23:20:00 Khushboo Perera [facility] ASSIGNMENT OF BENEFITS 2021-07-24 Doctor Shruthiit y of 21:54:48 Unassigned, No [facility] OP CLINIC NOTES/CONSULTS 2020-06-17 Doctor Hawkins ity of 06:01:00 Unassigned, No [facility] REFERRAL- REQUEST/RESPONSE 2020-04-18 Doctor Quijanoe rsity of 06:01:00 Unassigned, No [facility] Abdominal hysterectomy [facility] Bilateral tubal ligation Brianna Recinos Cholecystectomy [facility] Mastectomy, RT. [facility] Encounters Start End Encounter Admission Attending Care Care Encounter Source Date/Time Date/Time Type Type Clinicians Facility Department ID 2022-05-16 2022-05-16 Surgery [facility] 1.2.840.114 [id number] Univers 14:35:00 15:08:00 eKhushboo [id number] [id number] [id number] [facility] 020 Branch 2022-05-16 2022-05-16 Outpatient R [facility] [id number] Univers 12:46:00 15:01:00 KHUSHBOO Cox o f [facility] 2022-05-16 2022-05-16 [facility] 1.2.840.114 [id number] Univers 12:46:00 15:01:00 Encounter eKhushboo [id number] ity [facility] [id number] [id number] [facility] 071 Branch 2022-05-16 2022-05-16 Orders Doctor SHANKS 1.2.840.114 [id number] Univers 00:00:00 00:00:00 Only Unassigned, NICK [id number] ity of [place] [facility] [id number] Shawn as [id number] [facility] 009 Branch 2021-12-26 2021-12-26 Outpatient Favian_Sherin DANG WYSAMANTHA [address] [place] 00:00:00 00:00:00 bin [id number] [facility] 2021-09-13 2021-09-13 Transition LEISA Levi 1.2.840.114 [id number] Univers 00:00:00 00:00:00 of Care Lola LOMELI [id number] [id number] [id number] [facility] 403 Branch 2021-09-08 2021-09-11 Outpatient X KENNY [facility] JODEE [id number] Univers 12:52:00 14:23:00 DIXIE ity of [facility] 2021-09-08 2021-09-11 Emergency Nicole Sesay [facility] 1.2.840. 114 [id number] Univers 12:52:00 14:23:00 KennyLakhwinderDixieysabel HALL [id number] [id number] [id number] [facility] 081 Branch 2021-07-24 2021-07-24 Outpatient R [facility] [id number] Univers 15:55:51 23:59:00 KHUSHBOO Cox o f [facility] 2021-07-24 2021-07-24 [facility] 1.2.840.114 [id number] Univers 15:55:51 23:59:00 Encounter eKhushboo [id number] ity [facility] [id number] AD[place]AN [id number] [facility] 806 Branch 2021-07-24 2021-07-24 Orders Doctor RIMMA 1.2.840.114 [id number] Univers 00:00:00 00:00:00 Only Unassigned, NICK [id number] ity of [place] [facility] [id number] Shawn as [id number] [facility] 009 Branch 2021-03-29 2021-03-29 Outpatient Ferguson_Ro [facility] [address] [place] 04:33:00 04:33:00 bin 1103 [facility] 2020-08-30 2020-08-30 Ancillary Bonita Rubalcava [facility] 1.2.840 .114 [id number] Univers 10:09:10 10:36:48 Visit Sully [place] [id number] ity [id number] Profess[place] [id number] [facility] 2020-08-30 2020-08-30 Outpatient R MYKEL [facility] [id number] Univers 10:00:00 10:36:48 SULLY itfloresita [facility] 2020-08-23 2020-08-24 Outpatient R MYKEL [facility] [id number] Univers 14:00:00 08:19:37 SULLY itfloresita [facility] 2020-08-23 2020-08-23 Ancillary Bonita Rubalcava [facility] 1.2.840 .114 [id number] Univers 13:50:06 14:30:06 Visit Sully [place] [id number] [id number] [phone] Ga dical nal [facility] 2020-08-22 2020-08-22 Outpatient R THALIA [facility] [id number] Univers 09:30:00 10:31:25 JIN jakub [facility] 2020-08-16 2020-08-16 Ancillary Jees Gamble [facility] 1.2.840. 114 [id number] Univers 13:04:45 13:44:45 Visit Sully [place] [id number] ity [id number] [phone] Ga dical nal [facility] 2020-08-09 2020-08-09 Ancillary Ebenezer Rubalcava [facility] 1.2.840. 114 [id number] Univers 14:57:06 15:50:55 Visit Sully [place] [id number] [id number] [id number] Ga dical nal [address] [facility] 2020-08-01 2020-08-01 Josh Rubalcava [facility] 1.2.840.114 [id number] Univers 00:00:00 00:00:00 Management Ebenezer Hall [id number] [id number] [phone] Ga dical nal [address] [facility] 2020-07-252020-07-25 Outpatient R THALIA [facility] [id number] Univers 12:10:00 12:12:55 JIN call [facility] 2020-07-25 2020-07-25 Ancillary Alma Reddy [facility] 1 .2.840.114 [id number] Univers 10:10:13 10:55:03 Visit Sully [place] [id number] [id number] [phone] Ga dical nal [address] [facility] 2020-07-18 2020-07-18 Ancillary Jese Gamble [facility] 1.2.840. 114 [id number] Univers 13:50:35 14:30:35 Visit Sully [place] [id number] [id number] [phone] Ga dical nal [address] [facility] 2020-07-06 2020-07-06 Ancillary Khadar Bonita Rivera [facility] 1.2.840 .114 [id number] Univers 09:49:24 10:29:24 Visit Sully [place] [id number] [id number] [phone] Ga dical nal [address] [facility] 2020-06-29 2020-06-29 Ancillary Miranda Rubalcavagenie Rivera [facility] 1.2.840 .114 [id number] Univers 10:45:52 11:25:52 Visit Sully [place] [id number] [id number] [phone] Ga dical nal [address] [facility] 2020-06-29 2020-06-29 Outpatient R MYKEL [facility] [id number] Univers 10:00:00 10:00:00 SULLY call [facility] 2020-06-27 2020-06-27 Ancillary GambleAngel valerofloresita Bang [facility] 1.2.840. 114 [id number] Univers 08:29:52 09:14:24 Visit Sully [place] [id number] [id number] [phone] Ga dical nal 179 [facility] 2020-06-22 2020-06-22 Ancillary KhadarBonita [facility] 1.2.840 .114 [id number] Univers 13:01:12 13:51:45 Visit Sully Hogue 350.1.13.10 [place] [phone] [place] nal 179 [facility] 2020-06-17 2020-06-17 Ancillary Henry Alma Hernandez [facility] 1 .2.840.114 [id number] Univers 13:01:32 13:46:48 Visit Sully [place] 350.1.13.10 [place] [phone] Ga dical nal 179 [facility] 2020-06-17 2020-06-17 [facility] [id number] Univers 13:00:00 13:00:00 SULLY call of [facility] 2020-06-17 2020-06-17 Orders Doctor RIMMA 1.2.840.114 [id number] Univers 00:00:00 00:00:00 Only Unassigned, NICK 350.1.13.10 ity of [place] [facility] 4.2.7.2.686 Shawn as [phone] [address] 2020-04-18 2020-04-18 Ancillary Ebenezer Rubalcava [facility] 1.2.840. 114 [id number] Univers 14:34:43 15:14:43 Visit Cinthia Horan Aure[facility] 350.1.13 .10 [place] [phone] Ga dical nal 179 [facility] 2020-04-18 2020-04-18 Ancillary Khadar [facility] 1.2.704.620 [id number] 14:34:43 15:14:43 Visit Ebenezer Hall 350.1.13.10 [place] 4.2.7.2.686 Professio [phone] [facility] 179 [facility] 2020-04-18 2020-04-18 Orders Doctor RIMMA 1.2.840.114 [id number] Univers 00:00:00 00:00:00 Only Unassigned, NICK 350.1.13.10 ity of [place] [facility] 4.2.7.2.686 Shawn as [phone] [address] 2020-04-12 2020-04-12 Outpatient R RIVERA [facility] [id number] Univers 13:00:00 13:00:00 CINTHIA ity of [facility] 2020-04-11 2020-04-11 Ancillary Ebenezer Rubalcava [facility] 1.2.840. 114 [id number] Univers 14:30:52 15:10:52 Visit Sully [place]ogue 350.1.13.10 [place] [phone] Ga dical nal 179 [facility] 2020-04-08 2020-04-08 Josh Rubalcava [facility] 1.2.840.114 [id number] Univers 00:00:00 00:00:00 Management Bonita Hall 350.1.13.10 [place] [phone] Ga dical nal 179 [facility] 2020-04-04 2020-04-04 Ancillary Ebenezer Rubalcava [facility] 1.2.840. 114 [id number] Univers 14:56:35 15:36:35 Visit Sully [place]ogue 350.1.13.10 [place] [phone] Ga dical nal 179 [facility] 2020-03-31 2020-03-31 Ancillary Jese Gamble [facility] 1.2.840. 114 [id number] Univers 13:04:28 13:44:28 Visit Cinthia Horan 350.1.13 .10 [place] [phone] Ga dical nal 179 [facility] 2020-03-31 2020-03-31 Outpatient R RIVERA [facility] [id number] Univers 13:00:00 13:00:00 CINTHIA ity of [facility] 2020-03-29 2020-03-29 Ancillary Jese Gamble [facility] 1.2.840. 114 [id number] Univers 13:01:03 13:41:03 Visit Cinthia Horannargiseboni [place] 350.1.13 .10 [place] [phone] Ga dical nal 179 [facility] 2020-03-24 2020-03-24 Ancillary Bonita Rubalcava [facility] 1.2.840 .114 [id number] Univers 14:18:57 14:58:57 Visit Cinthia Horan [facility] 350.1.13 .10 [place] [phone] Ga dical nal 179 [facility] 2020-03-21 2020-03-21 Outpatient R [facility] [id number] Univers 15:20:00 15:20:00 ity of [facility] 2020-03-16 2020-03-16 Ancillary Alma Reddy [facility] 1 .2.840.114 [id number] Univers 13:55:30 14:35:30 Visit Izabel Subramanian 350.1. 13.10 [place] [phone] Ga dical nal 179 [facility] 2020-03-14 2020-03-14 Ancillary Khadar Ebenezer Yovanny [facility] 1.2.840. 114 [id number] Univers 13:46:44 14:26:44 Visit Izabel Subramanian 350.1. 13.10 [place] [phone] Ga dical nal 179 [facility] 2020-03-14 2020-03-14 Josh Figueroa [facility] 1.2.840.114 [id number] Univers 00:00:00 00:00:00 Management Luis Miguel Hernandez 350.1.13.10 [place]y [place] [phone] Ga dical nal 179 [facility] 2020-03-14 2020-03-14 Josh Figueroa [facility] 1.2.840.114 [id number] 00:00:00 00:00:00 Management Luis Miguel Hernandez 350.1.13.10 [place] 4.2.7.2.686 Professio [phone] nal 179 Building 2020-03-10 2020-03-10 Ancillary Gamble Angelfloresita Cuenca [facility] 1.2.840. 114 [id number] Univers 13:55:34 14:55:06 Visit Sully [place]ogue 350.1.13.10 [place] [phone] Ga dical nal 179 [facility] 2020-03-08 2020-03-08 Ancillary Bonita Rubalcava Nicole [facility] 1.2.840 .114 [id number] Univers 13:03:33 13:43:33 Visit JoseyvonneCinthia 350.1.13 .10 [place] [phone] Ga dical nal 179 [facility] 2020-03-03 2020-03-03 Ancillary Bonita Rubalcava [facility] 1.2.840 .114 [id number] Univers 13:03:18 13:43:18 Visit JoseCinthia russell [facility] 350.1.13 .10 [place] [phone] Ga dical nal 179 [facility] 2020-03-03 2020-03-03 Outpatient R [facility] [id number] Univers 13:00:00 13:00:00 ity of [facility] 2020-03-01 2020-03-01 Josh Rubalcava [facility] 1.2.840.114 [id number] Univers 00:00:00 00:00:00 Management Ebenezer Hall 350.1.13.10 [place] [phone] Ga dical nal 179 [facility] 2020-02-29 2020-02-29 Office Percy [facility] 1.2.840.114 [id number] Univers 13:05:12 15:07:38 Visit Raul Hall 350.1.13.10 [place] [phone] Ga dical nal 092 [facility] 2020-02-29 2020-02-29 Outpatient R RAUL ANDINO [facility] [id number] [facility] 13:40:00 13:40:00 PERCYRAUL Cox ity [facility] 2020-02-24 2020-02-24 Ancillary Bonita Rubalcava [facility] 1.2.840 .114 [id number] Univers 14:38:23 15:18:23 Visit JoseCinthia russell Luis Miguel 350.1.13 .10 [place] [phone] Ga dical nal 179 [facility] 2020-02-22 2020-02-22 Ancillary Khadar Ebenezer Yovanny [facility] 1.2.840. 114 [id number] [facility] 14:53:03 15:33:03 Visit JoseCinthia russell Luis Miguel 350.1.13 .10 [place] [phone] Ga dical nal 179 [facility] 2020-02-17 2020-02-17 Ancillary Bonita Rubalcava [facility] 1.2.840 .114 [id number] Univers 10:56:05 11:36:05 Visit Cinthia Horanton 350.1.13 .10 [place] [phone] Ga dical nal 179 [facility] 2020-02-10 2020-02-10 Ancillary Alma Reddy [facility] 1 .2.840.114 [id number] Univers 13:21:41 14:21:41 Visit Sully Hogue 350.1.13.10 [place] [phone] Ga dical nal 179 [facility] 2020-02-10 2020-02-10 Outpatient R MYKEL [facility] [id number] Univers 14:00:00 14:00:00 SULLY ity [facility] 2020-01-06 2020-01-06 Office Rivera [facility] 1.2.840.114 [id number] Univers 10:40:34 11:25:11 Visit Cinthia Roweeboni [facility] 350.1.13.10 ity of [place] 4.2.7.2.686 Jennifer Dumont [phone] [address] Office Building 2020-01-06 2020-01-06 [facility] [id number] Univers 11:00:00 11:00:00 CINTHIA ity [facility] 2017-03-21 2017-03-21 Observatio [facility] [id number] Memoria 05:45:00 15:40:00 n deb Recinos 98 l [facility] 2017-03-21 2017-03-21 Outpatient BETHANY Bravo [facility] [id number] 00:45:00 10:40:00 Ubaldo Mo Yin 2015-09-09 2015-09-09 Bedded [facility] [id number] Memoria 11:29:00 14:50:00 Outpatient deb Recinos 00 l [facility] 2015-09-09 2015-09-09 Outpatient BallesterosWILNER saldanaSL [facility] [id number] 06:29:00 09:50:00 Yunior L 00 2015-08-16 2015-08-16 Outpatient ANA M VIRAMONTES [id number] Memoria 15:40:00 15:40:00 02 gigi Recinos Results Test Description Test Time Test Comments Results Result Comments Source CBC WITH DIFF 2021-09-11 10:45:35 Test Item Value Reference Range Interpretation Comme nts WBC (test code = 6690-2) See_Comment [A utomated message] The system which ge nerated this result transmit piyush reference range: 4.30 - 1 1.10 10*3/?L. The reference r mello was not used to interpr et this result as normal/abnor mal. RBC (test code = 789-8) See_Comment [Au tomated message] The system which ge nerated this result transmit piyush reference range: 3.93 - 5 .25 10*6/?L. The reference r mello was not used to interpr et this result as normal/abnor mal. HGB (test code = 718-7) 12.1 g/dL 11.6-15.0 HCT (test code = 4544-3) 38.8 % 35.7-45.2 MCV (test code = 787-2) 86.0 fL 80.6-95.5 MCH (test code = 785-6) 26.8 pg 25.9-32.8 MCHC (test code = 786-4) 31.2 g/dL 31.6-35.1 L RDW-SD (test code = 53989-8) 43.3 fL 39.0-49.9 RDW-CV (test code = 788-0) 13.9 % 12.0-15.5 PLT (test code = 777-3) See_Comment H [Au tomated message] The system which [employer] nerated this result transmit piyush reference range: 166 - 35 8 10*3/?L. The reference range was not used to interpret th is result as normal/abnormal . MPV (test code = 79254-4) 9.3 fL 9.5-12.9 L NRBC/100 WBC (test code = See_Comment [ Automated message] The 3937804094) system which [employer] nerated this result transmit piyush reference range: 0.0 - 10 .0 /100 WBCs. The reference r mello was not used to interpr et this result as normal/abnor mal. NRBC x10^3 (test code = <0.01 See_Comment [Au tomated message] The 9380700841) system which [employer] nerated this result transmit piyush reference range: 10*3/?L. The reference range was not u sed to interpret this result as normal/abnormal . GRAN MAT (NEUT) % (test code 59.3 % = 770-8) IMM GRAN % (test code = 0.70 % 8270821727) LYMPH % (test code = 736-9) 29.1 % MONO % (test code = 5905-5) 9.8 % EOS % (test code = 713-8) 0.7 % BASO % (test code = 706-2) 0.4 % GRAN MAT x10^3(ANC) (test 5.05 10*3/uL 1.88-7.09 code = 8587447416) IMM GRAN x10^3 (test code = 0.06 10*3/uL 0.00-0.06 6999126647) LYMPH x10^3 (test code = 2.48 10*3/uL 1.32-3.29 731-0) MONO x10^3 (test code = 0.83 10*3/uL 0.33-0.92 742-7) EOS x10^3 (test code = 0.06 10*3/uL 0.03-0.39 711-2) BASO x10^3 (test code = 0.03 10*3/uL 0.01-0.07 704-7) Lab Interpretation (test Abnormal code = 32338-5) [facility] METABOLIC PANEL (NA, K, CL, CO2, GLUCOSE, BUN, CREATININE, CA)2021-09-11 09:38:12 Test Item Value Reference Range Interpretation Comments NA (test code = 138 mmol/L 135-145 5065830476) K (test code = 3.8 mmol/L 3.5-5.0 3093808922) CL (test code = 104 mmol/L 98-108 2523863787) CO2 TOTAL (test code = 26 mmol/L 23-31 8138219655) AGAP (test code = 2-16 4945377171) BUN (test code = 23 mg/dL 7-23 5407369953) GLUCOSE (test code = 122 mg/dL 70-110 H 9565688826) CREATININE (test code = 0.54 mg/dL 0.50-1.04 2012760470) CALCIUM (test code = 9.1 mg/dL 8.6-10.6 3860105217) eGFR (test code = mL/min/1.73m2 5505992718) RUTH ANN (test code = RUTH ANN) Association of Glomerular Filtration Rate (GFR) and Staging of Kidney Disease* + --+ --+ ------+| GFR (mL/min/1.73 m2) ?| With Kidney Damage ?| ?Without Kidney Damage+ --------+ --------+ +| ?>90 ?| ?Stage one ?| ? Normal ?+ ---+ ---+ -------+| ?60-89 ?| ?Stage two ?| ? Decreased GFR ? + --+ --+ ------+| ?30-59 ?| ?Stage three ?| ? Stage three ? + --+ --+ ------+| ?15-29 ?| ?Stage four ? | ? Stage four ?+ ---+ ---+ -------+| ?<15 (or dialysis) ? ?| ?Stage five ? | ? Stage five ?+ ---+ ---+ -------+ *Each stage assumes the associated GFR level has been in effect for at least three months. ?Stages 1 to 5, with or without kidney disease, indicate chronic kidney disease. Notes: Determination of stages one and two (with eGFR >59mL/min/1.73 m2) requires estimation of kidney damage for at least three months as defined by structural or functional abnormalities of the kidney, manifested by either:Pathological abnormalities or Markers of kidney damage (including abnormalities in the composition of the blood or urine or abnormalities in imaging tests). Lab Interpretation Abnormal (test code = 31735-8) [facility] WITH [id number] 10:21:58 Test Item Value Reference Range Interpretation Comments WBC (test code = See_Comment [Automated 4481-2) message] The sy stem which generated this result transmitted reference range : 4.30 - 11.10 10*3/?L. The reference range was not used to interpret this result as normal/abnormal . RBC (test code = See_Comment [Automated 744-8) message] The sy stem which generated this result transmitted reference range : 3.93 - 5.25 10*6/?L. The reference range was not used to interpret this result as normal/abnormal . HGB (test code = 12.0 g/dL 11.6-15.0 718-7) HCT (test code = 39.1 % 35.7-45.2 4544-3) MCV (test code = 86.3 fL 80.6-95.5 787-2) MCH (test code = 26.5 pg 25.9-32.8 785-6) MCHC (test code = 30.7 g/dL 31.6-35.1 L 786-4) RDW-SD (test code = 43.3 fL 39.0-49.9 17457-3) RDW-CV (test code = 13.7 % 12.0-15.5 788-0) PLT (test code = See_Comment [Automated 777-3) message] The sy stem which generated this result transmitted reference range : 166 - 358 10*3/ ?L. The reference r mello was not used to interpret this result as normal/abnormal . MPV (test code = 9.3 fL 9.5-12.9 L 09361-3) NRBC/100 WBC (test See_Comment [Automat ed code = 6104175333) message] The system which generated this result transmitted reference range : 0.0 - 10.0 /100 WBCs. The refer ence range was not u sed to interpret th is result as normal/abnormal . NRBC x10^3 (test code <0.01 See_Comment [Auto mated = 3704615800) message] The s ystem which generated this result transmitted reference range : 10*3/?L. The reference range was not used to interpret this result as normal/abnormal . GRAN MAT (NEUT) % 52.5 % (test code = 770-8) IMM GRAN % (test code 0.60 % = 4657321009) LYMPH % (test code = 35.5 % 736-9) MONO % (test code = 10.7 % 5905-5) EOS % (test code = 0.5 % 713-8) BASO % (test code = 0.2 % 706-2) GRAN MAT x10^3(ANC) 3.35 10*3/uL 1.88-7.09 (test code = 9055633928) IMM GRAN x10^3 (test 0.04 10*3/uL 0.00-0.06 code = 9797685098) LYMPH x10^3 (test code 2.26 10*3/uL 1.32-3.29 = 731-0) MONO x10^3 (test code 0.68 10*3/uL 0.33-0.92 = 742-7) EOS x10^3 (test code = 0.03 10*3/uL 0.03-0.39 711-2) BASO x10^3 (test code <0.03 0.01-0.07 = 704-7) Lab Interpretation Abnormal (test code = 18154-9) [facility] METABOLIC PANEL (NA, K, CL, CO2, GLUCOSE, BUN, CREATININE, CA)2021-09-10 10:09:56 Test Item Value Reference Range Interpretation Comments NA (test code = 139 mmol/L 135-145 1162300693) K (test code = 3.8 mmol/L 3.5-5.0 3288310294) CL (test code = 104 mmol/L 98-108 4434914450) CO2 TOTAL (test code = 28 mmol/L 23-31 1249731480) AGAP (test code = 2-16 3339136686) BUN (test code = 20 mg/dL 7-23 4962589795) GLUCOSE (test code = 115 mg/dL 70-110 H 3172123049) CREATININE (test code = 0.60 mg/dL 0.50-1.04 1373784570) CALCIUM (test code = 8.9 mg/dL 8.6-10.6 0222597032) eGFR (test code = mL/min/1.73m2 5426813611) RUTH ANN (test code = RUTH ANN) Association of Glomerular Filtration Rate (GFR) and Staging of Kidney Disease* + --+ --+ ------+| GFR (mL/min/1.73 m2) ?| With Kidney Damage ?| ?Without Kidney Damage+ --------+ --------+ +| ?>90 ?| ?Stage one ?| ? Normal ?+ ---+ ---+ -------+| ?60-89 ?| ?Stage two ?| ? Decreased GFR ? + --+ --+ ------+| ?30-59 ?| ?Stage three ?| ? Stage three ? + --+ --+ ------+| ?15-29 ?| ?Stage four ? | ? Stage four ?+ ---+ ---+ -------+| ?<15 (or dialysis) ? ?| ?Stage five ? | ? Stage five ?+ ---+ ---+ -------+ *Each stage assumes the associated GFR level has been in effect for at least three months. ?Stages 1 to 5, with or without kidney disease, indicate chronic kidney disease. Notes: Determination of stages one and two (with eGFR >59mL/min/1.73 m2) requires estimation of kidney damage for at least three months as defined by structural or functional abnormalities of the kidney, manifested by either:Pathological abnormalities or Markers of kidney damage (including abnormalities in the composition of the blood or urine or abnormalities in imaging tests). Lab Interpretation Abnormal (test code = 40881-4) [facility] [id number] 17:55:04 Test Item Value Reference Range Interpretation Comments FREE T4 (test code = See_Comment H [Autom ated message] 7315078788) The system [employer] generated this result transmitted ref erence range: 0.78 - 2 .20 ng/dL:. The ref erence range was not u sed to interpret this result as normal/abnor mal. Lab Interpretation (test Abnormal code = 97077-6) [facility] [id number] 13:35:06 Test Item Value Reference Range Interpretation Comments FREE T3 (test code = 8510258335) 2.88 pg/mL 2.77-5.27 Lab Interpretation (test code = Normal 36347-0) [facility] Metabolic Panel (NA, K, CL, CO2, GLUCOSE, BUN, CREATININE, CA)2021-09-09 12:40:33 Test Item Value Reference Range Interpretation Comments NA (test code = 134 mmol/L 135-145 L 6648171859) K (test code = 3.6 mmol/L 3.5-5.0 1332865477) CL (test code = 99 mmol/L 98-108 3019518664) CO2 TOTAL (test code = 25 mmol/L 23-31 6928505457) AGAP (test code = 2-16 0549933302) BUN (test code = 14 mg/dL 7-23 1062407369) GLUCOSE (test code = 118 mg/dL 70-110 H 3495797335) CREATININE (test code = 0.47 mg/dL 0.50-1.04 L 1540828830) CALCIUM (test code = 8.1 mg/dL 8.6-10.6 L 5220358085) eGFR (test code = mL/min/1.73m2 1102666446) RUTH ANN (test code = RUTH ANN) Association of Glomerular Filtration Rate (GFR) and Staging of Kidney Disease* + --+ --+ ------+| GFR (mL/min/1.73 m2) ?| With Kidney Damage ?| ?Without Kidney Damage+ --------+ --------+ +| ?>90 ?| ?Stage one ?| ? Normal ?+ ---+ ---+ -------+| ?60-89 ?| ?Stage two ?| ? Decreased GFR ? + --+ --+ ------+| ?30-59 ?| ?Stage three ?| ? Stage three ? + --+ --+ ------+| ?15-29 ?| ?Stage four ? | ? Stage four ?+ ---+ ---+ -------+| ?<15 (or dialysis) ? ?| ?Stage five ? | ? Stage five ?+ ---+ ---+ -------+ *Each stage assumes the associated GFR level has been in effect for at least three months. ?Stages 1 to 5, with or without kidney disease, indicate chronic kidney disease. Notes: Determination of stages one and two (with eGFR >59mL/min/1.73 m2) requires estimation of kidney damage for at least three months as defined by structural or functional abnormalities of the kidney, manifested by either:Pathological abnormalities or Markers of kidney damage (including abnormalities in the composition of the blood or urine or abnormalities in imaging tests). Lab Interpretation Abnormal (test code = 33540-9) [facility] with [id number] 11:16:16 Test Item Value Reference Range Interpretation Comments WBC (test code = See_Comment [Automated 7438-2) message] The sy stem which generated this result transmitted reference range : 4.30 - 11.10 10*3/?L. The reference range was not used to interpret this result as normal/abnormal . RBC (test code = See_Comment [Automated 368-7) message] The sy stem which generated this result transmitted reference range : 3.93 - 5.25 10*6/?L. The reference range was not used to interpret this result as normal/abnormal . HGB (test code = 11.8 g/dL 11.6-15.0 718-7) HCT (test code = 37.4 % 35.7-45.2 4544-3) MCV (test code = 85.8 fL 80.6-95.5 787-2) MCH (test code = 27.1 pg 25.9-32.8 785-6) MCHC (test code = 31.6 g/dL 31.6-35.1 786-4) RDW-SD (test code = 42.7 fL 39.0-49.9 09033-6) RDW-CV (test code = 13.6 % 12.0-15.5 788-0) PLT (test code = See_Comment [Automated 777-3) message] The sy stem which generated this result transmitted reference range : 166 - 358 10*3/ ?L. The reference r mello was not used to interpret this result as normal/abnormal . MPV (test code = 9.5 fL 9.5-12.9 21979-9) NRBC/100 WBC (test See_Comment [Automat ed code = 8925181763) message] The system which generated this result transmitted reference range : 0.0 - 10.0 /100 WBCs. The refer ence range was not u sed to interpret th is result as normal/abnormal . NRBC x10^3 (test code <0.01 See_Comment [Auto mated = 4698629276) message] The s ystem which generated this result transmitted reference range : 10*3/?L. The reference range was not used to interpret this result as normal/abnormal . GRAN MAT (NEUT) % 65.0 % (test code = 770-8) IMM GRAN % (test code 0.50 % = 4554737689) LYMPH % (test code = 23.5 % 736-9) MONO % (test code = 10.6 % 5905-5) EOS % (test code = 0.2 % 713-8) BASO % (test code = 0.2 % 706-2) GRAN MAT x10^3(ANC) 6.10 10*3/uL 1.88-7.09 (test code = 9249807259) IMM GRAN x10^3 (test 0.05 10*3/uL 0.00-0.06 code = 6577340470) LYMPH x10^3 (test code 2.20 10*3/uL 1.32-3.29 = 731-0) MONO x10^3 (test code 0.99 10*3/uL 0.33-0.92 H = 742-7) EOS x10^3 (test code = <0.03 0.03-0.39 L 711-2) BASO x10^3 (test code <0.03 0.01-0.07 = 704-7) Lab Interpretation Abnormal (test code = 35551-1) [id number]16 Test Item Value Reference Interpretation Comments Range TROPONIN I (test 0.015 ng/mL See_Comment [Automated code = 0253204470) message] The system which generated this result transmitted reference range : <=0.034. The reference range was not used to interpret this result as normal/abnormal . RUTH ANN (test code = Reference (Normal) RUTH ANN) Range (defined by the 99th percentile reference limit): <= 0.034 ng/mL Note: Cardiac troponin begins to rise 3-4 hours after the onset of ischemia. Repeat in 4-6 hours if the sample was drawn within 3-4 hours of the onset of the symptom and found normal. Diagnosis of myocardial injury is made with acute changes in cTn concentrations with at least one serial sample above the 99th percentile upper reference limit (URL), taken together with the patient's clinical presentation. Biotin has been reported to cause a negative bias, interpret results relative to patient's use of biotin. Lab Interpretation Normal (test code = 25448-1) [facility] (Total Cholesterol, Triglycerides, HDL)2021-09-09 11:04:53 Test Item Value Reference Range Interpretation Comments CHOL (test code = 170 mg/dL 120-200 5857888107) HDL (test code = 61 mg/dL >50 8649094835) HDLC RATIO (test code = See_Comment [Au tomated message] 2713867742) The system [employer] generated this result transmit piyush reference range : <=4.5. The refe rence range was not u sed to interpret th is result as normal/abnormal . TRIG (test code = 84 mg/dL 30-170 4571880077) LDL CHOL (test code = 92 mg/dL See_Comment [Auto mated message] 85727-9) The system [employer] generated this result transmit piyush reference range : <=160. The refe rence range was not u sed to interpret th is result as normal/abnormal . VLDL (test code = 17 mg/dL 5-60 2774933420) Lab Interpretation (test Normal code = 25601-2) [id number] 11:04:33 Test Item Value Reference Range Interpretation Comments MAGNESIUM (test code = [id number]) 2.3 mg/dL 1.7-2.4 Lab Interpretation (test code = Normal 69600-1) [facility] [id number] 02:09:32 Test Item Value Reference Interpretation Comments Range TROPONIN I (test 0.010 ng/mL See_Comment [Automated code = [id number]) message] The system which generated this result transmitted reference range : <=0.034. The reference range was not used to interpret this result as normal/abnormal . RUTH ANN (test code = Reference (Normal) RUTH ANN) Range (defined by the 99th percentile reference limit): <= 0.034 ng/mL Note: Cardiac troponin begins to rise 3-4 hours after the onset of ischemia. Repeat in 4-6 hours if the sample was drawn within 3-4 hours of the onset of the symptom and found normal. Diagnosis of myocardial injury is made with acute changes in cTn concentrations with at least one serial sample above the 99th percentile upper reference limit (URL), taken together with the patient's clinical presentation. Biotin has been reported to cause a negative bias, interpret results relative to patient's use of biotin. Lab Interpretation Normal (test code = 14285-4) [facility] ([facility])2021-09-09 00:01:14 Test Item Value Reference Range Interpretation Comments TSH (test code = <0.02 See_Comment L Biotin has been [id number]) reported to cau se a negative bias, interpret resul ts relative to pat ient's use of biotin. [Automated mess age] The system [employer] generated this result transmitted ref erence range: 0.45 - 4 .70 mIU/L. The refe rence range was not u sed to interpret this result as normal/abnor mal. Lab Interpretation (test Abnormal code = 33039-2) [facility] Center[facility]cos[facility] Hemoglobin (A1C)2021-09-08 23:33:57 Test Item Value Reference Range Interpretation Comments HGB A1C (test code = 5.7 % 4.0-5.7 4548-4) RUTH ANN (test code = RUTH ANN) Reference RangesNormal: <5.7%Prediabetes: 5.7 - 6.4%Diabetes: > 6.5% Lab Interpretation (test Normal code = 75799-7) [facility] CenterTROPONIN [id number] 19:00:10 Test Item Value Reference Interpretation Comments Range TROPONIN I (test 0.004 ng/mL See_Comment [Automated code = 2468974819) message] The system which generated this result transmitted reference range : <=0.034. The reference range was not used to interpret this result as normal/abnormal . RUTH ANN (test code = Reference (Normal) RUTH ANN) Range (defined by the 99th percentile reference limit): <= 0.034 ng/mL Note: Cardiac troponin begins to rise 3-4 hours after the onset of ischemia. Repeat in 4-6 hours if the sample was drawn within 3-4 hours of the onset of the symptom and found normal. Diagnosis of myocardial injury is made with acute changes in cTn concentrations with at least one serial sample above the 99th percentile upper reference limit (URL), taken together with the patient's clinical presentation. Biotin has been reported to cause a negative bias, interpret results relative to patient's use of biotin. Lab Interpretation Normal (test code = 36975-1) [facility] CenterCOMP. METABOLIC PANEL (74826)2021-09-08 18:49:06 Test Item Value Reference Range Interpretation Comments NA (test code = 137 mmol/L 135-145 5597035205) K (test code = 4.3 mmol/L 3.5-5.0 5478311693) CL (test code = 103 mmol/L 98-108 3736897792) CO2 TOTAL (test code = 21 mmol/L 23-31 L 0555468671) AGAP (test code = 2-16 3119155181) BUN (test code = 13 mg/dL 7-23 3608582908) GLUCOSE (test code = 142 mg/dL 70-110 H 5340711227) CREATININE (test code = 0.34 mg/dL 0.50-1.04 L 1461235986) TOTAL BILI (test code = 1.2 mg/dL 0.1-1.1 H 2393107759) CALCIUM (test code = 8.5 mg/dL 8.6-10.6 L 6343165950) T PROTEIN (test code = 8.5 g/dL 6.3-8.2 H 2568551720) ALBUMIN (test code = 4.6 g/dL 3.5-5.0 4027003542) ALK PHOS (test code = 94 U/L 34-122 3690859035) ALTv (test code = 14 U/L 5-35 1742-6) AST(SGOT) (test code = 29 U/L 13-40 0632534271) eGFR (test code = mL/min/1.73m2 0388796157) RUTH ANN (test code = RUTH ANN) Association of Glomerular Filtration Rate (GFR) and Staging of Kidney Disease* + --+ --+ ------+| GFR (mL/min/1.73 m2) ?| With Kidney Damage ?| ?Without Kidney Damage+ --------+ --------+ +| ?>90 ?| ?Stage one ?| ? Normal ?+ ---+ ---+ -------+| ?60-89 ?| ?Stage two ?| ? Decreased GFR ? + --+ --+ ------+| ?30-59 ?| ?Stage three ?| ? Stage three ? + --+ --+ ------+| ?15-29 ?| ?Stage four ? | ? Stage four ?+ ---+ ---+ -------+| ?<15 (or dialysis) ? ?| ?Stage five ? | ? Stage five ?+ ---+ ---+ -------+ *Each stage assumes the associated GFR level has been in effect for at least three months. ?Stages 1 to 5, with or without kidney disease, indicate chronic kidney disease. Notes: Determination of stages one and two (with eGFR >59mL/min/1.73 m2) requires estimation of kidney damage for at least three months as defined by structural or functional abnormalities of the kidney, manifested by either:Pathological abnormalities or Markers of kidney damage (including abnormalities in the composition of the blood or urine or abnormalities in imaging tests). Lab Interpretation Abnormal (test code = 20006-9) [facility] Test Item Value Reference Range Interpretation Comments MAGNESIUM (test code = 1957276570) 2.2 mg/dL 1.7-2.4 Lab Interpretation (test code = Normal 67812-1) [facility]20[facility] 18:48:46 Test Item Value Reference Range Interpretation Comments LIPASE (test code = 7110956819) 130 U/L 0-220 Lab Interpretation (test code = Normal 72761-2) [facility] WITH [id number] 18:38:04 Test Item Value Reference Range Interpretation Comments WBC (test code = See_Comment [Automated 6690-2) message] The sy stem which generated this result transmitted reference range : 4.30 - 11.10 10*3/?L. The reference range was not used to interpret this result as normal/abnormal . RBC (test code = See_Comment [Automated 789-8) message] The sy stem which generated this result transmitted reference range : 3.93 - 5.25 10*6/?L. The reference range was not used to interpret this result as normal/abnormal . HGB (test code = 11.9 g/dL 11.6-15.0 718-7) HCT (test code = 38.3 % 35.7-45.2 4544-3) MCV (test code = 86.5 fL 80.6-95.5 787-2) MCH (test code = 26.9 pg 25.9-32.8 785-6) MCHC (test code = 31.1 g/dL 31.6-35.1 L 786-4) RDW-SD (test code = 43.9 fL 39.0-49.9 71800-8) RDW-CV (test code = 13.7 % 12.0-15.5 788-0) PLT (test code = See_Comment [Automated 777-3) message] The sy stem which generated this result transmitted reference range : 166 - 358 10*3/ ?L. The reference r mello was not used to interpret this result as normal/abnormal . MPV (test code = 9.4 fL 9.5-12.9 L 08249-4) NRBC/100 WBC (test See_Comment [Automat ed code = 1770708117) message] The system which generated this result transmitted reference range : 0.0 - 10.0 /100 WBCs. The refer ence range was not u sed to interpret th is result as normal/abnormal . NRBC x10^3 (test code <0.01 See_Comment [Auto mated = 6448655639) message] The s ystem which generated this result transmitted reference range : 10*3/?L. The reference range was not used to interpret this result as normal/abnormal . GRAN MAT (NEUT) % 71.5 % (test code = 770-8) IMM GRAN % (test code 0.60 % = 8093973715) LYMPH % (test code = 20.4 % 736-9) MONO % (test code = 6.9 % 5905-5) EOS % (test code = 0.4 % 713-8) BASO % (test code = 0.2 % 706-2) GRAN MAT x10^3(ANC) 5.92 10*3/uL 1.88-7.09 (test code = 0129581904) IMM GRAN x10^3 (test 0.05 10*3/uL 0.00-0.06 code = 1641765074) LYMPH x10^3 (test code 1.69 10*3/uL 1.32-3.29 = 731-0) MONO x10^3 (test code 0.57 10*3/uL 0.33-0.92 = 742-7) EOS x10^3 (test code = 0.03 10*3/uL 0.03-0.39 711-2) BASO x10^3 (test code <0.03 0.01-0.07 = 704-7) Lab Interpretation Abnormal (test code = 38827-6) [facility]UCOSE (AUT[facility]ATED)2021-09-08 18:22:25 Test Item Value Reference Range Interpretation Comments POCT GLU (test code = 1529060947) 143 mg/dL 70-110 H Lab Interpretation (test code = Abnormal 83111-9) [facility] CenterCARDIAC [id number] 11:31:00 Test Item Value Reference Range Interpretation Comments CK MB Index (test 1.2 See_Comment [Automate d message] The code = CK MB Index) system w [facility] generated this result transmit piyush reference range : <=2.5. The reference range was not used to interpr et this result as thu l/abnormal. [facility] [employer] [id number] 11:31:00 Test Item Value Reference Range Interpretation Comments Troponin-I (test code 0.07 See_Comment [Auto mated message] The = Troponin-I) system which g enerated this result transmit piyush reference range : <=0.40. The reference r mello was not used to interpr et this result as thu l/abnormal. [facility] [employer] [id number] 11:31:00 Test Item Value Reference Range Interpretation Comments BNP (test code = BNP) 92 [facility] [employer]2017-10-26 11:31:00 Test Item Value Reference Range Interpretation Comments CK MB (test code = CK MB) 1.5 0.5-3.6 [facility] [employer]2017-10-26 11:31:00 Test Item Value Reference Range Interpretation Comments Total CK (test code = Total CK) 129 12-191 [facility] [employer]2017-10-26 11:31:00 Test Item Value Reference Range Interpretation Comments eGFR (test code = eGFR) 94 [facility] [employer]2017-10-26 11:31:00 Test Item Value Reference Range Interpretation Comments Total Protein (test code = Total 7.3 6.4-8.4 Protein) [facility] [employer]2017-10-26 11:31:00 Test Item Value Reference Range Interpretation Comments Albumin Lvl (test code = Albumin Lvl) 3.3 3.5-5.0 [facility] [employer]2017-10-26 11:31:00 Test Item Value Reference Range Interpretation Comments ALT (test code = ALT) 73 See_Comment [Auto mated message] The system which ge nerated this result transmit piyush reference range : <=65. The reference range was not used to interpr et this result as thu l/abnormal. [employer]2017-10-26 11:31:00 Test Item Value Reference Range Interpretation Comments CO2 (test code = CO2) 26 24-32 [facility] [employer]2017-10-26 11:31:00 Test Item Value Reference Range Interpretation Comments Chloride Lvl (test code = Chloride Lvl) 107 95-109 [facility]2017-10-26 11:31:00 Test Item Value Reference Range Interpretation Comments Calcium Lvl (test code = Calcium Lvl) 8.6 8.5-10.5 [facility]2017-10-26 11:31:00 Test Item Value Reference Range Interpretation Comments Globulin (test code = Globulin) 4.0 2.7-4.2 [facility]2017-10-26 11:31:00 Test Item Value Reference Range Interpretation Comments A/G Ratio (test code = A/G Ratio) 0.8 0.7-1.6 [facility]2017-10-26 11:31:00 Test Item Value Reference Range Interpretation Comments AGAP (test code = AGAP) 9.5 10.0-20.0 [facility]2017-10-26 11:31:00 Test Item Value Reference Range Interpretation Comments AST (test code = AST) 83 See_Comment [Auto mated message] The system which ge nerated this result transmit piyush reference range : <=37. The reference range was not used to interpr et this result as thu l/abnormal. [facility]2017-10-26 11:31:00 Test Item Value Reference Range Interpretation Comments Alk Phos (test code = Alk Phos) 102 39-136 [facility]2017-10-26 11:31:00 Test Item Value Reference Range Interpretation Comments Bili Total (test code = Bili Total) 1.0 0.2-1.3 [facility]2017-10-26 11:31:00 Test Item Value Reference Range Interpretation Comments B/C Ratio (test code = B/C Ratio) 32 6-25 [facility]2017-10-26 11:31:00 Test Item Value Reference Range Interpretation Comments Glucose Lvl (test code = Glucose Lvl) 100 70-99 [facility]2017-10-26 11:31:00 Test Item Value Reference Range Interpretation Comments Creatinine Lvl (test code = Creatinine 0.53 0.50-1.40 Lvl) [facility]2017-10-26 11:31:00 Test Item Value Reference Range Interpretation Comments Sodium Lvl (test code = Sodium Lvl) 139 135-145 [facility]2017-10-26 11:31:00 Test Item Value Reference Range Interpretation Comments BUN (test code = BUN) 17 7-22 [facility]2017-10-26 11:31:00 Test Item Value Reference Range Interpretation Comments Potassium Lvl (test code = Potassium 3.5 3.5-5.1 Lvl) [facility]gasygsZUHNQNJJEO7745-56-58 11:31:00 Test Item Value Reference Range Interpretation Comments Hgb (test code = Hgb) 12.1 12.0-16.0 [facility] CenterVnqdzroRUJMNHDJZH9502-63-96 11:31:00 Test Item Value Reference Range Interpretation Comments RBC (test code = RBC) 4.44 4.20-5.40 [facility] CenterWgclahgUDLAAVZAHG8515-14-58 11:31:00 Test Item Value Reference Range Interpretation Comments WBC (test code = WBC) 6.5 3.7-10.4 [facility] CenterTgpzesqCEJKPZVIWQ3868-41-45 11:31:00 Test Item Value Reference Range Interpretation Comments RDW (test code = RDW) 14.2 11.5-14.5 [facility] CenterNceakzzJKIGIEAQTF5049-93-99 11:31:00 Test Item Value Reference Range Interpretation Comments MCHC (test code = MCHC) 32.8 32.0-36.0 [facility] CenterEekdgtqZDYVPXQDKW4365-60-56 11:31:00 Test Item Value Reference Range Interpretation Comments MCH (test code = MCH) 27.3 pg 27.0-31.0 [facility] CenterDtqpqumFFXOVEHGFB2986-51-41 11:31:00 Test Item Value Reference Range Interpretation Comments MCV (test code = MCV) 83.3 80.0-98.0 [facility] CenterThzakoeGXKUZTFWLL7901-53-56 11:31:00 Test Item Value Reference Range Interpretation Comments Hct (test code = Hct) 37.0 36.0-48.0 [facility] CenterLmirnnyVYNFJLQSUX8801-61-98 11:31:00 Test Item Value Reference Range Interpretation Comments MPV (test code = MPV) 7.6 7.4-10.4 [facility] CenterDafnlrsMIUHGPJCHP4826-95-58 11:31:00 Test Item Value Reference Range Interpretation Comments Platelet (test code = Platelet) 265 133-450 [facility] CenterJmcxietTHVUMRZIJV0735-16-52 11:31:00 Test Item Value Reference Range Interpretation Comments Monocytes (test code = Monocytes) 9.2 2.0-12.0 [facility] CenterAzvrwauJTNQBIKALF0218-47-73 11:31:00 Test Item Value Reference Range Interpretation Comments Lymphocytes (test code = Lymphocytes) 31.5 20.0-40.0 [facility] CenterRaztyhpQALTSHZBUC1292-02-04 11:31:00 Test Item Value Reference Range Interpretation Comments Segs (test code = Segs) 58.2 45.0-75.0 [facility] CenterJgmdttoMHVEVQENUE9912-01-46 11:31:00 Test Item Value Reference Range Interpretation Comments Basophils (test code = 0.3 See_Comment [Aut omated message] The Basophils) system which ge nerated this result tra nsmitted reference range : <=1.0. The reference r mello was not used to int erpret this result as normal/abnormal . [facility] CenterNhbwnxxHDUZCPDXTO4684-87-54 11:31:00 Test Item Value Reference Range Interpretation Comments Eosinophils (test code = 0.8 See_Comment [A utomated message] The Eosinophils) system which ge nerated this result tra nsmitted reference range : <=4.0. The reference r mello was not used to int erpret this result as normal/abnormal . [facility] CenterDsgykbqJUXGKDOPJP8344-67-92 11:31:00 Test Item Value Reference Range Interpretation Comments Monocytes # (test code 0.6 See_Comment [Aut omated message] The = Monocytes #) system which generated this result tra nsmitted reference range : <=0.8. The reference r mello was not used to int erpret this result as normal/abnormal . [facility] CenterQjtjbzgIPHHQECWQD4623-76-14 11:31:00 Test Item Value Reference Range Interpretation Comments Lymphocytes # (test code = Lymphocytes 2.0 1.0-5.5 #) [facility] CenterDxvwtyuGJLWLGQPHE6272-07-85 11:31:00 Test Item Value Reference Range Interpretation Comments Segs-Bands # (test code = Segs-Bands #) 3.8 1.5-8.1 [facility] CenterMybhebnSOLQGIBWGK7512-88-77 11:31:00 Test Item Value Reference Range Interpretation Comments Eosinophils # (test code 0.1 See_Comment [A utomated message] The = Eosinophils #) system [facility] h generated this result tra nsmitted reference range : <=0.5. The reference r mello was not used to int erpret this result as normal/abnormal . [facility]"
[2022-10-01 17:15] LABS: Absolute Lymphocytes (CBC) 2.3 K/uL (0.7-4.9); Hematocrit 31.4 % (36.0-45.0); Lymphocytes % 23.2 % (15.3-44.8); MCV 83.2 fL (80-100); MPV 7.4 fL (7.6-11.3); RBC Red Blood Cell Count 3.78 M/uL (3.86-4.86)
[2022-10-01 17:27] LABS: Albumin 2.7 g/dL (3.4-5.0); Bilirubin Total 0.4 mg/dL (0.2-1.0); Potassium 2.9 mEq/L (3.5-5.1); Protein, Total 7.5 g/dL (6.4-8.2)
[2022-10-01] MEDS ORDERED: ONDANSETRON 4 MG/2 ML VIAL ONE (17:48)
[2022-10-01] MEDS ORDERED: POTASSIUM 25 MEQ EFFERV TAB ONE (17:48)
--- NOTE | 2022-10-01 18:47 | RAD REPORT ---
EXAM DESCRIPTION: CT - Abdomen Pelvis W Contrast - 10/01/2022 5:56 pm CLINICAL HISTORY: epigastric pain, diarrhea COMPARISON: Abdomen Pelvis W Contrast dated 11/01/2018; Abdomen Pelvis W Contrast dated 09/19/2018 TECHNIQUE: Thin cut axial CT imaging of the abdomen and pelvis was performed following intravenous a dministration of 100 mL Isovue 300. Multiplanar reformats were generated and reviewed. All CT scans are performed using dose optimization technique as appropriate and may include automated exposure control or mA/KV adjustment according to patient size. FINDINGS: No suspicious findings in the lung bases. Stable right middle lobe segmental bronchiectasi s and adjacent airspace opacification. Sequelae of prior right mastectomy, with stable unresolved chanell mitesh overlying healed right fifth and sixth rib fractures. The liver, spleen, and pancreas show no suspicious findings. Status post cholecystectomy. No evidence of significant extrahepatic biliary ductal dilation. Subtle patchy regions of hypoenhancement along the renal cortex bilaterally. Stable bilateral small r enal cortical cysts. No dilated bowel loops. Colonic diverticulosis. Apparent segmental wall thickening along the sigmoid colon especially distally, may relate to underdistention, early, or resolving colitis. No free air, f ree fluid or inflammatory stranding. Left inguinal hernia containing fat No suspicious mass or bulky lymphadenopathy. The urinary bladder is without significant finding. No suspicious bony findings. IMPRESSION: Patchy regions of hypoenhancement along the renal cortex bilaterally, raises concern for early pyelonephritis. Please correlate clinically and with lab results. Apparent segmental wall thickening along the sigmoid colon distally, may relate to underdistention ve rsus early or resolving colitis. Colonic diverticulosis.
--- NOTE | 2022-10-01 19:00 | ER ---
Nurse's Notes [facility] Name: Bertha Sherwood Age: 77 yrs Sex: Female : 1945 Arrival Date: 10/01/2022 Time: 12:34 Bed 4 Private MD: Diagnosis: Colitis;Pyelonephritis Presentation: 10/01 13:32 Chief complaint: Patient states: generalized abd pain, seen in [place] ER and d/c'd aa5 home. Pt reports diarrhea, vomiting, and chills since Saturday. Coronavirus screen: diarrhea. Ebola Screen: Patient denies travel to an Ebola-affected area in the 21 days before illness onset. Initial Sepsis Screen: Does the patient meet any 2 criteria? No. Patient's initial sepsis screen is negative. Does the patient have a suspected source of infection? No. Patient's initial sepsis screen is negative. Risk Assessment: Do you want to hurt yourself or someone else? Patient reports no desire to harm self or others. Onset of symptoms was September 2022. 13:32 Acuity: ANIKET 3 aa5 13:32 Method Of Arrival: Ambulatory aa5 Triage Assessment: 16:28 General: Appears distressed, Behavior is cooperative, appropriate for age, anxious. bp Pain: Complains of pain in abdomen. EENT: No deficits noted. Neuro: No deficits noted. Cardiovascular: No deficits noted. Respiratory: No deficits noted. GI: Reports diarrhea, nausea. : No signs and/or symptoms were reported regarding the genitourinary system. Derm: No deficits noted. Musculoskeletal: No deficits noted. Historical: - Allergies: 13:31 Codeine; aa5 - PMHx: 13:31 Cancer, Breast; GERD; Hernia; Hyperlipidemia; Hypertension; Hypothyroidism; aa5 - PSHx: 13:31 hernia; possibly had an appendectomy; aa5 13:35 hernia mesh; aa5 - Immunization history:: Adult Immunizations unknown. - Social history:: Smoking status: Patient denies any tobacco usage or history of. Screenin:29 [facility] ED Fall Risk Assessment (Adult) History of falling in the last 3 months, bp including since admission No falls in past 3 months (0 pts). Abuse screen: Denies threats or abuse. Denies injuries from another. Nutritional screening: No deficits noted. Tuberculosis screening: No symptoms or risk factors identified. Assessment: 16:29 General: SEE TRIAGE NOTE. bp 18:13 Reassessment: PT RETURNED FROM RAD. bp 19:00 Reassessment: Patient appears in no apparent distress at this time. Patient and/or jb4 family updated on plan of care and expected duration. Pain level reassessed. Patient is alert, oriented x 3, equal unlabored respirations, skin warm/dry/pink. 20:00 Reassessment: Patient appears in no apparent distress at this time. Patient and/or jb4 family updated on plan of care and expected duration. Pain level reassessed. Patient is alert, oriented x 3, equal unlabored respirations, skin warm/dry/pink. D/c pending completion of IV fluids. Vital Signs: 13:32 BP 118 / 65; Pulse 85; Resp 16 S; Temp 97.2(TE); Pulse Ox 97% on R/A; Weight 70.31 kg aa5 (R); Height 5 ft. 3 in. (R); 16:33 BP 94 / 67; Pulse 76; Resp 16; Pulse Ox 97% ; bp 18:12 BP 156 / 118; Pulse 86; Resp 16; Pulse Ox 98% ; bp 20:00 BP 141 / 80; Pulse 86; Resp 16; Pulse Ox 97% on R/A; jb4 13:32 Body Mass Index 27.46 (70.31 kg, 160.02 cm) aa ED Course: 12:38 Patient arrived in ED. mr 12:39 Derrick Franklin PA is PHCP. [facility] 12:39 Titus Walsh MD is Attending Physician. [facility] 13:31 Arm band placed on. aa 13:34 Triage completed. aa5 16:24 Sigifredo Lerma, LULÚ is Primary Nurse. bp 16:28 Inserted saline lock: 22 gauge in left forearm, using aseptic technique. Blood bp collected. 16:29 Patient has correct armband on for positive identification. Bed in low position. Call bp light in reach. Side rails up X2. 17:58 CT Abd/Pelvis - IV Contrast Only In Process Unspecified. EDMS 20:27 No provider procedures requiring assistance completed. IV discontinued, intact, jb4 bleeding controlled, No redness/swelling at site. Pressure dressing applied. Administered Medications: 18:11 Drug: Potassium PO Effervescent Tablet 50 mEq Route: PO; bp 18:57 Follow up: Response: No adverse reaction bp 18:11 Drug: Ondansetron IVP 4 mg Route: IVP; Site: left antecubital; bp 18:57 Follow up: Response: No adverse reaction bp 19:23 Drug: Rocephin IV 2 grams Route: IV; Rate: calculated rate; Site: left antecubital; jb4 19:23 Drug: NS 0.9% IV 500 ml Route: IV; Rate: bolus; Site: left antecubital; jb4 19:53 Drug: metroNIDAZOLE IVPB 500 mg Volume: 100 ml; Route: IVPB; Rate: 200 ml/hr; Infused jb4 Over: 30 mins; Site: left antecubital; Medication: 16:29 VIS not applicable for this client. bp Outcome: 19:00 Discharge ordered by . miko 20:27 Discharged to home ambulatory. jb4 20:27 Condition: stable 20:27 Discharge instructions given to patient, Instructed on discharge instructions, follow up and referral plans. medication usage, Demonstrated understanding of instructions, follow-up care, medications, Prescriptions given X 3. 20:28 Patient left the ED. jb4 Signatures: Dispatcher [employer] EDMS Derrick Franklin PA PA jmm Rivera, Mary mr Lisa Anderson, RN RN aa5 Tony Lazo, LULÚ RN jb4 Sigifredo Lerma, LULÚ RN bp
--- NOTE | 2022-10-01 19:00 | EDPHYS ---
Physician Documentation [facility] Name: Bertha Sherwood Age: 77 yrs Sex: Female : 1945 Arrival Date: 10/01/2022 Time: 12:34 Bed 4 Private MD: ED Physician Titus Walsh HPI: 10/01 13:34 This 77 yrs old Female presents to ER via Ambulatory with complaints of jmm Abdominal Pain, Diarrhea. 13:34 The patient presents with abdominal pain. Onset: The symptoms/episode began/occurred jmm gradually, 2 week(s) ago. The symptoms do not radiate. Is a 77-year-old female with history of hyperlipidemia hypertension the presents emerged part with complaints of abdominal pain, diarrhea, nausea symptoms initially began approximately 2 weeks ago. Denies fever.. Historical: - Allergies: 13:31 Codeine; aa5 - PMHx: 13:31 Cancer, Breast; GERD; Hernia; Hyperlipidemia; Hypertension; Hypothyroidism; aa5 - PSHx: 13:31 hernia; possibly had an appendectomy; aa5 13:35 hernia mesh; aa5 - Immunization history:: Adult Immunizations unknown. - Social history:: Smoking status: Patient denies any tobacco usage or history of. ROS: 13:34 Constitutional: Negative for fever, chills, and weight loss, Cardiovascular: Negative jm for chest pain, palpitations, and edema, Respiratory: Negative for shortness of breath, cough, wheezing, and pleuritic chest pain. 13:34 Abdomen/GI: Positive for abdominal pain, diarrhea. 13:34 All other systems are negative. Vital Signs: 13:32 BP 118 / 65; Pulse 85; Resp 16 S; Temp 97.2(TE); Pulse Ox 97% on R/A; Weight 70.31 kg aa5 (R); Height 5 ft. 3 in. (R); 16:33 BP 94 / 67; Pulse 76; Resp 16; Pulse Ox 97% ; bp 18:12 BP 156 / 118; Pulse 86; Resp 16; Pulse Ox 98% ; bp 20:00 BP 141 / 80; Pulse 86; Resp 16; Pulse Ox 97% on R/A; jb4 13:32 Body Mass Index 27.46 (70.31 kg, 160.02 cm) aa5 MDM: 13:34 Patient medically screened. jmm 18:59 Differential diagnosis: Colitis, pancreatitis, nonspecific abdominal pain, mesenteric [facility] ischemia, diverticulitis. Data reviewed: vital signs, nurses notes, lab test result(s), radiologic studies, CT scan. Consideration of Admission/Observation Escalation of care including admission/observation considered. I considered the following discharge prescriptions or medication management in the emergency department Medications were administered in the Emergency Department. See MAR. Historians other than the Patient: Daughter. Counseling: I had a detailed discussion with the patient and/or guardian regarding: the historical points, exam findings, and any diagnostic results supporting the discharge/admit diagnosis, lab results, radiology results, the need for outpatient follow up, to return to the emergency department if symptoms worsen or persist or if there are any questions or concerns that arise at home. 10/01 13:34 Order name: CBC with Diff; Complete Time: 17:27 aa5 10/01 13:34 Order name: CMP; Complete Time: 17:30 aa 10/01 13:34 Order name: Lipase; Complete Time: 17:30 aa5 10/01 18:49 Order name: Urine Culture [facility] 10/01 13:38 Order name: CT Abd/Pelvis - IV Contrast Only; Complete Time: 18:49 [facility] 10/01 13:34 Order name: IV Saline Lock; Complete Time: 16:24 aa5 10/01 13:34 Order name: Labs collected and sent; Complete Time: 16:24 aa5 Administered Medications: 18:11 Drug: Potassium PO Effervescent Tablet 50 mEq Route: PO; bp 18:57 Follow up: Response: No adverse reaction bp 18:11 Drug: Ondansetron IVP 4 mg Route: IVP; Site: left antecubital; bp 18:57 Follow up: Response: No adverse reaction bp 19:23 Drug: Rocephin IV 2 grams Route: IV; Rate: calculated rate; Site: left antecubital; jb4 19:23 Drug: NS 0.9% IV 500 ml Route: IV; Rate: bolus; Site: left antecubital; jb4 19:53 Drug: metroNIDAZOLE IVPB 500 mg Volume: 100 ml; Route: IVPB; Rate: 200 ml/hr; Infused jb4 Over: 30 mins; Site: left antecubital; Disposition Summary: 10/01/22 19:00 Discharge Ordered Location: Home [facility] Condition: Stable [facility] Diagnosis - Colitis [facility] - Pyelonephritis [facility] Followup: [facility] - With: Private Physician - When: 2 - 3 days - Reason: Recheck today's complaints, Continuance of care, Re-evaluation by your physician Discharge Instructions: - Discharge Summary Sheet [facility] - Pyelonephritis, Adult [facility] - Colitis [facility] Forms: - Medication Reconciliation Form [facility] - Thank You Letter [facility] - Antibiotic Education [facility] - Prescription Opioid Use [facility] Prescriptions: - ondansetron 4 mg Oral Tablet,disintegrating - take 1 tablet by ORAL route every 4-6 hours As needed; 30 tablet; Refills: 0, [facility] Product Selection Permitted - Flagyl 500 mg Oral Tablet - take 1 tablet by ORAL route every 6 hours for 10 days; 40 tablet; Refills: 0, [facility] Product Selection Permitted - cefpodoxime 200 mg Oral Tablet - take 1 tablet by ORAL route every 12 hours for 10 days with food; 20 tablet; [facility] Refills: 0, Product Selection Permitted Signatures: Dispatcher [employer] Derrick Welsh PA PA [facility] Lisa Anderson, RN RN aa5 Tony Lazo, RN RN jb4 Sigifredo Lerma, RN RN bp
[2022-10-01] MEDS ORDERED: NA CHLORIDE 0.9% 500 ML ONE (19:23)
[2022-10-01] MEDS ORDERED: NA CHLORIDE 0.9% 100 ML ONE (19:23)
[2022-10-01] MEDS ORDERED: METRONIDAZOLE 500mg IVPB 500 MG/100 ML BAG IV ONE (19:23)
[2022-10-01] MEDS ORDERED: CEFTRIAXONE 2000 MG/VIAL ONE (19:23)
[2022-10-01 21:35] VITALS: TEMP 97.2
[2022-10-01 21:48] VITALS: BP 141/80; O2SAT 97
== END 2022-10-01 20:28 | disposition home or self-care (01) ==
LOC: ER 12:34
DX: K52.9 Noninfective gastroenteritis and colitis, unspecified (principal); N12 Tubulo-interstitial nephritis, not specified as acute or chronic; Z88.5 Allergy status to narcotic agent; Z85.3 Personal history of malignant neoplasm of breast
CPT/HCPCS: 87088; 85025; 87086; 36415; 83690; 80053; 74177; 96375; 96374; 99284; Q9967; J2405; J0696; J7040

== ENCOUNTER 2022-10-04 10:54 | Observation (INO) | payer OTHER ==
--- OUTSIDE RECORDS SUMMARY | 2022-10-04 11:05 | XMS REPORT | Continuity of Care Document ---
:1945 Author Organization [facility] t Address [address] [place] [address] [place] [id number] Care Team Providers Name Role Phone CARLOS ALBERTO CANCINO Primary Care Physician Unavailable Khushboo Vasquez MD Attending Clinician KHUSHBOO VASQUEZ Attending Clinician Unavailable Doctor Unassigned, Horicon Attending Clinician Unavailable Gurjit Attending Clinician Unavailable [...] Clinician Unavailable Izabel Subramanian MD Attending Clinician [phone] Raul Andino MD Attending Clinician RAUL ANDINO Attending Clinician Unavailable PERCY, RAUL GENE Attending Clinician Unavailable Ubaldo Bravo Attending Clinician [...] tract tract 00:00: [place] infection) infection) 00 Sc dical Branch CHEST CHEST Diagnosis Active 2016-052017-03-27 Mem oria PAIN, PAIN, 0-25 22:13:00 l ELEVATED ELEVATED 00:00: Errol ruiz CARDIAC CARDIAC 00 ENZYMES ENZYMES Active 03/20/2017 [facility] SCREENING SCREENING Diagnosis Active 2015-09-09 Memoria COLON COLON 4-11 06:40:00 l CANCER-Z12 CANCER-Z12 00:00: Drew lindoann .11 .11 Active 09/05/2015 [place] Post-op Post-op Disease Active 2014-05 Univers pain pain 2-03 ity of 00:00: [place] 00 Medical Branch Uterovagin Uterovagin Disease Active U nivers al al 8-10 ity of prolapse, prolapse, 00:[place] incomplete incomplete 00 [place] Rectocele Rectocele Disease Active Uni vers 8-10 ity of 00:00: [place] 00 Medical Branch Cystocele, Cystocele, Disease Active U nivers lateral lateral 8-10 ity of 00:00: [place] 00 Medical Branch Vaginal Vaginal Disease Active Univers atrophy atrophy 8-10 ity of 00:00: [place] 00 Medical Branch 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 ICD10 Diagnosis Term [employer] Utility Asthma Asthma Disease Active Overview: Univer s 2-24 Formattin ity of 00:00: g of this note Medical might be Branch different from the original. ICD10 Diagnosis Term [employer] Utility History of History of Disease Active Overview : Univers breast breast 24 Formattin ity of cancer cancer 00:00: g [...] different from the original. ICD10 Diagnosis Term [employer] Utility Prolapse Prolapse Disease Active Unive rs of female of female ity of pelvic pelvic [place] organs organs Medical Branch Glaucoma Glaucoma Problem Active 2017-03-24 Memoria (disorder) (disorder) 02:34:00 l Active Jorje Problem 03/24/2017 [facility] [place] Hypertensi Hypertens Problem Active 2017-03-24 Memoria ve bright 02:34:00 l disorder, disorder, Herm elena systemic systemic arterial arterial (disorder) (disorder) Active Problem 03/24/2017 [facility] [place] Hyperchole Hyperchol Problem Active 2017-03-24 Memoria sterolemia esterolemi 02:34:00 l (disorder) a Errol n (disorder) Active Problem 03/24/2017 [facility] [place] CHEST CHEST Diagnosis Active 2017-03-27 Mem oria PAIN, PAIN, 22:13:00 l UNSPECIFIE UNSPECIFIE Drew Simpson Active [facility] Malignant Malignant Problem Resolve 2017-03-24 Memoria tumor of tumor of d 02:34:00 l breast breast [place] (disorder) (disorder) Resolved Problem 03/24/2017 [facility], [place] Allergies, Adverse Reactions, Alerts Allergy Allergy Status [...] Source Exposure to 2022-04-30 2022-05-10 Not sure [facility] [place]-CoV-2 00:00:00 09:55:00 [facility] (event) [place] Alcohol intake 2022-05-10 2022-05-10 0 /d [facility] 00:00:00 00:00:00 [facility] Social History 2017-03-21 2017-03-21 [facility] 06:27:14 06:27:14 Tobacco use and 2015-06-14 2015-06-14 Smokeless tobacco Un iversity of exposure 00:00:00 00:00:00 non-user [facility] Sex Ass[birth year] Universit y of 00:00:00 00:00:00 [facility] Smoking Status Start Date Stop Date Source Never smoked tobacco [facility] Medications Ordered Filled Start Stop [...] Branch VITAMIN E 2021-05 Yes [facility] 2-21 mouth. ity of (VITAMIN E 15:01: [place] ORAL) Medical Branch FLUTICASONE 2021-05 Yes Inhale. Uni vers /SALMETEROL 2-21 ity of (ADVAIR 15:01: [place] DISKUS Medical INHALE) Branch atorvastati 2021-05 Yes 10mg Take 10 mg Univers n (LIPITOR) 2-21 by mouth ity of 10 mg 15:01: at [place] tablet bedtime. Medical Branch alendronate 2021-05 Yes 35mg Take 35 mg Univers 35 mg 2-21 by mouth ity of tablet 15:01: weekly. [place] [address] Medical Branch albuterol 2021-05 Yes 2{puff} Inhale [...] mouth ity o f tablet 15:01: daily. [place] [address] Medical Branch SERTraline 2021-05 Yes 50mg Take 50 mg U nivers 50 mg 2-21 by mouth ity of tablet 15:01: daily. [place] [address] Medical Branch lubiproston 2021-05 Yes 8ug Take 8 mcg Univers e 8 mcg 2-21 by mouth 2 ity of capsule 15:01: (two) [place] 39 times Medical daily with Branch meals. mag/aluminu 2021-05 Yes 1{capsu Take 1 U nivers m/sod 2-21 le} capsule by ity of bicarb/algi 15:01: mouth 2 Shawn as pa 39 (two) Medical (GAVISCON-2 times Branch ORAL) daily. aspirin 81 2021-05 Yes 81mg Take 81 mg U nivers mg chewable 2-21 by mouth ity of tablet 15:01: daily. [place] [address] Medical Branch levothyroxi 2021-05 Yes 100ug Take 100 U nivers ne 100 mcg 2-21 mcg by ity of tablet 15:01: mouth [place] [address] every Medical morning. Branch cyanocobala 2021-05 Yes [...] MAGNESIUM 2-21 mouth. ity of (NEXIUM 15:01: [facility]) 39 Medical Branch VITAMIN E 2021-05 Yes [...] by mouth ity of tablet 15:01: weekly. [address] Branch albuterol 2021-05 Yes 2{puff} Inhale 2 U nivers 90 2-21 Puffs ity of mcg/actuati 15:01: every 6 Shawn as on inhaler 39 (six) Medical hours as Branch needed for Wheezing or Shortness of Breath. cyclobenzap 2021-05 Yes 10mg Take 10 mg Univers rine 10 mg 2-21 by mouth 3 ity of tablet 15:01: (three) [address] Medical daily as Branch needed for Muscle Spasms. pantoprazol 2021-05 Yes 40mg Take 40 mg Univers e 40 mg EC 2-21 by mouth ity o f tablet 15:01: daily. [address] Branch SERTraline 2021-05 Yes 50mg Take 50 mg U nivers 50 mg 2-21 by mouth ity of tablet 15:01: daily. [address] Branch lubiproston 2021-05 Yes 8ug Take 8 mcg Univers e 8 mcg 2-21 by mouth 2 ity of capsule 15:01: (two) [place] [address] times Medical daily with Branch meals. mag/aluminu 2021-05 Yes 1{capsu Take 1 U nivers m/sod 2-21 le} capsule by ity of bicarb/algi 15:01: mouth 2 [place] as [place] 39 (two) Medical (GAVISCON-2 times Branch ORAL) daily. aspirin 81 2021-05 Yes 81mg Take 81 mg U nivers mg chewable 2-21 by mouth ity of tablet 15:01: daily. [address] Branch levothyroxi 2021-05 Yes 100ug Take [...] mouth 3 ity of tablet 15:01: (three) [place] [address] times Medical daily as Branch needed for Muscle Spasms. pantoprazol 2021-05 Yes 40mg Take 40 mg Univers e 40 mg EC 2-21 by mouth ity o f tablet 15:01: daily. [address] Branch SERTraline 2021-05 Yes 50mg Take 50 mg U nivers 50 mg 2-21 by mouth ity of tablet 15:01: daily. [address] Branch lubiproston 2021-05 Yes 8ug Take 8 mcg Univers e 8 mcg 2-21 by mouth 2 ity of capsule 15:01: (two) [address] Medical daily with Branch meals. mag/aluminu 2021-05 Yes 1{capsu Take 1 U nivers m/sod 2-21 le} capsule by ity of bicarb/algi 15:01: mouth 2 [place] as pa 39 (two) Medical (GAVISCON-2 times Branch ORAL) daily. aspirin 81 2021-05 Yes 81mg Take 81 mg U nivers mg chewable 2-21 by mouth ity of tablet 15:01: daily. [address] Branch levothyroxi 2021-05 Yes 100ug Take [...] at bedtime as needed. metoprolol 2021- No [id number] 25mg Take 1 Univers succinate 4-19 05-20 tablet by ity of XL 25 mg 24 00:00: 04:59 [place] hr tablet 00 :00 daily for Medic al 30 days. Branch metoprolol 2021- No [id number] 25mg Take 1 Univers succinate 4-19 05-20 [...] by mouth ity of tablet 14:23: weekly. [place] 53 Medical Branch albuterol Yes 2{puff} Inhale 2 [...] mouth ity o f tablet 14:23: daily. [place] 53 Medical Branch SERTraline Yes 50mg Take 50 mg U nivers 50 mg 4-18 by mouth ity of tablet 14:23: daily. [place] [address] Medical Branch lubiproston Yes 8ug Take 8 mcg Univers e 8 mcg 4-18 by mouth 2 ity of capsule 14:23: (two) [place] [address] times Medical daily with Branch meals. mag/aluminu 0 Yes 1{capsu Take 1 U nivers m/sod 4-18 le} capsule by ity of bicarb/algi 14:23: mouth 2 Shawn as pa 53 (two) Medical (GAVISCON-2 times Branch ORAL) daily. aspirin 81 0 Yes 81mg Take 81 mg U nivers mg chewable 4-18 by mouth ity of tablet 14:23: daily. [place] [address] Medical Branch ESOMEPRAZOL Yes Take by Uni vers E MAGNESIUM 4-18 mouth. ity of (NEXIUM 14:23: [place] ORAL) Medical Branch VITAMIN E Yes Take by Unive rs ACETATE 4-18 mouth. ity of (VITAMIN E 14:23: [facility]) Medical Branch FLUTICASONE Yes Inhale. Uni vers /SALMETEROL 4-18 ity of (ADVAIR 14:23: [place] DISKUS Medical INHALE) Branch atorvastati Yes 10mg Take 10 mg Univers n (LIPITOR) 4-18 by mouth ity of 10 mg 14:23: at [place] tablet 53 bedtime. Medical Branch alendronate Yes 35mg Take 35 mg Univers 35 mg 4-18 by mouth ity of tablet 14:23: weekly. [place] [address] Medical Branch albuterol Yes 2{puff} Inhale 2 U nivers (PROAIR 4-18 Puffs ity of HFA) 90 14:23: every 6 [place] mcg/actuati 53 (six) Medical on inhaler hours as Branc h needed for Wheezing or Shortness of Breath. cyclobenzap Yes 10mg Take 10 mg Univers rine 10 mg 4-18 by mouth 3 ity of tablet 14:23: (three) [place] [address] times Medical daily as Branch needed for Muscle Spasms. pantoprazol 0 Yes 40mg Take 40 mg Univers e 40 mg EC 4-18 by mouth ity o f tablet 14:23: daily. [address] SERTraline Yes 50mg Take 50 mg U nivers 50 mg 4-18 by mouth ity of tablet 14:23: daily. [address] lubiproston Yes 8ug Take 8 mcg Univers e 8 mcg 4-18 by mouth 2 ity of capsule 14:23: (two) [place] [address] times [facility] daily with Branch meals. mag/aluminu Yes 1{capsu Take 1 U nivers m/sod -18 le} capsule by ity of bicarb/algi 14:23: mouth 2 Shawn as [facility] (two) Medical (GAVISCON-2 times Branch ORAL) daily. aspirin 81 Yes 81mg Take 81 mg U nivers mg chewable -18 by mouth ity of tablet 14:23: daily. [address] LEVOTHYROXI 2021- No Take by Un haja NE SODIUM 09-1118 mouth. ity of (LEVOTHYROX 12:13: 00:00 [place] INE ORAL) 26 :00 [facility] Branch METOPROLOL 2021- No 1{tbl} Take 1 Tab Univers SUCCINATE 09-11-18 by mouth ity o f ORAL 12:13: 00:00 daily. [place] 26 :00 [facility] Branch ciprofloxac 2021- No [id number] 500mg Take 1 Univers in HCl 500 09-11 tablet by ity of mg tablet 00:00: 04:59 mouth [place] 00 :00 every 12 Medical (twelve) Branch hours for 7 days. ciprofloxac 2021- No [id number] 500mg Take 1 Univers in HCl 500 18 - tablet by ity of mg tablet 00:00: 04:59 mouth [place] 00 :00 every 12 Medical (twelve) Branch hours for 7 days. cefTRIAXone Yes 1000mg 1,000 mg, Univers (ROCEPHIN) 4-17 IV ity of 1,000 mg in 21:00: Piggyback, [place] NaCl 0.9% 00 Q24H ABX, Medic al (NS) 50 mL First dose [facility] MINI-BAG (after last reorder) on [place] 09/10/21 at 1600, Until Discontinu ed, Administer over 30 Minutes, 50 mL
Reas on for Anti-Infec tive: Documented Infection& lt;br>Docu mented Infection Site: Urine
D uration of Therapy: 7 days cefTRIAXone 2021- No 1000mg 1,000 mg, Univers (ROCEPHIN) 09-09 IV ity of 1,000 mg in 20:00: 22:17 Piggyback, [place] NaCl 0.9% 00 :00 ONCE, 1 Medical (NS) 50 mL dose, On [facility] MINI-BAG [facility] 09/09/21 at 1500, Administer over 30 Minutes, [...] 09/09/21 at 0600, Until Discontinu ed maalox:diph 2021- No 15mL 15 mL, Uni vers enhydrAMINE 09-09 Oral, ity of :lidocaine 09:15: 08:22 ONCE, 1 [place] as 2 % viscous 00 :00 dose, On Medi chanell 1:1:1 Sat Branch (FIRST-MOUT 09/09/21 at [facility]) 0415, oral Routine suspension 15 mL atorvastati [...] SBP=>180<b r>Indicati on: Hypertensi ve Emergency fluticasone 0 Yes 1{puff} 1 Puff, Univers propion-howie 4-16 Inhalation it y of meteroL 01:00: , Q12H, [place] (ADVAIR) 00 First dose Medic al 250-50 on Sat mcg/dose 09/08/21 at inhalation 2000, disk 1 Puff Until Discontinu ed metoprolol Yes 25mg 25 mg, Unive rs succinate 4-15 Oral, ity of XL [...] pain butalbital- 0 Yes 1{tbl} 1 tablet, [facility] acetaminoph 4-15 Oral, ity of en-caff 22:55: Q6HPRN, [place] (ESGIC) 44 Starting Medical 50-325-40 on Sat Branch mg tablet 1 09/08/21 at tablet 1755, Until Discontinu ed, Routine, Headache ondansetron 0 Yes 4mg 4 mg, Slow Univers (ZOFRAN 4-15 IV Push, ity of (PF)) 22:55: Q6HPRN, [place] injection 4 33 Starting Medi chanell mg on Sat Branch 09/08/21 at 1755, Until Discontinu ed, Routine, Nausea and Vomiting (N/V) acetaminoph Yes 650mg 650 mg, Un haja en 4-15 Oral, ity of (TYLENOL) 22:55: Q6HPRN, [place] tablet 650 15 Starting Medic al mg on Sat09/08/21 at 1755, Until Discontinu ed, Routine, Pain (scale 1-3) hydralAZINE No 10mg 10 mg, Uni vers (APRESOLINE 09-08 Slow IV ity of ) injection 21:45: 20:42 Push, [place] 10 mg 00 :00 ONCE, 1 Medical dose, On Branch Sat09/08/21 at 1645, SILVINO
In dication: Hypertensi ve Emergency ondansetron 2021- No 4mg 4 mg, Slow Univers (ZOFRAN 09-08 IV Push, ity of (PF)) 21:15: 20:19 [...] of Therapy: Other (see Comments) NaCl 0.9% No 500mL at 999 Univ ers (NS) bolus 09-08 mL/hr, 500 it y of infusion 19:45: 20:17 mL, IV [place] 500 mL 00 :00 Infusion, Medical ONCE, 1 Branch dose, On Sat09/08/21 at 1445, STAT ondansetron 2021- No 4mg 4 mg, Slow Univers (ZOFRAN 09-0815 IV Push, ity of (PF)) 19:30: 18:27 ONCE, 1 [place] injection 4 00 :00 dose, On Medi chanell mg Fri Branch 09/08/21 at 1430, SILVINO ondansetron Yes 1{tbl} Take 1 Un hjaa 4 mg tablet 2-03 tablet by ity [...] n coated 00 90 tab, 3 Refill(s) aspirin 81 2016-05 Yes 81 mg = [...] 0-26 PO, Q6H, l 06:09: PRN Pain Jorje 00 Score 1-3, 0 Refill(s) metoprolol 2016-05 Yes 25 mg, PO, M emoria extended 0-26 Daily, 0 l release 06:09: Refill(s) Linda nn 00 hydrochloro 2016-05 Yes 12.5 mg, Me moria thiazide 0-26 PO, Daily, l 06:09: 0 Jor[place] 00 Refill(s) tramadol 50 2016-05 Yes 50 mg = 1 M emoria mg oral 0-26 tab, PO, l tablet 06:09: Q8H, PRN [place] 00 Pain, # 60 tab, 0 Refill(s) Travatan Z 2016-05 Yes 1 drp, [...] 0-26 PO, Q6H, l 06:09: PRN Pain Jor[place] 00 Score 1-3, 0 Refill(s) metoprolol 2016-05 Yes 25 mg, PO, M emoria extended 0-26 Daily, 0 l release 06:09: Refill(s) Linda nn 00 hydrochloro 2016-05 Yes 12.5 mg, Me moria thiazide 0-26 PO, Daily, l 06:09: 0 [place] 00 Refill(s) tramadol 50 2016-05 Yes 50 mg = 1 M emoria mg oral 0-26 tab, PO, l tablet 06:09: Q8H, PRN [place] 00 Pain, # 60 tab, 0 Refill(s) metoprolol Yes 50 mg = 1 Me moria 50 mg oral 4-13 tab, PO, l tablet, 20:47: Daily, 0 Errol n extended 00 Refill(s) release metoprolol Yes 50 mg = 1 Me moria 50 mg oral 4-13 tab, PO, l tablet, 20:47: Daily, 0 Errol n extended 00 Refill(s) release Advair Yes 1 puff, Memoria Diskus 250 4-13 INHALATION l mcg-50 mcg 20:13: , BID, PRN [place] inhalation 00 Wheezing, powder 0 Refill(s) Advair Yes 1 puff, Memoria Diskus 250 4-13 INHALATION l mcg-50 mcg 20:13: , BID, PRN [place] inhalation 00 Wheezing, powder 0 Refill(s) atorvastati Yes 10mg Take 10 mg Univers [...] by mouth ity of ORAL 14:20: daily. [place] [address] Medical Branch atorvastati Yes 10mg Take 10 [...] by mouth ity of ORAL 14:20: daily. [place] [address] Medical Branch atorvastati Yes 10mg Take 10 [...] by mouth ity of ORAL 14:20: daily. [place] [address] Medical Branch atorvastati Yes 10mg Take 10 [...] by mouth ity of ORAL 14:20: daily. [place] [address] Medical Branch atorvastati Yes 10mg Take 10 mg Univers n (LIPITOR) 3-29 by mouth ity of 10 mg 14:20: at [place] tablet 48 bedtime. Medical Branch LEVOTHYROXI 2016-0 Yes Take by Uni vers NE SODIUM [...] by mouth ity of ORAL 14:20: daily. [place] [address] Medical Branch atorvastati 0 Yes 10mg Take [...] by mouth ity of ORAL 14:20: daily. [place] [address] Medical Branch atorvastati 0 Yes 10mg Take [...] by mouth ity of ORAL 14:20: daily. [place] [address] Medical Branch atorvastati 0 Yes 10mg Take [...] by mouth ity of ORAL 14:20: daily. [place] [address] Medical Branch atorvastati 0 Yes 10mg Take [...] by mouth ity of ORAL 14:20: daily. [place] [address] Medical Branch atorvastati 0 Yes 10mg Take [...] by mouth ity of ORAL 14:20: daily. [place] [address] Medical Branch atorvastati Yes 10mg Take 10 [...] by mouth ity of ORAL 14:20: daily. [place] [address] Medical Branch atorvastati Yes 10mg Take 10 [...] by mouth ity of ORAL 14:20: daily. [place] [address] Medical Branch atorvastati Yes 10mg Take 10 [...] by mouth ity of ORAL 14:20: daily. [place] [address] Medical Branch atorvastati 0 Yes 10mg Take [...] by mouth ity of ORAL 14:20: daily. [place] [address] Medical Branch atorvastati Yes 10mg Take 10 [...] by mouth ity of ORAL 14:20: daily. [place] [address] Medical Branch atorvastati 0 Yes 10mg Take [...] by mouth ity of ORAL 14:20: daily. [place] [address] Medical Branch atorvastati 0 Yes 10mg Take [...] by mouth ity of ORAL 14:20: daily. [place] [address] Medical Branch atorvastati 0 Yes 10mg Take [...] 14:20: [place] ORAL) 48 Medical Branch FLUTICASONE 20160 Yes Inhale. Uni vers /SALMETEROL 3-29 ity of (ADVAIR 14:20: [place] DISKUS 48 Medical INHALE) Branch METOPROLOL 0 Yes 1{tbl} Take 1 Tab Univers SUCCINATE 3-29 by mouth ity of ORAL 14:20: daily. [place] [address] Medical Branch atorvastati 0 Yes 10mg Take [...] by mouth ity of ORAL 14:20: daily. [place] [address] Medical Branch atorvastati Yes 10mg Take 10 [...] by mouth ity of ORAL 14:20: daily. [place] [address] Medical Branch atorvastati Yes 10mg Take 10 [...] by mouth ity of ORAL 14:20: daily. [place] [address] Medical Branch atorvastati Yes 10mg Take 10 [...] by mouth ity of ORAL 14:20: daily. [place] [address] Medical Branch atorvastati Yes 10mg Take 10 [...] by mouth ity of ORAL 14:20: daily. [place] [address] Medical Branch atorvastati Yes 10mg Take 10 [...] by mouth ity of ORAL 14:20: daily. [place] [address] Medical Branch atorvastati 0 Yes 10mg Take [...] by mouth ity of ORAL 14:20: daily. [place] [address] Medical Branch atorvastati 0 Yes 10mg Take [...] by mouth ity of ORAL 14:20: daily. [place] [address] Medical Branch atorvastati 0 Yes 10mg Take [...] 2016-0 Yes Take by Unive rs ACETATE 3-29 mouth. ity of (VITAMIN E 14:20: [place] ORAL) 48 Medical Branch FLUTICASONE Yes Inhale. Uni vers /SALMETEROL 3-29 ity of (ADVAIR 14:20: [place] DISKUS 48 Medical INHALE) Branch METOPROLOL Yes 1{tbl} Take 1 Tab Univers SUCCINATE 3-29 by mouth ity of ORAL 14:20: daily. [place] [address] Medical Branch atorvastati Yes 10mg Take 10 [...] by mouth ity of ORAL 14:20: daily. [place] [address] Medical Branch atorvastati Yes 10mg Take 10 [...] by mouth ity of ORAL 14:20: daily. [place] [address] Medical Branch atorvastati 0 Yes 10mg Take [...] by mouth ity of ORAL 14:20: daily. [place] [address] Medical Branch atorvastati Yes 10mg Take 10 [...] by mouth ity of ORAL 14:20: daily. [place] [address] Medical Branch atorvastati Yes 10mg Take 10 [...] by mouth ity of ORAL 14:20: daily. [place] [address] Medical Branch atorvastati Yes 10mg Take 10 [...] by mouth ity of ORAL 14:20: daily. [place] [address] Medical Branch atorvastati Yes 10mg Take 10 mg Univers n (LIPITOR) 3-29 by mouth ity of 10 mg 14:20: at [place] tablet 48 bedtime. Medical Branch LEVOTHYROXI 2016-0 Yes Take by Uni vers NE SODIUM [...] by mouth ity of ORAL 14:20: daily. [place] [address] Medical Branch atorvastati 0 Yes 10mg Take [...] by mouth ity of ORAL 14:20: daily. [place] [address] Medical Branch atorvastati 0 Yes 10mg Take [...] by mouth ity of ORAL 14:20: daily. [place] [address] Medical Branch atorvastati 0 Yes 10mg Take [...] by mouth ity of ORAL 14:20: daily. [place] [address] Medical Branch METOPROLOL 0 Yes 1{tbl} Take 1 Tab Univers SUCCINATE 3-29 by mouth ity of ORAL 09:20: daily. [place] [address] Medical Branch atorvastati Yes 10mg Take 10 mg Univers n (LIPITOR) 3-29 by mouth ity of 10 mg 09:20: at [place] tablet 48 bedtime. Medical Branch LEVOTHYROXI 0 Yes Take by Uni vers NE SODIUM 3-29 mouth. ity of (LEVOTHYROX 09:20: [place] INE ORAL) Medical Branch ESOMEPRAZOL Yes Take by Uni vers E MAGNESIUM 3-29 mouth. ity of (NEXIUM 09:20: [place] ORAL) Medical Branch VITAMIN E Yes Take by Unive rs ACETATE 3-29 mouth. ity of (VITAMIN E 09:20: [place] ORAL) 48 Medical Branch FLUTICASONE Yes Inhale. Uni vers /SALMETEROL 3-29 ity of (ADVAIR 09:20: [place] DISKUS 48 Medical INHALE) Branch METOPROLOL Yes 1{tbl} Take 1 Tab Univers SUCCINATE 3-29 by mouth ity of ORAL 09:20: daily. [place] [address] Medical Branch atorvastati Yes 10mg Take 10 mg Univers n (LIPITOR) 3-29 by mouth ity of 10 mg 09:20: at [place] tablet 48 bedtime. Medical Branch LEVOTHYROXI Yes Take by Uni vers NE SODIUM 3-29 mouth. ity of (LEVOTHYROX 09:20: [place] INE ORAL) Medical Branch ESOMEPRAZOL Yes [...] by mouth ity of ORAL 09:20: daily. [place] [address] Medical Branch atorvastati Yes 10mg Take 10 [...] by non-narcot ic analgesics . conjugated Yes [id number] .5g Insert 0.5 Univers estrogens 8-10 g into ity of (PREMARIN) 00:00: vagina at [place] 0.625 00 bedtime. Medical mg/gram Branch vaginal cream conjugated Yes [id number] .5g Insert 0.5 Univers estrogens 8-10 g into ity of (PREMARIN) 00:00: vagina at [place] 0.625 00 bedtime. Medical mg/gram Branch vaginal cream conjugated Yes [id number] .5g Insert 0.5 Univers estrogens 8-10 g into ity of (PREMARIN) 00:00: vagina at [place] 0.625 00 bedtime. Medical mg/gram Branch vaginal cream conjugated Yes [id number] .5g Insert 0.5 Univers estrogens 8-10 g into ity of (PREMARIN) 00:00: vagina at [place] 0.625 00 bedtime. Medical mg/gram Branch vaginal cream conjugated Yes [id number] .5g Insert 0.5 Univers estrogens 8-10 g into ity of (PREMARIN) 00:00: vagina at [place] 0.625 00 bedtime. Medical mg/gram Branch vaginal cream conjugated Yes [id number] .5g Insert 0.5 Univers estrogens 8-10 g into ity of (PREMARIN) 00:00: vagina at [place] 0.625 00 bedtime. Medical mg/gram Branch vaginal cream conjugated Yes [id number] .5g Insert 0.5 Univers estrogens 8-10 g into ity of (PREMARIN) 00:00: vagina at [place] 0.625 00 bedtime. Medical mg/gram Branch vaginal cream conjugated Yes [id number] .5g Insert 0.5 Univers estrogens 8-10 g into ity of (PREMARIN) 00:00: vagina at [place] 0.625 00 bedtime. Medical mg/gram Branch vaginal cream conjugated Yes [id number] .5g Insert 0.5 Univers estrogens 8-10 g into ity of (PREMARIN) 00:00: vagina at [place] 0.625 00 bedtime. Medical mg/gram Branch vaginal cream conjugated Yes [id number] .5g Insert 0.5 Univers estrogens 8-10 g into ity of (PREMARIN) 00:00: vagina at [place] 0.625 00 bedtime. Medical mg/gram Branch vaginal cream conjugated Yes [id number] .5g Insert 0.5 Univers estrogens 8-10 g into ity of (PREMARIN) 00:00: vagina at [place] 0.625 00 bedtime. Medical mg/gram Branch vaginal cream conjugated Yes [id number] .5g Insert 0.5 Univers estrogens 8-10 g into ity of (PREMARIN) 00:00: vagina at [place] 0.625 00 bedtime. Medical mg/gram Branch vaginal cream conjugated Yes [id number] .5g Insert 0.5 Univers estrogens 8-10 g into ity of (PREMARIN) 00:00: vagina at [place] 0.625 00 bedtime. Medical mg/gram Branch vaginal cream conjugated Yes [id number] .5g Insert 0.5 Univers estrogens 8-10 g into ity of (PREMARIN) 00:00: vagina at [place] 0.625 00 bedtime. Medical mg/gram Branch vaginal cream conjugated Yes [id number] .5g Insert 0.5 Univers estrogens 8-10 g into ity of (PREMARIN) 00:00: vagina at [place] 0.625 00 bedtime. Medical mg/gram Branch vaginal cream conjugated Yes [id number] .5g Insert 0.5 [facility] estrogens 8-10 g into ity of (PREMARIN) 00:[place].625 00 bedtime. Medical mg/gram Branch vaginal cream conjugated Yes [id number] .5g Insert 0.5 [facility] estrogens 8-10 g into ity of (PREMARIN) 00:00: [place].625 00 bedtime. Medical mg/gram Branch vaginal cream conjugated Yes [id number] .5g Insert 0.5 [facility] estrogens 8-10 g into ity of (PREMARIN) 00:00: [place] 0.625 00 bedtime. Medical mg/gram Branch vaginal cream conjugated Yes [id number] .5g Insert 0.5 [facility] estrogens 8-10 g into ity of (PREMARIN) 00:00: [place] 0.625 00 bedtime. Medical mg/gram Branch vaginal cream conjugated Yes [id number] .5g Insert 0.5 [facility] estrogens 8-10 g into ity of (PREMARIN) 00:00: [place] 0.625 00 bedtime. Medical mg/gram Branch vaginal cream conjugated Yes [id number] .5g Insert 0.5 [facility] estrogens 8-10 g into ity of (PREMARIN) 00:00: [place] 0.625 00 bedtime. Medical mg/gram Branch vaginal cream conjugated Yes [id number] .5g Insert 0.5 [facility] estrogens 8-10 g into ity of (PREMARIN) 00:00: [place] 0.625 00 bedtime. Medical mg/gram Branch vaginal cream conjugated Yes [id number] .5g Insert 0.5 [facility] estrogens 8-10 g into ity of (PREMARIN) 00:00: [place] 0.625 00 bedtime. Medical mg/gram Branch vaginal cream conjugated Yes [id number] .5g Insert 0.5 [facility] estrogens 8-10 g into ity of (PREMARIN) 00:00: [place] 0.625 00 bedtime. Medical mg/gram Branch vaginal cream conjugated Yes [id number] .5g Insert 0.5 [facility] estrogens 8-10 g into ity of (PREMARIN) 00:00: [place] 0.625 00 bedtime. Medical mg/gram Branch vaginal cream conjugated Yes [id number] .5g Insert 0.5 [facility] estrogens 8-10 g into ity of (PREMARIN) 00:00: [place] 0.625 00 bedtime. Medical mg/gram Branch vaginal cream conjugated Yes [id number] .5g Insert 0.5 [facility] estrogens 8-10 g into ity of (PREMARIN) 00:00: [place] 0.625 00 bedtime. Medical mg/gram Branch vaginal cream conjugated Yes [id number] .5g Insert 0.5 [facility] estrogens 8-10 g into ity of (PREMARIN) 00:00: [place] 0.625 00 bedtime. Medical mg/gram Branch vaginal cream conjugated Yes [id number] .5g Insert 0.5 [facility] estrogens 8-10 g into ity of (PREMARIN) 00:00: [place] 0.625 00 bedtime. Medical mg/gram Branch vaginal cream conjugated Yes [id number] .5g Insert 0.5 [facility] estrogens 8-10 g into ity of (PREMARIN) 00:00: [place] 0.625 00 bedtime. Medical mg/gram Branch vaginal cream conjugated Yes [id number] .5g Insert 0.5 [facility] estrogens 8-10 g into ity of (PREMARIN) 00:00: [place] 0.625 00 bedtime. Medical mg/gram Branch vaginal cream conjugated Yes [id number] .5g Insert 0.5 [facility] estrogens 8-10 g into ity of (PREMARIN) 00:00: [place] 0.625 00 bedtime. Medical mg/gram Branch vaginal cream conjugated Yes [id number] .5g Insert 0.5 [facility] estrogens 8-10 g into ity of (PREMARIN) 00:00: [place] 0.625 00 bedtime. Medical mg/gram Branch vaginal cream conjugated Yes [id number] .5g Insert 0.5 [facility] estrogens 8-10 g into ity of (PREMARIN) 00:00: [place] 0.625 00 bedtime. Medical mg/gram Branch vaginal cream conjugated Yes [id number] .5g Insert 0.5 [facility] estrogens 8-10 g into ity of (PREMARIN) 00:00: [place] 0.625 00 bedtime. Medical mg/gram Branch vaginal cream conjugated 0 Yes [id number] .5g Insert 0.5 Univers estrogens 8-10 g into ity of (PREMARIN) 00:00: [place] 0.625 00 bedtime. Medical mg/gram Branch vaginal cream conjugated 0 Yes [id number] .5g Insert 0.5 [facility] estrogens 8-10 g into ity of (PREMARIN) 00:00: [place] 0.625 00 bedtime. Medical mg/gram Branch vaginal cream conjugated 0 Yes [id number] .5g Insert 0.5 [facility] estrogens 8-10 g into ity of (PREMARIN) 00:00: [place] 0.625 00 bedtime. Medical mg/gram Branch vaginal cream conjugated 0 Yes [id number] .5g Insert 0.5 [facility] estrogens 8-10 g into ity of (PREMARIN) 00:00: [place] 0.625 00 bedtime. Medical mg/gram Branch vaginal cream conjugated Yes [id number] .5g Insert 0.5 [facility] estrogens 8-10 g into ity of (PREMARIN) 00:00: [place] 0.625 00 bedtime. Medical mg/gram Branch vaginal cream conjugated Yes [id number] .5g Insert 0.5 [facility] estrogens 8-10 g into ity of (PREMARIN) 00:00: [place] 0.625 00 bedtime. Medical mg/gram Branch vaginal cream conjugated Yes [id number] .5g Insert 0.5 [facility] estrogens 8-10 g into ity of (PREMARIN) 00:00: [place] 0.625 00 bedtime. Medical mg/gram Branch vaginal cream conjugated Yes [id number] .5g Insert 0.5 [facility] estrogens 8-10 g into ity of (PREMARIN) 00:00: [place] 0.625 00 bedtime. Medical mg/gram Branch vaginal cream conjugated 0 Yes [id number] .5g Insert 0.5 [facility] estrogens 8-10 g into ity of (PREMARIN) 00:00: [place] 0.625 00 bedtime. Medical mg/gram Branch vaginal cream conjugated 0 Yes [id number] .5g Insert 0.5 [facility] estrogens 8-10 g into ity of (PREMARIN) 00:00: [place] 0.625 00 bedtime. Medical mg/gram Branch vaginal cream Immunizations Ordered Filled Immunization Date Status Comments [facility] e Immunization Name Name SARS-COV-2 COVID-19 2020-08-22 Completed Unive rsity of MODERNA VACCINE 00:00:00 [facility] ical [place] SARS-COV-2 COVID-19 2020-08-22 Completed Unive rsity of MODERNA VACCINE 00:00:00 [facility] ical Branch SARS-COV-2 COVID-19 2020-08-22 Completed Unive [...] rsity of MODERNA 12+ YRS 00:00:00 [place] [facility] ical VACCINE Branch SARS-COV-2 COVID-19 2020-07-25 Completed Unive rsity of MODERNA VACCINE 00:00:00 [facility] ical Branch SARS-COV-2 COVID-19 2020-07-25 Completed Unive rsity of MODERNA VACCINE 00:00:00 [facility] ical Branch SARS-COV-2 COVID-19 2020-07-25 Completed Unive rsity of MODERNA VACCINE 00:00:00 [place] [facility] SARS-COV-2 COVID-19 2020-07-25 Completed Unive rsity of MODERNA VACCINE 00:00:00 [place] [facility] ical Branch SARS-COV-2 COVID-19 2020-07-25 Completed Unive rsity of MODERNA VACCINE 00:00:00 [place] [facility] ical Branch SARS-COV-2 COVID-19 2020-07-25 Completed Unive rsity of MODERNA VACCINE 00:00:00 [facility] ical Branch SARS-COV-2 COVID-19 2020-07-25 Completed Unive rsity of MODERNA VACCINE 00:00:00 [facility] Zoster(Zostavax)( 2014-05-19 Completed Unive rsity of ingles) 00:00:00 [facility] Branch Zoster(Zostavax)( 2014-05-19 Completed Unive rsity of ingles) 00:00:00 [facility] Zoster(Zostavax)( 2014-05-19 Completed Unive rsity of ingles) 00:00:00 [facility] Zoster(Zostavax)( 2014-05-19 Completed Unive rsity of ingles) 00:00:00 [facility] Zoster(Zostavax)( 2014-05-19 Completed Unive rsity of ingles) 00:00:00 [facility] Zoster(Zostavax)( 2014-05-19 Completed Unive rsity of ingles) 00:00:00 [facility] Zoster(Zostavax)( 2014-05-19 Completed Unive rsity of ingles) 00:00:00 [facility] Zoster(Zostavax)( 2014-05-19 Completed Unive rsity of ingles) 00:00:00 [facility] Zoster(Zostavax)( 2014-05-19 Completed Unive rsity of ingles) 00:00:00 [facility] Zoster(Zostavax)( 2014-05-19 Completed Unive rsity of ingles) 00:00:00 [facility] Zoster(Zostavax)( 2014-05-19 Completed Unive rsity of ingles) 00:00:00 [facility] Zoster(Zostavax)( 2014-05-19 Completed Unive rsity of ingles) 00:00:00 [facility] Zoster(Zostavax)( 2014-05-19 Completed Unive rsity of ingles) 00:00:00 [facility] Zoster(Zostavax)( 2014-05-19 Completed Unive rsity of ingles) 00:00:00 [facility] Zoster(Zostavax)( 2014-05-19 Completed Unive rsity of ingles) 00:00:00 [facility] Zoster(Zostavax)( 2014-05-19 Completed Unive rsity of ingles) 00:00:00 [facility] Zoster(Zostavax)( 2014-05-19 Completed Unive rsity of ingles) 00:00:00 [facility] Zoster(Zostavax)( 2014-05-19 Completed Unive rsity of ingles) 00:00:00 [facility] Zoster(Zostavax)( 2014-05-19 Completed Unive rsity of ingles) 00:00:00 [facility] Zoster(Zostavax)( 2014-05-19 Completed Unive rsity of ingles) 00:00:00 [facility] Zoster(Zostavax)( 2014-05-19 Completed Unive rsity of ingles) 00:00:00 [facility] Zoster(Zostavax)( 2014-05-19 Completed Unive rsity of ingles) 00:00:00 [facility] Zoster(Zostavax)( 2014-05-19 Completed Unive rsity of ingles) 00:00:00 [facility] Zoster(Zostavax)( 2014-05-19 Completed Unive rsity of ingles) 00:00:00 [facility] Zoster(Zostavax)( 2014-05-19 Completed Unive rsity of ingles) 00:00:00 [facility] Zoster(Zostavax)( 2014-05-19 Completed Unive rsity of ingles) 00:00:00 [facility] Zoster(Zostavax)( 2014-05-19 Completed Unive rsity of ingles) 00:00:00 [facility] Zoster(Zostavax)( 2014-05-19 Completed Unive rsity of ingles) 00:00:00 [facility] Zoster(Zostavax)( 2014-05-19 Completed Unive rsity of ingles) 00:00:00 [facility] Zoster(Zostavax)( 2014-05-19 Completed Unive rsity of ingles) 00:00:00 [facility] Zoster(Zostavax)( 2014-05-19 Completed Unive rsity of ingles) 00:00:00 [facility] Zoster(Zostavax)( 2014-05-19 Completed Unive rsity of ingles) 00:00:00 [facility] Zoster(Zostavax)( 2014-05-19 Completed Unive rsity of ingles) 00:00:00 [facility] Zoster(Zostavax)( 2014-05-19 Completed Unive rsity of ingles) 00:00:00 [facility] Zoster(Zostavax)( 2014-05-19 Completed Unive rsity of ingles) 00:00:00 [facility] Zoster(Zostavax)( 2014-05-19 Completed Unive rsity of ingles) 00:00:00 [facility] Zoster(Zostavax)( 2014-05-19 Completed Unive rsity of ingles) 00:00:00 [facility] Zoster(Zostavax)( 2014-05-19 Completed Unive rsity of ingles) 00:00:00 [facility] Zoster(Zostavax)( 2014-05-19 Completed Unive rsity of ingles) 00:00:00 [facility] Zoster(Zostavax)( 2014-05-19 Completed Unive rsity of ingles) 00:00:00 [facility] Zoster(Zostavax)( 2014-05-19 Completed Unive rsity of ingles) 00:00:00 [facility] Zoster(Zostavax)( 2014-05-19 Completed Unive rsity of ingles) 00:00:00 [facility] Zoster(Zostavax)( 2014-05-19 Completed Unive rsity of ingles) 00:00:00 [facility] Zoster(Zostavax)( 2014-05-19 Completed Unive rsity of ingles) 00:00:00 [facility] Zoster(Zostavax)( 2014-05-19 Completed Unive rsity of ingles) 00:00:00 [facility] TDAP 2013-07-20 Completed University of 00:00:00 [facility] TDAP 2013-07-20 Completed University of 00:00:00 [facility] TDAP 2013-07-20 Completed University of 00:00:00 [facility] TDAP 2013-07-20 Completed University of 00:00:00 [facility] TDAP 2013-07-20 Completed University of 00:00:00 [facility] TDAP 2013-07-20 Completed University of 00:00:00 [facility] TDAP 2013-07-20 Completed University of 00:00:00 [facility] TDAP 2013-07-20 Completed University of 00:00:00 [facility] TDAP 2013-07-20 Completed University of 00:00:00 [facility] TDAP 2013-07-20 Completed University of 00:00:00 [facility] TDAP 2013-07-20 Completed University of 00:00:00 [facility] TDAP 2013-07-20 Completed University of 00:00:00 [facility] TDAP 2013-07-20 Completed University of 00:00:00 [facility] TDAP 2013-07-20 Completed University of 00:00:00 [facility] TDAP 2013-07-20 Completed University of 00:00:00 [facility] TDAP 2013-07-20 Completed University of 00:00:00 [facility] TDAP 2013-07-20 Completed University of 00:00:00 [facility] TDAP 2013-07-20 Completed University of 00:00:00 [facility] TDAP 2013-07-20 Completed University of 00:00:00 [facility] TDAP 2013-07-20 Completed University of 00:00:00 [facility] TDAP 2013-07-20 Completed University of 00:00:00 [facility] TDAP 2013-07-20 Completed University of 00:00:00 [facility] TDAP 2013-07-20 Completed University of 00:00:00 [facility] TDAP 2013-07-20 Completed University of 00:00:00 [facility] TDAP 2013-07-20 Completed University of 00:00:00 [facility] TDAP 2013-07-20 Completed University of 00:00:00 [facility] TDAP 2013-07-20 Completed University of 00:00:00 [facility] TDAP 2013-07-20 Completed University of 00:00:00 [facility] TDAP 2013-07-20 Completed University of 00:00:00 [facility] TDAP 2013-07-20 Completed University of 00:00:00 [facility] TDAP 2013-07-20 Completed University of 00:00:00 [facility] TDAP 2013-07-20 Completed University of 00:00:00 [facility] TDAP 2013-07-20 Completed University of 00:00:00 [facility] TDAP 2013-07-20 Completed University of 00:00:00 [facility] TDAP 2013-07-20 Completed University of 00:00:00 [facility] TDAP 2013-07-20 Completed University of 00:00:00 [facility] TDAP 2013-07-20 Completed University of 00:00:00 [facility] TDAP 2013-07-20 Completed University of 00:00:00 [facility] TDAP 2013-07-20 Completed University of 00:00:00 [facility] TDAP 2013-07-20 Completed University of 00:00:00 [facility] TDAP 2013-07-20 Completed University of 00:00:00 [facility] TDAP 2013-07-20 Completed University of 00:00:00 [facility] TDAP 2013-07-20 Completed University of 00:00:00 [facility] TDAP 2013-07-20 Completed University of 00:00:00 [facility] TDAP 2013-07-20 Completed University of 00:00:00 [facility] Vital Signs Vital Name Observation Time Observation Value Comments Source Systolic blood 2022-05-16 20:52:00 129 mm[Hg] Univer [facility]ity of [facility] Diastolic blood 2022-05-16 20:52:00 72 mm[Hg] Unive rsity of pressure [facility] Heart rate 2022-05-16 20:52:00 87 /min [facility] [place] [facility] Respiratory rate 2022-05-16 20:52:00 29 /min Univ ers[facility] Oxygen saturation in 2022-05-16 20:52:00 97 /min University of Arterial blood by [facility] Pulse oximetry Branch Body temperature 2022-05-16 19:07:00 36.39 Darcie Univ [facility] Body weight 2022-05-10 15:00:00 74.39 kg [facility] BMI 2022-05-10 15:00:00 30.00 kg/m2 [facility] Systolic blood 2022-05-16 20:52:00 129 mm[Hg] Univer [facility]ity of pressure [facility] Diastolic blood 2022-05-16 20:52:00 72 mm[Hg] Unive rsity of pressure [facility] Heart rate 2022-05-16 20:52:00 87 /min [facility] Respiratory rate 2022-05-16 20:52:00 29 /min [facility] Oxygen saturation in 2022-05-16 20:52:00 97 /min University of Arterial blood by [facility] Pulse oximetry Branch Body temperature 2022-05-16 19:07:00 36.39 Darcie Univ [facility] of [facility] Body weight 2022-05-10 15:00:00 74.39 kg [facility] BMI 2022-05-10 15:00:00 30.00 kg/m2 [facility] Systolic blood 2021-09-11 16:22:00 105 mm[Hg] Univer [facility]ity of [facility] Diastolic blood 2021-09-11 16:22:00 72 mm[Hg] Unive rsity of [facility] Heart rate 2021-09-11 16:22:00 103 /min [facility] Body temperature 2021-09-11 16:22:00 35.94 Darcie [facility] Respiratory rate 2021-09-11 16:22:00 16 /min [facility] Oxygen saturation in 2021-09-11 16:22:00 96 /min University of Arterial blood by [facility] Pulse oximetry Branch Body weight 2021-09-11 09:10:00 74.481 kg [facility] BMI 2021-09-11 09:10:00 30.03 kg/m2 [facility] [place] Body height 2021-09-10 15:10:00 157.5 cm [facility] Systolic blood 2020-02-29 18:22:00 104 mm[Hg] Univer sity of pressure [facility] Diastolic blood 2020-02-29 18:22:00 61 mm[Hg] Unive rsity of pressure [facility] Heart rate 2020-02-29 18:22:00 93 /min [facility] [place] Body height 2020-02-29 18:22:00 160 cm [facility] [place] Body weight 2020-02-29 18:22:00 68.04 kg [facility] BMI 2020-02-29 18:22:00 26.57 kg/m2 [facility] Oxygen saturation in 2020-02-29 18:22:00 97 /min University of Arterial blood by [facility] Pulse oximetry Branch Systolic blood 2020-01-06 15:56:00 [...] Diastolic (mm Hg) 2017-03-21 13:00:00 [facility] [place] Respitory Rate 2017-03-21 13:00:00 Farzana Gilliam Temperature Oral (F) 2017-03-21 12:44:00 97.8 F [facility] Respitory Rate 2017-03-21 12:06:00 [facility] Respitory Rate 2017-03-21 11:00:00 [facility] Systolic (mm Hg) 2017-03-21 11:00:00 Rodri [facility] [place] Diastolic (mm Hg) 2017-03-21 11:00:00 [facility] Systolic (mm Hg) 2017-03-21 09:09:00 Rodri [facility] [place] Diastolic (mm Hg) 2017-03-21 09:09:00 [facility] [place] Temperature Oral (F) 2017-03-21 09:00:00 98 F [facility] Weight 2017-03-21 05:57:00 [facility] Height 2017-03-21 05:57:00 91.44 cm [facility] BMI Calculated 2017-03-21 05:57:00 [facility] Temperature Oral (F) 2017-03-21 05:52:00 98.3 F [facility] BMI Calculated 2015-09-07 20:06:00 [facility] [place] Height 2015-09-07 20:06:00 160.02 cm [facility] Weight 2015-09-07 20:06:00 [facility] [place] Procedures Procedure Date / Time Performing Source Performed Clinician ESOPHAGOGASTRODUODENOSCOPY [facility] 19:56:00 Khushboo Perera [facility] EGD (ENDO) 2022-05-16 Carlos Alberto Cancino [facility] 19:55:43 [facility] EGD (ENDO) 2022-05-16 Carlos Alberto Cancino [facility] 19:55:43 [facility] PATIENT QUESTIONNAIRE 2022-05-16 [facility] 06:01:00 Unassigned, No [facility] EXTERNAL PROVIDER RECORDS 2022-04-05 Doctor [facility] of 06:01:00 Unassigned, No [facility] EXTERNAL PROVIDER RECORDS 2022-04-05 Doctor [facility] of 06:01:00 Unassigned, No [facility] BASIC METABOLIC PANEL (NA, K, CL, 2021-09-11 [place] [id number], GLUCOSE, BUN, CREATININE, CA) 09:18:00 [facility] CBC WITH DIFF 2021-09-11 [place] [facility] 09:18:00 [facility] BASIC METABOLIC PANEL (NA, K, CL, 2021-09-10 Italia lopez [facility] of CO2, GLUCOSE, BUN, CREATININE, CA) 09:26:00 [facility] CBC WITH DIFF [facility]09[facility]10 [facility] 09:26[facility]00 [facility] MAGNESIUM 2021-09-09 [facility] of 10:12:00 [facility] TROPONIN I 2021-09-09 [facility] of 10:12:00 [facility] BASIC METABOLIC PANEL (NA, K, CL, 2021-09-09 [facility] of CO2, GLUCOSE, BUN, CREATININE, CA) 10:12:00 [facility] LIPID PANEL ([id number])(TOTAL 2021-09-09 [facility] of CHOLESTEROL, TRIGLYCERIDES, HDL) 10:12:00 [facility] CBC WITH DIFF 2021-09-09 [facility] of 10:12:00 [facility] FREE T[facility] 10:12[facility]00 [facility] TROPONIN I 2021-09-09 [facility] of 00:55:00 [facility] CT HEAD WO CONTRAST 2021-09-08 Nicole Sesay [facility] o f 21:06:54 [facility] RAPID INFLUENZA A/B 2021-09-08 LázaroNicole [facility] o f 21:05:00 [facility] COVID-19 (ID NOW RAPID TESTING) 2021-09-08 Nicole Sesay Nico[place] of 21:05:00 [facility] LAB ONLY COVID INTERPRETATION 2021-09-08 Nicole Sesay iversity of 21:05:00 [facility] XR ABDOMEN ACUTE SERIES 2021-09-08 Nicole Sesay [facility] ty of 19:17:01 [facility] LACTIC ACID WHOLE BLOOD 2021-09-08 Nicole Sesay [facility] ty of 18:48:00 [facility] URINALYSIS 2021-09-08 Nicole Sesay [place] of 18:46:00 [facility] URINE CULTURE 2021-09-08 Nicole Sesay [place] of 18:46:00 [facility] LIPASE 2021-09-08 Nicole Sesay [place] of 18:26:00 [facility] MAGNESIUM 2021-09-08 Nicole Sesay [place] of 18:26:00 [facility] TROPONIN I 2021-09-08 Nicole Sesay [place] of 18:26:00 [facility] FREE T4 2021-09-08 Jese Begum [place] of 18:26:00 [facility] THYROID STIMULATING HORMONE 2021-09-08 Dixie Cox [facility] ersity of 18:26:00 [facility] COMP. METABOLIC PANEL ([id number]) 2021-09-08 Nicole Sesay Un iversity of 18:26:00 [facility] CBC WITH DIFF 2021-09-08 Nicole Sesay [place] of 18:26:00 [facility] GLYCOSYLATED HEMOGLOBIN (A1C) 2021-09-08 Dixie Cox Un iversity of 18:26:00 [facility] POCT GLUCOSE (AUTOMATED) 2021-09-08 Nicole Sesay [facility] ity of 18:20:00 [facility] HB ECG ROUTINE & RHYTHM STRIP 2021-09-08 Nicole Sesay iversity of 18:12:54 [facility] NOTICE OF PRIVACY PRACTICES 2021-09-08 Doctor Samm ersity of 17:47:56 Unassigned, No [facility] CONSENT/REFUSAL FOR DIAGNOSIS AND 2021-09-08 [place] of TREATMENT 17:47:42 Unassigned, No [facility] US ABDOMEN COMPLETE 2021-07-24 [facility] o f 23:20:00 Khushboo Perera [facility] ASSIGNMENT OF BENEFITS 2021-07-24 Doctor Shruthiit y of 21:54:48 Unassigned, No [facility] OP CLINIC NOTES/CONSULTS 2020-06-17 Doctor Shruthi ity of 06:01:00 Unassigned, No [facility] [facility] REFERRAL- REQUEST/RESPONSE 2020-04-18 Doctor Samme rsity of 06:01:00 Unassigned, No [facility] Abdominal hysterectomy [facility] Bilateral tubal ligation Brianna Recinos Cholecystectomy [facility] Mastectomy, RT. [facility] Encounters Start End Encounter Admission Attending Care Care Encounter Source Date/Time Date/Time Type Type Clinicians Facility Department ID 2022-05-16 2022-05-16 Surgery [facility] 1.2.840.114 [id number] Univers 14:35:00 15:08:00 urbano Khushboo HALL 350.1.13.10 ity [facility] [place] [phone] [facility] 0[address] 2022-05-16 2022-05-16 Outpatient R [facility] [id number] Univers 12:46:00 15:01:00 KHUSHBOO Clement o f [facility] 2022-05-16 2022-05-16 [facility] 1.2.840.114 [id number] Univers 12:46:00 15:01:00 Encounter e Khushboo HALL 350.1.13.10 ity of [facility] [place] [phone] [facility] 071 Branch 2022-05-16 2022-05-16 Orders Doctor RIMMA 1.2.840.114 [id number] Univers 00:00:00 00:00:00 Only Unassigned, NICK 350.1.13.10 ity of [place] [facility] 4.2.7.2.686 Shawn as [phone] [facility] 009 Branch 2021-12-26 2021-12-26 Outpatient Ferhodanon_Sherin DANG [facility] 846 [place] 00:00:00 00:00:00 bin 0802 da [facility] Health Outre h Program 2021-09-13 2021-09-13 Transition LEISA Levi 1.2.840.114 [id number] Univers 00:00:00 00:00:00 of Care Lola LOMELI 350.1.13.10 i ty of [place] [phone] [facility] 403 Branch 2021-09-08 2021-09-11 Outpatient X CHRISTIAN [facility] [id number] Univers 12:52:00 14:23:00 DIXIE call [facility] 2021-09-08 2021-09-11 Emergency Nicole Sesay [facility] 1.2.840. 114 [id number] Univers 12:52:00 14:23:00 Dixie Cox 350.1.13.10 it[place] [phone] [facility] 081 Branch 2021-07-24 2021-07-24 Outpatient R [facility] 813 [id number] Univers 15:55:51 23:59:00 EKHUSHBOO o f [facility] 2021-07-24 2021-07-24 [facility] 1.2.840.114 [id number] Univers 15:55:51 23:59:00 Encounter Khushboo clement 350.1.13.10 it[place] of [place] [phone] [facility] 806 Branch 2021-07-24 2021-07-24 Orders Doctor RIMMA 1.2.840.114 [id number] Univers 00:00:00 00:00:00 Only Unassigned, NICK 350.1.13.10 ity of [place] [facility] 4.2.7.2.686 Shawn [phone] [facility] 009 Branch 2021-03-29 2021-03-29 Outpatient Ferguson_Ro LAURENCE [facility] 84 [place] 04:33:00 04:33:00 bin 1103 da [facility] 2020-08-30 2020-08-30 Ancillary Bonita Rubalcava [facility] 1.2.840 .114 [id number] Univers 10:09:10 10:36:48 Visit Sully Hogue 350.1.13.10 ity of [place] [facility] [phone] [facility] 179 [facility] 2020-08-30 2020-08-30 Outpatient R MYKEL [facility] [id number] Univers 10:00:00 10:36:48 SULLY call of [facility] 2020-08-23 2020-08-24 Outpatient R MYKEL [facility] [id number] Univers 14:00:00 08:19:37 SULLY ity [facility] 2020-08-23 2020-08-23 Ancillary Bonita Rubalcava [facility] 1.2.840 .114 [id number] Univers 13:50:06 14:30:06 Visit HogueSully Gigi Hall 350.1.13.10 ity of [place] Profess[place] [phone] Sc dical nal 179 [facility] 2020-08-22 2020-08-22 Outpatient R THALIA, [facility] [id number] Univers 09:30:00 10:31:25 JIN ity [facility] 2020-08-16 2020-08-16 Ancillary Jese Gamble [facility] 1.2.840. 114 [id number] Univers 13:04:45 13:44:45 Visit Sully Hogue 350.1.13.10 ity of [place] [phone] Sc dical nal 179 [facility] 2020-08-09 2020-08-09 Ancillary Ebenezer Rubalcava [facility] 1.2.840. 114 [id number] Univers 14:57:06 15:50:55 Visit Sully Hogue 350.1.13.10 ity of [place] [phone] Sc dical nal 179 [facility] 2020-08-01 2020-08-01 Josh Rubalcava [facility] 1.2.840.114 [id number] Univers 00:00:00 00:00:00 Management Ebenezer Hall 350.1.13.10 ity of [place] [phone] Sc dical nal 179 [facility] 2020-07-25 2020-07-25 Outpatient R THALIA, [facility] [id number] Univers 12:10:00 12:12:55 JIN ity [facility] 2020-07-25 2020-07-25 Ancillary Alma Reddy [facility] 1 .2.840.114 [id number] [facility] 10:10:13 10:55:03 Visit Sully Hogue 350.1.13.10 ity of [place] [phone] Sc dical nal 179 [address] Building 2020-07-18 2020-07-18 Ancillary Jese Gamble [facility] 1.2.840. 114 [id number] [facility] 13:50:35 14:30:35 Visit Sully Hogue 350.1.13.10 ity of [place] [phone] Sc dical nal 179 [address] Building 2020-07-06 2020-07-06 Ancillary Bonita Rubalcava [facility] 1.2.840 .114 [id number] Univers 09:49:24 10:29:24 Visit Sully Hogue 350.1.13.10 ity of [place] [phone] Sc dical nal 179 [address] Building 2020-06-29 2020-06-29 Ancillary Bonita Rubalcava [facility] 1.2.840 .114 [id number] [facility] 10:45:52 11:25:52 Visit Sully Hogue 350.1.13.10 ity of [place] [phone] Sc dical nal 179 [address] Building 2020-06-29 2020-06-29 Outpatient R MYKEL [facility] [id number] Univers 10:00:00 10:00:00 SULLY itfloresita of [facility] 2020-06-27 2020-06-27 Ancillary Jese Gamble [facility] 1.2.840. 114 [id number] Univers 08:29:52 09:14:24 Visit Sully Hogue 350.1.13.10 ity of [place] [phone] Sc dical nal 179 [address] 2020-06-22 2020-06-22 Ancillary Bonita Rubalcava [facility] 1.2.840 .114 [id number] Univers 13:01:12 13:51:45 Visit Sully Hogue 350.1.13.10 ity of [place] [phone] Sc dical nal 179 [facility] 2020-06-17 2020-06-17 Ancillary Henry Alma Hernandez [facility] 1 .2.840.114 [id number] Univers 13:01:32 13:46:48 Visit Sully Hogue 350.1.13.10 ity of [place] [phone] Sc dical nal 179 [facility] 2020-06-17 2020-06-17 Outpatient Imani HOGUE [facility] [id number] Univers 13:00:00 13:00:00 SULLY call [facility] 2020-06-17 2020-06-17 Orders Doctor SHANKS 1.2.840.114 [id number] Univers 00:00:00 00:00:00 Only Unassigned, NICK 350.1.13.10 [facility] 4.2.7.2.686 Shawn as [phone] [address] 2020-04-18 2020-04-18 Ancillary Khadar [facility] 1.2.037.761 [id number] 14:34:43 15:14:43 Visit Ebenezer Hall 350.1.13.10 [place] 4.2.7.2.686 Professio [phone] [facility] 179 [facility] 2020-04-18 2020-04-18 Ancillary Ebenezer Rubalcava [facility] 1.2.840. 114 [id number] Univers 14:34:43 15:14:43 Visit Cinthia Horan 350.1.13 .10 ity of [place] [phone] Sc dical [facility] 179 [facility] 2020-04-18 2020-04-18 Orders Doctor SHANKS 1.2.840.114 [id number] Univers 00:00:00 00:00:00 Only Unassigned, NICK 350.1.13.10 ity of [place] [facility] 4.2.7.2.686 Shawn as [phone] [address] 2020-04-12 2020-04-12 Outpatient R RIVERA [facility] [id number] Univers 13:00:00 13:00:00 CINTHIA ity of [facility] 2020-04-11 2020-04-11 Ancillary Ebenezer Rubalcava [facility] 1.2.840. 114 [id number] Univers 14:30:52 15:10:52 Visit Sully Hogue 350.1.13.10 ity of [place] [phone] Sc dical nal 179 [facility] 2020-04-08 2020-04-08 Case Khadar [facility] 1.2.840.[id number] [place] [address] 00:00:00 00:00:00 Management Bonita Hall 350.1.13.10 ity of [place] [phone] Sc dical nal 179 [facility] 2020-04-04 2020-04-04 Ancillary Ebenezer Rubalcava [facility] 1.2.840. 114 [id number] Univers 14:56:35 15:36:35 Visit Sully Hogue 350.1.13.10 ity of [place] [phone] Sc dical nal 179 [facility] 2020-03-31 2020-03-31 Ancillary Jese Gamble [facility] 1.2.840. 114 [id number] Univers 13:04:28 13:44:28 Visit Cinthia Horannargiseboni Luis Miguel 350.1.13 .10 ity of [place] [phone] Sc dical nal 179 [facility] 2020-03-31 2020-03-31 Outpatient R RIVERA [facility] [id number] Univers 13:00:00 13:00:00 CINTHIA ity of [facility] 2020-03-29 2020-03-29 Ancillary Jese Gamble [facility] 1.2.840. 114 [id number] Univers 13:01:03 13:41:03 Visit Cinthia Horan Aurelio Hall 350.1.13 .10 ity of [place] [phone] Sc dical nal [address] 2020-03-24 2020-03-24 Ancillary Bonita Rubalcava [facility] 1.2.840 .114 [id number] Univers 14:18:57 14:58:57 Visit Cinthia Horan Luis Miguel 350.1.13 .10 ity of [place] [phone] Sc dical nal 179 [facility] 2020-03-21 2020-03-21 Outpatient R [facility] [id number] Univers 15:20:00 15:20:00 ity of [facility] 2020-03-16 2020-03-16 Ancillary Alma Reddy [facility] 1 .2.840.114 [id number] Univers 13:55:30 14:35:30 Visit Izabel Subramanian 350.1. 13.10 ity of [place] [phone] Sc dical nal 179 [facility] 2020-03-14 2020-03-14 Ancillary Ebenezer Rubalcava [facility] 1.2.840. 114 [id number] Univers 13:46:44 14:26:44 Visit Izabel Subramanian 350.1. 13.10 ity of [place] [phone] Sc dical nal 179 [address] [facility] 2020-03-14 2020-03-14 Case Henry [facility] 1.2.840.114 [id number] 00:00:00 00:00:00 Management Luis Miguel Hernandez 350.1.13.10 [place] 4.2.7.2.686 Professio [phone] nal 179 Building 2020-03-14 2020-03-14 Case Henry [facility] 1.2.840.114 [id number] Univers 00:00:00 00:00:00 Management Luis Miguel Hernandez 350.1.13.10 ity of [place] [phone] Sc dical nal 179 [address] [facility] 2020-03-10 2020-03-10 Ancillary Jese Gamble [facility] 1.2.840. 114 [id number] Univers 13:55:34 14:55:06 Visit Sully Hogue 350.1.13.10 ity of [place] [phone] Sc dical nal 179 [facility] 2020-03-08 2020-03-08 Ancillary Bonita Rubalcava [facility] 1.2.840 .114 [id number] Univers 13:03:33 13:43:33 Visit JoseCinthia russell Aurelio Hall 350.1.13 .10 ity of [place] [phone] Sc dical nal 179 [facility] 2020-03-03 2020-03-03 Ancillary Bonita Rubalcava [facility] 1.2.840 .114 [id number] Univers 13:03:18 13:43:18 Visit JoseCinthia russell J Luiseboni Luis Miguel 350.1.13 .10 ity of [place] [phone] Sc dical nal 179 [facility] 2020-03-03 2020-03-03 Outpatient R [facility] [id number] Univers 13:00:00 13:00:00 ity of [facility] 2020-03-01 2020-03-01 Josh Rubalcava [facility] 1.2.840.114 [id number] Univers 00:00:00 00:00:00 Management Ebenezer Hall 350.1.13.10 ity of [place] [phone] Sc dical nal 179 [facility] 2020-02-29 2020-02-29 Office Percy [facility] 1.2.840.114 [id number] Univers 13:05:12 15:07:38 Visit Raul Hall 350.1.13.10 ity of [place] [phone] Me dical nal 092 [facility] 2020-02-29 2020-02-29 Outpatient Imani JAIMESPERCY, RAUL [facility] [id number] Univers 13:40:00 13:40:00 RAUL ANDINO [facility] 2020-02-24 2020-02-24 Ancillary Bonita Rubalcava [facility] 1.2.840 .114 [id number] Univers 14:38:23 15:18:23 Visit Cinthia Horan 350.1.13 .10 ity of [place] [phone] Sc dical nal 179 [facility] 2020-02-22 2020-02-22 Ancillary Khadar Ebenezer Hairston [facility] 1.2.840. 114 [id number] Univers 14:53:03 15:33:03 Visit Cinthia Horan 350.1.13 .10 ity of [place] [phone] Sc dical nal 179 [facility] 2020-02-17 2020-02-17 Ancillary Bonita Rubalcava [facility] 1.2.840 .114 [id number] Univers 10:56:05 11:36:05 Visit Cinthia Horan 350.1.13 .10 ity of [place] [phone] Sc dical nal 179 [facility] 2020-02-10 2020-02-10 Ancillary Alma Reddy [facility] 1 .2.840.114 [id number] Univers 13:21:41 14:21:41 Visit Sully Hogue 350.1.13.10 ity of [place] [phone] Sc dical nal 179 [facility] 2020-02-10 2020-02-10 Outpatient Imani HOGUE [facility] [id number] Univers 14:00:00 14:00:00 SULLY call [facility] 2020-01-06 2020-01-06 Office Rivera [facility] 1.2.840.114 [id number] Univers 10:40:34 11:25:11 Visit Cinthia Jaeeboni [facility] 350.1.13.10 ity of [place] 4.2.7.2.686 Jennifer Dumont [phone] [address] Office Building 2020-01-06 2020-01-06 Outpatient Imani HORAN [facility] [id number] Univers 11:00:00 11:00:00 CINTHIA ity [facility] 2017-03-21 2017-03-21 Observatio nullFlavo [facility] 5504 [id number] Memoria 05:45:00 15:40:00 n r [place] 98 l [facility] 2017-03-21 2017-03-21 Observatio nullFlavo [facility] 5504 [id number] Memoria 05:45:00 15:40:00 n r Jorje 98 l [facility] 2017-03-21 2017-03-21 Outpatient Lawrence, BETHANY MHSE [id number] 00:45:00 10:40:00 Ubaldo Mo Yin 2015-09-09 2015-09-09 Bedded nullFlavo [facility] [id number] Memoria 11:29:00 14:50:00 Outpatient r Jorje 00 l [place] 2015-09-09 2015-09-09 Bedded nullFlavo [facility] [id number] Memoria 11:29:00 14:50:00 Outpatient r Jorje 00 l [place] nn 2015-09-09 2015-09-09 Outpatient WILNER BallesterosSL MHSL 00477 [id number] 06:29:00 09:50:00 Yunior Wong 2015-08-16 2015-08-16 Outpatient MHIE MHIE [id number] Memoria 15:40:00 15:40:00 02 l Jorje 2015-08-16 2015-08-16 Outpatient MHIE MHIE [id number] Memoria 15:40:00 15:40:00 02 gigi Recinos [...] See_Comment [Au tomated message] The system which Answer[employer] nerated this result transmit piyush reference range: [...] g/dL 31.6-35.1 L RDW-SD (test code = 86270-9) 43.3 fL 39.0-49.9 RDW-CV (test code = 788-0) 13.9 % 12.0-15.5 PLT (test code = 777-3) See_Comment H [Au tomated message] The system which Answer[employer] nerated this result transmit piyush reference range: 166 - 35 8 10*3/?L. The reference range was not used to interpret th is result as normal/abnormal . MPV (test code = 63517-1) 9.3 fL 9.5-12.9 L NRBC/100 WBC (test code = See_Comment [ Automated message] The 0905687938) system which [employer] nerated this result transmit piyush reference range: 0.0 - 10 .0 /100 WBCs. The reference r mello was not used to interpr et this result as normal/abnor mal. NRBC x10^3 (test code = <0.01 See_Comment [Au tomated message] The 7042002584) system which Answer[employer] nerated this result transmit piyush reference range: 10*3/?L. The reference range was not u sed to interpret this result as normal/abnormal . GRAN MAT (NEUT) % (test code 59.3 % = 770-8) IMM GRAN % (test code = 0.70 % 7225590061) LYMPH % (test code = 736-9) 29.1 % MONO % (test code = 5905-5) 9.8 % EOS % (test code = 713-8) 0.7 % BASO % (test code = 706-2) 0.4 % GRAN MAT x10^3(ANC) (test 5.05 10*3/uL 1.88-7.09 code = 6433763823) IMM GRAN x10^3 (test code = 0.06 10*3/uL 0.00-0.06 8845468899) LYMPH x10^3 (test code = 2.48 10*3/uL 1.32-3.29 731-0) MONO x10^3 (test code = 0.83 10*3/uL 0.33-0.92 742-7) EOS x10^3 (test code = 0.06 10*3/uL 0.03-0.39 711-2) BASO x10^3 (test code = 0.03 10*3/uL 0.01-0.07 704-7) Lab Interpretation (test Abnormal code = 73890-0) [facility] METABOLIC PANEL (NA, K, CL, CO2, GLUCOSE, BUN, CREATININE, CA)2021-09-11 09:38:12 Test Item Value Reference Range Interpretation Comments NA (test code = 138 mmol/L 135-145 0031382579) K (test code = 3.8 mmol/L 3.5-5.0 2000896028) CL (test code = 104 mmol/L 98-108 7425971757) CO2 TOTAL (test code = 26 mmol/L 23-31 5204782404) AGAP (test code = 2-16 4386908402) BUN (test code = 23 mg/dL 7-23 0267383548) GLUCOSE (test code = 122 mg/dL 70-110 H 2613295780) CREATININE (test code = 0.54 mg/dL 0.50-1.04 1413940923) CALCIUM (test code = 9.1 mg/dL 8.6-10.6 4278136220) eGFR (test code = mL/min/1.73m2 4461480933) RUTH ANN (test code = RUTH ANN) [...] tests). Lab Interpretation Abnormal (test code = 45657-6) [facility] WITH [id number] 10:21:58 Test Item Value Reference Range Interpretation Comments WBC (test code = See_Comment [Automated 6455-2) message] The sy stem which generated this result transmitted reference range : 4.30 - 11.10 10*3/?L. The reference range was not used to interpret this result as normal/abnormal . RBC (test code = See_Comment [Automated 196-8) message] The sy stem which generated this [...] RDW-SD (test code = 43.3 fL 39.0-49.9 60344-4) RDW-CV (test code = 13.7 % 12.0-15.5 788-0) PLT (test code = See_Comment [Automated 777-3) message] The sy stem which generated this result transmitted reference range : 166 - 358 10*3/ ?L. The reference r mello was not used to interpret this result as normal/abnormal . MPV (test code = 9.3 fL 9.5-12.9 L 64499-0) NRBC/100 WBC (test See_Comment [Automat ed code = 4419444983) message] The system which generated this result transmitted reference range : 0.0 - 10.0 /100 WBCs. The refer ence range was not u sed to interpret th is result as normal/abnormal . NRBC x10^3 (test code <0.01 See_Comment [Auto mated = 0592572947) message] The s ystem which generated this result transmitted reference range : 10*3/?L. The reference range was not used to interpret this result as normal/abnormal . GRAN MAT (NEUT) % 52.5 % (test code = 770-8) IMM GRAN % (test code 0.60 % = 9072523314) LYMPH % (test code = 35.5 % 736-9) MONO % (test code = 10.7 % 5905-5) EOS % (test code = 0.5 % 713-8) BASO % (test code = 0.2 % 706-2) GRAN MAT x10^3(ANC) 3.35 10*3/uL 1.88-7.09 (test code = 4064654218) IMM GRAN x10^3 (test 0.04 10*3/uL 0.00-0.06 code = 0738828951) LYMPH x10^3 (test code 2.26 10*3/uL 1.32-3.29 = 731-0) MONO x10^3 (test code 0.68 10*3/uL 0.33-0.92 = 742-7) EOS x10^3 (test code = 0.03 10*3/uL 0.03-0.39 711-2) BASO x10^3 (test code <0.03 0.01-0.07 = 704-7) Lab Interpretation Abnormal (test code = 62104-5) [facility] METABOLIC PANEL (NA, K, CL, CO2, GLUCOSE, BUN, CREATININE, CA)2021-09-10 10:09:56 Test Item Value Reference Range Interpretation Comments NA (test code = 139 mmol/L 135-145 8716995351) K (test code = 3.8 mmol/L 3.5-5.0 5615198749) CL (test code = 104 mmol/L 98-108 8128096339) CO2 TOTAL (test code = 28 mmol/L 23-31 2170004103) AGAP (test code = 2-16 3393860403) BUN (test code = 20 mg/dL 7-23 5513846743) GLUCOSE (test code = 115 mg/dL 70-110 H 9898996863) CREATININE (test code = 0.60 mg/dL 0.50-1.04 8603536180) CALCIUM (test code = 8.9 mg/dL 8.6-10.6 2897933648) eGFR (test code = mL/min/1.73m2 7620993390) RUTH ANN (test code = RUTH ANN) [...] tests). Lab Interpretation Abnormal (test code = 07929-4) [facility] [id number] 17:55:04 Test Item Value Reference Range Interpretation Comments FREE T4 (test code = See_Comment H [Autom ated message] 3068507448) The system [employer] generated this result transmitted ref erence range: 0.78 - 2 .20 ng/dL:. The ref erence range was not u sed to interpret this result as normal/abnor mal. Lab Interpretation (test Abnormal code = 18468-4) [facility] [id number] 13:35:06 Test Item Value Reference Range Interpretation Comments FREE T3 (test code = 9562669292) 2.88 pg/mL 2.77-5.27 Lab Interpretation (test code = Normal 39594-3) [facility] (NA, K, CL, CO2, GLUCOSE, BUN, CREATININE, CA)2021-09-09 12:40:33 Test Item Value Reference Range Interpretation Comments NA (test code = 134 mmol/L 135-145 L 2203815670) K (test code = 3.6 mmol/L 3.5-5.0 1066316839) CL (test code = 99 mmol/L 98-108 2246708174) CO2 TOTAL (test code = 25 mmol/L 23-31 9841214316) AGAP (test code = 2-16 6738340797) BUN (test code = 14 mg/dL 7-23 8586267359) GLUCOSE (test code = 118 mg/dL 70-110 H 6217324219) CREATININE (test code = 0.47 mg/dL 0.50-1.04 L 3322674605) CALCIUM (test code = 8.1 mg/dL 8.6-10.6 L 8340587841) eGFR (test code = mL/min/1.73m2 5256859384) RUTH ANN (test code = RUTH ANN) [...] tests). Lab Interpretation Abnormal (test code = 60945-6) [facility] with [id number] 11:16:16 Test Item Value Reference Range Interpretation Comments WBC (test code = See_Comment [Automated 7300-2) message] The sy stem which generated this result transmitted reference range : 4.30 - 11.10 10*3/?L. The reference range was not used to interpret this result as normal/abnormal . RBC (test code = See_Comment [Automated 618-8) message] The sy stem which generated this [...] RDW-SD (test code = 42.7 fL 39.0-49.9 32118-1) RDW-CV (test code = 13.6 % 12.0-15.5 788-0) PLT (test code = See_Comment [Automated 777-3) message] The sy stem which generated this result transmitted reference range : 166 - 358 10*3/ ?L. The reference r mello was not used to interpret this result as normal/abnormal . MPV (test code = 9.5 fL 9.5-12.9 75854-2) NRBC/100 WBC (test See_Comment [Automat ed code = [id number]) message] The system which generated this result transmitted reference range : 0.0 - 10.0 /100 WBCs. The refer ence range was not u sed to interpret th is result as normal/abnormal . NRBC x10^3 (test code <0.01 See_Comment [Auto mated = [id number]) message] The s ystem which generated this result transmitted reference range : 10*3/?L. The reference range was not used to interpret this result as normal/abnormal . GRAN MAT (NEUT) % 65.0 % (test code = 770-8) IMM GRAN % (test code 0.50 % = [id number]) LYMPH % (test code = 23.5 % 736-9) MONO % (test code = 10.6 % 5905-5) EOS % (test code = 0.2 % 713-8) BASO % (test code = 0.2 % 706-2) GRAN MAT x10^3(ANC) 6.10 10*3/uL 1.88-7.09 (test code = [id number]) IMM GRAN x10^3 (test 0.05 10*3/uL 0.00-0.06 code = [id number]) LYMPH x10^3 (test code 2.20 10*3/uL 1.32-3.29 = 731-0) MONO x10^3 (test code 0.99 10*3/uL 0.33-0.92 H = 742-7) EOS x10^3 (test code = <0.03 0.03-0.39 L 711-2) BASO x10^3 (test code <0.03 0.01-0.07 = 704-7) Lab Interpretation Abnormal (test code = 99315-0) [facility] [id number] 11:15:16 Test Item Value Reference Interpretation Comments Range TROPONIN I (test 0.015 ng/mL See_Comment [Automated code = 4808095937) message] The system which generated this result [...] biotin. Lab Interpretation Normal (test code = 60370-3) [facility] (Total Cholesterol, Triglycerides, HDL)2021-09-09 11:04:53 Test Item Value Reference Range Interpretation Comments CHOL (test code = 170 mg/dL 120-200 0154280854) HDL (test code = 61 mg/dL >50 8247794411) HDLC RATIO (test code = See_Comment [Au tomated message] 0779493211) The system [employer] generated this result transmit piyush reference range : <=4.5. The refe rence range was not u sed to interpret th is result as normal/abnormal . TRIG (test code = 84 mg/dL 30-170 5550666279) LDL CHOL (test code = 92 mg/dL See_Comment [Auto mated message] 30888-5) The system [employer] generated this result transmit piyush reference range : <=160. The refe rence range was not u sed to interpret th is result as normal/abnormal . VLDL (test code = 17 mg/dL 5-60 4686351184) Lab Interpretation (test Normal code = 50954-9) [facility] CenterMagnesium [id number] 11:04:33 Test Item Value Reference Range Interpretation Comments MAGNESIUM (test code = 7527791357) 2.3 mg/dL 1.7-2.4 Lab Interpretation (test code = Normal 93128-0) [facility]Trop[facility] [id number] 02:09:32 Test Item Value Reference Interpretation Comments Range TROPONIN I (test 0.010 ng/mL See_Comment [Automated code = 0482680328) message] The system which generated this result [...] biotin. Lab Interpretation Normal (test code = 51882-2) [facility] CenterThyroid Stimulating Hormone (TSH)2021-09-09 00:01:14 Test Item Value Reference Range Interpretation Comments TSH (test code = <0.02 See_Comment L Biotin has been 1346972248) reported to cau se a negative bias, interpret resul ts relative to pat ient's use of biotin. [Automated mess age] The system [employer] generated this result transmitted ref erence range: 0.45 - 4 .70 mIU/L. The refe rence range was not u sed to interpret this result as normal/abnor mal. Lab Interpretation (test Abnormal code = 61713-8) [facility] CenterGlycosylated Hemoglobin (A1C)2021-09-08 23:33:57 Test Item Value Reference Range Interpretation Comments HGB A1C (test code = 5.7 % 4.0-5.7 4548-4) RUTH ANN (test code = RUTH ANN) Reference RangesNormal: <5.7%Prediabetes: 5.7 - 6.4%Diabetes: > 6.5% Lab Interpretation (test Normal code = 31629-4) [facility] CenterTROPONIN [id number] 19:00:10 Test Item Value Reference Interpretation Comments Range TROPONIN I (test 0.004 ng/mL See_Comment [Automated code = 2038458577) message] The system which generated this result [...] biotin. Lab Interpretation Normal (test code = 96743-2) [facility] CenterCOMP. METABOLIC PANEL (68389)2021-09-08 18:49:06 Test Item Value Reference Range Interpretation Comments NA (test code = 137 mmol/L 135-145 6467645406) K (test code = 4.3 mmol/L 3.5-5.0 4417784614) CL (test code = 103 mmol/L 98-108 2049662574) CO2 TOTAL (test code = 21 mmol/L 23-31 L 3151630711) AGAP (test code = 2-16 4134182836) BUN (test code = 13 mg/dL 7-23 5692553491) GLUCOSE (test code = 142 mg/dL 70-110 H 3013565510) CREATININE (test code = 0.34 mg/dL 0.50-1.04 L 8912635138) TOTAL BILI (test code = 1.2 mg/dL 0.1-1.1 H 9887399272) CALCIUM (test code = 8.5 mg/dL 8.6-10.6 L 5729037823) T PROTEIN (test code = 8.5 g/dL 6.3-8.2 H 8829348991) ALBUMIN (test code = 4.6 g/dL 3.5-5.0 0149794538) ALK PHOS (test code = 94 U/L 34-122 5995231001) ALTv (test code = 14 U/L 5-35 1742-6) AST(SGOT) (test code = 29 U/L 13-40 7256541291) eGFR (test code = mL/min/1.73m2 6027130087) RUTH ANN (test code = RUTH ANN) [...] tests). Lab Interpretation Abnormal (test code = 41255-7) [facility] CenterMAGNESIUM2022-04-15 18:49:06 Test Item Value Reference Range Interpretation Comments MAGNESIUM (test code = 2682106560) 2.2 mg/dL 1.7-2.4 Lab Interpretation (test code = Normal 13129-4) [facility] CenterLIPASE2022-04-15 18:48:46 Test Item Value Reference Range Interpretation Comments LIPASE (test code = 8789673221) 130 U/L 0-220 Lab Interpretation (test code = Normal 00972-8) [facility] CenterCB WITH [id number] 18:38:04 Test Item Value Reference Range Interpretation Comments WBC (test code = See_Comment [Automated 7346-2) message] The sy stem which generated this result transmitted reference range : 4.30 - 11.10 10*3/?L. The reference range was not used to interpret this result as normal/abnormal . RBC (test code = See_Comment [Automated 378-8) message] The sy stem which generated this [...] RDW-SD (test code = 43.9 fL 39.0-49.9 63699-6) RDW-CV (test code = 13.7 % 12.0-15.5 788-0) PLT (test code = See_Comment [Automated 777-3) message] The sy stem which generated this result transmitted reference range : 166 - 358 10*3/ ?L. The reference r mello was not used to interpret this result as normal/abnormal . MPV (test code = 9.4 fL 9.5-12.9 L 30866-6) NRBC/100 WBC (test See_Comment [Automat ed code = 4705315473) message] The system which generated this result transmitted reference range : 0.0 - 10.0 /100 WBCs. The refer ence range was not u sed to interpret th is result as normal/abnormal . NRBC x10^3 (test code <0.01 See_Comment [Auto mated = 0564306895) message] The s ystem which generated this result transmitted reference range : 10*3/?L. The reference range was not used to interpret this result as normal/abnormal . GRAN MAT (NEUT) % 71.5 % (test code = 770-8) IMM GRAN % (test code 0.60 % = 0550231574) LYMPH % (test code = 20.4 % 736-9) MONO % (test code = 6.9 % 5905-5) EOS % (test code = 0.4 % 713-8) BASO % (test code = 0.2 % 706-2) GRAN MAT x10^3(ANC) 5.92 10*3/uL 1.88-7.09 (test code = 1041306208) IMM GRAN x10^3 (test 0.05 10*3/uL 0.00-0.06 code = 9059152215) LYMPH x10^3 (test code 1.69 10*3/uL 1.32-3.29 = 731-0) MONO x10^3 (test code 0.57 10*3/uL 0.33-0.92 = 742-7) EOS x10^3 (test code = 0.03 10*3/uL 0.03-0.39 711-2) BASO x10^3 (test code <0.03 0.01-0.07 = 704-7) Lab Interpretation Abnormal (test code = 63124-5) [facility] 18:22:25 Test Item Value Reference Range Interpretation Comments POCT GLU (test code = 2798438536) 143 mg/dL 70-110 H Lab Interpretation (test code = Abnormal 94098-6) [facility] CenterCARAC [id number] 11:31:00 Test Item Value Reference Range Interpretation Comments CK MB Index (test 1.2 See_Comment [Automate d message] The code = CK MB Index) system w [employer] generated this result transmit piyush reference range : <=2.5. The reference range was not used to interpr et this result as thu l/abnormal. [facility] NEZEPJL9261-87-65 11:31:00 Test Item Value Reference Range Interpretation Comments Troponin-I (test code 0.07 See_Comment [Auto mated message] The = Troponin-I) system which g enerated this result transmit piyush reference range : <=0.40. The reference r mello was not used to interpr et this result as thu l/abnormal. [facility] CenterChamateTNQCBGM5528-40-17 11:31:00 Test Item Value Reference Range Interpretation Comments BNP (test code = BNP) 92 [facility]Downloadperu.[facility]2017-[facility]-26 11:31:00 Test Item Value Reference Range Interpretation Comments CK MB (test code = CK MB) 1.5 0.5-3.6 [facility] CenterChamateVYWGBWK2296-27-98 11:31:00 Test Item Value Reference Range Interpretation Comments Total CK (test code = Total CK) 129 12-191 [facility] [employer] [id number] 11:31:00 Test Item Value Reference Range Interpretation Comments eGFR (test code = eGFR) 94 [facility] [employer] RINYG9770-76-87 11:31:00 Test Item Value Reference Range Interpretation Comments Total Protein (test code = Total 7.3 6.4-8.4 Protein) [facility] [employer] [id number] 11:31:00 Test Item Value Reference Range Interpretation Comments Albumin Lvl (test code = Albumin Lvl) 3.3 3.5-5.0 [facility] [employer] GUIPB4310-13-91 11:31:00 Test Item Value Reference Range Interpretation Comments ALT (test code = ALT) 73 See_Comment [Auto mated message] The system which ge nerated this result transmit piyush reference range : <=65. The reference range was not used to interpr et this result as thu l/abnormal. [facility]2017-10-26 11:31:00 Test Item Value Reference Range Interpretation Comments CO2 (test code = CO2) 26 24-32 [facility]2017-10-26 11:31:00 Test Item Value Reference Range Interpretation Comments Chloride Lvl (test code = Chloride Lvl) 107 95-109 [facility]2017-10-26 11:31:00 Test Item Value Reference Range Interpretation Comments Calcium Lvl (test code = Calcium Lvl) 8.6 8.5-10.5 [facility]2017-10-26 11:31:00 Test Item Value Reference Range Interpretation Comments Globulin (test code = Globulin) 4.0 2.7-4.2 [facility]2017-10-26 11:31:00 Test Item Value Reference Range Interpretation Comments A/G Ratio (test code = A/G Ratio) 0.8 0.7-1.6 [facility]2017-10-26 11:31:00 Test Item Value Reference Range Interpretation Comments AGAP (test code = AGAP) 9.5 10.0-20.0 [facility]2017-10-26 11:31:00 Test Item Value Reference Range Interpretation Comments AST (test code = AST) 83 See_Comment [Auto mated message] The system which ge nerated this result transmit piyush reference range : <=37. The reference range was not used to interpr et this result as thu l/abnormal. [facility]2017-10-26 11:31:00 Test Item Value Reference Range Interpretation Comments Alk Phos (test code = Alk Phos) 102 39-136 [facility]2017-10-26 11:31:00 Test Item Value Reference Range Interpretation Comments Bili Total (test code = Bili Total) 1.0 0.2-1.3 [facility]2017-10-26 11:31:00 Test Item Value Reference Range Interpretation Comments B/C Ratio (test code = B/C Ratio) 32 6-25 [facility]2017-10-26 11:31:00 Test Item Value Reference Range Interpretation Comments Glucose Lvl (test code = Glucose Lvl) 100 70-99 [facility]2017-10-26 11:31:00 Test Item Value Reference Range Interpretation Comments Creatinine Lvl (test code = Creatinine 0.53 0.50-1.40 Lvl) [facility]2017-10-26 11:31:00 Test Item Value Reference Range Interpretation Comments Sodium Lvl (test code = Sodium Lvl) 139 135-145 [facility]2017-10-26 11:31:00 Test Item Value Reference Range Interpretation Comments BUN (test code = BUN) 17 7-22 [facility]2017-10-26 11:31:00 Test Item Value Reference Range Interpretation Comments Potassium Lvl (test code = Potassium 3.5 3.5-5.1 Lvl) [facility] CampusFsudrvqPRULWNSZOI1535-23-37 11:31:00 Test Item Value Reference Range Interpretation Comments Hgb (test code = Hgb) 12.1 12.0-16.0 [facility] CampusTayekefRPHOOWTACG3358-50-03 11:31:00 Test Item Value Reference Range Interpretation Comments RBC (test code = RBC) 4.44 4.20-5.40 [facility] CampusJqomuxaMEOCOXILOK9678-22-04 11:31:00 Test Item Value Reference Range Interpretation Comments WBC (test code = WBC) 6.5 3.7-10.4 [facility] CampusAujquhyNOXBAWUMTY1880-86-43 11:31:00 Test Item Value Reference Range Interpretation Comments RDW (test code = RDW) 14.2 11.5-14.5 [facility] CampusCkhjlotDLOLMTOLAV1382-44-52 11:31:00 Test Item Value Reference Range Interpretation Comments MCHC (test code = MCHC) 32.8 32.0-36.0 [facility] CampusDxwkkfrGJRTQIABLF3436-93-67 11:31:00 Test Item Value Reference Range Interpretation Comments MCH (test code = MCH) 27.3 pg 27.0-31.0 [facility] CampusSponaykEVHHRPEBLP1740-79-78 11:31:00 Test Item Value Reference Range Interpretation Comments MCV (test code = MCV) 83.3 80.0-98.0 [facility] CampusCtgghwtIEZGRTZDGP3971-95-09 11:31:00 Test Item Value Reference Range Interpretation Comments Hct (test code = Hct) 37.0 36.0-48.0 [facility] CampusQwksfzgUBSOXHOYFR8049-40-55 11:31:00 Test Item Value Reference Range Interpretation Comments MPV (test code = MPV) 7.6 7.4-10.4 [facility] CampusFmyscfwSDIEREUVHT2623-40-36 11:31:00 Test Item Value Reference Range Interpretation Comments Platelet (test code = Platelet) 265 133-450 [facility] CampusYirhwbfKTFWRFVJDI8327-94-02 11:31:00 Test Item Value Reference Range Interpretation Comments Monocytes (test code = Monocytes) 9.2 2.0-12.0 [facility] CampusFaugsmvUIYCHBDBVE5327-32-17 11:31:00 Test Item Value Reference Range Interpretation Comments Lymphocytes (test code = Lymphocytes) 31.5 20.0-40.0 [facility] CampusFdnghjdAGPCCHJYCL3807-22-55 11:31:00 Test Item Value Reference Range Interpretation Comments Segs (test code = Segs) 58.2 45.0-75.0 [facility] CampusSrtiegaMQTFRBAHIU9244-85-84 11:31:00 Test Item Value Reference Range Interpretation Comments Basophils (test code = 0.3 See_Comment [Aut omated message] The Basophils) system which ge nerated this result tra nsmitted reference range : <=1.0. The reference r mello was not used to int erpret this result as normal/abnormal . [facility] CampusSuzpenoLWYVZECXDC8429-26-50 11:31:00 Test Item Value Reference Range Interpretation Comments Eosinophils (test code = 0.8 See_Comment [A utomated message] The Eosinophils) system which ge nerated this result tra nsmitted reference range : <=4.0. The reference r mello was not used to int erpret this result as normal/abnormal . [facility] CampusIeonohqFNQWXUZQUT3216-39-48 11:31:00 Test Item Value Reference Range Interpretation Comments Monocytes # (test code 0.6 See_Comment [Aut omated message] The = Monocytes #) system which generated this result tra nsmitted reference range : <=0.8. The reference r mello was not used to int erpret this result as normal/abnormal . [facility] CampusTsexrhtPKXGORIFAN1547-67-62 11:31:00 Test Item Value Reference Range Interpretation Comments Lymphocytes # (test code = Lymphocytes 2.0 1.0-5.5 #) [facility] CampusQmhizzaFWCUHLQLFQ0722-36-69 11:31:00 Test Item Value Reference Range Interpretation Comments Segs-Bands # (test code = Segs-Bands #) 3.8 1.5-8.1 [facility]QxsqrtyBVPKAAKBSC9295-04-81 11:31:00 Test Item Value Reference Range Interpretation Comments Eosinophils # (test code 0.1 See_Comment [A utomated message] The = Eosinophils #) system whic h generated this result tra nsmitted reference range : <=0.5. The reference r mello was not used to int erpret this result as normal/abnormal . [facility] [employer] MEDCARECARSuagi[employer]comAC DRZFWYJ5750-28-39 11:31:00 Test Item Value Reference Range Interpretation Comments CK MB Index (test 1.2 See_Comment [Automate d message] The code = CK MB Index) system w hic generated this result transmit piyush reference range : <=2.5. The reference range was not used to interpr et this result as thu l/abnormal. [facility] [employer]2017-10-26 11:31:00 Test Item Value Reference Range Interpretation Comments Troponin-I (test code 0.07 See_Comment [Auto mated message] The = Troponin-I) system which g enerated this result transmit piyush reference range : <=0.40. The reference r mello was not used to interpr et this result as thu l/abnormal. [facility] [employer]2017-10-26 11:31:00 Test Item Value Reference Range Interpretation Comments BNP (test code = BNP) 92 [facility] [employer]2017-10-26 11:31:00 Test Item Value Reference Range Interpretation Comments CK MB (test code = CK MB) 1.5 0.5-3.6 [facility] [employer] FWBQDLY6595-15-48 11:31:00 Test Item Value Reference Range Interpretation Comments Total CK (test code = Total CK) 129 12-191 [facility] [employer] [id number] 11:31:00 Test Item Value Reference Range Interpretation Comments eGFR (test code = eGFR) 94 [facility] [employer] RGWAW2462-17-49 11:31:00 Test Item Value Reference Range Interpretation Comments Total Protein (test code = Total 7.3 6.4-8.4 Protein) [facility] [employer] [id number] 11:31:00 Test Item Value Reference Range Interpretation Comments Albumin Lvl (test code = Albumin Lvl) 3.3 3.5-5.0 [facility]2017-10-26 11:31:00 Test Item Value Reference Range Interpretation Comments ALT (test code = ALT) 73 See_Comment [Auto mated message] The system which ge nerated this result transmit piyush reference range : <=65. The reference range was not used to interpr et this result as thu l/abnormal. [facility]2017-10-26 11:31:00 Test Item Value Reference Range Interpretation Comments CO2 (test code = CO2) 26 24-32 [facility]2017-10-26 11:31:00 Test Item Value Reference Range Interpretation Comments Chloride Lvl (test code = Chloride Lvl) 107 95-109 [facility]2017-10-26 11:31:00 Test Item Value Reference Range Interpretation Comments Calcium Lvl (test code = Calcium Lvl) 8.6 8.5-10.5 [facility]2017-10-26 11:31:00 Test Item Value Reference Range Interpretation Comments Globulin (test code = Globulin) 4.0 2.7-4.2 [facility]2017-10-26 11:31:00 Test Item Value Reference Range Interpretation Comments A/G Ratio (test code = A/G Ratio) 0.8 0.7-1.6 [facility]2017-10-26 11:31:00 Test Item Value Reference Range Interpretation Comments AGAP (test code = AGAP) 9.5 10.0-20.0 [facility]2017-10-26 11:31:00 Test Item Value Reference Range Interpretation Comments AST (test code = AST) 83 See_Comment [Auto mated message] The system which ge nerated this result transmit piyush reference range : <=37. The reference range was not used to interpr et this result as thu l/abnormal. [facility]2017-10-26 11:31:00 Test Item Value Reference Range Interpretation Comments Alk Phos (test code = Alk Phos) 102 39-136 [facility]2017-10-26 11:31:00 Test Item Value Reference Range Interpretation Comments Bili Total (test code = Bili Total) 1.0 0.2-1.3 [facility]2017-10-26 11:31:00 Test Item Value Reference Range Interpretation Comments B/C Ratio (test code = B/C Ratio) 32 6-25 [facility]2017-10-26 11:31:00 Test Item Value Reference Range Interpretation Comments Glucose Lvl (test code = Glucose Lvl) 100 70-99 [facility]2017-10-26 11:31:00 Test Item Value Reference Range Interpretation Comments Creatinine Lvl (test code = Creatinine 0.53 0.50-1.40 Lvl) [facility]2017-10-26 11:31:00 Test Item Value Reference Range Interpretation Comments Sodium Lvl (test code = Sodium Lvl) 139 135-145 [facility]2017-10-26 11:31:00 Test Item Value Reference Range Interpretation Comments BUN (test code = BUN) 17 7-22 [facility]2017-10-26 11:31:00 Test Item Value Reference Range Interpretation Comments Potassium Lvl (test code = Potassium 3.5 3.5-5.1 Lvl) [facility] CampusPqakhhzSGNQMWPYMQ1880-26-21 11:31:00 Test Item Value Reference Range Interpretation Comments Hgb (test code = Hgb) 12.1 12.0-16.0 [facility] CampusZfufjwtWXCTYWBVGS7834-43-47 11:31:00 Test Item Value Reference Range Interpretation Comments RBC (test code = RBC) 4.44 4.20-5.40 [facility] CampusBjvuaqeCWUGTXBROY2321-72-63 11:31:00 Test Item Value Reference Range Interpretation Comments WBC (test code = WBC) 6.5 3.7-10.4 [facility] CampusHydgpuyNEIQAONUXF3448-18-48 11:31:00 Test Item Value Reference Range Interpretation Comments RDW (test code = RDW) 14.2 11.5-14.5 [facility] CampusOplfbbbQUTXDPDRRO4373-44-85 11:31:00 Test Item Value Reference Range Interpretation Comments MCHC (test code = MCHC) 32.8 32.0-36.0 [facility] CampusDumsvzoHQHORQACQT6212-56-12 11:31:00 Test Item Value Reference Range Interpretation Comments MCH (test code = MCH) 27.3 pg 27.0-31.0 [facility] CampusExakmdoUHCZAMBQSH4422-34-32 11:31:00 Test Item Value Reference Range Interpretation Comments MCV (test code = MCV) 83.3 80.0-98.0 [place] [address]-10-26 11:31:00 Test Item Value Reference Range Interpretation Comments Hct (test code = Hct) 37.0 36.0-48.0 [facility] CampusErqgdcmQQSNPYPEZV6008-87-73 11:31:00 Test Item Value Reference Range Interpretation Comments MPV (test code = MPV) 7.6 7.4-10.4 [facility] CampusIqqklhgAWWIWCFQUK1521-94-79 11:31:00 Test Item Value Reference Range Interpretation Comments Platelet (test code = Platelet) 265 133-450 [facility] CampusGpmiufjAQQMASRYCU1910-03-28 11:31:00 Test Item Value Reference Range Interpretation Comments Monocytes (test code = Monocytes) 9.2 2.0-12.0 [facility] CampusRgdofajYUHKTQTDPA0799-96-18 11:31:00 Test Item Value Reference Range Interpretation Comments Lymphocytes (test code = Lymphocytes) 31.5 20.0-40.0 [facility] CampusLdvaeenYJCNXAFWFX3926-68-37 11:31:00 Test Item Value Reference Range Interpretation Comments Segs (test code = Segs) 58.2 45.0-75.0 [facility] CampusYmitlzxBZJLIBUALM5847-72-16 11:31:00 Test Item Value Reference Range Interpretation Comments Basophils (test code = 0.3 See_Comment [Aut omated message] The Basophils) system which ge nerated this result tra nsmitted reference range : <=1.0. The reference r mello was not used to int erpret this result as normal/abnormal . [facility] CampusCntzowcJBWNJBAPGM3930-08-20 11:31:00 Test Item Value Reference Range Interpretation Comments Eosinophils (test code = 0.8 See_Comment [A utomated message] The Eosinophils) system which ge nerated this result tra nsmitted reference range : <=4.0. The reference r mello was not used to int erpret this result as normal/abnormal . [facility] CampusGwhqzfkUBIBGZPWMQ5524-49-80 11:31:00 Test Item Value Reference Range Interpretation Comments Monocytes # (test code 0.6 See_Comment [Aut omated message] The = Monocytes #) system which generated this result tra nsmitted reference range : <=0.8. The reference r mello was not used to int erpret this result as normal/abnormal . [facility] CampusUwadyjvHQVTUYBFBY0000-78-57 11:31:00 Test Item Value Reference Range Interpretation Comments Lymphocytes # (test code = Lymphocytes 2.0 1.0-5.5 #) [facility] CampusBlqdxquSEEAANXMQE1378-45-44 11:31:00 Test Item Value Reference Range Interpretation Comments Segs-Bands # (test code = Segs-Bands #) 3.8 1.5-8.1 [facility] CampusFqpqjtlMQFVLZITXG4779-61-17 11:31:00 Test Item Value Reference Range Interpretation Comments Eosinophils # (test code 0.1 See_Comment [A utomated message] The = Eosinophils #) system ic h generated this result tra nsmitted reference range : <=0.5. The reference r mello was not used to int erpret this result as normal/abnormal . [facility]"
[2022-10-04 11:37] LABS: Absolute Lymphocytes (CBC) 1.6 K/uL (0.7-4.9); Hematocrit 29.2 % (36.0-45.0); Lymphocytes % 15.5 % (15.3-44.8); MCV 82.9 fL (80-100); MPV 6.8 fL (7.6-11.3); RBC Red Blood Cell Count 3.52 M/uL (3.86-4.86)
[2022-10-04] MEDS ORDERED: ONDANSETRON 4 MG/2 ML VIAL ONE (11:40)
[2022-10-04] MEDS ORDERED: MORPHINE 4 MG/ML SYR ONE (11:40)
[2022-10-04] MEDS ORDERED: NA CHLORIDE 0.9% 1,000 ML ONE ×2 (11:40→17:12)
[2022-10-04 11:51] LABS: Albumin 2.7 g/dL (3.4-5.0); Bilirubin Total 0.4 mg/dL (0.2-1.0); Protein, Total 7.1 g/dL (6.4-8.2)
--- NOTE | 2022-10-04 12:11 | RAD REPORT ---
EXAM DESCRIPTION: CT - Abdomen Pelvis W Contrast - 10/04/2022 11:30 am CLINICAL HISTORY: abdominal pain COMPARISON: Abdomen Pelvis W Contrast dated 10/01/2022; Abdomen Pelvis W Contrast dated 11/01/2018; Abdomen Pelvis W Contrast dated 09/19/2018 TECHNIQUE: Thin cut axial CT imaging of the abdomen and pelvis was performed following intravenous a dministration of 100 mL Isovue 300. Multiplanar reformats were generated and reviewed. All CT scans are performed using dose optimization technique as appropriate and may include automated exposure control or mA/KV adjustment according to patient size. FINDINGS: Stable right middle lobe atelectasis with mild bronchiectasis. Elevation of the right bravo diaphragm. The liver, spleen, and pancreas show no suspicious findings. Status post cholecystectomy. No intra or extrahepatic biliary ductal dilation Symmetric renal function is seen with no hydronephrosis or suspicious renal mass. Stable exophytic co rtical fluid density cysts. No dilated bowel loops. Colonic diverticulosis. Apparent Long segment wall thickening along the ascen ding and transverse colon, may be related to nondistention, versus mild infectious colitis. No focal inflammatory changes to suggest acute diverticulitis. No free air, free fluid or inflammatory strandi ng. No hernia, mass or bulky lymphadenopathy. The urinary bladder is without significant finding. No suspicious bony findings. Stable superior endplate compression deformity at L2. IMPRESSION: Apparent Long segment wall thickening along the ascending and transverse colon, may be r elated to nondistention, versus mild infectious colitis. No other acute findings.
[2022-10-04 13:02] LABS: Blood Morphology Comment NOT SEEN (NOT SEEN); Platelet Estimate INCR
[2022-10-04] MEDS ORDERED: POTASSIUM 25 MEQ EFFERV TAB ONE (13:31)
--- NOTE | 2022-10-04 13:44 | ER ---
Nurse's Notes [facility] Name: Bertha Sherwood Age: 77 yrs Sex: Female : 1945 Arrival Date: 10/04/2022 Time: 10:54 Bed 7 Private MD: Diagnosis: Colitis;Failed Outpatient Therapy Presentation: 10/04 11:07 Chief complaint: Patient states: was seen here Saturday , dx with colitis, pyelonephritis iw , sent home with antibiotics , still having abd pain and nausea. Coronavirus screen: At this time, the client does not indicate any symptoms associated with coronavirus-19. Ebola Screen: Patient negative for fever greater than or equal to 101.5 degrees Fahrenheit, and additional compatible Ebola Virus Disease symptoms Patient denies exposure to infectious person. Patient denies travel to an Ebola-affected area in the 21 days before illness onset. No symptoms or risks identified at this time. Initial Sepsis Screen: Does the patient meet any 2 criteria? No. Patient's initial sepsis screen is negative. Does the patient have a suspected source of infection? No. Patient's initial sepsis screen is negative. Risk Assessment: Do you want to hurt yourself or someone else? Patient reports no desire to harm self or others. Onset of symptoms was October 01, 2022. 11:07 Method Of Arrival: Ambulatory iw 11:07 Acuity: ANIKET 3 iw Historical: - Allergies: 11:09 Codeine; iw - PMHx: 11:09 Cancer, Breast; GERD; Hernia; Hyperlipidemia; Hypertension; Hypothyroidism; iw - PSHx: 11:09 hernia; hernia mesh; possibly had an appendectomy; iw - Immunization history:: Client reports receiving the 2nd dose of the Covid vaccine. - Social history:: Smoking status: Patient denies any tobacco usage or history of. Screenin:33 [facility] ED Fall Risk Assessment (Adult) History of falling in the last 3 months, bp including since admission No falls in past 3 months (0 pts). Abuse screen: Denies threats or abuse. Denies injuries from another. Nutritional screening: No deficits noted. Tuberculosis screening: No symptoms or risk factors identified. Assessment: 11:41 Reassessment: Patient appears in no apparent distress at this time. Patient and/or db family updated on plan of care and expected duration. Pain level reassessed. Patient is alert, oriented x 3, equal unlabored respirations, skin warm/dry/pink. General: Appears in no apparent distress. comfortable, Behavior is calm, cooperative. Pain: Complains of pain in abdomen. GI: Bowel sounds present X 4 quads. Abd is soft. 12:33 Reassessment: Patient appears in no apparent distress at this time. Patient and/or bp family updated on plan of care and expected duration. Pain level reassessed. 13:00 Reassessment: Patient appears in no apparent distress at this time. Patient and/or db family updated on plan of care and expected duration. Pain level reassessed. Patient is alert, oriented x 3, equal unlabored respirations, skin warm/dry/pink. family is at bedside. 14:00 Reassessment: Patient appears in no apparent distress at this time. Patient and/or db family updated on plan of care and expected duration. Pain level reassessed. Patient is alert, oriented x 3, equal unlabored respirations, skin warm/dry/pink. Patient states feeling better. General: Appears in no apparent distress. comfortable, Behavior is calm, cooperative. Neuro: Level of Consciousness is awake, alert, obeys commands, Oriented to person, place, time, situation. Vital Signs: 11:07 BP 129 / 83; Pulse 82; Resp 16; Temp 97.2; Pulse Ox 100% on R/A; Weight 72.57 kg; iw Height 5 ft. 3 in. ; Pain 6/10; 12:32 BP 131 / 73; Pulse 80; Resp 16; Pulse Ox 99% ; bp 14:00 BP 125 / 76; Pulse 81; Resp 16; Pulse Ox 99% on R/A; db 15:00 BP 145 / 85; Pulse 83; Resp 18; Pulse Ox 99% on R/A; db 11:07 Body Mass Index 28.34 (72.57 kg, 160.02 cm) iw 11:07 Pain Scale: Adult iw ED Course: 10:56 Patient arrived in ED. rg4 10:57 Kinsey Griffiths MD is Attending Physician. sd2 11:00 Sigifredo Lerma, LULÚ is Primary Nurse. bp 11:03 Derrick Franklin PA is PHCP. jmm 11:09 Triage completed. iw 11:09 Arm band placed on. iw 11:24 Inserted saline lock: 22 gauge in left forearm, using aseptic technique. Blood bp collected. 11:32 CT Abd/Pelvis - IV Contrast Only In Process Unspecified. EDMS 11:42 Patient has correct armband on for positive identification. Bed in low position. Call db light in reach. Side rails up X 1. 13:43 Silvestre Pereira MD is Hospitalizing Provider. m 18:26 No provider procedures requiring assistance completed. Patient admitted, IV remains in db place. Administered Medications: 11:41 Drug: NS 0.9% IV 1000 ml Route: IV; Rate: 1 bolus; Site: left antecubital; db 11:41 Drug: Ondansetron IVP 4 mg Route: IVP; Site: left antecubital; db 12:46 Follow up: Response: No adverse reaction bp 11:41 Drug: morphine IVP or IV 4 mg Route: IVP; Infused Over: 4 mins; Site: left antecubital; db 12:46 Follow up: Response: No adverse reaction bp 13:31 Drug: Potassium PO Effervescent Tablet 50 mEq Route: PO; ph 13:31 Follow up: Response: No adverse reaction ph 14:00 Drug: metroNIDAZOLE IVPB 500 mg Volume: 100 ml; Route: IVPB; Rate: 200 ml/hr; Infused bp Over: 30 mins; Site: left antecubital; 14:00 Drug: Cefepime IVPB 1 grams Route: IVPB; Rate: 200 ml/hr; Infused Over: 30 mins; Site: bp left antecubital; Medication: 18:26 VIS not applicable for this client. db Outcome: 13:43 Decision to Hospitalize by Provider. [facility] 18:26 Admitted to ER Hold. Please see [facility] for further documentation. db 18:26 Condition: stable 18:26 Instructed on the need for admit. 18:44 Patient left the ED. bp Signatures: Dispatcher [employer] EDMS Derrick Franklin PA PA jmm Williams, Irene, RN RN iw Hall, Patricia, RN RN ph Garcia, Rubi rg4 Sigifredo Lerma RN RN bp Dunlop, Stephanie, MD MD sd2 Tamiko Delcid RN RN db
--- NOTE | 2022-10-04 13:44 | EDPHYS ---
Physician Documentation [facility] Name: Bertha Sherwood Age: 77 yrs Sex: Female : 1945 Arrival Date: 10/04/2022 Time: 10:54 Bed 7 Private MD: ED Physician Kinsey Griffiths HPI: 10/04 11:04 This 77 yrs old Female presents to ER via Ambulatory with complaints of jmm Abdominal Pain. 11:04 The patient presents with abdominal pain in the epigastric area. Onset: The jmm symptoms/episode began/occurred gradually, 3 day(s) ago. This is a 77-year-old female with history of breast cancer, GERD, hyperlipidemia, hypertension the presents emerged part with complaints of ongoing abdominal pain nausea and vomiting. Patient was diagnosed on the eighth with pyelonephritis and colitis. Patient states she continues to have pain. Patient is having difficulty tolerating p.o.. Historical: - Allergies: 11:09 Codeine; iw - PMHx: 11:09 Cancer, Breast; GERD; Hernia; Hyperlipidemia; Hypertension; Hypothyroidism; iw - PSHx: 11:09 hernia; hernia mesh; possibly had an appendectomy; iw - Immunization history:: Client reports receiving the 2nd dose of the Covid vaccine. - Social history:: Smoking status: Patient denies any tobacco usage or history of. ROS: 11:04 Constitutional: Negative for fever, chills, and weight loss, Cardiovascular: Negative jmm for chest pain, palpitations, and edema, Respiratory: Negative for shortness of breath, cough, wheezing, and pleuritic chest pain. 11:04 Abdomen/GI: Positive for abdominal pain, nausea and vomiting, diarrhea. 11:04 All other systems are negative. Exam: 11:04 Constitutional: This is a well developed, well nourished patient who is awake, alert, jmm and in no acute distress. Head/Face: atraumatic. Eyes: EOMI, no conjunctival erythema appreciated ENT: Moist Mucus Membranes Neck: Trachea midline, Supple Chest/axilla: Normal chest wall appearance and motion. Cardiovascular: Regular rate and rhythm. No edema appreciated Respiratory: Normal respirations, no respiratory distress appreciated 11:04 Back: Normal ROM Skin: General appearance color normal MS/ Extremity: Moves all extremities, no obvious deformities appreciated, no edema noted to the lower extremities Neuro: Awake and alert Psych: Behavior is normal, Mood is normal, Patient is cooperative and pleasant 11:04 Abdomen/GI: Inspection: abdomen appears normal, Bowel sounds: normal, Palpation: soft, mild abdominal tenderness, in all quadrants. Vital Signs: 11:07 BP 129 / 83; Pulse 82; Resp 16; Temp 97.2; Pulse Ox 100% on R/A; Weight 72.57 kg; iw Height 5 ft. 3 in. ; Pain 6/10; 12:32 BP 131 / 73; Pulse 80; Resp 16; Pulse Ox 99% ; bp 14:00 BP 125 / 76; Pulse 81; Resp 16; Pulse Ox 99% on R/A; db 15:00 BP 145 / 85; Pulse 83; Resp 18; Pulse Ox 99% on R/A; db 11:07 Body Mass Index 28.34 (72.57 kg, 160.02 cm) iw 11:07 Pain Scale: Adult iw MDM: 11:04 Patient medically screened. [facility] 14:12 Differential diagnosis: diverticulitis, non-specific abd pain, pancreatitis. Data [facility] reviewed: vital signs, nurses notes, lab test result(s), radiologic studies, CT scan. Consideration of Admission/Observation Patient was admitted/placed on observation. Escalation of care including admission/observation considered. Management of patient was discussed with the following: Hospitalist: Dr. Pereira. I considered the following discharge prescriptions or medication management in the emergency department Medications were administered in the Emergency Department. See MAR. Counseling: I had a detailed discussion with the patient and/or guardian regarding: the historical points, exam findings, and any diagnostic results supporting the discharge/admit diagnosis, lab results, radiology results, the need for further work-up and treatment in the hospital. 10/04 11:13 Order name: CBC with Diff; Complete Time: 13:04 [facility] 10/04 11:13 Order name: CMP; Complete Time: 12:01 [facility] 10/04 11:13 Order name: Lipase; Complete Time: 12:01 [facility] 10/04 13:02 Order name: Manual Differential; Complete Time: 13:04 [facility] 10/04 14:01 Order name: C.difficile GDH Ag [facility] 10/04 14:01 Order name: Urinalysis w/ reflexes [facility] 10/04 14:01 Order name: CBC with Automated Diff [facility] 10/04 14:01 Order name: CBC with Automated Diff [facility] 10/04 14:01 Order name: Comprehensive Metabolic Panel [facility] 10/04 14:01 Order name: Comprehensive Metabolic Panel [facility] 10/04 14:01 Order name: Magnesium [facility] 10/04 14:01 Order name: Magnesium [facility] 10/04 14:01 Order name: Phosphorus [facility] 10/04 14:01 Order name: Phosphorus [facility] 10/04 14:01 Order name: Procalcitonin [facility] 10/04 14:01 Order name: Procalcitonin [facility] 10/04 14:01 Order name: Fecal Leukocyte Stain [facility] 10/04 14:01 Order name: Stool Culture [facility] 10/04 11:13 Order name: CT Abd/Pelvis - IV Contrast Only; Complete Time: 12:15 [facility] 10/04 14:01 Order name: Heart Healthy [facility] 10/04 11:13 Order name: IV Saline Lock; Complete Time: 11:24 [facility] 10/04 11:13 Order name: Labs collected and sent; Complete Time: 11:24 [facility] Administered Medications: 11:41 Drug: NS 0.9% IV 1000 ml Route: IV; Rate: 1 bolus; Site: left antecubital; db 11:41 Drug: Ondansetron IVP 4 mg Route: IVP; Site: left antecubital; db 12:46 Follow up: Response: No adverse reaction bp 11:41 Drug: morphine IVP or IV 4 mg Route: IVP; Infused Over: 4 mins; Site: left antecubital; db 12:46 Follow up: Response: No adverse reaction bp 13:31 Drug: Potassium PO Effervescent Tablet 50 mEq Route: PO; ph 13:31 Follow up: Response: No adverse reaction ph 14:00 Drug: metroNIDAZOLE IVPB 500 mg Volume: 100 ml; Route: IVPB; Rate: 200 ml/hr; Infused bp Over: 30 mins; Site: left antecubital; 14:00 Drug: Cefepime IVPB 1 grams Route: IVPB; Rate: 200 ml/hr; Infused Over: 30 mins; Site: bp left antecubital; Disposition Summary: 10/04/22 13:43 Hospitalization Ordered Hospitalization Status: Observation jm Provider: Silvestre Pereira Condition: Stable jmm Problem: new jmm Symptoms: are unchanged jm Bed/Room Type: Standard [facility] Location: Telemetry/MedSurg (Inpatient)(10/04/22 18:04) iw Room Assignment: 219(10/04/22 18:04) Diagnosis - Colitis jmm - Failed Outpatient Therapy [facility] Forms: - Medication Reconciliation Form jmm - SBAR form jm Addendum: 10/06/2022 19:06 STAFF ATTESTATION: The patient's history, exam findings, diagnostics and a summary of s d2 any interventions or procedures was reviewed in detail with the ED TERRY. I confirm the diagnosis as documented by the TERRY and I agree with the care plan articulated in the disposition section with regards to our discussion of the patient's case. Kinsey Griffiths MD. Signatures: Dispatcher [employer] EDMS Derrick Franklin PA PA Krysten Puckett, RN RN iw Marti Butt RN RN Sigifredo Lerma RN RN bp Kinsey Griffiths MD MD sd2 Tamiko Delcid RN RN db Corrections: (The following items were deleted from the chart) 10/04 15:38 13:43 Telemetry/MedSurg (observation) [facility] bp 15:38 13:43 [facility] bp 18:04 15:38 [facility] ER HOLD bp iw 18:04 15:38 ERHOLD- bp iw
[2022-10-04] MEDS ORDERED: ACETAMINOPHEN 500 MG TAB PO PRN (13:55)
[2022-10-04] MEDS ORDERED: PROMETHAZINE 25 MG/SUPP PR PRN (13:55)
[2022-10-04] MEDS ORDERED: ALPRAZOLAM 0.25 MG TABLET PO PRN (13:55)
[2022-10-04] MEDS ORDERED: ONDANSETRON 4 MG/2 ML VIAL IV PRN (13:55)
[2022-10-04] MEDS: NA CHLORIDE 0.9% 1,000 ML IV SCH (14:00)
[2022-10-04] MEDS ORDERED: CEFEPIME 1 GM/VIAL ONE (14:02)
[2022-10-04] MEDS ORDERED: METRONIDAZOLE 500mg IVPB 500 MG/100 ML BAG IV ONE (14:02)
[2022-10-04] MEDS ORDERED: NA CHLORIDE 0.9% 100 ML ONE ×2 (14:02→18:22)
[2022-10-04] MEDS: ENOXAPARIN 40 MG/0.4 ML SQ SCH (15:00)
[2022-10-04 15:38] VITALS: BMI 28.3
[2022-10-04] MEDS: PIPER TAZO 3.375 GM in NA CHLORIDE 0.9% 100 ML IV SCH (17:00)
[2022-10-04] MEDS ORDERED: ENOXAPARIN 40 MG/0.4 ML SQ ONE (17:12)
[2022-10-04] MEDS ORDERED: PIPERACIL/TAZO 3.375 GM VIAL IV ONE (18:22)
[2022-10-04 18:52] VITALS: O2SAT 99
[2022-10-04] MEDS ORDERED: POTASSIUM CL SA 10 MEQ TAB PO ONE (20:00)
--- NOTE | 2022-10-04 22:57 | P.HP ---
Certification for Inpatient Patient admitted to: Observation With expected LOS: <2 Midnights Patient will require the following post-hospital care: None Practitioner: I am a practitioner with admitting privileges, knowledge of patient current condition, hospital course, and medical plan of care. Services: Services provided to patient in accordance with Admission requirements found in Title 42 Section 412.3 of the Code of Federal Regulations Patient History Date of Service: 10/04/22 Reason for admission: Abdominal pain and intractable nausea and vomiting History of Present Illness: patient is a 77-year-old female who presents to the emergency room with abdominal pain along with intractable nausea and vomiting. Patient states that she was air on October 01 with similar complaints. She was treated for colitis and pyelonephritis. She continues to have abdominal pain. She decided to come back to the emergency room. CT scan did not reveal any significant abnormality. At this time, patient will be admitted to the hospital for further evaluation. Repeat CT scan does not show any significant abnormalities. Lab workup does not show any significant abnormalities. When I saw patient she states she was feeling better. She tolerated her diet and clinically she is appearing to do well. At this time she will be admitted for observation. Allergies codeine [Codeine] Allergy (Mild, Verified 04/20/20 13:03) migraines, N/V Home Medications: Atorvastatin Calcium [Lipitor*] 10 mg PO DAILY 05/06/17 Cranberry Conc/Ascorbic Acid [Cranberry Plus Vitamin C Sftgl] 4,200 mg PO DAILY 05/06/17 Fluticasone/Salmeterol [Advair 250-50 Diskus] 1 puff IH PRN PRN 05/06/17 Levothyroxine [Synthroid*] 0.1 mg PO DAILY 05/06/17 Sertraline [Zoloft*] 50 mg PO PRN 05/06/17 Travoprost [Travatan Z*] 1 drop OPTH DAILY 05/06/17 clonazePAM [Klonopin*] 0.5 mg PO BEDTIME PRN 05/06/17 hydroCHLOROthiazide [Hydrochlorothiazide*] 1 tab PO DAILY 05/06/17 Benzonatate [Tessalon Perle*] 200 mg PO TID PRN #20 cap 05/08/17 Cyclobenzaprine [Flexeril*] 1 tab PO BID 11/01/18 Diclofenac Na [Voltaren D.r*] 75 mg PO DAILY 11/01/18 Pantoprazole [Protonix Tab*] 1 tab PO DAILY 11/01/18 lisinopriL [Lisinopril] 10 mg PO DAILY 11/01/18 Acidophilus/Bulgaricus [Lactinex Tablet Chewable] 1 each PO BID #60 tab.chew Vancomycin HCl [Vancocin HCl] 125 mg PO Q6HR #40 capsule 11/04/18 - Past Medical/Surgical History Has patient received pneumonia vaccine in the past: Yes -: HLD -: HTN -: Hypothryoidism -: Breast CA 88 -: Hernia -: Arthritis -: Collapsed discs -: R Mastectomy 88 -: Tubal ligation -: Bladder lift -: Hernia Repair - Family History Father Family History: Reviewed- Non-Contributory - Social History Smoking Status: Never smoker Alcohol use: No CD- Drugs: No Place of Residence: Home Review of Systems 10-point ROS is otherwise unremarkable Physical Examination - Vital Signs Temperature: 97.2 F Blood Pressure: 140/87 Pulse: 90 Respirations: 16 Pulse Ox (%): 96 - Physical Exam General: Alert, In no apparent distress, Oriented x3 HEENT: Atraumatic, PERRLA, Mucous membr. moist/pink, EOMI, Sclerae nonicteric Neck: Supple, 2+ carotid pulse no bruit, No LAD, Without JVD or thyroid abnormality Respiratory: Clear to auscultation bilaterally, Normal air movement Cardiovascular: Regular rate/rhythm, Normal S1 S2, No murmurs Gastrointestinal: Normal bowel sounds, Soft and benign, Non-distended, No tenderness, No rebound, No guarding Musculoskeletal: No clubbing, No swelling, No tenderness Integumentary: No rashes Neurological: Normal gait, Normal speech, Normal strength at 5/5 x4 extr, Normal tone, Sensation intact, Cranial nerves 3-12 intact, Normal affect Lymphatics: No axilla or inguinal lymphadenopathy - Studies Laboratory Data (last 24 hrs) 10/04/22 11:23: Sodium 138, Potassium 3.0 L, BUN 12, Creatinine 0.78, Glucose 143 H, Total Bilirubin 0.4, AST 25, ALT 29, Alkaline Phosphatase 124 H, Lipase 4 0 10/04/22 11:23: WBC 10.50, Hgb 9.3 L, Hct 29.2 L, Plt Count 491 H Assessment & Plan - Problems (Diagnosis) (1) Abdominal pain Current Visit: Yes Status: Acute (2) Nausea and vomiting Current Visit: Yes Status: Acute (3) Diverticulitis Current Visit: Yes Status: Acute - Plan -aggressive IV hydration -IV antibiotics -outpatient colonoscopy -pain controlled -stool studies -monitor for possible perforation -surgery consultation if pain does not improve -CT abdomen pelvis reviewed; Discharge Plan: Home Plan to discharge in: 24 Hours - Advance Directives Does patient have a Living Will: No Does patient have a Durable POA for Healthcare: No - Code Status/Comfort Care Code Status Assessed: Yes Code Status: Full Code Critical Care: No Time Spent Managing PTS Care (In Minutes): 45
[2022-10-05] MEDS ORDERED: PIPERACIL/TAZO 3.375 GM VIAL IV ONE (01:04)
[2022-10-05] MEDS: METHYLPREDNISOLONE 40 MG INJ IV SCH ×2 (01:05→05:24)
[2022-10-05] MEDS: PIPER TAZO 3.375 GM in NA CHLORIDE 0.9% 100 ML IV SCH ×2 (01:05→08:45)
[2022-10-05 03:34] LABS: Absolute Lymphocytes (CBC) 1.1 K/uL (0.7-4.9); Hematocrit 28.6 % (36.0-45.0); Lymphocytes % 13.3 % (15.3-44.8); MCV 83.1 fL (80-100); MPV 6.7 fL (7.6-11.3); RBC Red Blood Cell Count 3.45 M/uL (3.86-4.86)
[2022-10-05 03:52] LABS: Albumin 2.4 g/dL (3.4-5.0); Bilirubin Total 0.4 mg/dL (0.2-1.0); Magnesium 1.7 mg/dL (1.6-2.4); Potassium 3.9 mEq/L (3.5-5.1); Protein, Total 6.6 g/dL (6.4-8.2)
[2022-10-05 04:01] LABS: Phosphorus 1.5 mg/dL (2.5-4.9)
[2022-10-05] MEDS: NA CHLORIDE 0.9% 1,000 ML IV SCH ×2 (04:39→16:40)
[2022-10-05] MEDS ORDERED: SODIUM PHOSPHATE 30 MM in NA CHLORIDE 0.9% 500 ML IV ONE (07:00)
[2022-10-05] MEDS ORDERED: POTASS/SODIUM PHOSPHATE 1 PKT POWD.PACK PO SCH (08:00)
[2022-10-05] MEDS: ENOXAPARIN 40 MG/0.4 ML SQ SCH (08:45)
--- NOTE | 2022-10-05 08:46 | RAD REPORT ---
EXAM DESCRIPTION: US - Abdomen Exam Complete - 10/05/2022 8:34 am CLINICAL HISTORY: elevated LFTS COMPARISON: Abdomen Pelvis W Contrast dated 10/04/2022; Abdomen Pelvis W Contrast dated 11/01/2018 FINDINGS: No aortic aneurysm. The liver has a homogeneous echotexture. The portal vein is patent. The IVC at the level of the liver is unremarkable. No ascites. Cholecystectomy No biliary ductal dilatation. The pancreas was grossly unremarkable. The right kidney measures 10.6 cm normal echotexture. No hydronephrosis. Simple cyst in the right int erpolar kidney. The left kidney measures 10.4 cm with a normal echotexture. No hydronephrosis. Septated cyst in the l ower pole the left kidney is similar in size to 11/01/2018 CT and benign. The spleen is unremarkable. IMPRESSION: 1. Cholecystectomy. No biliary duct dilatation. 2. Simple right and minimally complicated left renal cyst. No hydronephrosis.
[2022-10-05] MEDS ORDERED: POTASSIUM CL SA 10 MEQ TAB PO ONE (09:00)
[2022-10-05] MEDS ORDERED: MAGNESIUM SULFATE 1 gm IVPB 1 GM/100 ML BAG IV ONE (09:00)
[2022-10-05 11:23] LABS: Absolute Lymphocytes (CBC) 0.7 K/uL (0.7-4.9); Hematocrit 29.8 % (36.0-45.0); Lymphocytes % 8.3 % (15.3-44.8); MCV 83.7 fL (80-100); MPV 6.9 fL (7.6-11.3); RBC Red Blood Cell Count 3.56 M/uL (3.86-4.86)
[2022-10-05 12:15] LABS: Albumin 2.5 g/dL (3.4-5.0); Bilirubin Total 0.3 mg/dL (0.2-1.0); Potassium 4.1 mEq/L (3.5-5.1); Protein, Total 6.7 g/dL (6.4-8.2)
[2022-10-05 12:22] LABS: Phosphorus 12.9 mg/dL (2.5-4.9)
[2022-10-05 13:15] LABS: Blood Morphology Comment NOT SEEN (NOT SEEN); Platelet Estimate ADEQ; White Blood Cell Scan OK (OK)
[2022-10-05 18:16] VITALS: BP 133/74; TEMP 98.2
== END 2022-10-05 18:28 | disposition home or self-care (01) ==
LOC: ER 10:54 → ERHOLD 13:56 → INTOOBSV 13:56 → 2ND 18:23
PROVIDERS: ADMIT Hospitalist; ATTEND Hospitalist
DX: K57.92 Diverticulitis of intestine, part unspecified, without perforation or abscess without bleeding (principal); R10.9 Unspecified abdominal pain; R11.2 Nausea with vomiting, unspecified; Z88.6 Allergy status to analgesic agent; Z85.3 Personal history of malignant neoplasm of breast
CPT/HCPCS: 85025 ×3; 36415; 83735; 84100 ×4; 83690 ×2; 80053 ×3; 84145; 74177; 76700; 96375; 96374; 99285; Q9967; J3475; J2543 ×3; J1650 ×2; J2405; J7040; J7030 ×3; J0692; J2920 ×2; G0378 ×4